=== PATIENT | male | born 1960 | race Caucasian/White ===

== ENCOUNTER 2018-01-11 08:03 | Observation (INO) ==
[2018-01-11 08:29] LABS: Basophils # 0.1 K/mm3 (0-0.2); Basophils % 0.5 % (0.1-2.0); Eosinophils # 0.2 K/mm3 (0.0-0.4); Hematocrit 47.1 % (42.0-52.0); Hemoglobin 15.4 g/dL (14.1-18.0); Lymphocytes # 2.8 K/mm3 (0.7-4.5); Lymphocytes % 23.9 K/mm3 (10-50); Mean Corpuscular HGB Conc 32.6 g/dL (31.8-35.4); Mean Corpuscular Hemoglobin 30.7 pg (27.0-31.2); Mean Corpuscular Volume 94.1 fl (80-94); Mean Platelet Volume 7.3 fl (7.4-10.4); Monocytes # 0.6 K/mm3 (0.1-1.0); Monocytes % 4.9 % (1.7-9.3); Neutrophils # 8.2 K/mm3 (1.8-7.8); Neutrophils % 68.8 % (37.0-80.0); Platelet Count 453 K/mm3 (142-424); White Blood Count 11.9 K/mm3 (4.8-10.8)
[2018-01-11 08:43] LABS: Alanine Aminotransferase 18 U/L (12-78); Albumin/Globulin Ratio 1.2 (1.1-1.8); Alkaline Phosphatase 97 U/L (46-116); Anion Gap 14.8 mEq/L (5-15); Aspartate Amino Transferase 10 U/L (15-37); Bilirubin,Total 0.5 mg/dL (0.2-1.0); Blood Urea Nitrogen 5 mg/dL (7-18); Calcium 9.6 mg/dL (8.5-10.1); Carbon Dioxide 23 mmol/L (21.0-32.0); Chloride 105 mmol/L (98-107); Globulin 3.4 gm/dl (1.3-3.2); Glucose 112 mg/dL (74-106); Sodium 140 mmol/L (136-145); Total Protein,Serum 7.4 gm/dL (6.4-8.2)
[2018-01-11 08:45] LABS: Potassium 2.8 mmoL/L (3.5-5.1)
--- NOTE | 2018-01-11 08:59 | Emergency Department Note ---
ED Disposition Clinical Impression: COPD (chronic obstructive pulmonary disease), Nausea vomiting and diarrhea, Hypokalemia, Dehydration, New onset left bundle branch block (LBBB), Atypical chest pain Disposition: Still a Patient Condition on Discharge: Fair Referrals: Mallika Rojas [Primary Care Provider] - - Critical Care Critical Care Time: No Attestation: On 01/11/18, the high probability of a clinically significant, sudden or life threatening deterioration of the following system(s) required my full and direct attention, intervention and personal management. The time I documented below is in addition to time spent performing reported procedures but includes the following listed in this critical care notation. Medical Decision Making - Juwan Inquiry Pt receiving controlled substance: No Juwan was queried for this patient: No Vital Signs: 01/11/18 08:08 01/11/18 08:35 01/11/18 09:29 Temperature 97.9 F Temperature Source Oral Pulse Rate [Left Radial] 81 65 78 Respiratory Rate 20 18 18 Blood Pressure [Right Arm] 143/95 149/89 146/93 Blood Pressure Mean [Right Arm] 111 109 110 Blood Pressure Source [Right Arm] Automatic Cuff Automatic Cuff Automatic Cuff Blood Pressure Position [Right Arm] Sitting Sitting Sitting 02 Sat by Pulse Oximetry 100 99 99 Oxygen Delivery Method Room Air Room Air Room Air - Lab Data Lab Results 01/11/18 08:15: WBC 11.9 H, RBC 5.00, Hgb 15.4, Hct 47.1, MCV 94.1 H, MCH 30.7, MCHC 32.6, RDW 13.0, Plt Count 453 H, MPV 7.3 L, Neut % (Auto) 68.8, Lymph % ( Auto) 23.9, [place] % (Auto) 4.9, Eos % (Auto) 2.0, Baso % (Auto) 0.5, Neut # (Auto ) 8.2 H, Lymph # (Auto) 2.8, [place] # (Auto) 0.6, Eos # (Auto) 0.2, Baso # (Auto) 0.1 01/11/18 08:15: Sodium 140, Potassium 2.8 L*, Chloride 105, Carbon Dioxide 23, Anion Gap 14.8, BUN 5 L, Creatinine 0.85, Estimated Creat Clear 87, Estimated GFR 92, Est GFR ( Amer) 112, Glucose 112 H, Calcium 9.6, Total Bilirubin 0.5, AST 10 L, ALT 18, Alkaline Phosphatase 97, Troponin I < 0.02, Total Protein 7.4, Albumin 4.0, Globulin 3.4 H, Albumin/Globulin Ratio 1.2 01/11/18 09:03: Magnesium 1.7, Total Creatine Kinase 120, CK-MB (CK-2) 1.4, CK- MB (CK-2) Rel Index 1.2, Troponin I < 0.02 01/11/18 09:03: Lactic Acid 1.1 Result diagrams: 01/11/18 08:15 01/11/18 08:15 Orders (Tests/Meds): ED MEDICATIONS Discontinued Medications Generic Name Dose Route Start Last Admin Trade Name Freq PRN Reason Stop Dose Admin Sodium Chloride 1,000 mls @ 999 mls/hr 01/11/18 08:45 01/11/18 08:43 Sod Chlor 0.9% 1000ml Bag IV 01/11/18 09:45 999 mls/hr .Q1H1M JORGE ALBERTO Administration Ondansetron HCl 4 mg 01/11/18 08:17 01/11/18 08:18 Zofran 4mg/2ml Vial IV 01/11/18 08:18 4 mg ONCE ONE Administration Potassium Chloride 40 meq 01/11/18 09:14 01/11/18 09:44 Klor-Con 20meq Tablet PO 01/11/18 09:15 40 meq ONCE ONE Administration ORDERS Category Date Time Status CT abdomen pelvis wo con Stat Cat Scan 01/11/18 08:52 Taken XR chest 2V Stat Exams 01/11/18 08:14 Taken Diarrhea Panel, PCR Stat Lab 01/11/18 08:52 Ordered - Radiology Data #1 Image(s): Chest Image Reviewed: Yes I reviewed the patient's radiology image Preliminary Findings: Normal/NAD copd no acute . - CT Data CT Scan: Abdomen, Pelvis Time Received: 09:[address] Reviewed: Yes: I have viewed the radiologist's interpretation Preliminary Findings: Abnormal Findings Narrative: see report. - ECG Data Tracing #1 Normal sinus rhythm 81/min left axis deviation baseline artifact new left bundle branch block and comparison to the EKG done on 12/21/2009. Later the patient was found to have a potassium of 2.8. ECG initial impression date: 01/11/18 ECG initial impression time: 08:15 Medical Decision Narrative: Patient was given antiemetics IV fluids with moderate control he continues to be nauseous. His potassium was 2.8 he has a new onset left bundle branch block I spoke with Dr. Flores who accepted to admit the patient for IV fluids potassium replacement and a cardiology consult. He was agreeable for admission. Nausea/Vomiting/Diarrhea HPI - General Chief complaint: Chest Pain Stated complaint: burning feeling in chest, insomnia, vomiting, dire Time Seen by Provider: 01/11/18 08:15 Mode of Arrival: Wheelchair Limitations: No Limitations Description of Symptoms (Recalled from ER Triage Doc. by RN): Pt states that he has chest burning that started a few days ago, with some tingling in his legs and arms.He has been unable to sleep for the last two nights, States he has had vomiting since Thursday - History of Present Illness HPI Narrative: 57 years old white male smoker with chronic hypertension noncompliant with medication, also he is a chronic pain syndrome with TENS unit for low back pain DJD of the cervical spine and 3 rotator cuff surgeries to the left shoulder most recent was 5 months ago on [place] gram. Patient presents today to the ED with a sense of numbness involving lower extremities extremities with elevated [place] blood pressure was 149/89 mmhg and vomiting that started 48 hours ago every 15 minutes accompanied by diarrhea without abdominal pain. He denies having hematemesis coffee-ground emesis melanotic stool bleeding per rectum dyspnea. He admits for having numb feeling in the retrosternal area radiating to the right side of the chest. He has been unable to tolerate p.o. intake or take his medication. He denies weakness, dysarthria or dysphagia or diplopia. He denies loss of urine or bowel control. he has no color changes of upper or lower extremities or loss of function. MD complaint: nausea, vomiting, diarrhea Onset (ago): day(s) (2 days.) Description of Vomiting: food contents, watery Description of Diarrhea: water Associated Abdominal Pain: No Relieving factors: none Exacerbating factors: none Associated symptoms: other (Numbness of the hands and face and retrosternal numbness. ) - Related Data Home Medications Medication Instructions Recorded Confirmed Hydrocod/Acet 5/325 mg [[place] 1 - 2 tab PO Q4HP PRN 01/11/18 01/11/18 5/325mg tablet] Allergies Allergy/AdvReac Type Severity Reaction Status Date / Time codeine [CODEINE] Allergy Intermediate Verified 11/20/17 19:45 ibuprofen [IBUPROFEN] Allergy Mild NA-NAUSEA Verified 11/20/17 19:45 oxycodone [OXYCODONE] Allergy Unknown UNKNOWN Verified 11/20/17 19:45 [facility] History I have reviewed the patient's past medical history: Yes (History was obtained from the patient. ) Medical History: Denies:: Cancer, Diabetes Mellitus Type 1, Diabetes Mellitus Type 2, MRSA Laterality Cases: Left: Arthroscopy Shoulder Amputation: No Fractures: No - Social History Smoking Status: Current every day smoker Tobacco Type: cigarettes # Packs/Day (cigarettes): 1 Alcohol Intake: never - Psychiatric History Expresses thoughts of harming self/others: None Suicide Plan Description: No Plan ROS Obtained: Yes All systems reviewed & no additional complaints Physical Exam - General General appearance: alert, in no apparent distress - Head Head exam: atraumatic, normocephalic, normal inspection - Eye Eye exam: Present: normal appearance, PERRL, EOMI - ENT ENT exam: Present: normal exam, normal oropharynx, mucous membranes dry, TM's normal bilaterally, normal external ear exam, other (Very dry and white tongue.) - Neck Neck exam: Present: normal inspection, full ROM, trachea midline. Absent: meningismus, lymphadenopathy - Chest Chest inspection: Present: normal inspection, symmetric chest wall rise. Absent : tenderness - Respiratory Respiratory exam: Present: normal lung sounds bilaterally. Absent: respiratory distress - Cardiovascular Cardiovascular exam: Present: regular rate, normal rhythm. Absent: JVD - Abdominal Exam Abdominal exam: Present: soft, normal bowel sounds. Absent: distention, tenderness, guarding, rebound, rigidity - exam: Present: normal inspection, normal testicular lie, circumcised. Absent : testicular tenderness, urethral discharge, scrotal swelling - Extremities Exam Extremities exam: Present: normal inspection, full ROM, normal capillary refill. Absent: calf tenderness - Back Exam Back exam: Present: normal inspection. Absent: tenderness, CVA tenderness (R), CVA tenderness (L), vertebral tenderness - Neurological Exam Neurological exam: Present: alert, oriented X3, CN II-XII intact, motor sensory deficit, reflexes normal, other (Motor power is 5/5, intact finger to nose test , no tremor) - Psychiatric Psychiatric exam: Present: normal affect, normal mood - Skin Skin exam: Present: warm, dry, intact, normal color, other (Refill is 1-2 seconds.) - Lymphatic Lymphatic Findings: no adenopathy
[2018-01-11 09:35] LABS: Creatine Kinase 120 U/L (39-308)
--- NOTE | 2018-01-11 10:51 | Pharmacy Consult Notes ---
[facility] Pharmacy VTE Monitoring - Patient Demographics Admission date: 01/11/18 Report Date: 01/11/18 Time: 10:50 Allergies/Adverse Reactions: Patient Allergies codeine [CODEINE] Allergy (Intermediate, Verified 11/20/17 19:45) ibuprofen [IBUPROFEN] Allergy (Mild, Verified 11/20/17 19:45) NA-NAUSEA oxycodone [OXYCODONE] Allergy (Unknown, Verified 11/20/17 19:45) UNKNOWN Height: 1.75 m Weight: 65.771 kg Patient Problems: Current Active Problems COPD (chronic obstructive pulmonary disease) (Acute) Nausea vomiting and diarrhea (Acute) Hypokalemia (Acute) Dehydration (Acute) New onset left bundle branch block (LBBB) (Acute) Atypical chest pain (Acute) - VTE Risk Labs: VTE Related Lab Results Hgb 15.4 g/dL (14.1-18.0) 01/11/18 08:15 Hct 47.1 % (42.0-52.0) 01/11/18 08:15 Plt Count 453 K/mm3 (142-424) H 01/11/18 08:15 BUN 5 mg/dL (7-18) L 01/11/18 08:15 Creatinine 0.85 mg/dL (0.70-1.30) 01/11/18 08:15 Estimated Creat Clear 87 mL/min (0-300) 01/11/18 08:15 - Prophylaxis VTE Prophylaxis Ordered?: Yes Types of VTE Prophylaxis: TEDS Knee High Location of Applied Device: Bilateral Lower Extremeties - VTE Diagnosis Confirmed Treatment or plan recommended: Continue Current Treatment
--- NOTE | 2018-01-11 11:30 | Consult Report ---
History of Present Illness Consult date: 01/11/18 Requesting physician: Wolfgang Cantu Consult reason: chest pain Chief complaint: Vomiting, Diarrhea, chest burning sensation Additional Medical History:: 1. Tobacco use of 1 pack per day for greater than 40 years 2. History of hypertension, discontinued medications due to "elevated pressure " per patient 3. Tens unit for chronic back pain History of present illness: 57-year-old white male with history of hypertension and tobacco use presented to the emergency department for 2 day history of nausea, vomiting and diarrhea with inability to keep food down. Symptoms have worsened and include a burning sensation in the chest along with discomfort in both arms. Patient's fianc is with him and states he has been drinking quite a bit of Gatorade but symptoms seem to worsen last evening which prompted a his visit to the ER. Evaluation in the ER included EKG which showed a left bundle branch block which was new compared to a 2010 tracing. Patient denies any history of left bundle branch block or cardiac problems. He recently had his TENS unit placed in [place] and reportedly had an EKG there without alarm. We will try to obtain that EKG for comparison. Patient's initial troponins are normal 2. He denies any exertional chest pain or shortness of breath recently. The fianc relates she had a GI illness last week and believes that the patient contracted it from her. Cardiology consulted for evaluation and recommendation of new left bundle branch block compared to 2010 tracing. [facility] History Medical History: Reports:: Cancer (bladder) Denies:: Diabetes Mellitus Type 1, Diabetes Mellitus Type 2, MRSA Laterality Cases: Left: Arthroscopy Shoulder Other Surgeries: Yes: Other (back (tens unit)) Amputation: No Fractures: No - *Social History Educational Level: Attended High School Smoking Status: Current every day smoker Tobacco Type: cigarettes # Packs/Day (cigarettes): 1 Alcohol Intake: former Occupational Status: disabled Household Members: significant other - Psychiatric History Expresses thoughts of harming self/others: None Suicide Plan Description: No Plan *Family Hx:: Cancer, Diabetes Meds Home Medications Medication Instructions Recorded Confirmed Type Hydrocod/Acet 5/325 mg [[place] 1 - 2 tab PO Q4HP PRN 01/11/18 01/11/18 History 5/325mg tablet] Allergies Allergy/AdvReac Type Severity Reaction Status Date / Time codeine [CODEINE] Allergy Intermediate Verified 11/20/17 19:45 ibuprofen [IBUPROFEN] Allergy Mild NA-NAUSEA Verified 11/20/17 19:45 oxycodone [OXYCODONE] Allergy Unknown UNKNOWN Verified 11/20/17 19:45 Review of Systems - *Cardiovascular Reports chest pain, Reports shortness of breath with activity - *Respiratory Reports shortness of breath with activity - *Gastrointestinal Reports heartburn, Reports vomiting - *Musculoskeletal Reports back pain - *Neurologic Denies abnormal movements, Denies abnormal speech Exam Vital signs and Labs for Last 24 Hours: Temp Pulse Resp BP Pulse Ox 98.4 F 71 20 142/90 99 01/11/18 10:58 01/11/18 10:58 01/11/18 10:58 01/11/18 10:58 01/11/18 10:48 Laboratory Results - last 24 hr 01/11/18 08:15: WBC 11.9 H, RBC 5.00, Hgb 15.4, Hct 47.1, MCV 94.1 H, MCH 30.7, MCHC 32.6, RDW 13.0, Plt Count 453 H, MPV 7.3 L, Neut % (Auto) 68.8, Lymph % ( Auto) 23.9, [place] % (Auto) 4.9, Eos % (Auto) 2.0, Baso % (Auto) 0.5, Neut # (Auto ) 8.2 H, Lymph # (Auto) 2.8, [place] # (Auto) 0.6, Eos # (Auto) 0.2, Baso # (Auto) 0.1 01/11/18 08:15: Sodium 140, Potassium 2.8 L*, Chloride 105, Carbon Dioxide 23, Anion Gap 14.8, BUN 5 L, Creatinine 0.85, Estimated Creat Clear 87, Estimated GFR 92, Est GFR ( Amer) 112, Glucose 112 H, Calcium 9.6, Total Bilirubin 0.5, AST 10 L, ALT 18, Alkaline Phosphatase 97, Troponin I < 0.02, Total Protein 7.4, Albumin 4.0, Globulin 3.4 H, Albumin/Globulin Ratio 1.2 01/11/18 09:03: Magnesium 1.7, Total Creatine Kinase 120, CK-MB (CK-2) 1.4, CK- MB (CK-2) Rel Index 1.2, Troponin I < 0.02 07/16/18 09:03: Lactic Acid 1.1 I & O for Last 24 hours: Intake & Output 01/08/18 01/09/18 01/10/18 01/11/18 11:59 11:59 11:59 11:59 Weight 145 lb - *Routine Neck Exam Absent: JVD, carotid bruit - *Routine Respiratory Exam Present: CTA bilaterally. Absent: rhonchi, wheezes - *Routine Cardiovascular Exam Present: RRR. Absent: murmur, gallop, rubs - *Routine Abdominal Exam Present: soft. Absent: guarding - *Routine Extremities Exam Absent: edema - *Routine Neurological Exam Present: alert, oriented X3, moving all extremities Assessment and Plan (1) New onset left bundle branch block (LBBB) Current visit: Yes Status: Acute Category: Medical Code(s): I44.7 - Left bundle-branch block, unspecified (2) Atypical chest pain Current visit: Yes Status: Acute Category: Medical Code(s): R07.89 - Other chest pain (3) Smoker Current visit: Yes Status: Acute Category: Social Hx Code(s): F17.200 - Nicotine dependence, unspecified, uncomplicated (4) Hypokalemia Current visit: Yes Status: Acute Category: Medical Code(s): E87.6 - Hypokalemia (5) Nausea vomiting and diarrhea Current visit: Yes Status: Acute Category: Medical Code(s): R11.2 - Nausea with vomiting, unspecified; R19.7 - Diarrhea, unspecified (6) COPD (chronic obstructive pulmonary disease) Current visit: Yes Status: Acute Category: Medical Code(s): J44.9 - Chronic obstructive pulmonary disease, unspecified - Assessment and plan all Dx Assessment and Plan for all problems:: 1. EKGs will be obtained from [facility] for review. 2. Will obtain an echocardiogram to evaluate left ventricular size, function and evaluate for wall motion abnormality. 3. Continue to replace potassium as ordered. We will also supplement magnesium. 4. Discussed need for cardiac workup with either Lexiscan Myoview or cardiac catheterization once patient's GI illness has resolved.
--- NOTE | 2018-01-11 16:55 | History & Physical Report ---
*Admission Date: 01/11/18 *Chief complaint: Vomiting *History of present illness: 57-year-old male presented to the emergency department with approximately 72 hours onset of a burning sensation that extended from his lower extremities up to the level of the chest with associated radiation into the arms. In addition to this he had 48 hours of vomiting and diarrhea. He is unsure of fevers. Patient was continuing to vomit in the emergency department and decision was made to admit for observation and IV fluids with treatment of vomiting with antiemetics. Patient has not vomited since admission but has had a few loose stools. On workup in the emergency department he was found to have a left bundle branch block which is new. Cardiology was consulted and have evaluated the patient. Subsequently he has had an echocardiogram performed which is revealed significant LV dysfunction. Patient is scheduled for cardiac catheterization in the morning [facility] History I have reviewed the patient's past medical history: Yes Medical History: Reports:: Cancer (bladder) Denies:: Diabetes Mellitus Type 1, Diabetes Mellitus Type 2, MRSA Laterality Cases: Left: Arthroscopy Shoulder Other Surgeries: Yes: Other (back (tens unit)) Amputation: No Fractures: No - *Social History Educational Level: Attended High School Smoking Status: Current every day smoker Tobacco Type: cigarettes # Packs/Day (cigarettes): 1 Alcohol Intake: former Occupational Status: disabled Household Members: significant other - Psychiatric History Expresses thoughts of harming self/others: None Suicide Plan Description: No Plan *Family Hx:: Cancer, Diabetes Review of Systems - Review of Systems Review of systems:: pertinent systems reviewed and negative unless documented below - *Neurologic Denies abnormal movements, Denies abnormal speech Meds Home Medications Medication Instructions Recorded Confirmed Type Flexeril 10mg tablet 10 mg PO BIDP PRN 01/11/18 01/11/18 History Hydrocod/Acet 5/325 mg [[place] 1 - 2 tab PO Q4HP PRN 01/11/18 01/11/18 History 5/325mg tablet] Allergies Allergy/AdvReac Type Severity Reaction Status Date / Time codeine [CODEINE] Allergy Intermediate Verified 11/20/17 19:45 ibuprofen [IBUPROFEN] Allergy Mild NA-NAUSEA Verified 11/20/17 19:45 oxycodone [OXYCODONE] Allergy Unknown UNKNOWN Verified 11/20/17 19:45 Exam Vital signs and Labs for Last 24 Hours: Temp Pulse Resp BP Pulse Ox 98.0 F 71 18 142/83 97 01/11/18 15:27 01/11/18 15:27 01/11/18 15:27 01/11/18 15:27 01/11/18 15:27 Laboratory Results - last 24 hr 01/11/18 08:15: WBC 11.9 H, RBC 5.00, Hgb 15.4, Hct 47.1, MCV 94.1 H, MCH 30.7, MCHC 32.6, RDW 13.0, Plt Count 453 H, MPV 7.3 L, Neut % (Auto) 68.8, Lymph % ( Auto) 23.9, [place] % (Auto) 4.9, Eos % (Auto) 2.0, Baso % (Auto) 0.5, Neut # (Auto ) 8.2 H, Lymph # (Auto) 2.8, [place] # (Auto) 0.6, Eos # (Auto) 0.2, Baso # (Auto) 0.1 01/11/18 08:15: Sodium 140, Potassium 2.8 L*, Chloride 105, Carbon Dioxide 23, Anion Gap 14.8, BUN 5 L, Creatinine 0.85, Estimated Creat Clear 87, Estimated GFR 92, Est GFR ( Amer) 112, Glucose 112 H, Calcium 9.6, Total Bilirubin 0.5, AST 10 L, ALT 18, Alkaline Phosphatase 97, Troponin I < 0.02, Total Protein 7.4, Albumin 4.0, Globulin 3.4 H, Albumin/Globulin Ratio 1.2 01/11/18 08:40: Stl Aeromonas (PCR) Not detected, Stl C. cayetanensis PCR Not detected, Stool Rotavirus (PCR) Not detected, Stl Adenov F 40/41 PCR Not detected, Stool Astrovirus (PCR) Not detected, Stool Campylobacter PCR Not detected, Stl C.difficile Tox PCR Not detected, Stool Cryptosporidium PCR Not detected, Stl E.coli Shiga Tox PCR Not detected, Stool E coli O157 PCR Not detected, Stl Enterotoxigenic E PCR Not detected, Stool EPEC (PCR) Not detected , Stool EAEC (PCR) Not detected, Stl E. histolytica PCR Not detected, Stool Giardia Lamblia PCR Not detected, Stool Salmonella PCR Not detected, Stool Sapovirus (PCR) Not detected, Stl P. shigelloides PCR Not detected, Stl Shigella /EIEC PCR Not detected, St Y.enterocolitica PCR Not detected, Stool Vibrio (PCR ) Not detected, Stl Vibrio cholerae PCR Not detected, Stl Norovirus GI/GII PCR Not detected 01/11/18 09:03: Magnesium 1.7, Total Creatine Kinase 120, CK-MB (CK-2) 1.4, CK- MB (CK-2) Rel Index 1.2, Troponin I < 0.02 01/11/18 09:03: Lactic Acid 1.1 01/11/18 11:03: Troponin I < 0.02 01/11/18 16:01: Troponin I < 0.02 01/11/18 16:01: Potassium 3.4 L D I & O for Last 24 hours: Intake & Output 01/09/18 01/10/18 01/11/18 01/12/18 11:59 11:59 11:59 11:59 Weight 145 lb Narrative: Patient is awake and alert. He does not appear ill nor in any distress. HEENT exam is unrevealing. Neck is without lymphadenopathy. Lungs are clear to auscultation. Heart has a regular rate and rhythm. Abdomen is soft, nontender , nondistended and thin. Extremities are warm to the touch and without edema. He has no neurologic deficits. H&P: Result - Labs Labs: Short CBC 01/11/18 Range/Units 08:15 WBC 11.9 H (4.8-10.8) K/mm3 Hgb 15.4 (14.1-18.0) g/dL Hct 47.1 (42.0-52.0) % Plt Count 453 H (142-424) K/mm3 [facility] 01/11/18 01/11/18 08:15 16:01 Sodium 140 Potassium 2.8 L* 3.4 L D Chloride 105 Carbon Dioxide 23 BUN 5 L Creatinine 0.85 Glucose 112 H Calcium 9.6 Cardiac Enzymes 01/11/18 01/11/18 01/11/18 Range/Units 08:15 09:03 11:03 Total Creatine Kinase 120 (39-308) U/L CK-MB (CK-2) 1.4 (0.0-3.6) ng/ml Troponin I < 0.02 < 0.02 < 0.02 (0.00-0.06) ng/ml 01/11/18 Range/Units 16:01 Total Creatine Kinase (39-308) U/L CK-MB (CK-2) (0.0-3.6) ng/ml Troponin I < 0.02 (0.00-0.06) ng/ml Liver Function 01/11/18 Range/Units 08:15 Total Bilirubin 0.5 (0.2-1.0) mg/dL AST 10 L (15-37) U/L ALT 18 (12-78) U/L Alkaline Phosphatase 97 (46-116) U/L Albumin 4.0 (3.4-5.0) gm/dL Assessment and Plan (1) New onset left bundle branch block (LBBB) Current visit: Yes Status: Acute Category: Medical Code(s): I44.7 - Left bundle-branch block, unspecified (2) Hypokalemia Current visit: Yes Status: Acute Category: Medical Code(s): E87.6 - Hypokalemia (3) Atypical chest pain Current visit: Yes Status: Acute Category: Medical Code(s): R07.89 - Other chest pain (4) Smoker Current visit: Yes Status: Acute Category: Social Hx Code(s): F17.200 - Nicotine dependence, unspecified, uncomplicated (5) Nausea vomiting and diarrhea Current visit: Yes Status: Acute Category: Medical Code(s): R11.2 - Nausea with vomiting, unspecified; R19.7 - Diarrhea, unspecified (6) COPD (chronic obstructive pulmonary disease) Current visit: Yes Status: Acute Category: Medical Code(s): J44.9 - Chronic obstructive pulmonary disease, unspecified (7) Left ventricular systolic dysfunction Current visit: Yes Status: Acute Category: Medical Code(s): I51.9 - Heart disease, unspecified - Assessment and plan all Dx Assessment and Plan for all problems:: 1. Continue IV fluid hydration although I will decrease his rate to due to his depressed left ventricular systolic dysfunction. 2. Cardiology has already initiated appropriate medical regimen for LV dysfunction 3. Repeat potassium in a.m. 4. Liquid diet
--- NOTE | 2018-01-11 21:11 | Cardiology Report ---
PROCEDURE: 2-D M-mode and color Doppler study INDICATIONS FOR THE TEST: Chest pain + COPD+ Heart Murmur Tobacco Smoking+ Palpitations Fatigue Syncope Edema Hypertension+Diabetes Mellitus Rheumatic Fever SOB [place] Obesity Hyperlipidemia Family History HD Additional History LBBB, BLADDER CA, NAME ON IMAGES STATES KENDAL, THIS IS ECHO ON WONG AT 12:27PM PATIENT INFORMATION HEIGHT: 69 WEIGHT:145 GENDER: Male B/P:142/90 2-D/M-MODE INTERPRETATION: 2-D MEASUREMENTS OBSERVED VALUES IN CMS Right Ventricular Dimension (RVDd) 1.9 Interventricular Septum (Thickness)(IVsd) 1.7 Left Ventricular Internal Dimensions(LVIDd) 4.9 Left Ventricular Posterior Wall (Thickness)(LVPWd) 1.4 Aortic Root 3.3 Aortic Cusp Separation 2.0 Left Atrial Dimensions (LAD) 3.5 2D 1. Left atrium is mildly enlarged, left ventricle is mildly dilated, there is mild concentric left ventricular hypertrophy, visually estimated ejection fraction approximately 20%, left ventricle is globally hypokinetic, there is abnormal septal motion. 2. The right atrium and right ventricle are normal size and contractility. 3. The aortic valve is minimally thickened and fibrosed. 4. The mitral and tricuspid valve leaflets are minimally thickened. 5. The pulmonic valve is poorly visualized. 6. No significant pericardial effusion noted. DOPPLER INTERROGATION: Doppler interrogation of the aortic, mitral and tricuspid valvular presence of mild mitral and tricuspid regurgitation, Doppler evidence of low cardiac output is also seen. Diastolic parameters are inconclusive CONCLUSION: 1. Mildly enlarged left atrium, dilated left ventricle, severely reduced left ventricular systolic function, visually estimated ejection fraction 20%, left ventricle is globally hypokinetic, Doppler evidence of low cardiac output seen. 2. Mild mitral and tricuspid regurgitation 3. No significant pericardial effusion noted.
[2018-01-12 06:23] LABS: Basophils # 0.1 K/mm3 (0-0.2); Basophils % 0.7 % (0.1-2.0); Eosinophils # 0.2 K/mm3 (0.0-0.4); Eosinophils % 1.6 % (0.1-12.0); Hematocrit 42.6 % (42.0-52.0); Lymphocytes # 3.6 K/mm3 (0.7-4.5); Lymphocytes % 38.3 K/mm3 (10-50); Mean Corpuscular HGB Conc 31.2 g/dL (31.8-35.4); Mean Corpuscular Hemoglobin 29.8 pg (27.0-31.2); Mean Corpuscular Volume 95.3 fl (80-94); Mean Platelet Volume 7.3 fl (7.4-10.4); Monocytes # 0.5 K/mm3 (0.1-1.0); Monocytes % 5.6 % (1.7-9.3); Neutrophils # 5.1 K/mm3 (1.8-7.8); Neutrophils % 53.9 % (37.0-80.0); Platelet Count 371 K/mm3 (142-424); Red Blood Count 4.47 M/mm3 (4.60-6.20); Red Cell Distribution Width 13.2 % (11.5-17.5); White Blood Count 9.5 K/mm3 (4.8-10.8)
[2018-01-12 06:28] LABS: Hemoglobin 13.6 g/dL (14.1-18.0)
[2018-01-12 07:07] LABS: Albumin Level 3.1 gm/dL (3.4-5.0); Albumin/Globulin Ratio 1.1 (1.1-1.8); Anion Gap 12.4 mEq/L (5-15); Bilirubin,Total 0.4 mg/dL (0.2-1.0); Globulin 2.9 gm/dl (1.3-3.2); Potassium 3.4 mmoL/L (3.5-5.1)
--- NOTE | 2018-01-12 07:18 | Progress Note ---
Internal Medicine - PN: Subj *Date: 01/12/18 *Time: 07:17 Interval history: Patient did have an episode of chest pain overnight that radiated into the left shoulder and arm. He had poor quality sleep primarily from pain in his neck. He requests a sleeping medication if he has to stay in the hospital. Exam Vital signs and Labs for Last 24 Hours: Temp Pulse Resp BP Pulse Ox 98.1 F 64 16 134/87 94 L 01/12/18 04:00 01/12/18 04:00 01/12/18 04:00 01/12/18 04:00 01/12/18 04:00 Laboratory Results - last 24 hr 01/11/18 08:15: WBC 11.9 H, RBC 5.00, Hgb 15.4, Hct 47.1, MCV 94.1 H, MCH 30.7, MCHC 32.6, RDW 13.0, Plt Count 453 H, MPV 7.3 L, Neut % (Auto) 68.8, Lymph % ( Auto) 23.9, [place] % (Auto) 4.9, Eos % (Auto) 2.0, Baso % (Auto) 0.5, Neut # (Auto ) 8.2 H, Lymph # (Auto) 2.8, [place] # (Auto) 0.6, Eos # (Auto) 0.2, Baso # (Auto) 0.1 01/11/18 08:15: Sodium 140, Potassium 2.8 L*, Chloride 105, Carbon Dioxide 23, Anion Gap 14.8, BUN 5 L, Creatinine 0.85, Estimated Creat Clear 87, Estimated GFR 92, Est GFR ( Amer) 112, Glucose 112 H, Calcium 9.6, Total Bilirubin 0.5, AST 10 L, ALT 18, Alkaline Phosphatase 97, Troponin I < 0.02, Total Protein 7.4, Albumin 4.0, Globulin 3.4 H, Albumin/Globulin Ratio 1.2 01/11/18 08:40: Stl Aeromonas (PCR) Not detected, Stl C. cayetanensis PCR Not detected, Stool Rotavirus (PCR) Not detected, Stl Adenov F 40/41 PCR Not detected, Stool Astrovirus (PCR) Not detected, Stool Campylobacter PCR Not detected, Stl C.difficile Tox PCR Not detected, Stool Cryptosporidium PCR Not detected, Stl E.coli Shiga Tox PCR Not detected, Stool E coli O157 PCR Not detected, Stl Enterotoxigenic E PCR Not detected, Stool EPEC (PCR) Not detected , Stool EAEC (PCR) Not detected, Stl E. histolytica PCR Not detected, Stool Giardia Lamblia PCR Not detected, Stool Salmonella PCR Not detected, Stool Sapovirus (PCR) Not detected, Stl P. shigelloides PCR Not detected, Stl Shigella /EIEC PCR Not detected, St Y.enterocolitica PCR Not detected, Stool Vibrio (PCR ) Not detected, Stl Vibrio cholerae PCR Not detected, Stl Norovirus GI/GII PCR Not detected 01/11/18 09:03: Magnesium 1.7, Total Creatine Kinase 120, CK-MB (CK-2) 1.4, CK- MB (CK-2) Rel Index 1.2, Troponin I < 0.02 01/11/18 09:03: Lactic Acid 1.1 01/11/18 11:03: Troponin I < 0.02 01/11/18 16:01: Troponin I < 0.02 01/11/18 16:01: Potassium 3.4 L D 01/11/18 22:33: Troponin I < 0.02 01/12/18 05:53: WBC 9.5, RBC 4.47 L, Hgb 13.6 L D, Hct 42.6, MCV 95.3 H, MCH 29.8, MCHC 31.2 L, RDW 13.2, Plt Count 371, MPV 7.3 L, Neut % (Auto) 53.9, Lymph % (Auto) 38.3, [place] % (Auto) 5.6, Eos % (Auto) 1.6, Baso % (Auto) 0.7, Neut # (Auto) 5.1, Lymph # (Auto) 3.6, [place] # (Auto) 0.5, Eos # (Auto) 0.2, Baso # (Auto) 0.1 I & O for Last 24 hours: Intake & Output 01/09/18 01/10/18 01/11/18 01/12/18 11:59 11:59 11:59 11:59 Intake Total 643 / 643 Output Total 480 / 480 Balance 163 / 163 Weight 145 lb Narrative: He is in no distress. Lungs are clear to auscultation. Heart has a regular rate and rhythm. Assessment and Plan (1) New onset left bundle branch block (LBBB) Current visit: Yes Status: Acute Category: Medical Code(s): I44.7 - Left bundle-branch block, unspecified (2) Hypokalemia Current visit: Yes Status: Acute Category: Medical Code(s): E87.6 - Hypokalemia (3) Atypical chest pain Current visit: Yes Status: Acute Category: Medical Code(s): R07.89 - Other chest pain (4) Smoker Current visit: Yes Status: Acute Category: Social Hx Code(s): F17.200 - Nicotine dependence, unspecified, uncomplicated (5) Nausea vomiting and diarrhea Current visit: Yes Status: Acute Category: Medical Code(s): R11.2 - Nausea with vomiting, unspecified; R19.7 - Diarrhea, unspecified (6) COPD (chronic obstructive pulmonary disease) Current visit: Yes Status: Acute Category: Medical Code(s): J44.9 - Chronic obstructive pulmonary disease, unspecified (7) Left ventricular systolic dysfunction Current visit: Yes Status: Acute Category: Medical Code(s): I51.9 - Heart disease, unspecified - Assessment and plan all Dx Assessment and Plan for all problems:: 1. Cardiac cath today 2. Patient be given sleeping medicine for tonight.
[2018-01-12 08:18] LABS: Calcium 8.2 mg/dL (8.5-10.1)
--- NOTE | 2018-01-12 08:26 | Progress Note ---
Subjective Date: 01/12/18 Time: 08:23 Principal diagnosis: New Cardiomyopathy, LBBB Interval history: 57 yo WM in bed in NAD. Some burning sensation last night going from top of left foot up through chest and into left arm. Improved with Morphine. Questions answered about lifevest. Exam Vital signs and Labs for Last 24 Hours: Temp Pulse Resp BP Pulse Ox 97.6 F 57 L 16 139/75 96 01/12/18 08:00 01/12/18 08:00 01/12/18 08:00 01/12/18 08:00 01/12/18 08:00 Laboratory Results - last 24 hr 01/11/18 08:15: WBC 11.9 H, RBC 5.00, Hgb 15.4, Hct 47.1, MCV 94.1 H, MCH 30.7, MCHC 32.6, RDW 13.0, Plt Count 453 H, MPV 7.3 L, Neut % (Auto) 68.8, Lymph % ( Auto) 23.9, [place] % (Auto) 4.9, Eos % (Auto) 2.0, Baso % (Auto) 0.5, Neut # (Auto ) 8.2 H, Lymph # (Auto) 2.8, [place] # (Auto) 0.6, Eos # (Auto) 0.2, Baso # (Auto) 0.1 01/11/18 08:15: Sodium 140, Potassium 2.8 L*, Chloride 105, Carbon Dioxide 23, Anion Gap 14.8, BUN 5 L, Creatinine 0.85, Estimated Creat Clear 87, Estimated GFR 92, Est GFR ( Amer) 112, Glucose 112 H, Calcium 9.6, Total Bilirubin 0.5, AST 10 L, ALT 18, Alkaline Phosphatase 97, Troponin I < 0.02, Total Protein 7.4, Albumin 4.0, Globulin 3.4 H, Albumin/Globulin Ratio 1.2 01/11/18 08:40: Stl Aeromonas (PCR) Not detected, Stl C. cayetanensis PCR Not detected, Stool Rotavirus (PCR) Not detected, Stl Adenov F 40/41 PCR Not detected, Stool Astrovirus (PCR) Not detected, Stool Campylobacter PCR Not detected, Stl C.difficile Tox PCR Not detected, Stool Cryptosporidium PCR Not detected, Stl E.coli Shiga Tox PCR Not detected, Stool E coli O157 PCR Not detected, Stl Enterotoxigenic E PCR Not detected, Stool EPEC (PCR) Not detected , Stool EAEC (PCR) Not detected, Stl E. histolytica PCR Not detected, Stool Giardia Lamblia PCR Not detected, Stool Salmonella PCR Not detected, Stool Sapovirus (PCR) Not detected, Stl P. shigelloides PCR Not detected, Stl Shigella /EIEC PCR Not detected, St Y.enterocolitica PCR Not detected, Stool Vibrio (PCR ) Not detected, Stl Vibrio cholerae PCR Not detected, Stl Norovirus GI/GII PCR Not detected 01/11/18 09:03: Magnesium 1.7, Total Creatine Kinase 120, CK-MB (CK-2) 1.4, CK- MB (CK-2) Rel Index 1.2, Troponin I < 0.02 01/11/18 09:03: Lactic Acid 1.1 01/11/18 11:03: Troponin I < 0.02 01/11/18 16:01: Troponin I < 0.02 01/11/18 16:01: Potassium 3.4 L D 01/11/18 22:33: Troponin I < 0.02 01/12/18 05:53: WBC 9.5, RBC 4.47 L, Hgb 13.6 L D, Hct 42.6, MCV 95.3 H, MCH 29.8, MCHC 31.2 L, RDW 13.2, Plt Count 371, MPV 7.3 L, Neut % (Auto) 53.9, Lymph % (Auto) 38.3, [place] % (Auto) 5.6, Eos % (Auto) 1.6, Baso % (Auto) 0.7, Neut # (Auto) 5.1, Lymph # (Auto) 3.6, [place] # (Auto) 0.5, Eos # (Auto) 0.2, Baso # (Auto) 0.1 01/12/18 05:53: Sodium 143, Potassium 3.4 L, Chloride 109 H, Carbon Dioxide 25, Anion Gap 12.4, BUN 5 L, Creatinine 0.82, Estimated Creat Clear 90, Estimated GFR 96, Est GFR ( Amer) 116, Glucose 106, Calcium 8.2 L D, Magnesium 1.9 D, Total Bilirubin 0.4, AST 8 L, ALT 16, Alkaline Phosphatase 74, Total Protein 6.0 L, Albumin 3.1 L D, Globulin 2.9, Albumin/Globulin Ratio 1.1, Triglycerides 94, Cholesterol 165, LDL Cholesterol 113, VLDL Cholesterol 19, HDL Cholesterol 33, Cholesterol/HDL Ratio 5.0 H I & O for Last 24 hours: Intake & Output 01/09/18 01/10/18 01/11/18 01/12/18 11:59 11:59 11:59 11:59 Intake Total 643 / 643 Output Total 480 / 480 Balance 163 / 163 Weight 145 lb - *Routine Respiratory Exam Present: CTA bilaterally - *Routine Cardiovascular Exam Present: RRR Progress Note: A&P (1) New onset left bundle branch block (LBBB) Status: Acute Current Visit: Yes (2) Hypokalemia Status: Acute Current Visit: Yes (3) Atypical chest pain Status: Acute Current Visit: Yes (4) Smoker Status: Acute Current Visit: Yes (5) Nausea vomiting and diarrhea Status: Acute Current Visit: Yes (6) COPD (chronic obstructive pulmonary disease) Status: Acute Current Visit: Yes (7) Left ventricular systolic dysfunction Status: Acute Current Visit: Yes Assessment and Plan for All Diagnoses:: Continue coreg and entresto along with spironolactone. Potassium improved. No significant arrhythmias noted on telemetry. Add digoxin. Cardiac cath today. Will order LifeVest.
[2018-01-13 07:40] LABS: Anion Gap 12.6 mEq/L (5-15); Calcium 8.2 mg/dL (8.5-10.1); Potassium 3.6 mmoL/L (3.5-5.1)
--- NOTE | 2018-01-13 07:48 | Discharge Summary ---
General - General Admission date:: 01/11/18 Discharge date: 01/13/18 HPI HPI: 57-year-old male presented to the emergency department with approximately 72 hours onset of a burning sensation that extended from his lower extremities up to the level of the chest with associated radiation into the arms. In addition to this he had 48 hours of vomiting and diarrhea. He is unsure of fevers. Patient was continuing to vomit in the emergency department and decision was made to admit for observation and IV fluids with treatment of vomiting with antiemetics. Patient has not vomited since admission but has had a few loose stools. On workup in the emergency department he was found to have a left bundle branch block which is new. Cardiology was consulted and have evaluated the patient. Subsequently he has had an echocardiogram performed which is revealed significant LV dysfunction. Patient is scheduled for cardiac catheterization in the morning Hospital Course Hospital Course: Patient was admitted and on the initial day of admission echocardiogram revealed an ejection fraction of 20%. Vomiting ceased the day of admission. Patient continued to have loose stools that also improved during hospitalization. Cardiology evaluated the patient and he was taken to the [facility] on January 12. Patient had normal coronary arteries and was diagnosed with nonischemic cardiomyopathy. LifeVest was recommended and cardiology service investigated the compatibility of the LifeVest with the patient's spinal cord stimulator. Patient was started on Entresto, carvedilol, spironolactone for his cardiomyopathy. Patient was discharged home on January 13 patient will follow up with Dr. Schuster in 1 week. Objective Vital signs: Temp Pulse Resp BP Pulse Ox 98.1 F 87 16 120/81 95 01/13/18 04:00 01/13/18 04:00 01/13/18 04:00 01/13/18 04:00 01/13/18 04:00 Results Labs on day of discharge: Labs from last 24 hours 01/12/18 05:53 Calcium 8.2 L D DS: Diagnosis - Discharge Diagnosis (1) Nonischemic cardiomyopathy Status: Acute (2) New onset left bundle branch block (LBBB) Status: Acute (3) Hypokalemia Status: Acute (4) Atypical chest pain Status: Acute (5) Smoker Status: Acute (6) Nausea vomiting and diarrhea Status: Acute (7) COPD (chronic obstructive pulmonary disease) Status: Acute (8) Left ventricular systolic dysfunction Status: Acute Discharge Plan - Patient Discharge Instructions ACTIVITY: Continue current activity DIET: continue same diet Patient Instructions: Dehydration, Chronic Obstructive Pulmonary Disease, Cardiac Catheterization, Surgical Site Infection, Hypokalemia - Follow up Plan Follow up with: Marshall Schuster MD [Staff Physician] - Wolfgang Cantu MD [Staff Physician] - 01/22/18 11:30 am Disposition: Home, Self-Detention Medications: Home Medications Medication Instructions Recorded Confirmed Type Cyclobenzaprine HCl 10 mg PO Q8HP PRN 01/11/18 01/12/18 History [Cyclobenzaprine 10mg Tab] Hydrocod/Acet 5/325 mg [[place] 1 - 2 tab PO Q4HP PRN 01/11/18 01/11/18 History 5/325mg tablet] buPROPion HCl [Bupropion HCl Sr] 150 mg PO BID 01/12/18 01/12/18 History Prescriptions/Medication Reconciliation: New Sacubitril/Valsartan [Entresto 24/26mg Tablet] 1 each PO BID #60 tab Spironolactone [Aldactone 25mg Tab] 25 mg PO DAILY #30 tab Carvedilol [Coreg 3.125mg Tablet] 3.125 mg PO BID #60 tab Continue Hydrocod/Acet 5/325 mg [[place] 5/325mg tablet] 1 - 2 tab PO Q4HP PRN PRN Reason: PAIN Cyclobenzaprine HCl [Cyclobenzaprine 10mg Tab] 10 mg PO Q8HP PRN PRN Reason: Muscle Spasm buPROPion HCl [Bupropion HCl Sr] 150 mg PO BID
[2018-01-13 08:09] VITALS: BP 127/77
--- NOTE | 2018-01-13 08:55 | Progress Note ---
Subjective Date: 01/13/18 Time: 08:51 Principal diagnosis: New Cardiomyopathy, LBBB Interval history: 57-year-old white male relating in room in no acute distress. There is some discomfort in the right wrist at the cath site and some left shoulder pain which is chronic. Patient denies any chest pain. Results of the cardiac cath patient discussed. I informed him that the LifeVest should be fitted later today and he can be discharged home after that. Exam Vital signs and Labs for Last 24 Hours: Temp Pulse Resp BP Pulse Ox 97.7 F 64 20 127/77 95 01/13/18 08:00 01/13/18 08:38 01/13/18 08:38 01/13/18 08:00 01/13/18 08:38 Laboratory Results - last 24 hr 01/13/18 07:13: Sodium 140, Potassium 3.6, Chloride 108 H, Carbon Dioxide 23, Anion Gap 12.6, BUN 5 L, Creatinine 0.90, Estimated Creat Clear 82, Estimated GFR 86, Est GFR ( Amer) 105, Glucose 112 H, Calcium 8.2 L I & O for Last 24 hours: Intake & Output 01/10/18 01/11/18 01/12/18 01/13/18 11:59 11:59 11:59 11:59 Intake Total 643 / 643 1243 / 1243 Output Total 480 / 480 680 / 680 Balance 163 / 163 563 / 563 Weight 145 lb 145 lb 0.004 oz - *Routine Respiratory Exam Present: CTA bilaterally - *Routine Cardiovascular Exam Present: RRR - *Routine Extremities Exam Absent: edema - *Routine Neurological Exam Present: alert, oriented X3, moving all extremities Progress Note: A&P (1) Nonischemic cardiomyopathy Status: Acute Current Visit: Yes (2) New onset left bundle branch block (LBBB) Status: Acute Current Visit: Yes (3) Hypokalemia Status: Acute Current Visit: Yes (4) Atypical chest pain Status: Acute Current Visit: Yes (5) Smoker Status: Acute Current Visit: Yes (6) Nausea vomiting and diarrhea Status: Acute Current Visit: Yes (7) COPD (chronic obstructive pulmonary disease) Status: Acute Current Visit: Yes (8) Left ventricular systolic dysfunction Status: Acute Current Visit: Yes Assessment and Plan for All Diagnoses:: Nonischemic cardiomyopathy likely due to viral versus alcoholic etiology. Patient discontinued alcohol 2 weeks ago. Home medications to include Coreg 3.125 mg twice daily, digoxin 0.125 mg daily, Entresto 24/26 mg twice daily and spironolactone 25 mg daily. LifeVest to be fitted later today and patient can be discharged home thereafter. Follow-up in our office in 1 week.
== END 2018-01-13 12:15 | disposition home or self-care (01) ==
LOC: ER 08:03 → 2ND 08:03
PROVIDERS: ADMIT Family Medicine; ATTEND Family Medicine

== ENCOUNTER → 2018-02-17 10:18 | Outpatient (CLI) | payer MEDICARE, SELFPAY ==
--- NOTE | 2018-02-17 10:22 | XR_ITS ---
XR acute abdomen series HISTORY: ITS.REASON: abdominal pain ORDERING PHYSICIAN: Ac Alonso MD PATIENT AGE: 58 years COMPARISON: None TECHNIQUE: Upright view of the chest is performed along with upright and supine views of the abdomen and pelvis. FINDINGS: Frontal view of the chest shows no acute finding. There is mild biapical fibrosis. There is an epidural stimulator device present overlying the T10 level. Upright and supine views of the abdomen show scattered air-fluid levels mostly within large bowel. No evidence of small bowel obstruction or free air. No acute bony anomalies or abnormal calcifications. IMPRESSION: Scattered air-fluid levels within the large bowel suggesting colitis/ileus may also be seen with diarrhea disease
[2018-02-17 10:51] LABS: Microscopic, Urine URINE MICROSCOPIC (MICROSCOPIC)
[2018-02-17 11:09] LABS: Basophils % 0.3 % (0.1-2.0); Eosinophils # 0.1 K/mm3 (0.0-0.4); Hematocrit 31.1 % (42.0-52.0); Hemoglobin 9.9 g/dL (14.1-18.0); Lymphocytes # 2.2 K/mm3 (0.7-4.5); Lymphocytes % 32.7 K/mm3 (10-50); Mean Corpuscular Hemoglobin 30.4 pg (27.0-31.2); Mean Corpuscular Volume 95.3 fl (80-94); Mean Platelet Volume 7.1 fl (7.4-10.4); Monocytes # 0.6 K/mm3 (0.1-1.0); Monocytes % 8.9 % (1.7-9.3); Neutrophils # 3.8 K/mm3 (1.8-7.8); Neutrophils % 56.1 % (37.0-80.0); Platelet Count 412 K/mm3 (142-424); Red Blood Count 3.26 M/mm3 (4.60-6.20); Red Cell Distribution Width 13.2 % (11.5-17.5); White Blood Count 6.7 K/mm3 (4.8-10.8)
[2018-02-17 11:10] LABS: Appearance,Urine CLEAR (Clear); Bilirubin,Urine Negative (Negative); Blood, Urine Negative (Negative); Color,Urine YELLOW (Yellow); Glucose,Urine (UA) Negative (Negative); Ketones,Urine Negative (Negative); Leukocyte Esterase,Urine Negative (Negative); Nitrate,Urine Negative (Negative); Protein,Urine Negative (Negative); Urobilinogen,Urine 0.2 EU/dl (0.2)
[2018-02-17 11:18] LABS: Bacteria,Urine Trace /lpf; Squamous Epithelial Cell,Urine Occasional #/hpf (0-5)
[2018-02-17 12:56] LABS: Alanine Aminotransferase 24 U/L (12-78); Albumin Level 2.8 gm/dL (3.4-5.0); Albumin/Globulin Ratio 0.9 (1.1-1.8); Alkaline Phosphatase 93 U/L (46-116); Anion Gap 12.4 mEq/L (5-15); Aspartate Amino Transferase 16 U/L (15-37); Bilirubin,Total 0.1 mg/dL (0.2-1.0); Blood Urea Nitrogen 5 mg/dL (7-18); Calcium 8.2 mg/dL (8.5-10.1); Carbon Dioxide 27 mmol/L (21.0-32.0); Chloride 107 mmol/L (98-107); Creatinine,Serum 1.01 mg/dL (0.70-1.30); Estimated Glomerular Filt Rate 75 ml/min (>60); GFR (African American) 91 ML/MIN (>60); Glucose 91 mg/dL (74-106); Potassium 4.4 mmoL/L (3.5-5.1); Sodium 142 mmol/L (136-145); Total Protein,Serum 5.8 gm/dL (6.4-8.2)
== END ==
PROVIDERS: Family Provider Family Medicine; PCP Family Medicine; Visit Provider Surgery
DX: R10.9 Unspecified abdominal pain (principal); K59.00 Constipation, unspecified
CPT/HCPCS: 36415; 74021; 80053; 81001; 85025

== ENCOUNTER → 2018-02-24 08:45 | Outpatient (CLI) | payer MEDICARE, SELFPAY ==
[2018-02-24 08:48] LABS: Adenovirus F 40/41, stool Not Detected (NotDetected); Astrovirus Not Detected (NotDetected); Campylobacter Not Detected (NotDetected); Cryptosporidium Not Detected (NotDetected); Cyclospora Cayetanesis Not Detected (NotDetected); Entamoeba histolytica Not Detected (NotDetected); Enteroaggregative E coli Not Detected (NotDetected); Enteropathogenic E coli Not Detected (NotDetected); Enterotoxigenic E coli Not Detected (NotDetected); Giardia lamblia Not Detected (NotDetected); Norovirus Not Detected (NotDetected); Plesimonas Shigalloides, PCR Not Detected (NotDetected); Rotavirus A Not Detected (NotDetected); Salmonella, PCR Not Detected (NotDetected); Sapovirus Not Detected (NotDetected); Shiga-like toxin E coli Not Detected (NotDetected); Shigella Enterovasive E coli Not Detected (NotDetected); Vibrio Cholerae Not Detected (NotDetected); Vibrio, PCR Not Detected (NotDetected); Yersinia Entercolitica, PCR Not Detected (NotDetected)
[2018-02-24 12:59] LABS: Clostridium Difficile A/B, PCR Detected (NotDetected)
== END ==
PROVIDERS: PCP Family Medicine; Visit Provider Surgery
DX: R10.9 Unspecified abdominal pain
CPT/HCPCS: 87507

== ENCOUNTER 2018-06-13 10:42 | Observation (INO) ==
--- NOTE | 2018-06-13 11:45 | Emergency Department Note ---
ED Disposition Clinical Impression: Hypokalemia, Enteritis Disposition: Still a Patient Condition on Discharge: Good Referrals: Wolfgang Cantu MD [Primary Care Provider] - - Critical Care Critical Care Time: Yes Attestation: On 06/13/18, the high probability of a clinically significant, sudden or life threatening deterioration of the following system(s) required my full and direct attention, intervention and personal management. The time I documented below is in addition to time spent performing reported procedures but includes the following listed in this critical care notation. Total Critical Care Time: 30 Vital system(s) involved:: Metabolic Failure My critical care processes included: Assessment & monitoring of V/S, Initial and Re-exams, Data Review/Interpretation, Coordinating Care, Medication Orders and management, Documentation Medical Decision Making - Juwan Inquiry Pt receiving controlled substance: No Vital Signs: 06/13/18 11:04 06/13/18 11:39 06/13/18 11:48 Temperature 97.7 F 97.7 F Temperature Source Oral Oral Pulse Rate [Right Brachial] 58 L 72 47 L Respiratory Rate 18 18 Blood Pressure [Right Arm] 170/102 H 170/102 H 157/53 H Blood Pressure Mean [Right Arm] 124 124 87 Blood Pressure Source [Right Arm] Automatic Cuff Automatic Cuff Blood Pressure Position [Right Arm] Sitting Sitting 02 Sat by Pulse Oximetry 99 99 97 Oxygen Delivery Method Room Air Room Air 06/13/18 12:30 06/13/18 13:00 06/13/18 13:30 Temperature Temperature Source Pulse Rate [Right Brachial] 60 63 58 L Respiratory Rate Blood Pressure [Right Arm] 152/69 H 157/99 H 165/80 H Blood Pressure Mean [Right Arm] 96 118 108 Blood Pressure Source [Right Arm] Automatic Cuff Blood Pressure Position [Right Arm] Sitting 02 Sat by Pulse Oximetry 97 Oxygen Delivery Method - Lab Data Lab Results 06/13/18 11:35: WBC 9.4, RBC 3.93 L, Hgb 12.0 L, Hct 36.1 L, MCV 91.9, MCH 30.5, MCHC 33.2, RDW 14.7, Plt Count 357, MPV 7.8, Neut % (Auto) 63.3, Lymph % (Auto) 29.6, [place] % (Auto) 4.5, Eos % (Auto) 2.3, Baso % (Auto) 0.4, Neut # (Auto) 5.9, Lymph # (Auto) 2.8, [place] # (Auto) 0.4, Eos # (Auto) 0.2, Baso # (Auto) 0.0 06/13/18 11:35: Sodium 140, Potassium 2.8 L*, Chloride 105, Carbon Dioxide 25, Anion Gap 12.8, BUN 6 L, Creatinine 1.14, Estimated Creat Clear 66, Estimated GFR 66, Est GFR ( Amer) 79, Glucose 107 H, Calcium 8.8, Total Bilirubin 0.3, AST 14 L, ALT 26, Alkaline Phosphatase 89, Total Creatine Kinase 123, CK-MB (CK-2) 1.5, CK-MB (CK-2) Rel Index 1.2, Troponin I < 0.02, Total Protein 6.8, Albumin 3.4, Globulin 3.4 H, Albumin/Globulin Ratio 1.0 L, Amylase 37, Lipase 62 L, TSH 0.46 06/13/18 11:35: Monoscreen Negative 06/13/18 12:35: Urine Color Yellow, Urine Appearance Clear, Urine pH 6.0, Ur Specific [place] <= 1.005, Urine Protein Negative, Urine Glucose (UA) Negative, Urine Ketones Negative, Urine Blood Negative, Urine Nitrate Negative, Urine Bilirubin Negative, Urine Urobilinogen 0.2, Ur Leukocyte Esterase Negative, Urine WBC Occasional, Ur Squamous Epith Cells Occasional, Urine Bacteria Trace Result diagrams: 06/13/18 11:35 06/13/18 11:35 Orders (Tests/Meds): ED MEDICATIONS Generic Name Dose Route Start Last Admin Trade Name Freq PRN Reason Stop Dose Admin Potassium Chloride/Water 100 mls @ 50 mls/hr 06/13/18 12:45 06/13/18 13:25 Potassium Chloride 20meq/100ml Ivpb IV 06/13/18 14:44 50 mls/hr ONCE ONE Administration Discontinued Medications Generic Name Dose Route Start Last Admin Trade Name Freq PRN Reason Stop Dose Admin Sodium Chloride 1,000 mls @ 999 mls/hr 06/13/18 11:45 06/13/18 12:02 Sod Chlor 0.9% 1000ml Bag IV 06/13/18 12:45 999 mls/hr .[id number] JORGE ALBERTO Administration Iopamidol 75 ml 06/13/18 13:01 06/13/18 13:02 [id number]; 75ml Vial IV 06/13/18 13:02 75 ml ONCE ONE Administration Protocol Ondansetron HCl 4 mg 06/13/18 11:56 06/13/18 12:13 Zofran 4mg/2ml Vial IV 06/13/18 11:57 4 mg ONCE ONE Administration Potassium Chloride 60 meq 06/13/18 12:32 06/13/18 12:43 Klor-Con 20meq Tablet PO 06/13/18 12:33 60 meq ONCE ONE Administration Sodium Chloride 10 ml 06/13/18 13:01 06/13/18 13:02 Rad-Saline Flush 10ml Syringe IV 06/13/18 13:02 10 ml ONCE ONE Administration ORDERS Category Date Time Status Diarrhea Panel, PCR Stat Lab 06/13/18 11:56 Ordered Urinalysis and Microscopic Stat Lab 06/13/18 12:35 Ordered - CT Data CT Scan: Abdomen, Pelvis Time Received: 13:[address] Reviewed: Yes: I have viewed the radiologist's interpretation Findings Narrative: IMPRESSION: Findings consistent with some degree of enteritis and history of diarrhea, no other significant abnormality noted. Dictated By: Ryan Oseguera Signed By: <Electronically signed by Ryan Oseguera in OV> 06/13/18 1308 - ECG Data Tracing #1 EKG interpreted by Tommie Larry MD: Rhythm: sinus bradycardia Rate: 48 [place]: normal Ectopy: none Conduction: Left bundle branch block ST Segment Changes: none T Wave Changes: none Q Waves: none No evidence of acute ischemia or injury Prior electrocardiagrams reviewed. No change from prior tracings. - Physician Consults Physician Consulted: Pepe Time: 14:00 Reason -: Admission Comment/Response: Agrees to admit the patient to the hospital. We discussed the patient's clinical information, including history, exam, laboratory and radiology results and ED course. Per hospital procedure, I will write temporary bridge inpatient orders on the patient. Specific orders requested by the admitting physician: Recheck potassium this evening. Hold beta-floyd. Anti- emetics Medical Decision Narrative: Reviewed previous records. Admitted in November for chest pain, hypokalemia, left bundle branch block. Normal cardiac cath at that time. Normal coronary arteries. Had a rectal foreign body removed on 02/10/[address] Alonso. Follow-up surgical visit in the office with Dr. Alonso on 03/03/18 indicates the patient was having diarrhea and had positive test for Clostridium difficile and was treated for that. General Adult HPI - General Chief complaint: Weakness Stated complaint: pains, burning Time Seen by Provider: 06/13/18 11:52 Mode of Arrival: Ambulatory Limitations: No Limitations Description of Symptoms (Recalled from ER Triage Doc. by RN): PT STATES HAS HAD ABD DISCOMFORT, N/V/D, GENERAL MALAISE AND WEAKNESS SINCE A BIT PAST . PT STATES HE HAS SEEN HIS PCP, BUT ISSUE HASN'T RESOLVED. UNSURE OF ANY SPECIFIC ORIGIN. ALERT AND ORIENTED AT TIME OF TRIAGE. - History of Present Illness HPI narrative: Poor historian. States "I should have come in a long time ago". States that he has had diarrhea since without blood. 4 episodes today. Started vomiting yesterday. Feels like he is burning from the inside out when he lays down, but no fever. States that this symptom makes him believes he is dehydrated. He says he was drinking a lot of soda, but is now drinking water and Gatorade, but I guess it is not enough". Has intermittent periumbilical abdominal pain. Seen at the urgent treatment center and sent to the emergency department for evaluation. - Related Data Home Medications Medication Instructions Recorded Confirmed acetaminophen 500 mg tablet 500 mg PO Q6H PRN 03/03/18 06/13/18 lisinopril 20 mg tablet 40 mg PO DAILY 03/03/18 06/13/18 Carvedilol [Carvedilol 12.5mg Tab] 18.75 mg PO BID 06/13/18 06/13/18 Meloxicam 7.5 mg PO DAILY 06/13/18 06/13/18 buPROPion HCl [Zyban] 300 mg PO DAILY 06/13/18 06/13/18 Allergies Allergy/AdvReac Type Severity Reaction Status Date / Time codeine [CODEINE] Allergy Intermediate Verified 03/03/18 10:07 acetaminophen [From Lortab] Allergy Mild itching,hiv Verified 03/03/18 10:07 es hydrocodone [From Lortab] Allergy Mild itching,hiv Verified 03/03/18 10:07 es ibuprofen [IBUPROFEN] Allergy Mild NA-NAUSEA Verified 03/03/18 10:07 oxycodone [OXYCODONE] Allergy Unknown UNKNOWN Verified 03/03/18 10:07 [facility] History - Hepatitis A Screen Drug use history?: No High risk sexual behaviors?: No History of sexually transmitted infection?: No Currently employed?: No Childcare worker?: No Do you have indoor plumbing?: Yes Do you have electricity?: Yes Attestation statement:: This patient has been screened for Hepatitis A risk factors. I have reviewed the patient's past medical history: Yes Medical History: Reports:: Cancer (BLADDER CANCER), Cardiomyopathy Denies:: Diabetes Mellitus Type 1, Diabetes Mellitus Type 2, Internal Pacemaker, MRSA, Seizures Other Medical History: Denies: Blood Transfusion Reaction Laterality Cases: Left: Arthroscopy Shoulder Other Surgeries: Yes: Other. No: Pacemaker Amputation: No Fractures: No - Social History Smoking Status: Current every day smoker Tobacco Type: cigarettes # Packs/Day (cigarettes): 1 Alcohol Intake: former Occupational Status: disabled Household Members: significant other - Psychiatric History Expresses thoughts of harming self/others: None Suicide Plan Description: No Plan Family Hx:: Cancer, Diabetes ROS Obtained: Yes All systems reviewed & no additional complaints - Constitutional Constitutional: Reports fatigue, Denies fever(s), Reports poor appetite - Cardiovascular Cardiovascular: Denies chest pain - Respiratory Respiratory: No dyspnea - Gastrointestinal Gastrointestingal: Reports: abdominal pain, diarrhea, nausea, vomiting Physical Exam - General General appearance: alert, in no apparent distress - Head Head exam: atraumatic, normocephalic - Eye Eye exam: Present: normal appearance, PERRL, EOMI - ENT ENT exam: Present: mucous membranes moist - Neck Neck exam: Present: normal inspection, trachea midline - Chest Chest inspection: Present: normal inspection, symmetric chest wall rise - Respiratory Respiratory exam: Present: normal lung sounds bilaterally. Absent: respiratory distress - Cardiovascular Cardiovascular exam: Present: regular rate, normal rhythm, bradycardia, normal heart sounds - Abdominal Exam Abdominal exam: Present: soft, tenderness (Periumbilical). Absent: distention, guarding, rebound Abdominal tenderness: Present: mild - Extremities Exam Extremities exam: Present: normal inspection - Neurological Exam Neurological exam: Present: alert, oriented X3 - Psychiatric Psychiatric exam: Present: flat affect - Skin Skin exam: Present: warm, dry
[2018-06-13 12:02] LABS: Basophils % 0.4 % (0.1-2.0); Eosinophils # 0.2 K/mm3 (0.0-0.4); Eosinophils % 2.3 % (0.1-12.0); Hematocrit 36.1 % (42.0-52.0); Lymphocytes # 2.8 K/mm3 (0.7-4.5); Lymphocytes % 29.6 % (10-50); Mean Corpuscular HGB Conc 33.2 g/dL (31.8-35.4); Mean Corpuscular Hemoglobin 30.5 pg (27.0-31.2); Mean Corpuscular Volume 91.9 fl (80-94); Mean Platelet Volume 7.8 fl (7.4-10.4); Monocytes # 0.4 K/mm3 (0.1-1.0); Monocytes % 4.5 % (1.7-9.3); Neutrophils # 5.9 K/mm3 (1.8-7.8); Neutrophils % 63.3 % (37.0-80.0); Platelet Count 357 K/mm3 (142-424); Red Blood Count 3.93 M/mm3 (4.60-6.20); Red Cell Distribution Width 14.7 % (11.5-17.5); White Blood Count 9.4 K/mm3 (4.8-10.8)
[2018-06-13 12:29] LABS: Alanine Aminotransferase 26 U/L (12-78); Albumin Level 3.4 gm/dL (3.4-5.0); Alkaline Phosphatase 89 U/L (46-116); Amylase 37 U/L (25-115); Anion Gap 12.8 mEq/L (5-15); Aspartate Amino Transferase 14 U/L (15-37); Bilirubin,Total 0.3 mg/dL (0.2-1.0); Blood Urea Nitrogen 6 mg/dL (7-18); Calcium 8.8 mg/dL (8.5-10.1); Carbon Dioxide 25 mmol/L (21.0-32.0); Chloride 105 mmol/L (98-107); Creatine Kinase 123 U/L (39-308); Globulin 3.4 gm/dl (1.3-3.2); Glucose 107 mg/dL (74-106); Lipase 62 u/L (73-393); Sodium 140 mmol/L (136-145); Thyroid Stimulating Hormone 0.46 uIU/ml (0.358-3.740); Total Protein,Serum 6.8 gm/dL (6.4-8.2)
[2018-06-13 12:32] LABS: Potassium 2.8 mmoL/L (3.5-5.1)
[2018-06-13 12:37] LABS: Microscopic, Urine URINE MICROSCOPIC (MICROSCOPIC)
[2018-06-13 12:43] LABS: Appearance,Urine CLEAR (Clear); Bilirubin,Urine Negative (Negative); Blood, Urine Negative (Negative); Color,Urine YELLOW (Yellow); Glucose,Urine (UA) Negative (Negative); Ketones,Urine Negative (Negative); Leukocyte Esterase,Urine Negative (Negative); Protein,Urine Negative (Negative); Specific Gravity, Urine <= 1.005 (1.005-1.030); Urobilinogen,Urine 0.2 EU/dl (0.2)
[2018-06-13 12:55] LABS: Bacteria,Urine Trace /lpf; Squamous Epithelial Cell,Urine Occasional #/hpf (0-5); WBC,Urine Occasional #/hpf (0-3)
[2018-06-14 06:33] LABS: Anion Gap 12.3 mEq/L (5-15); Potassium 3.3 mmoL/L (3.5-5.1)
--- NOTE | 2018-06-14 07:18 | Pharmacy Consult Notes ---
[facility] Pharmacy VTE Monitoring - Patient Demographics Admission date: 06/13/18 Report Date: 06/14/18 Time: 07:18 Allergies/Adverse Reactions: Patient Allergies codeine [CODEINE] Allergy (Intermediate, Verified 03/03/18 10:07) acetaminophen [From Lortab] Allergy (Mild, Verified 03/03/18 10:07) itching,hives hydrocodone [From Lortab] Allergy (Mild, Verified 03/03/18 10:07) itching,hives ibuprofen [IBUPROFEN] Allergy (Mild, Verified 03/03/18 10:07) NA-NAUSEA oxycodone [OXYCODONE] Allergy (Unknown, Verified 03/03/18 10:07) UNKNOWN Height: 1.75 m Weight: 65.062 kg Patient Problems: Current Active Problems Hypokalemia (Acute) Enteritis (Acute) - VTE Risk Labs: VTE Related Lab Results Hgb 12.0 g/dL (14.1-18.0) L 06/13/18 11:35 Hct 36.1 % (42.0-52.0) L 06/13/18 11:35 Plt Count 357 K/mm3 (142-424) 06/13/18 11:35 BUN 4 mg/dL (7-18) L D 06/14/18 06:05 Creatinine 1.01 mg/dL (0.70-1.30) 06/14/18 06:05 Estimated Creat Clear 72 mL/min (50-200) 06/14/18 06:05 Was VTE Risk Assessment Performed: Yes VTE Risk Level: Moderate Risk - Prophylaxis VTE Prophylaxis Ordered?: Yes Types of VTE Prophylaxis: TEDS Knee High Location of Applied Device: Bilateral Lower Extremeties - VTE Diagnosis Confirmed Treatment or plan recommended: Continue Current Treatment
--- NOTE | 2018-06-14 07:19 | H&P/Discharge Summary ---
General - General Admission date:: 06/13/18 Discharge date: 06/14/18 *Admission Date: 06/13/18 *Chief complaint: hypokalemia *History of present illness: 58 year old male presents for N/V/D and weakness yesterday. Onset of Thanksgiving. Patient tells me vomiting started Thursday or of this past week. Denies fever or chills. Does not recall any sick contacts or eating spoiled good. Has not tried anything OTC. Started on meloxicam last week for left shoulder pain. PMH significant for foreign body removed from rectum on 02/10/18 and c diff on 03/03/18. Patient resting in bed tolerating sips of lemon red cliff soda, since admission here reports lots of gas, one episode of diarrhea and vomiting X2 yesterday. [facility] History Medical History: Reports:: Cancer (BLADDER CANCER), Cardiomyopathy Denies:: Diabetes Mellitus Type 1, Diabetes Mellitus Type 2, Internal Pacemaker, MRSA, Seizures Other Medical History: Denies: Blood Transfusion Reaction Laterality Cases: Left: Arthroscopy Shoulder Other Surgeries: Yes: Other. No: Pacemaker Amputation: No Fractures: No - *Social History Smoking Status: Current some day smoker Tobacco Type: cigarettes # Packs/Day (cigarettes): 1 Alcohol Intake: never Occupational Status: disabled Household Members: significant other - Psychiatric History Expresses thoughts of harming self/others: None Suicide Plan Description: No Plan *Family Hx:: Cancer, Diabetes Review of Systems - Constitutional Reports lack of energy, Reports malaise, Reports weakness, Denies body ache(s), Denies chills, Denies fever(s) - *Cardiovascular Denies chest pain, Denies leg swelling, Denies rapid, pounding, or irregular heartbeat - *Respiratory Denies cough, Denies shortness of breath - *Gastrointestinal Reports abdominal pain, Reports change in bowel habits, Reports loose stools, Reports nausea, Reports vomiting - *Neurologic Reports weakness, Denies fainting, Denies dizziness Exam Vital signs and Labs for Last 24 Hours: Temp Pulse Resp BP Pulse Ox 97.7 F 51 L 16 129/82 97 06/14/18 04:00 06/14/18 04:00 06/14/18 04:00 06/14/18 04:00 06/14/18 04:00 Laboratory Results - last 24 hr 06/13/18 11:35: WBC 9.4, RBC 3.93 L, Hgb 12.0 L, Hct 36.1 L, MCV 91.9, MCH 30.5, MCHC 33.2, RDW 14.7, Plt Count 357, MPV 7.8, Neut % (Auto) 63.3, Lymph % (Auto) 29.6, [place] % (Auto) 4.5, Eos % (Auto) 2.3, Baso % (Auto) 0.4, Neut # (Auto) 5.9, Lymph # (Auto) 2.8, [place] # (Auto) 0.4, Eos # (Auto) 0.2, Baso # (Auto) 0.0 06/13/18 11:35: Sodium 140, Potassium 2.8 L*, Chloride 105, Carbon Dioxide 25, Anion Gap 12.8, BUN 6 L, Creatinine 1.14, Estimated Creat Clear 66, Estimated GFR 66, Est GFR ( Amer) 79, Glucose 107 H, Calcium 8.8, Total Bilirubin 0.3, AST 14 L, ALT 26, Alkaline Phosphatase 89, Total Creatine Kinase 123, CK-MB (CK-2) 1.5, CK-MB (CK-2) Rel Index 1.2, Troponin I < 0.02, Total Protein 6.8, Albumin 3.4, Globulin 3.4 H, Albumin/Globulin Ratio 1.0 L, Amylase 37, Lipase 62 L, TSH 0.46 06/13/18 11:35: Monoscreen Negative 06/13/18 12:35: Urine Color Yellow, Urine Appearance Clear, Urine pH 6.0, Ur Specific [place] <= 1.005, Urine Protein Negative, Urine Glucose (UA) Negative, Urine Ketones Negative, Urine Blood Negative, Urine Nitrate Negative, Urine Bilirubin Negative, Urine Urobilinogen 0.2, Ur Leukocyte Esterase Negative, Urine WBC Occasional, Ur Squamous Epith Cells Occasional, Urine Bacteria Trace 06/13/18 16:10: Stl Aeromonas (PCR) Not detected, Stl C. cayetanensis PCR Not detected, Stool Rotavirus (PCR) Not detected, Stl Adenov F 40/41 PCR Not detected, Stool Astrovirus (PCR) Not detected, Stool Campylobacter PCR Not detected, Stl C.difficile Tox PCR Not detected, Stool Cryptosporidium PCR Not detected, Stl E.coli Shiga Tox PCR Not detected, Stool E coli O157 PCR Not detected, Stl Enterotoxigenic E PCR Not detected, Stool EPEC (PCR) Not detected, Stool EAEC (PCR) Not detected, Stl E. histolytica PCR Not detected, Stool Giardia Lamblia PCR Not detected, Stool Salmonella PCR Not detected, Stool Sapovirus (PCR) Not detected, Stl P. shigelloides PCR Not detected, Stl Shigella/EIEC PCR Not detected, St Y.enterocolitica PCR Not detected, Stool Vibrio (PCR) Not detected, Stl Vibrio cholerae PCR Not detected, Stl Norovirus GI/GII PCR Not detected 06/13/18 20:25: Potassium 3.1 L 06/14/18 06:05: Sodium 142, Potassium 3.3 L, Chloride 111 H, Carbon Dioxide 22, Anion Gap 12.3, BUN 4 L D, Creatinine 1.01, Estimated Creat Clear 72, Estimated GFR 75, Est GFR ( Amer) 91, Glucose 112 H I & O for Last 24 hours: Intake & Output 06/11/18 06/12/18 06/13/18 06/14/18 23:59 23:59 23:59 23:59 Intake Total 2500 / 2500 732 / 732 Output Total 700 / 700 Balance 1800 / 1800 732 / 732 Weight 143 lb 7 oz - Constitutional no acute distress - *Routine HEENT Exam Head: Present: normocephalic ENT: Present: mucous membranes moist - *Routine Neck Exam Present: supple - *Routine Respiratory Exam Present: CTA bilaterally. Absent: accessory muscle use - *Routine Cardiovascular Exam Present: RRR, Normal S1, Normal S2, bradycardia - *Routine Abdominal Exam Present: soft, normoactive bowel sounds, tenderness. Absent: distended Comments: epigastric tenderness - *Routine Extremities Exam Absent: edema - *Routine Skin Exam Present: intact - *Routine Neurological Exam Present: alert, oriented X3 - Routine Psychiatric Exam Present: normal affect Hospital Course Hospital Course: Patient was admitted for observation on the 2nd floor med surge for hypokalemia. Potassium was replaced, IVFs were given and antiemetics controlled vomiting. Stool samples reveal no abnormalities. Results Labs on day of discharge: Labs from last 24 hours 06/14/18 06/13/18 06/13/18 06:05 20:25 16:10 WBC RBC Hgb Hct MCV MCH MCHC RDW Plt Count MPV Neut % (Auto) Lymph % (Auto) [place] % (Auto) Eos % (Auto) Baso % (Auto) Neut # (Auto) Lymph # (Auto) [place] # (Auto) Eos # (Auto) Baso # (Auto) Sodium 142 Potassium 3.3 L 3.1 L Chloride 111 H Carbon Dioxide 22 Anion Gap 12.3 BUN 4 L D Creatinine 1.01 Estimated Creat Clear 72 Estimated GFR 75 Est GFR ( Amer) 91 Glucose 112 H Calcium Total Bilirubin AST ALT Alkaline Phosphatase Total Creatine Kinase CK-MB (CK-2) CK-MB (CK-2) Rel Index Troponin I Total Protein Albumin Globulin Albumin/Globulin Ratio Amylase Lipase TSH Urine Color Urine Appearance Urine pH Ur Specific [place] Urine Protein Urine Glucose (UA) Urine Ketones Urine Blood Urine Nitrate Urine Bilirubin Urine Urobilinogen Ur Leukocyte Esterase Urine WBC Ur Squamous Epith Cells Urine Bacteria Stl Aeromonas (PCR) Not detected Stl C. cayetanensis PCR Not detected Stool Rotavirus (PCR) Not detected Stl Adenov F 40/41 PCR Not detected Stool Astrovirus (PCR) Not detected Stool Campylobacter PCR Not detected Stl C.difficile Tox PCR Not detected Stool Cryptosporidium PCR Not detected Stl E.coli Shiga Tox PCR Not detected Stool E coli O157 PCR Not detected Stl Enterotoxigenic E PCR Not detected Stool EPEC (PCR) Not detected Stool EAEC (PCR) Not detected Stl E. histolytica PCR Not detected Stool Giardia Lamblia PCR Not detected Stool Salmonella PCR Not detected Stool Sapovirus (PCR) Not detected Stl P. shigelloides PCR Not detected Stl Shigella/EIEC PCR Not detected St Y.enterocolitica PCR Not detected Stool Vibrio (PCR) Not detected Stl Vibrio cholerae PCR Not detected Stl Norovirus GI/GII PCR Not detected Monoscreen 06/13/1818 06/13/18 12:35 11:35 11:35 WBC RBC Hgb Hct MCV MCH MCHC RDW Plt Count MPV Neut % (Auto) Lymph % (Auto) [place] % (Auto) Eos % (Auto) Baso % (Auto) Neut # (Auto) Lymph # (Auto) [place] # (Auto) Eos # (Auto) Baso # (Auto) Sodium 140 Potassium 2.8 L* Chloride 105 Carbon Dioxide 25 Anion Gap 12.8 BUN 6 L Creatinine 1.14 Estimated Creat Clear 66 Estimated GFR 66 Est GFR ( Amer) 79 Glucose 107 H Calcium 8.8 Total Bilirubin 0.3 AST 14 L ALT 26 Alkaline Phosphatase 89 Total Creatine Kinase 123 CK-MB (CK-2) 1.5 CK-MB (CK-2) Rel Index 1.2 Troponin I < 0.02 Total Protein 6.8 Albumin 3.4 Globulin 3.4 H Albumin/Globulin Ratio 1.0 L Amylase 37 Lipase 62 L TSH 0.46 Urine Color Yellow Urine Appearance Clear Urine pH 6.0 Ur Specific [place] <= 1.005 Urine Protein Negative Urine Glucose (UA) Negative Urine Ketones Negative Urine Blood Negative Urine Nitrate Negative Urine Bilirubin Negative Urine Urobilinogen 0.2 Ur Leukocyte Esterase Negative Urine WBC Occasional Ur Squamous Epith Cells Occasional Urine Bacteria Trace Stl Aeromonas (PCR) Stl C. cayetanensis PCR Stool Rotavirus (PCR) Stl Adenov F 40/41 PCR Stool Astrovirus (PCR) Stool Campylobacter PCR Stl C.difficile Tox PCR Stool Cryptosporidium PCR Stl E.coli Shiga Tox PCR Stool E coli O157 PCR Stl Enterotoxigenic E PCR Stool EPEC (PCR) Stool EAEC (PCR) Stl E. histolytica PCR Stool Giardia Lamblia PCR Stool Salmonella PCR Stool Sapovirus (PCR) Stl P. shigelloides PCR Stl Shigella/EIEC PCR St Y.enterocolitica PCR Stool Vibrio (PCR) Stl Vibrio cholerae PCR Stl Norovirus GI/GII PCR Monoscreen Negative 06/13/18 11:35 WBC 9.4 RBC 3.93 L Hgb 12.0 L Hct 36.1 L MCV 91.9 MCH 30.5 MCHC 33.2 RDW 14.7 Plt Count 357 MPV 7.8 Neut % (Auto) 63.3 Lymph % (Auto) 29.6 [place] % (Auto) 4.5 Eos % (Auto) 2.3 Baso % (Auto) 0.4 Neut # (Auto) 5.9 Lymph # (Auto) 2.8 [place] # (Auto) 0.4 Eos # (Auto) 0.2 Baso # (Auto) 0.0 Sodium Potassium Chloride Carbon Dioxide Anion Gap BUN Creatinine Estimated Creat Clear Estimated GFR Est GFR ( Amer) Glucose Calcium Total Bilirubin AST ALT Alkaline Phosphatase Total Creatine Kinase CK-MB (CK-2) CK-MB (CK-2) Rel Index Troponin I Total Protein Albumin Globulin Albumin/Globulin Ratio Amylase Lipase TSH Urine Color Urine Appearance Urine pH Ur Specific [place] Urine Protein Urine Glucose (UA) Urine Ketones Urine Blood Urine Nitrate Urine Bilirubin Urine Urobilinogen Ur Leukocyte Esterase Urine WBC Ur Squamous Epith Cells Urine Bacteria Stl Aeromonas (PCR) Stl C. cayetanensis PCR Stool Rotavirus (PCR) Stl Adenov F 40/41 PCR Stool Astrovirus (PCR) Stool Campylobacter PCR Stl C.difficile Tox PCR Stool Cryptosporidium PCR Stl E.coli Shiga Tox PCR Stool E coli O157 PCR Stl Enterotoxigenic E PCR Stool EPEC (PCR) Stool EAEC (PCR) Stl E. histolytica PCR Stool Giardia Lamblia PCR Stool Salmonella PCR Stool Sapovirus (PCR) Stl P. shigelloides PCR Stl Shigella/EIEC PCR St Y.enterocolitica PCR Stool Vibrio (PCR) Stl Vibrio cholerae PCR Stl Norovirus GI/GII PCR Monoscreen DS: Diagnosis - Discharge Diagnosis (1) Enteritis Status: Acute (2) Hypokalemia Status: Acute (3) Nausea vomiting and diarrhea Status: Acute Discharge Medications - Medications for Discharge Home Medication List at Discharge: No Action acetaminophen 500 mg tablet 500 mg PO Q6H PRN PRN Reason: PAIN lisinopril 20 mg tablet 40 mg PO DAILY Carvedilol [Carvedilol 12.5mg Tab] 18.75 mg PO BID buPROPion HCl [Zyban] 300 mg PO DAILY Meloxicam 7.5 mg PO DAILY Disposition Disposition: Home, Self-Care
[2018-06-14 07:24] LABS: Calcium 7.8 mg/dL (8.5-10.1)
== END 2018-06-14 09:17 | disposition home or self-care (01) ==
LOC: 2ND 10:42 → UTC 10:42 → 2ND 15:19
PROVIDERS: ADMIT Family Medicine; ATTEND Family Medicine
CPT/HCPCS: 36415; 74177; 80048; 80053; 81001; 82150; 82550; 82553; 83690; 84132; 84443; 84484; 85025; 86318; 87507; 93005; 96365; 96366; 96367; 99284; G0378; J2405; Q9967

== ENCOUNTER → 2018-08-02 14:02 | Outpatient (CLI) | payer MEDICARE, SELFPAY ==
[2018-08-02 14:54] LABS: Basophils % 0.5 % (0.1-2.0); Eosinophils # 0.1 K/mm3 (0.0-0.4); Eosinophils % 1.6 % (0.1-12.0); Hematocrit 33.7 % (42.0-52.0); Hemoglobin 11.6 g/dL (14.1-18.0); Lymphocytes % 37.4 % (10-50); Mean Corpuscular HGB Conc 34.3 g/dL (31.8-35.4); Mean Corpuscular Hemoglobin 32.4 pg (27.0-31.2); Mean Corpuscular Volume 94.3 fl (80-94); Monocytes # 0.4 K/mm3 (0.1-1.0); Monocytes % 4.8 % (1.7-9.3); Neutrophils # 4.4 K/mm3 (1.8-7.8); Neutrophils % 55.7 % (37.0-80.0); Platelet Count 315 K/mm3 (142-424); Red Blood Count 3.57 M/mm3 (4.60-6.20); Red Cell Distribution Width 13.9 % (11.5-17.5); White Blood Count 7.9 K/mm3 (4.8-10.8)
[2018-08-02 16:18] LABS: Alanine Aminotransferase 18 U/L (12-78); Albumin Level 3.7 gm/dL (3.4-5.0); Albumin/Globulin Ratio 1.2 (1.1-1.8); Alkaline Phosphatase 74 U/L (46-116); Anion Gap 13.6 mEq/L (5-15); Aspartate Amino Transferase 9 U/L (15-37); Bilirubin,Total 0.2 mg/dL (0.2-1.0); Blood Urea Nitrogen 9 mg/dL (7-18); Calcium 9.4 mg/dL (8.5-10.1); Carbon Dioxide 28 mmol/L (21.0-32.0); Chloride 104 mmol/L (98-107); Creatinine,Serum 1.06 mg/dL (0.70-1.30); Estimated Glomerular Filt Rate 71 ml/min (>60); GFR (African American) 86 ML/MIN (>60); Glucose 93 mg/dL (74-106); Potassium 3.6 mmoL/L (3.5-5.1); Sodium 142 mmol/L (136-145); Total Protein,Serum 6.7 gm/dL (6.4-8.2)
== END ==
PROVIDERS: Visit Provider Surgery
DX: W57.XXXA Bitten or stung by nonvenomous insect and other nonvenomous arthropods, initial encounter (principal); R63.4 Abnormal weight loss
CPT/HCPCS: 36415; 80053; 85025

== ENCOUNTER → 2018-08-04 09:34 | Outpatient (CLI) | payer MEDICARE, SELFPAY ==
[2018-08-04 09:37] LABS: Adenovirus F 40/41, stool Not Detected (NotDetected); Astrovirus Not Detected (NotDetected); Campylobacter Not Detected (NotDetected); Clostridium Difficile A/B, PCR Not Detected (NotDetected); Cryptosporidium Not Detected (NotDetected); Cyclospora Cayetanesis Not Detected (NotDetected); Entamoeba histolytica Not Detected (NotDetected); Enteroaggregative E coli Not Detected (NotDetected); Enteropathogenic E coli Not Detected (NotDetected); Enterotoxigenic E coli Not Detected (NotDetected); Giardia lamblia Not Detected (NotDetected); Norovirus Not Detected (NotDetected); Plesimonas Shigalloides, PCR Not Detected (NotDetected); Rotavirus A Not Detected (NotDetected); Salmonella, PCR Not Detected (NotDetected); Sapovirus Not Detected (NotDetected); Shiga-like toxin E coli Not Detected (NotDetected); Shigella Enterovasive E coli Not Detected (NotDetected); Vibrio Cholerae Not Detected (NotDetected); Vibrio, PCR Not Detected (NotDetected); Yersinia Entercolitica, PCR Not Detected (NotDetected)
--- NOTE | 2018-08-04 09:42 | FL_ITS ---
FL upper GI small bowel HISTORY: ITS.REASON: nausea vomiting diarrhea ORDERING PHYSICIAN: Ac Alonso MD PATIENT AGE: 58 years Comparison: None FINDINGS: The esophagus, stomach, and duodenum have an unremarkable appearance. There is no evidence of hiatal hernia. No ulcer or mass evident. No mucosal abnormalities apparent. There is normal peristalsis. The duodenal C-loop is nondisplaced. Small bowel has an unremarkable appearance. No evidence of obstruction or mucosal abnormalities or masses. Terminal ileum is unremarkable. FLUOROSCOPY TIME : 2 minutes and 25 seconds. IMPRESSION: Unremarkable upper GI with unremarkable small bowel follow-through
== END ==
PROVIDERS: Visit Provider Surgery
DX: R11.2 Nausea with vomiting, unspecified (principal); R19.7 Diarrhea, unspecified
CPT/HCPCS: 74245; 87507

== ENCOUNTER → 2018-08-10 09:17 | Outpatient (CLI) | payer MEDICARE, SELFPAY ==
--- NOTE | 2018-08-10 09:19 | CT_ITS ---
CT abdomen pelvis w con CLINICAL INDICATION: Right lower quadrant pain radiating into the umbilical area for one week ITS.REASON: checking for abscess ORDERING PHYSICIAN: Ac Alonso MD PATIENT AGE: 58 years COMPARISON: 06/13/2018 TECHNIQUE: Axial images obtained with sagittal and coronal reformats. All CT scans at the facility use one or more dose reduction, viz: automated exposure control, ma/kV adjustment per patient size (including targeted exams where dose is matched to indication, i.e. head), or iterative reconstruction technique. PROCEDURE: Oral Contrast: Redicat IV Contrast: 75 mL Optiray 350. FINDINGS: COPD noted in the lung bases with mild atelectatic or fibrotic change The liver, gallbladder, spleen, adrenal glands, and pancreas have an unremarkable appearance. No renal or ureteral calculi. No hydronephrosis No intestinal obstruction or free air. The appendix is mildly prominent measuring 7 mm in diameter however, there is air within the appendix and is not significant change from 06/13/2018. No stranding of the periappendiceal fat. No abscess is apparent. No evidence of diverticulitis. There is a epidural stimulator device present in the lower thoracic spine. Power pack is in the left flank area causing some artifact. No acute bony findings are evident. IMPRESSION: 1. No evidence of abscess or intestinal obstruction. 2. Mild prominence of the appendix but not significantly changed from 06/13/2018 and may only represent a normal variant 3. COPD
== END ==
PROVIDERS: PCP Family Medicine; Visit Provider Surgery
DX: R11.2 Nausea with vomiting, unspecified (principal); R19.7 Diarrhea, unspecified
CPT/HCPCS: 74177

== ENCOUNTER → 2018-08-23 09:51 | Outpatient (POV) | payer MEDICARE, SELFPAY | PROVIDERS: Visit Provider Nurse Practitioner Acute Care | DX: Z00.00 Encounter for general adult medical examination without abnormal findings (principal) ==

== ENCOUNTER → 2019-01-19 09:07 | Outpatient (CLI) | payer MEDICARE, SELFPAY ==
--- NOTE | 2019-01-19 09:12 | XR_ITS ---
EXAM: XR cervical spine 5V HISTORY: ITS.REASON: DDD ORDERING PHYSICIAN: Wolfgang Cantu MD PATIENT AGE: 58 years COMPARISON: None FINDINGS: Bone density and alignment are normal. There is moderate loss of disc space height with small anterior spur at C6-7. Posterior elements are intact. There is no prevertebral soft tissue edema. There is uncovertebral joint hypertrophy causing mild foraminal encroachment on the left at C6-7. There is facet hypertrophy causing mild to moderate osseous foraminal encroachment on the right at C3-4 and C4-5. There is a small linear calcification at the left mid neck and also in this area or is a 3 mm linear radiopaque density which is more nonspecific. Impression: No acute process. C6-7 degenerative disc disease. Spondylosis and facet arthrosis causing osseous foraminal stenosis as discussed above. Possible calcification at the left carotid bifurcation however there is another linear possibly metallic density which is more nonspecific. Correlate with any surgery or trauma to this area. Foreign body is not ruled out.
== END ==
PROVIDERS: PCP Family Medicine; Visit Provider Family Medicine
DX: M50.30 Other cervical disc degeneration, unspecified cervical region (principal)
CPT/HCPCS: 72050

== ENCOUNTER → 2019-05-27 08:05 | Outpatient (CLI) | payer MEDICARE, SELFPAY ==
--- NOTE | 2019-05-27 08:18 | US_ITS ---
PROCEDURE: US ABDOMEN LIMITED CLINICAL INDICATION: RUQ PAIN COMPARISON: No exams were available for comparison FINDINGS: PANCREAS: Unremarkable. No obvious mass or abnormal fluid collection. No ductal dilatation LIVER: No focal liver lesions demonstrated. Homogeneous echogenicity. No intrahepatic biliary ductal dilatation evident. There is appropriate direction of blood flow within a non dilated portal vein RIGHT KIDNEY: Unremarkable. Normal size and echogenicity. No hydronephrosis, the right kidney measures 9.1 x 4.2 by 5.7 cm GALLBLADDER: The gallbladder is normal in size and shows partial septation near the neck. There are no gallstones, there may be trace biliary sludge present. IMPRESSION: Question trace amount of biliary sludge otherwise unremarkable study Dictated by: Dr. Chandra Oseguera MD 05/27/2019 09:[address] Chandra Oseguera MD in [place] 05/27/2019 09:12
== END ==
PROVIDERS: PCP Family Medicine; Visit Provider Family Medicine
DX: R10.11 Right upper quadrant pain (principal)
CPT/HCPCS: 76705

== ENCOUNTER → 2019-06-14 09:42 | Outpatient (CLI) | payer MEDICARE, SELFPAY ==
--- NOTE | 2019-06-14 09:46 | NM_ITS ---
PROCEDURE: NM HEPATOBILIARY W PHARM CLINICAL INDICATION: SLUDGE Right upper quadrant pain with nausea and vomiting COMPARISON: US ABDOMEN LIMITED from 05/27/2019 TECHNIQUE: DOSE: 8.73 mCi technetium Choletec and 1.3 mcg of CCK. There was some cramping during CCK infusion reported FINDINGS: Homogeneous activity is present within the hepatic parenchyma. Activity is present in the gallbladder by 30 minutes. Activity is present in the small bowel by 20 minutes. The gallbladder ejection fraction is calculated to be 90 percent. CCK-The patient reported some abdominal cramping during CCK infusion. IMPRESSION: No evidence of common or cystic duct obstruction with normal gallbladder ejection fraction. There was some cramping reported with CCK infusion Dictated by: Juliocesar Fuentes MD 06/14/2019 12:14 Electronically signed by Juliocesar Fuentes MD in [facility] 06/14/2019 12:14
--- NOTE | 2019-06-14 10:28 | HMH.ITSHM ---
Current Home Medications as stated by this patient Negro Miller or brand representative. []MELATONIN LISINOPRIL CARVEDILOL BUPROPION POTASSIUM
== END ==
PROVIDERS: PCP Family Medicine; Visit Provider Family Medicine
DX: K83.8 Other specified diseases of biliary tract (principal)
CPT/HCPCS: 78227; A9537; J2805

== ENCOUNTER → 2019-08-19 09:13 | Outpatient (CLI) | payer MEDICARE, SELFPAY ==
--- NOTE | 2019-08-19 09:19 | XR_ITS ---
PROCEDURE: XR KNEE RT 3V CLINICAL INDICATION: RT MEDIAL KNEE PAIN Pain for 1 month getting worse COMPARISON: No exams were available for comparison FINDINGS: No fracture or dislocation. No lytic or blastic change. There is normal mineralization. The joint spaces are well-preserved. No significant degenerative/arthritic changes. No erosive changes evident. Other findings:None. IMPRESSION: No acute findings. Dictated by: Sunny Galicia 08/19/2019 10:08 Electronically signed by Sunny Galicia in [facility] 08/19/2019 10:08
== END ==
PROVIDERS: PCP Family Medicine; Visit Provider Family Medicine
DX: M25.561 Pain in right knee (principal)
CPT/HCPCS: 73562

== ENCOUNTER → 2020-03-13 10:13 | Outpatient (CLI) | payer MEDICARE, MEDICAID, SELFPAY ==
--- NOTE | 2020-03-13 10:23 | XR_ITS ---
PROCEDURE: XR HAND RT MIN 3V CLINICAL INDICATION: INJURY OF FINGER OF R HAND, INTIAL ENCOUNTER COMPARISON: No exams were available for comparison FINDINGS: No fracture or dislocation. No lytic or blastic change. There is normal mineralization. The joint spaces are well-preserved. No significant degenerative/arthritic changes. No erosive changes evident. Other findings:None. IMPRESSION: No acute findings. Dictated by: Juliocesar Fuentes MD 03/13/2020 18:25 Juliocesar Fuentes MD in [facility] 03/13/2020 18:25
== END ==
PROVIDERS: PCP Family Medicine; Visit Provider Family Medicine
DX: S69.91XA Unspecified injury of right wrist, hand and finger(s), initial encounter (principal)
CPT/HCPCS: 73130

== ENCOUNTER → 2020-03-20 06:23 | Outpatient (CLI) | payer MEDICARE, MEDICAID, SELFPAY ==
--- NOTE | 2020-03-20 06:32 | CT_ITS ---
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 All CT scans at the facility use one or more dose reduction, viz: automated exposure control, ma/kV adjustment per patient size (including targeted exams where dose is matched to indication, i.e. head), or iterative reconstruction technique. FINDINGS: Normal alignment. T12-L1: Unremarkable. L1-L2: Unremarkable. L2-L3: Unremarkable. L3-L4: Mild degenerative disc disease with bulging disc and minimal endplate hypertrophic change. L4-5: Degenerate disc disease with endplate hypertrophy and bulging disc. There is moderate bilateral foraminal narrowing. L5-S1: Degenerative disc disease with minimal bulging disc. There is mild endplate hypertrophic change. There is moderate bilateral foraminal narrowing. There is hypertrophic change with sclerosis of the right SI joint. IMPRESSION: Degenerative changes of the lumbar spine as described above. No acute fracture or other acute finding. Dictated by: Juliocesar Fuentes MD 03/21/2020 12:16 Juliocesar Fuentes MD in [facility] 03/21/2020 12:16
== END ==
PROVIDERS: PCP Family Medicine; Visit Provider Family Medicine
DX: M51.36 Other intervertebral disc degeneration, lumbar region (principal); M54.16 Radiculopathy, lumbar region; G89.4 Chronic pain syndrome; Z96.89 Presence of other specified functional implants
CPT/HCPCS: 72131

== ENCOUNTER 2020-04-03 10:49 | Outpatient (RCR) | payer MEDICARE, MEDICAID, SELFPAY | END 2020-04-03 11:50 | disposition home or self-care (01) | LOC: OT 10:49 | PROVIDERS: Visit Provider Orthopaedic Surgery | DX: G56.02 Carpal tunnel syndrome, left upper limb (principal); G56.01 Carpal tunnel syndrome, right upper limb | CPT/HCPCS: 97760 ==

== ENCOUNTER 2020-08-11 10:00 | Emergency (ER) | payer MEDICARE, OTHER, SELFPAY ==
[2020-08-11 10:00] VITALS: BP 150/96; PULSE 88; RESP 28; TEMP 36.7; O2SAT 94; BMI 20.7
--- NOTE | 2020-08-11 10:13 | HMH.EDGENADL ---
ED Disposition Clinical Impression: URI, acute Disposition: Home, Self-Care Condition on Discharge: Good Instructions: DI for Viral Upper Respiratory Infection -- Adult Prescriptions: predniSONE [Prednisone 50mg Tab] 50 mg PO DAILY #5 tab Transmission Status: Pending to [facility] Azithromycin [Z-Lexa 250mg Tab*] 250 mg PO UD DOSE PK #6 tab Transmission Status: Pending to [facility] Referrals: Wolfgang Cantu MD [Primary Care Provider] - 3 days - Critical Care Critical Care Time: No Attestation: On , the high probability of a clinically significant, sudden or life threatening deterioration of the following system(s) required my full and direct attention, intervention and personal management. The time I documented below is in addition to time spent performing reported procedures but includes the following listed in this critical care notation. Medical Decision Making - Medical Records Medical records reviewed: Yes: I reviewed the patient's medical records. - Juwan Inquiry Pt receiving controlled substance: No Vital Signs: 08/11/20 10:00 Temperature 98.1 F Temperature Source Oral Pulse Rate [Radial] 88 Respiratory Rate 28 H Blood Pressure [Right Arm] 150/96 H Blood Pressure Mean [Right Arm] 114 Blood Pressure Position [Right Arm] Sitting 02 Sat by Pulse Oximetry 94 L Oxygen Delivery Method Room Air - Lab Data Lab results reviewed: Yes: I reviewed the patient's lab results. Lab Results 08/11/20 10:30: WBC 11.4 H, RBC 4.74, Hgb 15.1, Hct 43.8, MCV 92.4, MCH 31.7 H, MCHC 34.4, RDW 13.3, Plt Count 405, MPV 7.5, Neut % (Auto) 70.2, Lymph % (Auto) 24.9, Barry % (Auto) 4.0, Eos % (Auto) 0.7, Baso % (Auto) 0.3, Neut # (Auto) 8.0 H, Lymph # (Auto) 2.8, Barry # (Auto) 0.5, Eos # (Auto) 0.1, Baso # (Auto) 0.0 08/11/20 10:30: Sodium 139, Potassium 3.8, Chloride 104, Carbon Dioxide 24, Anion Gap 14.8, BUN 11, Creatinine 1.10, Estimated Creat Clear 63, Estimated GFR 68, Est GFR ( Amer) 82, Glucose 119 H, Calcium 10.4 H, Troponin I < 0.01 08/11/20 10:30: SARS-CoV-2 IgG Ab (Rapid) Negative, SARS-CoV-2 IgM Ab (Rapid) Negative Result diagrams: 08/11/20 10:30 08/11/20 10:30 Orders (Tests/Meds): ORDERS Category Date Time Status XR chest portable Stat Exams 08/11/20 10:21 Taken Troponin I Q3H Lab 08/11/20 13:30 Ordered Troponin I Q3H Lab 08/11/20 16:30 Ordered - Radiology Data #1 Image(s): Chest Image Reviewed: Yes I reviewed the patient's radiology image Preliminary Findings: Normal/NAD COPD, no PNA, PTX - ECG Data Tracing #1 EKG at 1018 shows a sinus rhythm with a rate of 64. Left bundle branch block present. No STEMI. EKG consistent with previous EKG from 2018. - SAVAGE Score for Non-Stemi Age of Patient: 60-69 years old Heart Rate: 70-89 bpm Systolic Blood Pressure: 140-159 mmHg Serum Creatinine: 0.80-1.19 mg/dl CHF Killip Class: I-No CHF Other Risk Factors: None Non-Stemi Risk Score: 98 Medical Decision Narrative: Chest x-ray with no signs of pneumonia, pneumothorax, florid pulmonary edema. EKG consistent with previous EKG from 2 years ago with a left bundle branch block. No signs of pericarditis. Troponin negative and patient afebrile, unlikely myocarditis. Right chest burning seems to be in association with upper respiratory type symptoms and unlikely to be related to ACS and troponin is negative with symptoms ongoing for over a week, no need for repeat troponin at this time. Antibiotic testing for Covid was negative. Suspect viral URI versus acute COPD exacerbation. Oxygenation appropriate on room air. Will discharge home with steroids and antibiotics. Follow-up with PCP in 2 to 3 days for reevaluation. General Adult HPI - General Stated complaint: hurting in lungs Time Seen by Provider: 08/11/20 10:13 Mode of Arrival: Ambulatory Source of Information: Patient Limitations: No Limitations - History of Present Illness H
--- NOTE | 2020-08-11 10:18 | ECG_ITS ---
APPROVED REPORT Exam: Resting ECG HR:64 bpm ECG Measurements Heart Rate 64 AXES VT 152 P 46 QRSd 156 QRS -35 QT 486 T 228 QTc 501 Conclusion Normal sinus rhythm Left axis deviation Left bundle branch block Abnormal ECG Electronically signed by : Wolfgang Peters, 08/11/2020 19:33:40
--- NOTE | 2020-08-11 10:21 | XR_ITS ---
PROCEDURE: XR CHEST PORTABLE Referring Doctor: Yobani Bonilla Patient Age:60Y CLINICAL HISTORY: pain Right chest pain COMPARISON: CR CXR CHEST(2 VIEWS-NOT PORTABLE) from 09/15/2012 CR CXR2V XR chest 2V from 01/11/2018 FINDINGS: . AP portable CXR. Two images obtained ankle today-these are compared to December 2017 CXR Although I see no prominent findings I would question a subtle patchy minimal infiltrate projected over the anterior right 3rd rib. Overlapping scapula rib and other markings s could exam this feature but is suspect minimal patchy infiltrate seen on both images. A small patchy area of density projected over the right 5th rib the 1st CXR but not on the 2nd noted but it may merely be due to summation shadow.. If chest symptoms persist a follow-up PA and lateral chest may be of benefit. You may want to consider check for covd the 19 as well the The left lung appears stable and clear. Unremarkable. The heart is normal in size with andres and mediastinal structures stable unremarkable.. And neurostimulator device is seen overlying the mid T-spine of and was present before. No pneumothorax but no pleural effusion. Only trace scant apical pleural and parenchymal scarring noted . Chest wall unremarkable. The IMPRESSION: No prominent findings.. No pneumothorax the; no pleural effusion. However question possible very subtle small patchy infiltrate projected over the anterior 3rd rib on today's study, although this appearance could be summation shadows. . (The very subtle patchy density projected over the anterior 5th rib end of more likely summation shadow as it is the less evident on the the 2nd/repeat CXR from this morning) . If chest symptoms persist follow-up two-view chest recommended Dictated by: Sean Matias MD 08/11/2020 11:09 Sean Matias MD in [place] 08/11/2020 11:09
[2020-08-11 10:38] LABS: Basophils % 0.3 % (0.1-2.0); Eosinophils # 0.1 K/mm3 (0.0-0.4); Eosinophils % 0.7 % (0.1-12.0); Hematocrit 43.8 % (42.0-52.0); Hemoglobin 15.1 g/dL (14.1-18.0); Lymphocytes # 2.8 K/mm3 (0.7-4.5); Lymphocytes % 24.9 % (10-50); Mean Corpuscular HGB Conc 34.4 g/dL (31.8-35.4); Mean Corpuscular Hemoglobin 31.7 pg (27.0-31.2); Mean Corpuscular Volume 92.4 fl (80-94); Mean Platelet Volume 7.5 fl (7.4-10.4); Monocytes # 0.5 K/mm3 (0.1-1.0); Neutrophils % 70.2 % (37.0-80.0); Platelet Count 405 K/mm3 (142-424); Red Blood Count 4.74 M/mm3 (4.60-6.20); Red Cell Distribution Width 13.3 % (11.5-17.5); White Blood Count 11.4 K/mm3 (4.8-10.8)
[2020-08-11 10:42] LABS: Chloride 104 mmol/L (98-107); Potassium 3.8 mmoL/L (3.5-5.1); Sodium 139 mmol/L (136-145)
[2020-08-11 10:45] LABS: Anion Gap 14.8 mEq/L (5-15); Blood Urea Nitrogen 11 mg/dl (9-20); Calcium 10.4 mg/dl (8.4-10.2); Carbon Dioxide 24 mmol/L (22.0-30.0); Creatinine Clearance Estimated 63 mL/min (50-200); Estimated Glomerular Filt Rate 68 ml/min (>60); GFR (African American) 82 ML/MIN (>60); Glucose 119 mg/dl (74-100)
[2020-08-11 10:59] LABS: Troponin I < 0.01 ng/ml (0.00-0.034)
[2020-08-11 11:00] VITALS: BP 135/89; PULSE 88; O2SAT 97
[2020-08-11 11:04] LABS: Coronavirus 19 IgG Antibody Negative (Negative); Coronavirus 19 IgM Antibody Negative (Negative)
[2020-08-11 11:30] VITALS: BP 142/88; PULSE 78; RESP 28; TEMP 36.6; O2SAT 97
== END 2020-08-11 11:32 | disposition home or self-care (01) ==
PROVIDERS: Emergency Provider Emergency Medicine; PCP Family Medicine
DX: J06.9 Acute upper respiratory infection, unspecified (principal); Z01.84 Encounter for antibody response examination; K21.9 Gastro-esophageal reflux disease without esophagitis; I10 Essential (primary) hypertension; J44.9 Chronic obstructive pulmonary disease, unspecified; F41.8 Other specified anxiety disorders; F17.210 Nicotine dependence, cigarettes, uncomplicated; Z79.899 Other long term (current) drug therapy
CPT/HCPCS: 71045; 80048; 84484; 85025; 86328; 93005; 99283

== ENCOUNTER 2021-06-01 23:55 | Emergency (ER) | payer MEDICARE, SELFPAY ==
[2021-06-01 23:56] VITALS: BP 142/81; PULSE 60; RESP 16; TEMP 36.5; O2SAT 97; BMI 21.4
[2021-06-02] VITALS (7 sets, daily range): BP systolic 131–179; BP diastolic 77–92; PULSE 51–63; RESP 12–18; TEMP 36.6; O2SAT 97–99
--- NOTE | 2021-06-02 00:48 | CT_ITS ---
PROCEDURE INFORMATION: Exam: CT Maxillofacial Without Contrast Exam date and time: 06/02/2021 12:48 AM Age: 61 years old Clinical indication: Injury or trauma; Fall; Blunt trauma (contusions or hematomas); Injury date: 06/02/2021; Injury details: Fell hit bridge of nose; Additional info: Fall bridge of nose small laceration and pain TECHNIQUE: Imaging protocol: Computed tomography images of the face without contrast. Radiation optimization: All CT scans at this facility use at least one of these dose optimization techniques: automated exposure control; mA and/or kV adjustment per patient size (includes targeted exams where dose is matched to clinical indication); or iterative reconstruction. COMPARISON: CT HEAD/BRAIN WO CON 06/02/2021 1:12 AM FINDINGS: Orbital cavity: There is a mildly depressed fracture of lamina papyracea of the left ethmoid. Adjacent left medial postseptal soft tissues do not appear infiltrated and there is no evidence of retained fluid or blood within the left ethmoidal sinus. This likely represents an old fracture in this location. The right orbit appears unremarkable. The ocular globes are unremarkable. Bones/joints: There is a fracture of the nasal bones. Nasal septal deviation to the right is evident. There are degenerative changes noted within the cervical spine. Paranasal sinuses: Normal. No air-fluid levels. Soft tissues: Unremarkable. IMPRESSION: 1. A fracture of the nasal bones is identified. Nasal septal deviation to the right is noted. 2. There is a depressed fracture of the left medial orbital wall which is felt to be old. 3. There are degenerative changes noted within the cervical spine.
--- NOTE | 2021-06-02 00:48 | XR_ITS ---
PROCEDURE INFORMATION: Exam: XR Pelvis Exam date and time: 06/02/2021 12:48 AM Age: 61 years old Clinical indication: Injury or trauma; Fall; Blunt trauma (contusions or hematomas); Does not apply; Pelvic region; Injury date: 06/02/2021; Additional info: Fall trauma protocol TECHNIQUE: Imaging protocol: XR pelvis. Views: 1 or 2 view. COMPARISON: ABDPELW CT abdomen pelvis w con 08/10/2018 10:32 AM FINDINGS: Bones/joints: No evidence of acute fracture. There is degenerative changes noted within the lower lumbar spine with mild levoconvex lumbar scoliosis. Soft tissues: Retained Pepto-Bismol or contrast within the colon. No overlying soft tissue swelling. Atheromatous calcification of the right iliac arteries evident. IMPRESSION: No evidence of acute fracture.
--- NOTE | 2021-06-02 00:48 | CT_ITS ---
PROCEDURE INFORMATION: Exam: CT Head Without Contrast Exam date and time: 06/02/2021 12:48 AM Age: 61 years old Clinical indication: Injury or trauma; Fall; Blunt trauma (contusions or hematomas); Without loss of consciousness; Injury date: 06/02/2021; Additional info: Fall small laceration to bridge of nose pain TECHNIQUE: Imaging protocol: Computed tomography of the head without contrast. Radiation optimization: All CT scans at this facility use at least one of these dose optimization techniques: automated exposure control; mA and/or kV adjustment per patient size (includes targeted exams where dose is matched to clinical indication); or iterative reconstruction. COMPARISON: DX (C SPINE OBL, CSPINE, C SPINE OBL) 01/19/2019 9:17 AM FINDINGS: Brain: Normal. No hemorrhage. Unremarkable white matter. No mass effect. Cerebral ventricles: No ventriculomegaly. Paranasal sinuses: Visualized sinuses are unremarkable. No fluid levels. Mastoid air cells: Visualized mastoid air cells are well aerated. Vasculature: Intraranial artery density is normal. Bones/joints: Again, there is a mildly depressed fracture of the left medial orbital wall which is felt to be old. Bilateral nasal bone fractures again noted. Nasal septal deviation to the right. Soft tissues: Mild soft tissue swelling over the nasal bridge. IMPRESSION: No evidence of acute intracranial bleed or focal cerebral edema.
--- NOTE | 2021-06-02 00:48 | XR_ITS ---
PROCEDURE INFORMATION: Exam: XR Chest Exam date and time: 06/02/2021 12:48 AM Age: 61 years old Clinical indication: Injury or trauma; Fall; Blunt trauma (contusions or hematomas); Injury date: 06/02/2021 TECHNIQUE: Imaging protocol: XR of the chest. Views: 1 view. COMPARISON: CR XR CHEST PORTABLE 08/11/2020 10:47 AM FINDINGS: Tubes, catheters and devices: There is a spinal cord stimulator in place. The tip of the lead terminates at T9. Lungs: Mild pulmonary hyperaeration noted. There is no evidence of consolidation or pulmonary vascular congestion. Pleural spaces: Unremarkable. No pleural effusion. No pneumothorax. Heart/Mediastinum: Heart size is normal. The superior mediastinum is not widened. Bones/joints: Unremarkable. IMPRESSION: Pulmonary emphysema is suspect. No evidence of acute intrathoracic disease.
--- NOTE | 2021-06-02 00:48 | CT_ITS ---
PROCEDURE INFORMATION: Exam: CT Cervical Spine Without Contrast Exam date and time: 06/02/2021 12:48 AM Age: 61 years old Clinical indication: Injury or trauma; Fall; Blunt trauma; Injury date: 06/02/2021; Additional info: Fall hit face, bridge of nose small laceration, pain in face and neck TECHNIQUE: Imaging protocol: Computed tomography images of the cervical spine without contrast. Radiation optimization: All CT scans at this facility use at least one of these dose optimization techniques: automated exposure control; mA and/or kV adjustment per patient size (includes targeted exams where dose is matched to clinical indication); or iterative reconstruction. COMPARISON: DX (C SPINE OBL, CSPINE, C SPINE OBL) 01/19/2019 9:17 AM FINDINGS: Bones/joints: No acute fracture. Normal alignment. The spinolaminar line is intact. Discs/Spinal canal/Neural foramina: Intervertebral disc space narrowing at C3-C4, and C6-C7. Anterior osteophyte formation is noted at C3-C4, C4-C5, and C6-C7. 3 mm of posterior osseous encroachment into the anterior epidural space is noted at C6-C7. This causes mild osseous central canal stenosis. There is mild bilateral facet degeneration throughout the cervical spine. Narrowing and hypertrophic changes between the anterior arch of C1 and the dens of C2 is identified. Right C3-C4 and C4-C5 as well as bilateral C6-C7 exit foraminal encroachment. Lungs: Pulmonary emphysema is noted within the pulmonary apices. There is mild pleural and parenchymal scarring noted within the pulmonary apices. Soft tissues: No evidence of prevertebral soft tissue swelling. IMPRESSION: 1. 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 2. Pulmonary emphysema of the lung apices.
--- NOTE | 2021-06-02 00:52 | ECG_ITS ---
APPROVED REPORT Exam: Resting ECG HR:52 bpm ECG Measurements Heart Rate 52 AXES VT 168 P 37 QRSd 146 QRS -1 QT 504 T 261 QTc 468 Conclusion Sinus bradycardia Left bundle branch block Abnormal ECG Electronically signed by : Wolfgang Peters MD 06/02/2021 09:03:46
[2021-06-02 00:56] LABS: Basophils # 0.1 K/mm3 (0-0.2); Basophils % 0.7 % (0.1-2.0); Eosinophils # 0.4 K/mm3 (0.0-0.4); Eosinophils % 2.9 % (0.1-12.0); Hematocrit 43.1 % (42.0-52.0); Hemoglobin 14.4 g/dL (14.1-18.0); Lymphocytes # 2.9 K/mm3 (0.7-4.5); Lymphocytes % 22.1 % (10-50); Mean Corpuscular HGB Conc 33.5 g/dL (31.8-35.4); Mean Corpuscular Hemoglobin 31.9 pg (27.0-31.2); Mean Corpuscular Volume 95.1 fl (80-94); Monocytes # 0.6 K/mm3 (0.1-1.0); Monocytes % 4.3 % (1.7-9.3); Neutrophils # 9.2 K/mm3 (1.8-7.8); Neutrophils % 69.9 % (37.0-80.0); Platelet Count 367 K/mm3 (142-424); Red Blood Count 4.53 M/mm3 (4.60-6.20); Red Cell Distribution Width 12.6 % (11.5-17.5); White Blood Count 13.1 K/mm3 (4.8-10.8)
[2021-06-02 01:03] LABS: Alanine Aminotransferase 15 U/L (12-78); Albumin Level 4.4 g/dl (3.5-5.0); Alkaline Phosphatase 90 U/L (38-126); Anion Gap 8.7 mEq/L (5-15); Aspartate Amino Transferase 24 U/L (17-59); Bilirubin,Direct 0.1 mg/dl (0.0-0.4); Bilirubin,Indirect 0.3 mg/dL (0.0-0.9); Bilirubin,Total 0.4 mg/dl (0.2-1.3); Bilirubin,Unconjugated 0.3 mg/dL (0.0-1.1); Blood Urea Nitrogen 9 mg/dl (9-20); Calcium 9.6 mg/dl (8.4-10.2); Carbon Dioxide 28 mmol/L (22.0-30.0); Chloride 103 mmol/L (98-107); Creatinine Clearance Estimated 64 mL/min (50-200); Estimated Glomerular Filt Rate 68 ml/min (>60); GFR (African American) 82 ML/MIN (>60); Glucose 128 mg/dl (74-100); Potassium 3.7 mmoL/L (3.5-5.1); Sodium 136 mmol/L (136-145)
--- NOTE | 2021-06-02 01:05 | HMH.EDSYNC ---
ED Disposition Clinical Impression: Left bundle branch block (LBBB) Syncope Qualifiers: Syncope type: unspecified Qualified Code(s): R55 - Syncope and collapse Nasal laceration Qualifiers: Encounter type: initial encounter Qualified Code(s): S01.21XA - Laceration without foreign body of nose, initial encounter Nasal fracture Qualifiers: Encounter type: initial encounter Fracture type: closed Qualified Code(s): S02.2XXA - Fracture of nasal bones, initial encounter for closed fracture Disposition: Home, Self-Care Condition on Discharge: Good Instructions: DI for Syncope in Adults (Fainting) Additional Instructions: call pcp thursday Referrals: Wolfgang Cantu MD [Primary Care Provider] - - Critical Care Critical Care Time: No Attestation: On 06/01/21, the high probability of a clinically significant, sudden or life threatening deterioration of the following system(s) required my full and direct attention, intervention and personal management. The time I documented below is in addition to time spent performing reported procedures but includes the following listed in this critical care notation. Medical Decision Making - Medical Records Medical records reviewed: Yes: I reviewed the patient's medical records. - Juwan Inquiry Pt receiving controlled substance: No Vital Signs: 06/01/21 23:56 06/02/21 00:34 06/02/21 01:01 Temperature 97.7 F Temperature Source Oral Pulse Rate 53 L 56 L Pulse Rate [Right Radial] 60 Respiratory Rate 16 17 Blood Pressure 131/79 148/79 H Blood Pressure [Right Arm] 142/81 H Blood Pressure Mean [Right Arm] 101 Blood Pressure Source [Right Arm] Automatic Cuff Blood Pressure Position [Right Arm] Sitting 02 Sat by Pulse Oximetry 97 97 98 Oxygen Delivery Method Room Air Room Air Room Air 06/02/21 01:41 06/02/21 02:01 06/02/21 02:19 Temperature Temperature Source Pulse Rate 51 L 56 L 51 L Pulse Rate [Right Radial] Respiratory Rate 16 12 17 Blood Pressure 164/80 H 179/92 H 139/77 Blood Pressure [Right Arm] Blood Pressure Mean [Right Arm] Blood Pressure Source [Right Arm] Blood Pressure Position [Right Arm] 02 Sat by Pulse Oximetry 99 99 97 Oxygen Delivery Method Room Air Room Air 06/02/21 02:30 Temperature Temperature Source Pulse Rate 63 Pulse Rate [Right Radial] Respiratory Rate 18 Blood Pressure 152/86 H Blood Pressure [Right Arm] Blood Pressure Mean [Right Arm] Blood Pressure Source [Right Arm] Blood Pressure Position [Right Arm] 02 Sat by Pulse Oximetry 97 Oxygen Delivery Method - Lab Data Lab results reviewed: Yes: I reviewed the patient's lab results. Lab Results 06/02/21 00:14: SARS-CoV-2 (PCR) Not detected, Influenza A Untype (PCR) Not detected, Influenza Type B (PCR) Not detected 06/02/21 00:40: WBC 13.1 H, RBC 4.53 L, Hgb 14.4, Hct 43.1, MCV 95.1 H, MCH 31.9 H, MCHC 33.5, RDW 12.6, Plt Count 367, MPV 7.0 L, Neut % (Auto) 69.9, Lymph % (Auto) 22.1, [place] % (Auto) 4.3, Eos % (Auto) 2.9, Baso % (Auto) 0.7, Neut # (Auto) 9.2 H, Lymph # (Auto) 2.9, [place] # (Auto) 0.6, Eos # (Auto) 0.4, Baso # (Auto) 0.1 06/02/21 00:40: Sodium 136, Potassium 3.7, Chloride 103, Carbon Dioxide 28, Anion Gap 8.7, BUN 9, Creatinine 1.10, Estimated Creat Clear 64, Estimated GFR 68, Est GFR ( Amer) 82, Glucose 128 H, Calcium 9.6, Total Bilirubin 0.4, Direct Bilirubin 0.1, Conjugated Bilirubin 0.0, Indirect Bilirubin 0.3, Unconjugated Bilirubin 0.3, AST 24, ALT 15, Alkaline Phosphatase 90, Troponin I < 0.01, Total Protein 7.0, Albumin 4.4 06/02/21 02:20: Urine Color Yellow, Urine Appearance Sl cloudy, Urine pH 6.0, Ur Specific [place] 1.020, Urine Protein 1+, Urine Glucose (UA) Negative, Urine Ketones 1+, Urine Blood Negative, Urine Nitrate Negative, Urine Bilirubin Negative, Urine Urobilinogen 0.2, Ur Leukocyte Esterase 1+ A, Urine WBC 10-20 Result diagrams: 06/02/21 00:40 06/02/21 00:40 Orders (Tests/Meds): ED MEDICATIONS
[2021-06-02 01:18] LABS: Troponin I < 0.01 ng/ml (0.00-0.034)
[2021-06-02 01:27] LABS: Coronavirus 19, PCR Not Detected (NotDetected); Influenza A, PCR Not Detected (NotDetected); Influenza B, PCR Not Detected (NotDetected)
[2021-06-02 02:27] LABS: Microscopic, Urine URINE MICROSCOPIC (MICROSCOPIC)
[2021-06-02 02:30] LABS: Appearance,Urine SL CLOUDY (Clear); Bilirubin,Urine Negative (Negative); Blood, Urine Negative (Negative); Color,Urine YELLOW (Yellow); Glucose,Urine (UA) Negative (Negative); Ketones,Urine 1+ (Negative); Leukocyte Esterase,Urine 1+ (Negative); Nitrate,Urine Negative (Negative); Protein,Urine 1+ (Negative); Urobilinogen,Urine 0.2 EU/dl (0.2)
== END 2021-06-02 03:29 | disposition home or self-care (01) ==
PROVIDERS: Emergency Provider Emergency Medicine; PCP Family Medicine
DX: R55 Syncope and collapse (principal); S01.21XA Laceration without foreign body of nose, initial encounter; S02.2XXA Fracture of nasal bones, initial encounter for closed fracture; I10 Essential (primary) hypertension; K21.9 Gastro-esophageal reflux disease without esophagitis; F17.210 Nicotine dependence, cigarettes, uncomplicated; I44.7 Left bundle-branch block, unspecified; N39.0 Urinary tract infection, site not specified; Z20.822 Contact with and (suspected) exposure to COVID-19
CPT/HCPCS: 12011; 70450; 70486; 71045; 72125; 72170; 80048; 80076; 81001; 84484; 85025; 87086; 87088; 87186; 93005; 96365; 96375; 99284; C9803; U0003; U0005

== ENCOUNTER → 2021-08-13 08:33 | Outpatient (CLI) | payer MEDICARE, SELFPAY ==
--- NOTE | 2021-08-13 | CA_ITS ---
APPROVED REPORT EXAM: Comprehensive 2D, Doppler, and color-flow Echocardiogram Chuck Boner: HELENE Norris, RVS Ht: 5 ft 9 in Wt: 145lbs BSA: 1.80 BP: 142/90 mmHg Indications: SYNCOPE, CM, LBBB,MURMUR 2D Dimensions IVSd 1.18 cm M: 0.6-1.2 LVEF (Visual) 40.60 % PWd 1.01 cm M: 0.6 - 1.2 LA Volume 29.50 mL LVDd 5.40 cm M: 4.2 - 5.9 LA Volume Index 16.38 mL/m2 (M/F) 16-34 LVDs 4.32 cm M: 2.5 - 4.0 Aortic Root 2.85 cm M: 3.1 - 3.7 Left Atrium 3.06 cm M: 3.0 - 4.0 LVOT 2.05 cm (M/F) 1.5-2.5 M-Mode Dimensions RVDd 2.00 cm (0.9-2.6) LA Diam 2.65 cm (1.9-4.0) LVDd 5.80 cm (3.5-5.7) Ao Diam 3.23 cm (2.0-3.7) LVDs 4.78 cm (3.5-5.7) IVSd 1.00 cm (0.6-1.1) PWd 1.00 cm (0.6-1.1) EF (Teich) 32.40% EPSs 3.34 cm FS 15.50% EDV (Teich) 157.50 mL TAPSE 1.98 (<1.7) ESV (Teich) 106.50 mL LV Diastology E Decel Time 183.00 (160-240 msec) E/A Ratio 0.6 MED E' 7.30 (< 7 cm/sec) MED A' 11.80 cm/s E'/MED E' Ratio 9.64 (>14) Aortic Valve LVOT Max 114.00 (70-110 cm/s) LVOT VTI 16.42 cm AoV Peak Adolfo. 163.00 (50-130 cm/s) AO Peak GR. 10.70 mmHg AO Mean GR. 6.00 (<5 mmHg) AO VTI 27.66 (18-25 cm) YANDEL (VTI) 1.96 (2.5-4.5 cm2) Mitral Valve MV E Max Adolfo. 70.00 (40-130 cm/s) MV A Velocity 114.00 (40-130 cm/s) E/A Ratio 0.62 MV Decel. Time 183.00 (160-240 ms) MV Mean Gr. 2.10 (<2mmHg) MV PHT 54.00 ms Pulmonary Valve PV Peak Velocity 115.00 (50-150 cm/s) MT End VMAX 144.00 cm/s Tricuspid Valve TR P. Velocity 174.00 cm/s RAP Estimate 10.00 mmHg RVSP 22.00 mmHg Left Ventricle Left atrium is mildly enlarged, left ventricle is normal size, mild concentric left ventricular hypertrophy, severely reduced left ventricular systolic function, visually estimated ejection fraction 30% left ventricle is severely globally hypokinetic. There is abnormal septal motion, grade 1 diastolic dysfunction seen without tissue Doppler evidence of raise left atrial pressure. Right Ventricle Right atrium and right ventricle are normal size and contractility. Aortic Valve Aortic valve is grossly normal, there is no aortic stenosis or aortic insufficiency. Mitral Valve Mitral valve is grossly normal, there is trace mitral regurgitation. Tricuspid Valve Tricuspid valve grossly normal, there is trace tricuspid regurgitation, tricuspid regurgitation jet velocity is inadequate for calculation of the right ventricular systolic pressure. Pulmonic Valve Pulmonic valve is poorly visualized. Great Vessels Aortic root is normal size . Inferior vena cava is poorly visualized. Pericardium No significant pericardial effusion noted. Conclusion 1. Mildly enlarged left atrium, normal left ventricular size, mild concentric left ventricular hypertrophy, visually estimated ejection fraction 30% left ventricle is globally hypokinetic, grade 1 diastolic dysfunction seen without tissue Doppler evidence of late left atrial pressure. There is abnormal septal motion. 2. Trace mitral and tricuspid regurgitation. 3. No significant pericardial effusion. 4. Inferior vena cava is normal size with normal inspiratory collapse. Electronically signed by : Yevgeniy Holley MD 08/13/2021 19:00:38
== END ==
PROVIDERS: PCP Family Medicine; Visit Provider Family Medicine
DX: R06.00 Dyspnea, unspecified (principal); R55 Syncope and collapse; I51.9 Heart disease, unspecified
CPT/HCPCS: 93306

== ENCOUNTER → 2021-08-22 11:35 | Outpatient (CLI) | payer MEDICARE, SELFPAY ==
--- NOTE | 2021-08-22 11:42 | XR_ITS ---
FINAL REPORT TECHNIQUE: Chest PA & Lateral CLINICAL HISTORY: chest pain hx of bladder ca smoker COMPARISON: June 02, 2021 FINDINGS: 2 views of the chest were performed. The heart size is normal. The mediastinum is within normal limits. There is no acute cardiopulmonary process. There are no pleural effusions. There is no pneumothorax. There is a lower thoracic stimulator present. IMPRESSION: No acute cardiopulmonary process. Reviewed, Interpreted and Dictated by Sam Seaman MD Transcribed by Luis Espinoza Authenticated by Sam Seaman MD on 08/22/2021 12:52:[address] [facility]
[2021-08-22 12:10] LABS: Basophils # 0.1 K/mm3 (0-0.2); Basophils % 0.7 % (0.1-2.0); Eosinophils # 0.1 K/mm3 (0.0-0.4); Eosinophils % 1.3 % (0.1-12.0); Hematocrit 44.7 % (42.0-52.0); Hemoglobin 14.8 g/dL (14.1-18.0); Lymphocytes # 2.8 K/mm3 (0.7-4.5); Lymphocytes % 37.7 % (10-50); Mean Corpuscular Hemoglobin 31.6 pg (27.0-31.2); Mean Corpuscular Volume 95.6 fl (80-94); Mean Platelet Volume 7.2 fl (7.4-10.4); Monocytes # 0.3 K/mm3 (0.1-1.0); Monocytes % 4.4 % (1.7-9.3); Neutrophils # 4.2 K/mm3 (1.8-7.8); Platelet Count 390 K/mm3 (142-424); Red Blood Count 4.67 M/mm3 (4.60-6.20); Red Cell Distribution Width 12.7 % (11.5-17.5); White Blood Count 7.5 K/mm3 (4.8-10.8)
[2021-08-22 12:32] LABS: Troponin I < 0.01 ng/ml (0.00-0.034)
[2021-08-22 12:43] LABS: Alanine Aminotransferase 19 U/L (12-78); Albumin Level 4.5 g/dl (3.5-5.0); Alkaline Phosphatase 112 U/L (38-126); Anion Gap 8.7 mEq/L (5-15); Aspartate Amino Transferase 28 U/L (17-59); Bilirubin,Direct 0.2 mg/dl (0.0-0.4); Bilirubin,Indirect 0.2 mg/dL (0.0-0.9); Bilirubin,Total 0.4 mg/dl (0.2-1.3); Bilirubin,Unconjugated 0.2 mg/dL (0.0-1.1); Blood Urea Nitrogen 11 mg/dl (9-20); Calcium 9.1 mg/dl (8.4-10.2); Carbon Dioxide 30 mmol/L (22.0-30.0); Chloride 105 mmol/L (98-107); Chol/HDL Ratio 4.2 (1-3.5); Cholesterol 169 mg/dl (140-200); Estimated Glomerular Filt Rate 75 ml/min (>60); GFR (African American) 91 ML/MIN (>60); Glucose 106 mg/dl (74-100); HDL Cholesterol 40 mg/dl (40-60); Potassium 4.7 mmoL/L (3.5-5.1); Sodium 139 mmol/L (136-145); Total Protein,Serum 6.7 g/dl (6.3-8.2); Triglycerides 89 mg/dl (30-150); VLDL Cholesterol 18 mg/dL (0-40)
[2021-08-22 12:53] LABS: NT Pro Brain Natriuretic Pep. 610 pg/mL (0-125)
[2021-08-22 12:54] LABS: Direct LDL Cholesterol 107.61 mg/dL (100-129)
[2021-08-22 13:01] LABS: Free T4 (Free Thyroxine) 1.09 ng/dl (0.78-2.19)
[2021-08-22 13:14] LABS: Thyroid Stimulating Hormone 1.28 uIU/mL (0.465-4.68)
[2021-08-31 02:08] LABS: 1,25 Dihydroxy Vitamin D 58 pg/mL (.); 1,25-Dihydroxy, Vitamin D-2 <10 pg/mL (.); 1,25-Dihydroxy, Vitamin D-3 57 pg/mL (.)
== END ==
PROVIDERS: PCP Family Medicine; Visit Provider Internal Medicine
DX: F17.200 Nicotine dependence, unspecified, uncomplicated (principal); I20.9 Angina pectoris, unspecified; I42.8 Other cardiomyopathies; I50.20 Unspecified systolic (congestive) heart failure; R06.00 Dyspnea, unspecified; R20.0 Anesthesia of skin; R42 Dizziness and giddiness; R94.31 Abnormal electrocardiogram [ECG] [EKG]
CPT/HCPCS: 36415; 71046; 80048; 80061; 80076; 82652; 83880; 84439; 84443; 84484; 85025; 93225; 93226

== ENCOUNTER → 2021-08-26 13:33 | Outpatient (CLI) | payer MEDICARE, SELFPAY ==
--- NOTE | 2021-08-26 13:34 | CA_ITS ---
FINAL REPORT TECHNIQUE: Color Doppler, duplex Doppler and dominguez scale sonography of the bilateral neck vasculature was performed. Velocities were measured in the carotid arteries. Stenosis evaluation based on velocity criteria. CLINICAL HISTORY: arm numbness, Smoker, HTN, CHF FINDINGS: The peak systolic velocity of the right common carotid artery is 123 cm/sec and internal carotid artery and 22 cm/sec. The diastolic velocity in the internal carotid artery is 29 cm/sec. The ICA/CCA ratio is 1.1. Visually, a small amount of plaque is seen. These findings are consistent with less than 50% stenosis. The external carotid artery is patent. The right vertebral artery is patent with antegrade flow. The peak systolic velocity of the left common carotid artery is 113 cm/sec and internal carotid artery 104 cm/sec. The diastolic velocity in the internal carotid artery is 41 cm/sec. The ICA/CCA ratio is 1.0. Visually, a small amount of plaque is seen. These findings are consistent with less than 50% stenosis. The external carotid artery is patent. The left vertebral artery is patent with antegrade flow. IMPRESSION: Less than 50% carotid stenosis bilaterally. Bilateral patent vertebral arteries. If indicated, CTA or MRA could further evaluate. Reviewed, Interpreted and Dictated by Howard Ambrosio III, MD Transcribed by Leonie Neumann Authenticated by Howard Ambrosio III, MD on 08/26/2021 04:39:07 PM [facility]
== END ==
PROVIDERS: PCP Family Medicine; Visit Provider Internal Medicine
DX: I20.9 Angina pectoris, unspecified (principal); I42.8 Other cardiomyopathies; R06.00 Dyspnea, unspecified; R20.0 Anesthesia of skin; R42 Dizziness and giddiness; R94.31 Abnormal electrocardiogram [ECG] [EKG]
CPT/HCPCS: 93880

== ENCOUNTER → 2021-09-11 13:02 | Outpatient (CLI) | payer MEDICARE, SELFPAY | PROVIDERS: PCP Family Medicine; Visit Provider Internal Medicine | DX: F17.200 Nicotine dependence, unspecified, uncomplicated (principal); I20.9 Angina pectoris, unspecified; I42.8 Other cardiomyopathies; I44.7 Left bundle-branch block, unspecified; I50.20 Unspecified systolic (congestive) heart failure; I51.9 Heart disease, unspecified; R07.89 Other chest pain; R55 Syncope and collapse | CPT/HCPCS: 93270 ==

== ENCOUNTER 2021-10-18 22:56 | Emergency (ER) | payer MEDICARE, SELFPAY ==
[2021-10-18 22:58] VITALS: BP 170/100; PULSE 96; RESP 20; TEMP 36.8; O2SAT 98; BMI 21.4
[2021-10-18 23:12] VITALS: BMI 21.4
--- NOTE | 2021-10-18 23:12 | XR_ITS ---
PROCEDURE INFORMATION: Exam: XR Chest Exam date and time: 10/18/2021 11:13 PM Age: 61 years old Clinical indication: Injury or trauma; Other: Mower turned over; Blunt trauma (contusions or hematomas); Additional info: Accident pain left chest TECHNIQUE: Imaging protocol: XR of the chest. Views: 1 view. COMPARISON: CR XR CHEST 2V 08/22/2021 11:43 AM FINDINGS: Lungs: Unremarkable. No consolidation. Pleural spaces: Unremarkable. No pleural effusion. No pneumothorax. Heart/Mediastinum: Unremarkable. No cardiomegaly. Bones/joints: Unremarkable. IMPRESSION: No acute findings.
--- NOTE | 2021-10-18 23:12 | XR_ITS ---
PROCEDURE INFORMATION: Exam: XR Pelvis Exam date and time: 10/18/2021 11:18 PM Age: 61 years old Clinical indication: Pelvic pain; Additional info: Accident zero turn mower turned over TECHNIQUE: Imaging protocol: XR pelvis. Views: 1 or 2 view. COMPARISON: CR XR PELVIS 1-2V 06/02/2021 1:20 AM FINDINGS: Bones/joints: Unremarkable. No acute fracture. Soft tissues: Unremarkable. IMPRESSION: No acute findings.
[2021-10-18 23:13] VITALS: BP 170/100; PULSE 96; RESP 20; TEMP 37.1; O2SAT 98
--- NOTE | 2021-10-18 23:14 | CT_ITS ---
PROCEDURE INFORMATION: Exam: CT Cervical Spine Without Contrast Exam date and time: 10/18/2021 11:36 PM Age: 61 years old Clinical indication: Injury or trauma; Other: Zero turn mower turned over; Blunt trauma; Additional info: Accident TECHNIQUE: Imaging protocol: Computed tomography images of the cervical spine without contrast. Radiation optimization: All CT scans at this facility use at least one of these dose optimization techniques: automated exposure control; mA and/or kV adjustment per patient size (includes targeted exams where dose is matched to clinical indication); or iterative reconstruction. COMPARISON: CT CERVICAL SPINE WO CON 06/02/2021 1:17 AM FINDINGS: Bones/joints: No acute fracture. Normal alignment. Discs/Spinal canal/Neural foramina: Moderate right neural foraminal stenosis at C3-C5. Moderate bilateral neural foraminal stenosis at C6-C7. Multilevel degenerative changes of the cervical spine producing multiple levels of mild spinal canal stenosis. Lungs: At least moderate centrilobular emphysema. Bilateral apical scarring. Soft tissues: Unremarkable. IMPRESSION: No acute fracture or malalignment of the cervical spine.
--- NOTE | 2021-10-18 23:14 | CT_ITS ---
PROCEDURE INFORMATION: Exam: CT Head Without Contrast Exam date and time: 10/18/2021 11:34 PM Age: 61 years old Clinical indication: Injury or trauma; Other: Zero tiurn mower turned over; Blunt trauma (contusions or hematomas); Without loss of consciousness; Additional info: Accident TECHNIQUE: Imaging protocol: Computed tomography of the head without contrast. Radiation optimization: All CT scans at this facility use at least one of these dose optimization techniques: automated exposure control; mA and/or kV adjustment per patient size (includes targeted exams where dose is matched to clinical indication); or iterative reconstruction. COMPARISON: CT HEAD/BRAIN WO CON 06/02/2021 1:12 AM FINDINGS: Brain: Mild chronic brain volume loss and chronic small vessel ischemic changes. Cerebral ventricles: No ventriculomegaly. Paranasal sinuses: Visualized sinuses are unremarkable. No fluid levels. Mastoid air cells: Visualized mastoid air cells are well aerated. Bones/joints: Chronic left orbital medial wall fracture. Soft tissues: Unremarkable. IMPRESSION: No acute intracranial findings.
--- NOTE | 2021-10-18 23:14 | CT_ITS ---
PROCEDURE INFORMATION: Exam: CT Chest With Contrast; Diagnostic Exam date and time: 10/18/2021 11:50 PM Age: 61 years old Clinical indication: Injury or trauma; Other: Zero turn mower turned over; Blunt trauma (contusions or hematomas); Injury details: Pain left chest; Additional info: Accident TECHNIQUE: Imaging protocol: Diagnostic computed tomography of the chest with contrast. Radiation optimization: All CT scans at this facility use at least one of these dose optimization techniques: automated exposure control; mA and/or kV adjustment per patient size (includes targeted exams where dose is matched to clinical indication); or iterative reconstruction. Contrast material: ISOVUE; Contrast volume: 100 ml; Contrast route: IV; COMPARISON: CR XR CHEST PORTABLE 10/18/2021 11:13 PM FINDINGS: Lungs: Unremarkable. No consolidation. No masses. Pleural spaces: Unremarkable. No pneumothorax. No pleural effusion. Heart: Unremarkable. No cardiomegaly. No pericardial effusion. Lymph nodes: Unremarkable. No enlarged lymph nodes. Aorta: Unremarkable. No aortic aneurysm. Bones/joints: Unremarkable. No acute fracture. Soft tissues: Unremarkable. IMPRESSION: No acute findings.
--- NOTE | 2021-10-18 23:14 | CT_ITS ---
PROCEDURE INFORMATION: Exam: CT Abdomen And Pelvis With Contrast Exam date and time: 10/18/2021 11:50 PM Age: 61 years old Clinical indication: Injury or trauma; Other: Zero trun mower turned over; Blunt; Generalized; Additional info: Accident TECHNIQUE: Imaging protocol: Computed tomography of the abdomen and pelvis with contrast. Radiation optimization: All CT scans at this facility use at least one of these dose optimization techniques: automated exposure control; mA and/or kV adjustment per patient size (includes targeted exams where dose is matched to clinical indication); or iterative reconstruction. Contrast material: ISOVUE; Contrast volume: 100 ml; Contrast route: IV; COMPARISON: ABDPELW CT abdomen pelvis w con 08/10/2018 10:32 AM FINDINGS: Lungs: Dependant atelectasis in the lung bases. Liver: Normal. No mass. Gallbladder and bile ducts: Mild intrahepatic and common bile duct dilatation but no calcified stones are seen in the common bile duct. No calcified gallstones. Pancreas: Normal. No ductal dilation. Spleen: Normal. No splenomegaly. Adrenal glands: Normal. No mass. Kidneys and ureters: Normal. No hydronephrosis. Stomach and bowel: Unremarkable. No obstruction. No mucosal thickening. Appendix: No evidence of appendicitis. Intraperitoneal space: Unremarkable. No free air. No significant fluid collection. Arteries: Unremarkable. No abdominal aortic aneurysm. Lymph nodes: Unremarkable. No enlarged lymph nodes. Urinary bladder: Unremarkable as visualized. Reproductive: Unremarkable as visualized. Bones/joints: Degenerative changes in the lower lumbar spine. No acute fracture. Soft tissues: Unremarkable. IMPRESSION: No acute findings.
--- NOTE | 2021-10-18 23:22 | CT_ITS ---
PROCEDURE INFORMATION: Exam: CT Thoracic Spine Without Contrast Exam date and time: 10/18/2021 11:42 PM Age: 61 years old Clinical indication: Injury or trauma; Other: Zero turn mower turned over; Blunt trauma (contusions or hematomas); Additional info: Accident TECHNIQUE: Imaging protocol: Computed tomography images of the thoracic spine without contrast. Radiation optimization: All CT scans at this facility use at least one of these dose optimization techniques: automated exposure control; mA and/or kV adjustment per patient size (includes targeted exams where dose is matched to clinical indication); or iterative reconstruction. COMPARISON: CT CERVICAL SPINE WO CON 10/18/2021 11:36 PM FINDINGS: Vertebrae: No acute fracture. Normal alignment. Discs/Spinal canal/Neural foramina: No significant disc protrusion. No severe spinal canal stenosis. No significant neural foraminal narrowing. Soft tissues: Unremarkable. IMPRESSION: Unremarkable CT Spine.
--- NOTE | 2021-10-18 23:22 | CT_ITS ---
PROCEDURE INFORMATION: Exam: CT Lumbar Spine Without Contrast Exam date and time: 10/18/2021 11:45 PM Age: 61 years old Clinical indication: Injury or trauma; Other: Zero turn mower turned over; Blunt trauma (contusions or hematomas); Additional info: Accident TECHNIQUE: Imaging protocol: Computed tomography images of the lumbar spine without contrast. Radiation optimization: All CT scans at this facility use at least one of these dose optimization techniques: automated exposure control; mA and/or kV adjustment per patient size (includes targeted exams where dose is matched to clinical indication); or iterative reconstruction. COMPARISON: CT LUMBAR SPINE WO CON 03/20/2020 6:36 AM FINDINGS: Vertebrae: No acute fracture. Normal alignment. Discs/Spinal canal/Neural foramina: L3-L4, L4-L5 and L5-S1 there is disc bulging and marginal osteophyte formation and vacuum phenomenon and facet joint arthropathy resulting in neural foraminal and central canal narrowing. Soft tissues: Unremarkable. IMPRESSION: No acute findings.
[2021-10-18 23:23] LABS: Basophils # 0.2 K/mm3 (0-0.2); Basophils % 2.1 % (0.1-2.0); Eosinophils # 0.2 K/mm3 (0.0-0.4); Eosinophils % 2.3 % (0.1-12.0); Hematocrit 39.1 % (42.0-52.0); Hemoglobin 13.2 g/dL (14.1-18.0); Lymphocytes # 4.1 K/mm3 (0.7-4.5); Lymphocytes % 40.9 % (10-50); Mean Corpuscular HGB Conc 33.8 g/dL (31.8-35.4); Mean Corpuscular Hemoglobin 32.8 pg (27.0-31.2); Mean Corpuscular Volume 97.1 fl (80-94); Mean Platelet Volume 7.8 fl (7.4-10.4); Monocytes # 0.6 K/mm3 (0.1-1.0); Monocytes % 5.5 % (1.7-9.3); Neutrophils # 4.9 K/mm3 (1.8-7.8); Neutrophils % 49.1 % (37.0-80.0); Platelet Count 354 K/mm3 (142-424); Red Blood Count 4.03 M/mm3 (4.60-6.20); Red Cell Distribution Width 13.4 % (11.5-17.5)
[2021-10-18 23:27] VITALS: BP 151/90; PULSE 84; RESP 21; O2SAT 99
[2021-10-18 23:31] LABS: Alanine Aminotransferase 25 U/L (12-78); Albumin Level 4.5 g/dl (3.5-5.0); Alkaline Phosphatase 89 U/L (38-126); Anion Gap 14.9 mEq/L (5-15); Aspartate Amino Transferase 31 U/L (17-59); Bilirubin,Direct 0.1 mg/dl (0.0-0.4); Bilirubin,Indirect 0.4 mg/dL (0.0-0.9); Bilirubin,Total 0.5 mg/dl (0.2-1.3); Bilirubin,Unconjugated 0.3 mg/dL (0.0-1.1); Blood Urea Nitrogen 13 mg/dl (9-20); Calcium 9.1 mg/dl (8.4-10.2); Carbon Dioxide 26 mmol/L (22.0-30.0); Chloride 104 mmol/L (98-107); Creatinine Clearance Estimated 59 mL/min (50-200); Estimated Glomerular Filt Rate 61 ml/min (>60); GFR (African American) 74 ML/MIN (>60); Glucose 95 mg/dl (74-100); Lipase 48 U/L (23-300); Potassium 3.9 mmoL/L (3.5-5.1); Sodium 141 mmol/L (136-145); Total Protein,Serum 6.9 g/dl (6.3-8.2)
--- NOTE | 2021-10-18 23:48 | HMH.EDTRAUMA ---
ED Disposition Clinical Impression: Trauma Concussion Qualifiers: Encounter type: initial encounter Loss of consciousness presence/duration: without LOC Qualified Code(s): S06.0X0A - Concussion without loss of consciousness, initial encounter Chest wall contusion Qualifiers: Encounter type: initial encounter Laterality: unspecified laterality Qualified Code(s): S20.219A - Contusion of unspecified front wall of thorax, initial encounter Contusion, abdominal wall Qualifiers: Encounter type: initial encounter Qualified Code(s): S30.1XXA - Contusion of abdominal wall, initial encounter Disposition: Home, Self-Care Condition on Discharge: Good Instructions: DI for Trauma Additional Instructions: fluids and use meds and see pcp for follow up Prescriptions: Ketorolac Tromethamine [Toradol 10mg tablet] 10 mg PO Q6HP PRN #10 tab MDD 40mg/day PRN Reason: Moderate To Severe Pain Transmission Status: Pending to [id number] Referrals: Marshall Schuster MD [Primary Care Provider] - - Critical Care Critical Care Time: No Attestation: On 10/18/21, the high probability of a clinically significant, sudden or life threatening deterioration of the following system(s) required my full and direct attention, intervention and personal management. The time I documented below is in addition to time spent performing reported procedures but includes the following listed in this critical care notation. Medical Decision Making - Medical Records Medical records reviewed: Yes: I reviewed the patient's medical records. - Juwan Inquiry Pt receiving controlled substance: No Vital Signs: 10/18/21 22:58 10/18/21 23:13 10/18/21 23:27 Temperature 98.3 F 98.8 F Temperature Source Oral Oral Pulse Rate 84 Pulse Rate [Left Radial] 96 H 96 H Respiratory Rate 20 20 21 Blood Pressure 151/90 H Blood Pressure [Left Arm] 170/100 H 170/100 H Blood Pressure Mean [Left Arm] 123 123 Blood Pressure Source [Left Arm] Manual Cuff/ Auscultation Manual Cuff/ Auscultation Blood Pressure Position [Left Arm] Supine 02 Sat by Pulse Oximetry 98 98 99 Oxygen Delivery Method Room Air Room Air 10/19/21 00:03 Temperature Temperature Source Pulse Rate 82 Pulse Rate [Left Radial] Respiratory Rate 13 Blood Pressure 127/77 Blood Pressure [Left Arm] Blood Pressure Mean [Left Arm] Blood Pressure Source [Left Arm] Blood Pressure Position [Left Arm] 02 Sat by Pulse Oximetry 99 Oxygen Delivery Method Room Air - Lab Data Lab results reviewed: Yes: I reviewed the patient's lab results. Lab Results 10/18/21 23:14: WBC 10.0, RBC 4.03 L, Hgb 13.2 L, Hct 39.1 L, MCV 97.1 H, MCH 32.8 H, MCHC 33.8, RDW 13.4, Plt Count 354, MPV 7.8, Neut % (Auto) 49.1, Lymph % (Auto) 40.9, [place] % (Auto) 5.5, Eos % (Auto) 2.3, Baso % (Auto) 2.1 H, Neut # (Auto) 4.9, Lymph # (Auto) 4.1, [place] # (Auto) 0.6, Eos # (Auto) 0.2, Baso # (Auto) 0.2 10/18/21 23:14: Sodium 141, Potassium 3.9, Chloride 104, Carbon Dioxide 26, Anion Gap 14.9, BUN 13, Creatinine 1.20, Estimated Creat Clear 59, Estimated GFR 61, Est GFR ( Amer) 74, Glucose 95, Calcium 9.1, Total Bilirubin 0.5, Direct Bilirubin 0.1, Conjugated Bilirubin 0.0, Indirect Bilirubin 0.4, Unconjugated Bilirubin 0.3, AST 31, ALT 25, Alkaline Phosphatase 89, Total Protein 6.9, Albumin 4.5, Lipase 48 Result diagrams: 10/18/21 23:14 10/18/21 23:14 Orders (Tests/Meds): ED MEDICATIONS Discontinued Medications Generic Name Dose Route Start Last Admin Trade Name Juanq PRN Reason Stop Dose Admin Iopamidol 100 ml 10/19/21 00:18 10/18/21 23:50 Iopamidol-370 (76%);100ml Bottle IV 10/19/21 00:19 100 ml ONCE ONE Administration Sodium Chloride 10 ml 10/19/21 00:18 10/18/21 23:50 Sodium Chloride 0.9% 10ml Syr (Rad Only) IV 10/19/21 00:19 10 ml ONCE ONE Administration ORDERS Category Date Time Status Urinalysis and Microscopic Stat Lab 10/19/21 00:29 Ordered
[2021-10-19 00:03] VITALS: BP 127/77; PULSE 82; RESP 13; O2SAT 99
[2021-10-19 00:40] LABS: Microscopic, Urine URINE MICROSCOPIC (MICROSCOPIC)
[2021-10-19 00:42] LABS: Appearance,Urine CLEAR (Clear); Bilirubin,Urine Negative (Negative); Blood, Urine Negative (Negative); Color,Urine YELLOW (Yellow); Glucose,Urine (UA) Negative (Negative); Ketones,Urine Negative (Negative); Leukocyte Esterase,Urine Negative (Negative); Nitrate,Urine Negative (Negative); PH,Urine 5.5 (5.0-8.5); Protein,Urine Negative (Negative); Specific Gravity, Urine 1.015 (1.005-1.030); Urobilinogen,Urine 0.2 EU/dl (0.2)
[2021-10-19 00:45] LABS: Amorphous Sediment,Urine Trace /lpf
[2021-10-19 01:03] VITALS: BP 118/72; PULSE 80; RESP 16; TEMP 37.1; O2SAT 99
== END 2021-10-19 01:04 | disposition home or self-care (01) ==
PROVIDERS: Emergency Provider Emergency Medicine; PCP Internal Medicine
DX: S30.1XXA Contusion of abdominal wall, initial encounter (principal); S20.219A Contusion of unspecified front wall of thorax, initial encounter; S06.0X0A Concussion without loss of consciousness, initial encounter; V84.5XXA Driver of special agricultural vehicle injured in nontraffic accident, initial encounter; Y92.017 Garden or yard in single-family (private) house as the place of occurrence of the external cause; F41.8 Other specified anxiety disorders; K21.9 Gastro-esophageal reflux disease without esophagitis; J44.9 Chronic obstructive pulmonary disease, unspecified; F17.210 Nicotine dependence, cigarettes, uncomplicated; Z88.5 Allergy status to narcotic agent
CPT/HCPCS: 70450; 71045; 71260; 72125; 72128; 72131; 72170; 74177; 80048; 80076; 81001; 83690; 85025; 96374; 96375; 99284; Q9967

== ENCOUNTER 2021-10-23 11:55 | Emergency (ER) | payer MEDICARE, SELFPAY ==
--- NOTE | 2021-10-23 11:57 | ECG_ITS ---
APPROVED REPORT Exam: Resting ECG HR:71 bpm ECG Measurements Heart Rate 71 AXES FL 159 P 82 QRSd 146 QRS -46 QT 432 T 90 QTc 455 Conclusion SINUS RHYTHM WITH SINUS ARRHYTHMIA LEFT AXIS DEVIATION [QRS AXIS < -30] LEFT BUNDLE BRANCH BLOCK [120+ ms QRS DURATION, 80+ ms Q/S IN V1/V2, 85+ ms R IN I/aVL/V5/V6] ABNORMAL ECG UNCONFIRMED REPORT Electronically signed by : Wolfgang Peters MD 10/24/2021 08:01:44
[2021-10-23 12:02] VITALS: BP 143/92; PULSE 79; RESP 20; TEMP 36.6; O2SAT 99; BMI 21.1
--- NOTE | 2021-10-23 12:03 | HMH.EDGENADL ---
ED Disposition Clinical Impression: Headache Qualifiers: Headache type: unspecified Headache chronicity pattern: acute headache Intractability: not intractable Qualified Code(s): R51.9 - Headache, unspecified Syncope Qualifiers: Syncope type: unspecified Qualified Code(s): R55 - Syncope and collapse Disposition: Home, Self-Care Condition on Discharge: Good Instructions: DI for Syncope in Adults (Fainting), DI for Headache Additional Instructions: Reschedule appointment for Dr. Schuster, make appointment to be seen in 1 month. Additional instructions for HEADACHE: See your physician as soon as possible for further evaluation. Return immediately if worsening headache, vomiting, problems with vision or speech, fever, numbness or weakness of the extremities, neck pain or stiffness. Referrals: Wolfgang Cantu MD [Primary Care Provider] - - Critical Care Critical Care Time: No Attestation: On , the high probability of a clinically significant, sudden or life threatening deterioration of the following system(s) required my full and direct attention, intervention and personal management. The time I documented below is in addition to time spent performing reported procedures but includes the following listed in this critical care notation. Medical Decision Making - Medical Records Medical records reviewed: Yes: I reviewed the patient's medical records. MR Comment: Reviewed emergency department record from 10/18/2021. Reviewed CT scan reports. Reviewed most recent cardiology clinic office visit note from August. Reviewed cardiac cath report 2017. - Juwan Inquiry Pt receiving controlled substance: No Juwan was queried for this patient: Yes Vital Signs: 10/23/21 12:02 10/23/21 13:00 10/23/21 13:30 Temperature 98 F Temperature Source Oral Pulse Rate 63 67 Pulse Rate [Left Radial] 79 Respiratory Rate 20 24 18 Blood Pressure 141/92 H 139/87 Blood Pressure [Right Arm] 143/92 H Blood Pressure Mean 104 104 Blood Pressure Mean [Right Arm] 109 02 Sat by Pulse Oximetry 99 95 Oxygen Delivery Method Room Air - Lab Data Lab Results 10/23/21 11:58: WBC 8.0, RBC 3.89 L, Hgb 12.1 L, Hct 36.2 L, MCV 92.9, MCH 31.1, MCHC 33.5, RDW 13.0, Plt Count 324, MPV 7.1 L, Neut % (Auto) 61.4, Lymph % (Auto) 31.0, [place] % (Auto) 5.6, Eos % (Auto) 1.8, Baso % (Auto) 0.3, Neut # (Auto) 4.9, Lymph # (Auto) 2.5, [place] # (Auto) 0.5, Eos # (Auto) 0.2, Baso # (Auto) 0.0 10/23/21 11:58: Troponin I < 0.01 10/23/21 11:58: Sodium 137, Potassium 4.5, Chloride 108 H, Carbon Dioxide 22, Anion Gap 11.5, BUN 14, Creatinine 1.00, Estimated Creat Clear 69, Estimated GFR 75, Est GFR ( Amer) 91, Glucose 111 H, Calcium 9.4 Result diagrams: 10/23/21 11:58 10/23/21 11:58 Orders (Tests/Meds): ED MEDICATIONS Generic Name Dose Route Start Last Admin Trade Name Freq PRN Reason Stop Dose Admin Sodium Chloride 10 ml 10/23/21 12:11 Sodium Chloride 0.9% 10ml Flush Syringe IV 11/22/21 12:10 NEEDED PRN Maintain IV Site ORDERS Category Date Time Status Troponin I Q3H Lab 10/23/21 15:15 Ordered Troponin I Q3H Lab 10/23/21 18:15 Ordered - Radiology Data #1 Image(s): Chest Image Reviewed: Yes I reviewed the patient's radiology image Preliminary Findings: Normal/NAD - CT Data CT Scan: Head Time Received: 14:[address] Reviewed: Yes: I have viewed the radiologist's interpretation Findings Narrative: Procedure(s): CT head/brain wo con Accession Number(s): [id number] cc: Sam Seaman MD; Wolfgang Cantu MD; Tommie Larry MD~ FINAL REPORT CLINICAL HISTORY: headache, syncope COMPARISON: October 18, 2021 FINDINGS: Axial images of the head were obtained without contrast. Coronal reformatted images were also obtained. This study was performed with techniques to keep radiation doses as low as reasonably achievable (ALARA). Individualized dose reduction techniques using automated expo
--- NOTE | 2021-10-23 12:11 | XR_ITS ---
FINAL REPORT CLINICAL HISTORY: shortness of breath/syncope COMPARISON: October 18, 2021 FINDINGS: SINGLE VIEW CHEST The heart is normal in size. The mediastinum is unremarkable. The lungs are clear. There is no pneumothorax. IMPRESSION: No acute process. Reviewed, Interpreted and Dictated by Sam Seaman MD Transcribed by Tara Schultz Authenticated by Sam Seaman MD on 10/23/2021 01:32:13 PM [facility]
--- NOTE | 2021-10-23 12:22 | CT_ITS ---
FINAL REPORT CLINICAL HISTORY: headache, syncope COMPARISON: October 18, 2021 FINDINGS: Axial images of the head were obtained without contrast. Coronal reformatted images were also obtained. This study was performed with techniques to keep radiation doses as low as reasonably achievable (ALARA). Individualized dose reduction techniques using automated exposure control or adjustment of mA and/or kV according to the patient's size were employed. There is mild atrophy. There is mild decreased attenuation in the deep white matter. There is no evidence of intracranial hemorrhage or mass. There is no evidence of acute infarct. There is no evidence of shift of the midline structures. No skull abnormality is seen on the bone window images. Paranasal sinuses are well aerated. IMPRESSION: No acute intracranial abnormality. Reviewed, Interpreted and Dictated by Sam Seaman MD Transcribed by Tara Schultz Authenticated by Sam Seaman MD on 10/23/2021 02:02:32 PM [facility]
[2021-10-23 12:23] LABS: Chloride 108 mmol/L (98-107)
[2021-10-23 12:24] LABS: Basophils % 0.3 % (0.1-2.0); Eosinophils # 0.2 K/mm3 (0.0-0.4); Eosinophils % 1.8 % (0.1-12.0); Hematocrit 36.2 % (42.0-52.0); Hemoglobin 12.1 g/dL (14.1-18.0); Lymphocytes # 2.5 K/mm3 (0.7-4.5); Mean Corpuscular HGB Conc 33.5 g/dL (31.8-35.4); Mean Corpuscular Hemoglobin 31.1 pg (27.0-31.2); Mean Corpuscular Volume 92.9 fl (80-94); Mean Platelet Volume 7.1 fl (7.4-10.4); Monocytes # 0.5 K/mm3 (0.1-1.0); Monocytes % 5.6 % (1.7-9.3); Neutrophils # 4.9 K/mm3 (1.8-7.8); Neutrophils % 61.4 % (37.0-80.0); Platelet Count 324 K/mm3 (142-424); Potassium 4.5 mmoL/L (3.5-5.1); Red Blood Count 3.89 M/mm3 (4.60-6.20); Sodium 137 mmol/L (136-145)
[2021-10-23 12:26] LABS: Blood Urea Nitrogen 14 mg/dl (9-20); Creatinine Clearance Estimated 69 mL/min (50-200); Estimated Glomerular Filt Rate 75 ml/min (>60); GFR (African American) 91 ML/MIN (>60)
[2021-10-23 12:27] LABS: Anion Gap 11.5 mEq/L (5-15); Calcium 9.4 mg/dl (8.4-10.2); Carbon Dioxide 22 mmol/L (22.0-30.0); Glucose 111 mg/dl (74-100)
--- NOTE | 2021-10-23 12:35 | PC.NURSE ---
Pt returned from Rad
[2021-10-23 12:45] LABS: Troponin I < 0.01 ng/ml (0.00-0.034)
[2021-10-23 13:00] VITALS: BP 141/92; PULSE 63; RESP 24; O2SAT 95
[2021-10-23 13:30] VITALS: BP 139/87; PULSE 67; RESP 18
[2021-10-23 14:25] VITALS: BP 131/74; PULSE 61; RESP 18; TEMP 36.6; O2SAT 99
== END 2021-10-23 14:26 | disposition home or self-care (01) ==
PROVIDERS: Emergency Provider Emergency Medicine; PCP Family Medicine
DX: R55 Syncope and collapse (principal); R07.9 Chest pain, unspecified; M54.6 Pain in thoracic spine; R51.9 Headache, unspecified; I10 Essential (primary) hypertension; I44.7 Left bundle-branch block, unspecified; I42.9 Cardiomyopathy, unspecified; K21.9 Gastro-esophageal reflux disease without esophagitis; E78.5 Hyperlipidemia, unspecified; J98.4 Other disorders of lung; F32.A Depression, unspecified; F17.210 Nicotine dependence, cigarettes, uncomplicated; Z79.1 Long term (current) use of non-steroidal anti-inflammatories (NSAID); Z88.5 Allergy status to narcotic agent; Z88.6 Allergy status to analgesic agent; Z88.8 Allergy status to other drugs, medicaments and biological substances; Z83.3 Family history of diabetes mellitus; Z80.9 Family history of malignant neoplasm, unspecified
CPT/HCPCS: 70450; 71045; 80048; 84484; 85025; 93005; 99285

== ENCOUNTER → 2021-11-11 10:52 | Outpatient (CLI) | payer MEDICARE, SELFPAY | PROVIDERS: PCP Family Medicine; Visit Provider Internal Medicine | DX: R06.09 Other forms of dyspnea (principal); R42 Dizziness and giddiness; R55 Syncope and collapse; I44.7 Left bundle-branch block, unspecified; R94.31 Abnormal electrocardiogram [ECG] [EKG]; R20.2 Paresthesia of skin; R20.0 Anesthesia of skin | CPT/HCPCS: 93308 ==

== ENCOUNTER → 2021-12-07 10:36 | Outpatient (CLI) | payer MEDICARE, SELFPAY | PROVIDERS: PCP Family Medicine; Visit Provider Internal Medicine | DX: F17.200 Nicotine dependence, unspecified, uncomplicated (principal); I20.9 Angina pectoris, unspecified; I42.8 Other cardiomyopathies; I44.7 Left bundle-branch block, unspecified; I50.20 Unspecified systolic (congestive) heart failure; I51.9 Heart disease, unspecified; R07.89 Other chest pain; Z01.812 Encounter for preprocedural laboratory examination; Z20.822 Contact with and (suspected) exposure to COVID-19 | CPT/HCPCS: C9803; U0003; U0005 ==

== ENCOUNTER 2021-12-09 09:49 | Day surgery (SDC) | payer MEDICARE, SELFPAY ==
--- NOTE | 2021-12-09 | IR_ITS ---
APPROVED REPORT Patient Location: Outpatient Digital Strategist: FREDERICK Juan RT (R) PROCEDURES 1. Pocket formation for biventricular pacemaker generator with cardiac resynchronization/defibrillator therapy. 2. Placement of atrial sensing and pacing lead into the right atrial appendage. 3. Placement of a right ventricular sensing, pacing and shocking lead in the right ventricular apex. 4. Placement of left ventricular sensing pacing lead via the coronary sinus. 5. Permanent cardiac resynchronization therapy with ICD implantation/biventricular pacemaker. INDICATION Nonischemic Cardiomyopathy Informed consent was obtained prior to the procedure. COMPLICATIONS NONE Estimated Blood Loss: LESS THAN 10 ML TECHNIQUE 1% Lidocaine with epinephrine used to anesthetized the left anterior aspect of the chest. Scalpel was used to make the initial cutaneous incision while electrocautery was used to dissect down tinto the fascia. The fascia was lifted off the pectoralis muscle and digitally manipulated creating a pocket for the defibrillator. The patient was then placed in Trendelenburg position and the subclavian vein was accessed 3 times via the Selinger technique. A 8 [place] sheath was placed under fluoroscopic guidance into the subclavian vein. The dilator was removed from the sheath. Using fluoroscopic guidance, the ventricular lead was placed into the right ventricular apex, screwed and secured into place. Electronic interrogation proved acceptable thresholds and voltage within the lead. Using 3-0 silk, the ventricular lead was then secured into place and sheath peeled away. Following this, a 9.5 [place] sheath and dilator was then placed over one of the wires while keeping the other wire in place within the subclavian vein. The dilator was removed from the sheath. Using fluoroscopic guidance, contrast was used to visualize the coronary sinus, the left ventricular lead was placed into the coronary sinus. Electronic interrogation proved acceptable thresholds and voltage within the lead. Using 3-0 silk, the left ventricular lead was then secured into place and sheath peeled away.An additional 6 [place] fresh sheath and dilator was placed over the existing wire. Using fluoroscopic guidance, the atrial lead was then placed into the right atrial appendage and screwed and secured in place. Electrical interrogation demonstrated acceptable thresholds and voltage number. The atrial lead was then secured into place using 3-0 silk and sheath peeled away. 1 gram of Ancef was used to flush the pocket. All 3 leads were connected to generator and tested via computer. The defibrillator then secured to the fascia. Monocryl was used to close the subcutaneous layers while david were used to close the cutaneous layer. A pressure dressing was placed and the patient was transferred to the postop holding area in stable condition for postoperative care. 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 [id number] Generator Serial number: [id number] Atrial lead model number: 0847 Atrial lead serial number: [id number] P-wave: 4.0 mv Impedence: 547 ohms Threshold: 1.0v Right Ventricular lead model number: 7841 Right Ventricular lead serial number: [id number] R-wave: 12.5 mv Impedence: 463 ohms Threshold: 1.7v @ 0.4 ms Left Ventricular lead model number: 0675 Left Ventricular lead serial number: [id number] R-wave: 11.0 mv Impedence: 801 ohms Threshold: 1.5v @ 0.4 ms Pacing Parameters: Mode: DDDR Base/Max Track:60 ppm / 130 ppm vf 210 bpm 2.5 sec quick convert 41x1 41x1 41x6 vt 180 bpm 5 sec atp 41 x1 41 x1 41x4 No diaphragmatic stimulation at 10 volts. IMPRESSION 1.
[2021-12-09 10:23] VITALS: PULSE 70
[2021-12-09 10:29] LABS: Basophils # 0.1 K/mm3 (0-0.2); Basophils % 1.3 % (0.1-2.0); Eosinophils # 1.2 K/mm3 (0.0-0.4); Eosinophils % 12.6 % (0.1-12.0); Hematocrit 40.3 % (42.0-52.0); Hemoglobin 13.8 g/dL (14.1-18.0); Lymphocytes # 2.8 K/mm3 (0.7-4.5); Lymphocytes % 29.3 % (10-50); Mean Corpuscular HGB Conc 34.4 g/dL (31.8-35.4); Mean Corpuscular Hemoglobin 31.6 pg (27.0-31.2); Mean Corpuscular Volume 91.9 fl (80-94); Mean Platelet Volume 7.7 fl (7.4-10.4); Monocytes # 0.6 K/mm3 (0.1-1.0); Monocytes % 6.3 % (1.7-9.3); Neutrophils # 4.8 K/mm3 (1.8-7.8); Neutrophils % 50.5 % (37.0-80.0); Platelet Count 388 K/mm3 (142-424); Red Blood Count 4.38 M/mm3 (4.60-6.20); Red Cell Distribution Width 12.6 % (11.5-17.5); White Blood Count 9.4 K/mm3 (4.8-10.8)
[2021-12-09 10:39] LABS: Chloride 105 mmol/L (98-107); Sodium 137 mmol/L (136-145)
[2021-12-09 10:40] LABS: Potassium 3.9 mmoL/L (3.5-5.1)
[2021-12-09 10:42] LABS: Blood Urea Nitrogen 10 mg/dl (9-20); Creatinine Clearance Estimated 60 mL/min (50-200); Estimated Glomerular Filt Rate 68 ml/min (>60); GFR (African American) 82 ML/MIN (>60)
[2021-12-09 10:43] LABS: Anion Gap 11.9 mEq/L (5-15); Calcium 9.5 mg/dl (8.4-10.2); Carbon Dioxide 24 mmol/L (22.0-30.0); Glucose 123 mg/dl (74-100)
--- NOTE | 2021-12-09 11:41 | HMH.ANESCL ---
[facility] Anesthesia Checklist - Patient Identification Patient Identification: Arm Band - Structural Data Admitted From: Home Planned Operative Procedure/s: Biventricular Pacemaker/AICD Consent for Planned Operative Procedure(s) Verified: Yes Verified Documents: Surgical Consent, History and Physical - NPO Status Verified Time NPO: 00:00 - Additional verifications Anesthesia Reactions: No Hx Blood Transfusions: No Blood Transfusion Reaction: No - Airway Assessment C-Spine Mobility Assessed: Yes (mp2) TMJ Mobility Assessed: Yes Dentition: Edentulous - Neurological Assessment Level of Consciousness: Awake, Alert - Anesthesia Plan Anesthesia Risk discussed: Yes Anesthesia Plan: Verified ASA Class: III Anesthesia Type: MAC [facility] History I have reviewed the patient's past medical history: Yes Medical History: Reports:: Anxiety, Cardiomyopathy, Chronic Obstructive Pulmonary Disease (COPD), Depression, Gastroesophageal Reflux Disease(GERD), Hypertension, Lung Disease Denies:: Cancer, Diabetes Mellitus Type 1, Diabetes Mellitus Type 2, Internal Pacemaker, MRSA, Seizures *Have you ever received a pneumonia vaccine?: Yes *Have you received a flu vaccine this season?: Yes Other Medical History: Reports: Arthritis. Denies: Blood Transfusion Reaction Anesthesia experience/problems:: nac Laterality Cases: Left: Arthroscopy Shoulder Other Surgeries: Yes: Cancer Surgery (BLADDER), Colonoscopy, Other. No: Pacemaker Amputation: No Fractures: No - *Social History Last grade of school completed: 9th or 10th Smoking Status: Current every day smoker Tobacco Type: cigarettes # Packs/Day (cigarettes): 1 Alcohol Intake: never Substance Use Type: denies use *Occupational Status:: employed Household Members: significant other *Travel in the last 8 weeks: Inside the [place] - Psychiatric History Pschychiatric History:: Reports:: Anxiety, Depression Family Hx:: No significant family history
--- NOTE | 2021-12-09 13:42 | XR_ITS ---
FINAL REPORT CLINICAL HISTORY: Confirm pacemaker/AID placement COMPARISON: October 23, 2021 FINDINGS: A single portable view of the chest was obtained. There has been interval placement of a left subclavian ICD. The heart size and pulmonary vascularity are within normal limits. The mediastinum is within normal limits. There are mild bibasilar opacities favoring atelectasis. The bony thorax is intact. IMPRESSION: Left subclavian ICD is present. Mild bibasilar opacities favoring atelectasis. Reviewed, Interpreted and Dictated by Howard Ambrosio III, MD Transcribed by Tara Schultz Authenticated and [facility]
[2021-12-09 13:49] VITALS: BP 119/70; PULSE 80; PULSE 82; RESP 16; O2SAT 93
[2021-12-09 14:45] VITALS: BP 138/86; PULSE 77; RESP 20; O2SAT 97
[2021-12-09 15:00] VITALS: BP 125/80; PULSE 69; RESP 20; O2SAT 96
[2021-12-09 15:15] VITALS: BP 134/86; PULSE 75; RESP 20; O2SAT 96
--- NOTE | 2021-12-09 15:30 | SUR.PHASEII ---
LEFT CHEST WALL DRESSING CDI
== END 2021-12-09 15:37 | disposition home or self-care (01) ==
LOC: CATHLAB 09:50
PROVIDERS: PCP Family Medicine; Visit Provider Internal Medicine
PROC: 0JH609Z Insertion of Cardiac Resynchronization Defibrillator Pulse Generator into Chest Subcutaneous Tissue and Fascia, Open Approach (ICD-10-PCS; CPT 33249; principal; 2021-12-09 10:15)
DX: Z45.02 Encounter for adjustment and management of automatic implantable cardiac defibrillator (principal); I42.8 Other cardiomyopathies; J44.9 Chronic obstructive pulmonary disease, unspecified; I20.8 Other forms of angina pectoris; I44.7 Left bundle-branch block, unspecified; I50.20 Unspecified systolic (congestive) heart failure; F32.A Depression, unspecified; K21.9 Gastro-esophageal reflux disease without esophagitis; I11.0 Hypertensive heart disease with heart failure; M19.90 Unspecified osteoarthritis, unspecified site; Z85.51 Personal history of malignant neoplasm of bladder; Z79.899 Other long term (current) drug therapy; F17.210 Nicotine dependence, cigarettes, uncomplicated
CPT/HCPCS: 33208; 33249; 71045; 80048; 85025; C1769; C1882; C1895; C1898; C1900; J2704

== ENCOUNTER 2021-12-31 21:32 | Emergency (ER) | payer MEDICARE, SELFPAY ==
[2021-12-31 21:33] VITALS: BP 130/84; PULSE 61; RESP 17; TEMP 36.4; O2SAT 99; BMI 20.3
--- NOTE | 2021-12-31 21:53 | ECG_ITS ---
APPROVED REPORT Exam: Resting ECG HR:60 bpm ECG Measurements Heart Rate 60 AXES OK 123 P 117 QRSd 173 QRS 140 QT 453 T -16 QTc 453 Conclusion ELECTRONIC ATRIAL PACEMAKER ELECTRONIC VENTRICULAR PACEMAKER ABNORMAL RHYTHM ECG UNCONFIRMED REPORT Electronically signed by : Wolfgang Peters MD 01/02/2022 17:42:56
[2021-12-31 22:01] VITALS: BP 105/66; PULSE 60; RESP 16; O2SAT 98
--- NOTE | 2021-12-31 22:25 | CT_ITS ---
PROCEDURE INFORMATION: Exam: CT Head Without Contrast Exam date and time: 12/31/2021 10:54 PM Age: 61 years old Clinical indication: Injury or trauma; Fall; Additional info: Syncopal fall TECHNIQUE: Imaging protocol: Computed tomography of the head without contrast. Radiation optimization: All CT scans at this facility use at least one of these dose optimization techniques: automated exposure control; mA and/or kV adjustment per patient size (includes targeted exams where dose is matched to clinical indication); or iterative reconstruction. COMPARISON: CT HEAD/BRAIN WO CON 10/23/2021 12:23 PM FINDINGS: Brain: White matter changes compatible with small vessel occlusive change. No mass. No hemorrhage. Cerebral ventricles: No ventriculomegaly. Paranasal sinuses: Mucosal thickening of the paranasal sinuses. No air fluid level. Mastoid air cells: Visualized mastoid air cells are well aerated. Bones/joints: No acute fracture. Soft tissues: No significant soft tissue abnormality. IMPRESSION: No acute findings.
--- NOTE | 2021-12-31 22:25 | XR_ITS ---
PROCEDURE INFORMATION: Exam: XR Pelvis Exam date and time: 12/31/2021 10:46 PM Age: 61 years old Clinical indication: Injury or trauma; Fall; Blunt trauma (contusions or hematomas); Does not apply; Pelvic region; Prior surgery; Additional info: Syncopal fall TECHNIQUE: Imaging protocol: Radiologic exam of the pelvis. Views: 1 or 2 view. COMPARISON: CT ABDOMEN PELVIS W CON 10/18/2021 11:50 PM FINDINGS: Bones/joints: Unremarkable. No acute fracture. Multilevel degenerative disc disease lower lumbar spine. Soft tissues: Unremarkable. There is a neurostimulator device of the left lower quadrant. IMPRESSION: No acute findings.
--- NOTE | 2021-12-31 22:25 | CT_ITS ---
PROCEDURE INFORMATION: Exam: CT Cervical Spine Without Contrast Exam date and time: 12/31/2021 10:57 PM Age: 61 years old Clinical indication: Injury or trauma; Fall; Blunt trauma; Additional info: Syncopal fall TECHNIQUE: Imaging protocol: Computed tomography of the cervical spine without contrast. Radiation optimization: All CT scans at this facility use at least one of these dose optimization techniques: automated exposure control; mA and/or kV adjustment per patient size (includes targeted exams where dose is matched to clinical indication); or iterative reconstruction. COMPARISON: CT CERVICAL SPINE WO CON 10/18/2021 11:36 PM FINDINGS: Bones/joints: Moderate multilevel degenerative changes. No acute fracture. Lungs: Apical emphysema. Soft tissues: No soft tissue swelling. IMPRESSION: Chronic changes without acute process.
--- NOTE | 2021-12-31 22:25 | XR_ITS ---
PROCEDURE INFORMATION: Exam: XR Chest Exam date and time: 12/31/2021 10:44 PM Age: 61 years old Clinical indication: Injury or trauma; Fall; Blunt trauma (contusions or hematomas); Prior surgery; Additional info: Syncopal, fall TECHNIQUE: Imaging protocol: Radiologic exam of the chest. Views: 4 or more views. COMPARISON: CR XR CHEST PORTABLE 12/09/2021 2:08 PM FINDINGS: Tubes, catheters and devices: There is a pacemaker battery pack projecting over the left chest with intact leads extending into the right heart. There is a neurostimulator device of the left flank with intact leads extending thoracic spine with leads at the level of T9. Lungs: Lungs appear mildly hyperinflated. There is no focal consolidation or mass. Pleural spaces: No pleural effusion or pneumothorax. Heart/Mediastinum: The heart size is normal. Bones/joints: No acute fracture identified. IMPRESSION: No acute intrathoracic abnormality.
[2021-12-31 22:40] LABS: Basophils # 0.2 K/mm3 (0-0.2); Basophils % 1.8 % (0.1-2.0); Eosinophils # 0.5 K/mm3 (0.0-0.4); Eosinophils % 4.5 % (0.1-12.0); Hematocrit 44.6 % (42.0-52.0); Hemoglobin 13.3 g/dL (14.1-18.0); Lymphocytes # 2.8 K/mm3 (0.7-4.5); Lymphocytes % 23.7 % (10-50); Mean Corpuscular HGB Conc 29.9 g/dL (31.8-35.4); Mean Corpuscular Hemoglobin 30.2 pg (27.0-31.2); Mean Platelet Volume 8.4 fl (7.4-10.4); Monocytes # 0.6 K/mm3 (0.1-1.0); Monocytes % 5.2 % (1.7-9.3); Neutrophils # 7.7 K/mm3 (1.8-7.8); Neutrophils % 64.8 % (37.0-80.0); Platelet Count 368 K/mm3 (142-424); Red Blood Count 4.42 M/mm3 (4.60-6.20); Red Cell Distribution Width 13.4 % (11.5-17.5); White Blood Count 11.9 K/mm3 (4.8-10.8)
[2021-12-31 22:45] LABS: Alanine Aminotransferase 15 U/L (12-78); Albumin Level 4.1 g/dl (3.5-5.0); Alkaline Phosphatase 166 U/L (38-126); Anion Gap 13.8 mEq/L (5-15); Aspartate Amino Transferase 25 U/L (17-59); Blood Urea Nitrogen 8 mg/dl (9-20); Carbon Dioxide 26 mmol/L (22.0-30.0); Chloride 102 mmol/L (98-107); Creatinine Clearance Estimated 66 mL/min (50-200); Estimated Glomerular Filt Rate 68 ml/min (>60); GFR (African American) 82 ML/MIN (>60); Glucose 112 mg/dl (74-100); Magnesium 1.8 mg/dl (1.6-2.3); Potassium 3.8 mmoL/L (3.5-5.1); Sodium 138 mmol/L (136-145)
[2021-12-31 22:47] VITALS: BP 101/66; BP 111/70; BP 114/75; PULSE 60; PULSE 63
[2021-12-31 23:00] LABS: NT Pro Brain Natriuretic Pep. 481 pg/mL (0-125)
[2021-12-31 23:04] LABS: Bilirubin,Direct 0.1 mg/dl (0.0-0.4); Bilirubin,Indirect 0.2 mg/dL (0.0-0.9); Procalcitonin 0.039 ng/mL (0.0-2.0); T4 (Thyroxine) 7.4 ug/dl (5.53-11.0)
[2021-12-31 23:05] LABS: Bilirubin,Total 0.3 mg/dl (0.2-1.3); Bilirubin,Unconjugated 0.2 mg/dL (0.0-1.1)
[2021-12-31 23:06] LABS: Troponin I < 0.01 ng/ml (0.00-0.034)
--- NOTE | 2021-12-31 23:14 | HMH.EDSYNC ---
ED Disposition Clinical Impression: Syncope Qualifiers: Syncope type: unspecified Qualified Code(s): R55 - Syncope and collapse Disposition: Home, Self-Care Condition on Discharge: Good Instructions: DI for Syncope in Adults (Fainting) Additional Instructions: see card in am Referrals: Wolfgang Cantu MD [Primary Care Provider] - - Critical Care Critical Care Time: No Attestation: On 12/31/21, the high probability of a clinically significant, sudden or life threatening deterioration of the following system(s) required my full and direct attention, intervention and personal management. The time I documented below is in addition to time spent performing reported procedures but includes the following listed in this critical care notation. Medical Decision Making - Medical Records Medical records reviewed: Yes: I reviewed the patient's medical records. - Juwan Inquiry Pt receiving controlled substance: No Vital Signs: 12/31/21 21:33 12/31/21 22:01 12/31/21 22:47 Temperature 97.6 F Temperature Source Oral Pulse Rate 60 Pulse Rate [Orthostatic Lying] 60 Pulse Rate [Orthostatic Sitting] 63 Pulse Rate [Orthostatic Standing] 60 Pulse Rate [Right] 61 Respiratory Rate 17 16 Blood Pressure 105/66 L Blood Pressure [Orthostatic Lying] 114/75 Blood Pressure [Orthostatic Sitting] 111/70 Blood Pressure [Orthostatic Standing] 101/66 L Blood Pressure [Right Arm] 130/84 Blood Pressure Mean 84 Blood Pressure Mean [Right Arm] 99 Blood Pressure Source [Right Arm] Automatic Cuff 02 Sat by Pulse Oximetry 99 98 Oxygen Delivery Method Room Air Room Air - Lab Data Lab results reviewed: Yes: I reviewed the patient's lab results. Lab Results 12/31/21 21:48: WBC 11.9 H, RBC 4.42 L, Hgb 13.3 L, Hct 44.6, MCV 101.0 H, MCH 30.2, MCHC 29.9 L, RDW 13.4, Plt Count 368, MPV 8.4, Neut % (Auto) 64.8, Lymph % (Auto) 23.7, [place] % (Auto) 5.2, Eos % (Auto) 4.5, Baso % (Auto) 1.8, Neut # (Auto) 7.7, Lymph # (Auto) 2.8, [place] # (Auto) 0.6, Eos # (Auto) 0.5 H, Baso # (Auto) 0.2, ESR 11 12/31/21 21:48: Sodium 138, Potassium 3.8, Chloride 102, Carbon Dioxide 26, Anion Gap 13.8, BUN 8 L, Creatinine 1.10, Estimated Creat Clear 66, Estimated GFR 68, Est GFR ( Amer) 82, Glucose 112 H, Calcium 9.0, Magnesium 1.8, Total Bilirubin 0.3, Direct Bilirubin 0.1, Conjugated Bilirubin 0.0, Indirect Bilirubin 0.2, Unconjugated Bilirubin 0.2, AST 25, ALT 15, Alkaline Phosphatase 166 H, Troponin I < 0.01, C-Reactive Protein 2.0, NT-Pro-B Natriuret Pep 481 H, Total Protein 7.0, Albumin 4.1, Procalcitonin 0.039, TSH 1.45, Thyroxine (T4) 7.4 12/31/21 23:32: Urine Color Yellow, Urine Appearance Clear, Urine pH 6.0, Ur Specific [place] 1.020, Urine Protein Negative, Urine Glucose (UA) Negative, Urine Ketones Negative, Urine Blood Negative, Urine Nitrate Negative, Urine Bilirubin Negative, Urine Urobilinogen 0.2, Ur Leukocyte Esterase Negative, Urine WBC Occasional, Ur Squamous Epith Cells 3-5, Urine Bacteria 1+, Hyaline Casts 3-5, Urine Mucus 1+ Result diagrams: 12/31/21 21:48 12/31/21 21:48 Orders (Tests/Meds): ED MEDICATIONS Generic Name Dose Route Start Last Admin Trade Name Freq PRN Reason Stop Dose Admin Sodium Chloride 1,000 mls @ 999 mls/hr 12/31/21 22:30 12/31/21 22:43 Sod Chlor 0.9% 1000ml Bag IV 12/31/21 23:30 999 mls/hr .Q1H1M JORGE ALBERTO Administration Sodium Chloride 1,000 mls @ 999 mls/hr 12/31/21 23:45 12/31/21 23:42 Sod Chlor 0.9% 1000ml Bag IV 01/01/22 00:45 999 mls/hr .Q1H1M JORGE ALBERTO Administration Discontinued Medications Generic Name Dose Route Start Last Admin Trade Name Freq PRN Reason Stop Dose Admin Acetaminophen 650 mg 12/31/21 22:29 12/31/21 22:43 Acetaminophen 325mg Tab PO 12/31/21 22:30 650 mg ONCE ONE Administration Ondansetron HCl 4 mg 12/31/21 22:27 12/31/21 22:43 Ondansetron 4mg/2ml Vial IV 12/31/21 22:28 4 mg ONCE ONE Administration ORDERS
[2021-12-31 23:18] LABS: Thyroid Stimulating Hormone 1.45 uIU/mL (0.465-4.68)
[2021-12-31 23:41] LABS: Erythrocyte Sedimentation Rate 11 mm/hr (0-20)
[2021-12-31 23:44] LABS: Microscopic, Urine URINE MICROSCOPIC (MICROSCOPIC)
[2021-12-31 23:45] LABS: Appearance,Urine CLEAR (Clear); Bilirubin,Urine Negative (Negative); Blood, Urine Negative (Negative); Color,Urine YELLOW (Yellow); Glucose,Urine (UA) Negative (Negative); Ketones,Urine Negative (Negative); Leukocyte Esterase,Urine Negative (Negative); Nitrate,Urine Negative (Negative); Protein,Urine Negative (Negative); Urobilinogen,Urine 0.2 EU/dl (0.2)
[2022-01-01 00:22] LABS: Bacteria,Urine 1+ /lpf; Mucus,Urine 1+ /lpf; WBC,Urine Occasional #/hpf (0-3)
[2022-01-01 00:25] VITALS: BP 115/81; PULSE 60; RESP 16; TEMP 36.4; O2SAT 99
== END 2022-01-01 00:35 | disposition home or self-care (01) ==
PROVIDERS: Emergency Provider Emergency Medicine; PCP Family Medicine
DX: R55 Syncope and collapse (principal); Z79.01 Long term (current) use of anticoagulants; Z79.899 Other long term (current) drug therapy; Z88.6 Allergy status to analgesic agent; J44.9 Chronic obstructive pulmonary disease, unspecified; I10 Essential (primary) hypertension; F41.9 Anxiety disorder, unspecified; F32.A Depression, unspecified; K21.9 Gastro-esophageal reflux disease without esophagitis; M19.90 Unspecified osteoarthritis, unspecified site; Z72.0 Tobacco use
CPT/HCPCS: 70450; 71045; 72125; 72170; 80048; 80076; 81001; 83735; 83880; 84145; 84436; 84443; 84484; 85025; 85651; 86140; 93005; 96365; 96366; 96375; 99285; J2405

== ENCOUNTER → 2022-02-10 12:38 | Outpatient (CLI) | payer MEDICARE, SELFPAY ==
--- NOTE | 2022-02-10 12:42 | CA_ITS ---
FINAL REPORT TECHNIQUE: Color Doppler, duplex Doppler and dominguez scale sonography of the bilateral neck vasculature was performed. Velocities were measured in the carotid arteries. Stenosis evaluation based on velocity criteria. CLINICAL HISTORY: SYNCOPE,HTN,SMOKER,CHON FINDINGS: The peak systolic velocity of the right common carotid artery is 110 cm/sec and internal carotid artery 100 cm/sec. The diastolic velocity in the internal carotid artery is 43 cm/sec. The ICA/CCA ratio is 1.1. No significant plaque is seen. These findings are consistent with less than 50% stenosis. The external carotid artery is patent. The right vertebral artery is patent with antegrade flow. The peak systolic velocity of the left common carotid artery is 116 cm/sec and internal carotid artery [id number] cm/sec. The diastolic velocity in the internal carotid artery is 37 cm/sec. The ICA/CCA ratio is 0.8. No significant plaque is seen. These findings are consistent with less than 50% stenosis. The external carotid artery is patent. The left vertebral artery is patent with antegrade flow. IMPRESSION: No evidence of significant carotid stenosis. Bilateral patent vertebral arteries. If indicated, CTA or MRA could further evaluate. Reviewed, Interpreted and Dictated by Howard Ambrosio III, MD Transcribed by Leonie Neumann Authenticated and [facility]
== END ==
PROVIDERS: PCP Family Medicine; Visit Provider Family Medicine
DX: R55 Syncope and collapse (principal); I48.0 Paroxysmal atrial fibrillation
CPT/HCPCS: 93880

== ENCOUNTER 2022-03-11 15:46 | Emergency (ER) | payer MEDICARE, SELFPAY ==
--- NOTE | 2022-03-11 16:24 | XR_ITS ---
PROCEDURE INFORMATION: Exam: XR Right Tibia and Fibula Exam date and time: 03/11/2022 4:43 PM Age: 62 years old Clinical indication: Injury or trauma; Other: Dog bite TECHNIQUE: Imaging protocol: Radiologic exam of the Right tibia and fibula. Views: 2 views. Four images received. COMPARISON: CR XR KNEE RT 3V 08/19/2019 9:27 AM FINDINGS: Bones/joints: Bones appear intact and normally aligned with normal mineralization. No significant arthritic deformities of the tibia or fibula. There are no lytic skeletal lesions seen. Soft tissues: No radiopaque foreign bodies. No pathologic soft tissue calcification. IMPRESSION: 1. No acute fracture or dislocation. 2. No radiopaque foreign bodies are seen in the soft tissues.
[2022-03-11 16:40] VITALS: BP 130/80; PULSE 76; RESP 19; TEMP 36.8; O2SAT 100; BMI 19.3
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
[2022-03-11 17:18] VITALS: BP 130/80; PULSE 76; RESP 19; TEMP 36.8; O2SAT 100
== END 2022-03-11 17:30 | disposition home or self-care (01) ==
PROVIDERS: Emergency Provider Emergency Medicine; PCP Family Medicine
DX: S81.851A Open bite, right lower leg, initial encounter (principal); W54.0XXA Bitten by dog, initial encounter
CPT/HCPCS: 73590; 90471; 90715; 99212; G0463

== ENCOUNTER → 2022-06-27 09:54 | Outpatient (CLI) | payer MEDICARE, SELFPAY ==
--- NOTE | 2022-06-27 10:00 | XR_ITS ---
FINAL REPORT CLINICAL HISTORY: NECK PAIN COMPARISON: December 2021 CT FINDINGS: AP and lateral Views were obtained. There is no acute fracture. There is mild retrolisthesis of C3 on C4. There are mild and moderate degenerative change with osteophytes. There are presumed foreign body in vascular calcifications in the left side of the neck. IMPRESSION: Mild and moderate degenerative changes. Reviewed, Interpreted and Dictated by Howard Ambrosio III, MD Transcribed by Luis Espinoza Authenticated and [facility] [place]
== END ==
PROVIDERS: PCP Family Medicine; Visit Provider Family Medicine
DX: M54.2 Cervicalgia (principal)
CPT/HCPCS: 72040

== ENCOUNTER 2022-08-10 09:23 | Emergency (ER) | payer MEDICARE, SELFPAY ==
[2022-08-10 09:31] VITALS: BMI 19.2
[2022-08-10 09:34] VITALS: BP 132/100; PULSE 53; RESP 22; TEMP 36.4; O2SAT 98; BMI 19.2
[2022-08-10 09:34] LABS: Influenza A, PCR Not Detected (NotDetected); Influenza B, PCR Not Detected (NotDetected)
--- NOTE | 2022-08-10 09:41 | XR_ITS ---
PROCEDURE INFORMATION: Exam: XR Chest Exam date and time: 08/10/2022 10:00 AM Age: 62 years old Clinical indication: Shortness of breath; Additional info: SOA TECHNIQUE: Imaging protocol: Radiologic exam of the chest. Views: 1 view. COMPARISON: CR XR CHEST AP 12/31/2021 10:44 PM FINDINGS: Tubes, catheters and devices: Pacer leads stable. Neurostimulator again noted. Lungs: Unremarkable. No consolidation. Pleural spaces: Unremarkable. No pleural effusion. No pneumothorax. Heart/Mediastinum: Unremarkable. No cardiomegaly. Bones/joints: Unremarkable. IMPRESSION: No acute findings.
--- NOTE | 2022-08-10 09:43 | PC.NURSE ---
rad notified of xray order
--- NOTE | 2022-08-10 09:43 | HMH.EDGENADL ---
Discharge Plan Disposition Patient Disposition: Home, Self-Care Condition: Fair Prescriptions Prescriptions: New hydroxyzine HCl 50 mg tablet 50 mg PO HSP PRN (Reason: sleep) Qty: 7 0RF ondansetron 4 mg tablet,disintegrating 4 mg PO Q8H PRN (Reason: nausea and vomiting) Qty: 10 0RF No Action oxybutynin chloride 5 mg tablet extended release 24hr 5 mg PO DAILY hydrocodone-acetaminophen 5-325 mg tablet 1 tab PO Q8H PRN (Reason: Pain) bupropion HCl [Wellbutrin SR] 150 mg tablet sustained-release 12 hr 150 mg PO DAILY gabapentin 300 mg capsule 300 mg PO TID sacubitril-valsartan 49-51 mg tablet 1 tab PO BID Qty: 60 5RF furosemide [Lasix] 40 mg tablet 40 mg PO DAILY Qty: 30 2RF carvedilol 6.25 MG tablet 6.25 mg PO BID Rx Instructions: must administer with a meal/food rivaroxaban 20 MG tablet 20 mg PO DAILY Rx Instructions: must administer with evening meal amoxicillin-pot clavulanate 875-125 mg Tablet 1 tab PO Q12H 7 Days Qty: 14 0RF Referrals Follow up/Referrals: Wolfgang Cantu MD [Primary Care Provider] - See instructions Activity Restrictions/Add. Instructions Additional Instructions/Restrictions: Zofran or Phenergan as needed for nausea. [id number] Imodium as needed for diarrhea. Hydroxyzine as needed for sleep at bedtime. Do not take within 6 hours of taking Phenergan. ADDITIONAL INSTRUCTIONS FOR COVID-19: Rest, drink plenty of fluids. Tylenol for fever and/or aches and pains. Monitor your symptoms. IF YOU HAVE AN EMERGENCY WARNING SIGN (INCLUDING TROUBLE BREATHING), SEEK EMERGENCY MEDICAL CARE IMMEDIATELY. COVID-19 Isolation: People with COVID-19 should isolate for 5 days. Then if they are asymptomatic (no symptoms) or their symptoms are resolving (without fever for 24 hours), follow that by 5 days of wearing a mask when around others to minimize the risk of infecting people you encounter. If you test positive for COVID-19 and never develop symptoms, day 0 is the day of your positive viral test (based on the date you were tested) and day 1 is the first full day after your positive test. If you develop symptoms after testing positive, your 5-day isolation period must start over. Day 0 is your first day of symptoms. Day 1 is the first full day after your symptoms developed. What to do: Stay in a separate room from other household members, if possible. Use a separate bathroom, if possible. Avoid contact with other members of the household and pets. Don?t share personal household items, like cups, towels, and utensils. Wear a mask when around other people if able. Clinical Impressions Clinical Impression: COVID-19 virus infection Instructions Patient Instructions: DI for Diarrhea and Traveler's Diarrhea -- Adult, DI for Nausea -- Adult, DI for COVID-19 (Suspected or Confirmed ) Discharge ED Provider: Tommie Larry General Adult HPI General Chief complaint: Nausea/Vomiting/Diarrhea Stated complaint: SOA,diarrhea,burning all over Time Seen by Provider: 08/10/22 09:35 Mode of Arrival: Wheelchair Source of Information: Patient Limitations: No Limitations Description of Symptoms (Recalled from ER Triage Doc. by RN): Reports n/v, weakness, chills, and body aches x 3 days. Diarrhea started this morning. Fiance COVID +. History of Present Illness HPI narrative: Patient states he has been sick for 4 days. He has numerous complaints. Nausea, vomiting, diarrhea, and generalized abdominal pain, has not been able to hold anything down for days. Fever and chills. Generalized weakness. Sensation that he is burning up all over inside. Rhinorrhea. Cough. Shortness of breath. He had 2 days of a burning right-sided chest pain that is now gone. His has tested positive for COVID. The patient has been vaccinated against COVID. He has never had COVID previously. Related Data Home Medications Medicat
--- NOTE | 2022-08-10 09:56 | ECG_ITS ---
APPROVED REPORT Exam: Resting ECG HR:80 bpm ECG Measurements Heart Rate 80 AXES ME 268 P 138 QRSd 140 QRS -77 QT 435 T 100 QTc 471 Conclusion ELECTRONIC ATRIAL PACEMAKER ELECTRONIC VENTRICULAR PACEMAKER ABNORMAL RHYTHM ECG UNCONFIRMED REPORT Electronically signed by : Wolfgang Peters MD 08/10/2022 15:30:33
[2022-08-10 09:57] LABS: Coronavirus 19, PCR Detected (NotDetected)
[2022-08-10 09:59] LABS: Basophils # 0.1 K/mm3 (0-0.2); Basophils % 0.6 % (0.1-2.0); Eosinophils # 0.1 K/mm3 (0.0-0.4); Eosinophils % 0.7 % (0.1-12.0); Hematocrit 45.4 % (42.0-52.0); Hemoglobin 15.3 g/dL (14.1-18.0); Lymphocytes # 1.7 K/mm3 (0.7-4.5); Lymphocytes % 20.4 % (10-50); Mean Corpuscular HGB Conc 33.8 g/dL (31.8-35.4); Mean Corpuscular Hemoglobin 31.4 pg (27.0-31.2); Mean Corpuscular Volume 92.8 fl (80-94); Mean Platelet Volume 8.1 fl (7.4-10.4); Monocytes # 0.5 K/mm3 (0.1-1.0); Monocytes % 5.5 % (1.7-9.3); Neutrophils % 72.7 % (37.0-80.0); Platelet Count 349 K/mm3 (142-424); Red Blood Count 4.89 M/mm3 (4.60-6.20); White Blood Count 8.3 K/mm3 (4.8-10.8)
[2022-08-10 10:00] VITALS: BP 142/89; PULSE 80; RESP 18; O2SAT 100
[2022-08-10 10:05] LABS: Alanine Aminotransferase 33 U/L (12-78); Albumin Level 4.8 g/dl (3.5-5.0); Albumin/Globulin Ratio 1.5 (1.1-1.8); Alkaline Phosphatase 118 U/L (38-126); Anion Gap 16.2 mEq/L (5-15); Aspartate Amino Transferase 37 U/L (17-59); Bilirubin,Total 0.8 mg/dl (0.2-1.3); Blood Urea Nitrogen 16 mg/dl (9-20); Calcium 9.2 mg/dl (8.4-10.2); Carbon Dioxide 24 mmol/L (22.0-30.0); Chloride 100 mmol/L (98-107); Creatinine Clearance Estimated 57 mL/min (50-200); Estimated Glomerular Filt Rate 67 ml/min (>60); GFR (African American) 82 ML/MIN (>60); Globulin 3.1 g/dL (1.3-3.2); Glucose 128 mg/dl (74-100); Lipase 35 U/L (23-300); Potassium 4.2 mmoL/L (3.5-5.1); Sodium 136 mmol/L (136-145); Total Protein,Serum 7.9 g/dl (6.3-8.2)
[2022-08-10 10:17] LABS: Troponin I < 0.01 ng/ml (0.00-0.034)
--- NOTE | 2022-08-10 10:21 | PC.NURSE ---
Warm blanket provided. Pt updated on plan of care.
[2022-08-10 10:31] VITALS: BP 123/75; PULSE 77; RESP 16; O2SAT 99
[2022-08-10 10:39] VITALS: BP 121/75; PULSE 75; RESP 18; TEMP 36.6; O2SAT 100
== END 2022-08-10 11:58 | disposition home or self-care (01) ==
PROVIDERS: Emergency Provider Emergency Medicine; PCP Family Medicine
DX: U07.1 COVID-19 (principal); F17.210 Nicotine dependence, cigarettes, uncomplicated
CPT/HCPCS: 71045; 80053; 83690; 84484; 85025; 93005; 96361; 96374; 99285; C9803; J2405; U0003; U0005

== ENCOUNTER 2022-08-20 10:48 | Emergency (ER) | payer MEDICARE, SELFPAY ==
[2022-08-20 10:50] VITALS: BP 182/111; PULSE 87; RESP 23; TEMP 37; O2SAT 97
--- NOTE | 2022-08-20 11:08 | EXP.UTC ---
Discharge Plan Disposition Patient Disposition: Home, Self-Care Condition: Good Prescriptions Prescriptions: No Action oxybutynin chloride 5 mg tablet extended release 24hr 5 mg PO DAILY hydrocodone-acetaminophen 5-325 mg tablet 1 tab PO Q8H PRN (Reason: Pain) bupropion HCl [Wellbutrin SR] 150 mg tablet sustained-release 12 hr 150 mg PO DAILY gabapentin 300 mg capsule 300 mg PO TID sacubitril-valsartan 49-51 mg tablet 1 tab PO BID Qty: 60 5RF furosemide [Lasix] 40 mg tablet 40 mg PO DAILY Qty: 30 2RF carvedilol 6.25 MG tablet 6.25 mg PO BID Rx Instructions: must administer with a meal/food rivaroxaban 20 MG tablet 20 mg PO DAILY Rx Instructions: must administer with evening meal amoxicillin-pot clavulanate 875-125 mg Tablet 1 tab PO Q12H 7 Days Qty: 14 0RF hydroxyzine HCl 50 mg tablet 50 mg PO HSP PRN (Reason: sleep) Qty: 7 0RF ondansetron 4 mg tablet,disintegrating 4 mg PO Q8H PRN (Reason: nausea and vomiting) Qty: 10 0RF Referrals Follow up/Referrals: Wolfgang Cantu MD [Primary Care Provider] - See instructions Activity Restrictions/Add. Instructions Additional Instructions/Restrictions: *Monitor Temp, Over the counter Motrin or Tylenol as directed/as needed Tylenol every 4 hours and Motrin every 6 hours (as long as your family doctor has told you that you can take it) for fever or pain. and straight to ER if unable to lower temp less than 101.0 after medication given *Warm salt water gargles may help to soothe the throat *Throat Lozenges? *Warm fluids like tea with honey may help to soothe the throat? *Sleep elevated *Humidifier/Vaporizer Follow up IMMEDIATELY for new or worsening symptoms or no Noticeable improvement over the next 48-72 hours. 911 for difficulty breathing or swallowing You were tested for today for COVID19 your test result should be back in the next 24-48 hours, you may check your results on the [facility] [employer] [facility] Portal Clinical Impressions Clinical Impression: Encounter for laboratory testing for COVID-19 virus Instructions Patient Instructions: DI for COVID-19 (Suspected or Confirmed ), Preventing the Spread of Coronavirus Discharge Instructions Discharge ED Provider: Bri Suarez [facility] [place] General Stated complaint: Covid+ 2/19 retest cough congestion Mode of Arrival: Ambulatory Source of Information: Patient Limitations: No Limitations Time Seen by Provider: 08/20/22 11:08 Description of Symptoms (Recalled from Triage Doc. by RN): PATIENT C/O CHEST CONGESTION THAT STARTED THIS MORNING. HE ALSO REPORTS HAVING TESTED POSITIVE FOR COVID LAST THURSDAY AND IS WANTING RETESTED. HEENT Symptoms (Recalled from RN notes): No Resp Symptoms (Recalled from RN notes): Yes Skin Symptoms (Recalled from RN notes): No MS Symptoms (Recalled from RN notes): No Functional Status (Recalled from RN notes): WNL History of Present Illness Provider Complaint: Patient states that he was dx with COVID last week States that he had congestion and cough States that his PCP wanted him to stay in quarantine due to health problems but he says that he is feeling better and wanted to get tested again for COVID so he can come out of quarantine Related Data Home Medications Medication Instructions Recorded Confirmed bupropion HCl 150 mg tablet,12 hr 150 mg PO DAILY Depression 04/03/20 12/31/21 sustained-release (Wellbutrin SR) gabapentin 300 mg capsule 300 mg PO TID neuropathy 04/03/20 12/31/21 hydrocodone 5 mg-acetaminophen 325 1 tab PO Q8H PRN Pain 04/03/20 12/31/21 mg tablet oxybutynin chloride 5 mg 5 mg PO DAILY Urinary 04/03/20 12/16/21 tablet,extended release 24 hr carvedilol 6.25 mg tablet 6.25 mg PO BID htn 12/09/21 12/31/21 rivaroxaban 20 mg tablet 20 mg PO DAILY afib 12/09/21 12/31/21 Previous Rx's Medication Instructions Recorded sacubitril 49 mg-valsartan 51 mg 1 tab PO BID Heart fa
[2022-08-20 11:10] VITALS: BP 138/91; PULSE 87; RESP 23; TEMP 37; O2SAT 97
== END 2022-08-20 11:18 | disposition home or self-care (01) ==
PROVIDERS: Emergency Provider Nurse Practitioner; PCP Family Medicine
DX: U07.1 COVID-19 (principal); R09.89 Other specified symptoms and signs involving the circulatory and respiratory systems; R05.9 Cough, unspecified
CPT/HCPCS: 99212; 99213; C9803; G0463; U0003; U0005

== ENCOUNTER → 2022-11-10 12:39 | Outpatient (CLI) | payer MEDICARE, SELFPAY ==
--- NOTE | 2022-11-10 12:52 | US_ITS ---
FINAL REPORT CLINICAL HISTORY: claudication, current smoker, HTN, bilateral claudication, bilateral rest pain. FINDINGS: ANKLE-BRACHIAL PRESSURE INDICES Pressure indices are as follows: RIGHT LOWER EXTREMITY: Ankle-brachial pressure index: 1.09 Comments: Normal LEFT LOWER EXTREMITY: Ankle-brachial pressure index: 1.13 Comments: Normal IMPRESSION: No evidence of significant obstructive peripheral vascular disease of the lower extremities Reviewed, Interpreted and Dictated by Howard Ambrosio III, MD Transcribed by Sarah Loomis Authenticated and [facility] [place]
== END ==
PROVIDERS: PCP Family Medicine; Visit Provider Internal Medicine
DX: I48.0 Paroxysmal atrial fibrillation (principal); I50.20 Unspecified systolic (congestive) heart failure; I73.9 Peripheral vascular disease, unspecified; R06.00 Dyspnea, unspecified; R42 Dizziness and giddiness; Z01.810 Encounter for preprocedural cardiovascular examination; Z95.0 Presence of cardiac pacemaker; I65.23 Occlusion and stenosis of bilateral carotid arteries
CPT/HCPCS: 93923

== ENCOUNTER → 2022-11-19 11:11 | Outpatient (CLI) | payer MEDICARE, SELFPAY ==
--- NOTE | 2022-11-19 11:14 | XR_ITS ---
FINAL REPORT CLINICAL HISTORY: Shortness of breath/smoker COMPARISON: 08/10/2022 FINDINGS: Two views of the chest were obtained. Left subclavian ICD is present. There is a spinal stimulator noted. The heart size and pulmonary vascularity are within normal limits. The mediastinum is normal. There is hyperinflation of the lungs consistent with COPD. No acute pulmonary abnormality is identified. There is no pneumothorax. The bony thorax is intact. IMPRESSION: No acute cardiopulmonary disease. Reviewed, Interpreted and Dictated by Howard Ambrosio III, MD Transcribed by Paige Javier Authenticated and [facility]
== END ==
PROVIDERS: PCP Family Medicine; Visit Provider Internal Medicine
DX: I48.0 Paroxysmal atrial fibrillation (principal); I50.20 Unspecified systolic (congestive) heart failure; I65.29 Occlusion and stenosis of unspecified carotid artery; I73.9 Peripheral vascular disease, unspecified; R06.00 Dyspnea, unspecified; R42 Dizziness and giddiness; Z01.810 Encounter for preprocedural cardiovascular examination; Z95.0 Presence of cardiac pacemaker
CPT/HCPCS: 71046

== ENCOUNTER 2023-03-11 09:22 | Emergency (ER) | payer MEDICARE, SELFPAY ==
[2023-03-11] VITALS (12 sets, daily range): BP systolic 129–147; BP diastolic 81–93; PULSE 58–67; RESP 14–19; TEMP 36.7; O2SAT 97–100; BMI 18.6
--- NOTE | 2023-03-11 09:43 | XR_ITS ---
FINAL REPORT CLINICAL HISTORY: fever, body aches, syncope COMPARISON: 11/19/2022 FINDINGS: A single portable view of the chest was obtained. Left subclavian ICD is present. The heart size and pulmonary vascularity are within normal limits. The mediastinum is within normal limits. No acute pulmonary abnormality is identified. The bony thorax is intact. Spinal stimulator is noted. IMPRESSION: No active cardiopulmonary disease. Reviewed, Interpreted and Dictated by Howard Ambrosio III, MD Transcribed by Paige Javier Authenticated and . [facility]
[2023-03-11 09:47] LABS: Coronavirus 19, PCR Not Detected (NotDetected); Influenza A, PCR Not Detected (NotDetected); Influenza B, PCR Not Detected (NotDetected)
--- NOTE | 2023-03-11 09:49 | PC.NURSE ---
rounded on patient; pt given warm blanket for comfort. No other needs at this time, call light within reach
[2023-03-11 09:51] LABS: Basophils # 0.1 K/mm3 (0-0.2); Basophils % 0.5 % (0.1-2.0); Eosinophils # 0.2 K/mm3 (0.0-0.4); Eosinophils % 1.6 % (0.1-12.0); Hematocrit 47.7 % (42.0-52.0); Hemoglobin 15.2 g/dL (14.1-18.0); Lymphocytes # 3.6 K/mm3 (0.7-4.5); Mean Corpuscular HGB Conc 31.8 g/dL (31.8-35.4); Mean Corpuscular Hemoglobin 30.5 pg (27.0-31.2); Mean Corpuscular Volume 96.1 fl (80-94); Monocytes # 0.7 K/mm3 (0.1-1.0); Monocytes % 5.4 % (1.7-9.3); Neutrophils # 7.8 K/mm3 (1.8-7.8); Neutrophils % 63.4 % (37.0-80.0); Platelet Count 368 K/mm3 (142-424); Red Blood Count 4.96 M/mm3 (4.60-6.20); White Blood Count 12.3 K/mm3 (4.8-10.8)
[2023-03-11 09:54] LABS: Alanine Aminotransferase 22 U/L (12-78); Albumin Level 4.6 g/dl (3.5-5.0); Albumin/Globulin Ratio 1.4 (1.1-1.8); Alkaline Phosphatase 128 U/L (38-126); Aspartate Amino Transferase 27 U/L (17-59); Bilirubin,Total 0.4 mg/dl (0.2-1.3); Blood Urea Nitrogen 14 mg/dl (9-20); Calcium 9.4 mg/dl (8.4-10.2); Carbon Dioxide 22 mmol/L (22.0-30.0); Chloride 111 mmol/L (98-107); Creatinine Clearance Estimated 54 mL/min (50-200); Estimated Glomerular Filt Rate 67 ml/min (>60); GFR (African American) 81 ML/MIN (>60); Globulin 3.2 g/dL (1.3-3.2); Glucose 135 mg/dl (74-100); Sodium 144 mmol/L (136-145); Total Protein,Serum 7.8 g/dl (6.3-8.2)
--- NOTE | 2023-03-11 10:18 | ECG_ITS ---
APPROVED REPORT Exam: Resting ECG HR:63 bpm ECG Measurements Heart Rate 63 AXES OK 165 P 72 QRSd 145 QRS -8 QT 434 T 88 QTc 442 Conclusion ELECTRONIC VENTRICULAR PACEMAKER ABNORMAL RHYTHM ECG UNCONFIRMED REPORT Electronically signed by : Wolfgang Peters MD 03/13/2023 16:08:24
--- NOTE | 2023-03-11 10:29 | CT_ITS ---
FINAL REPORT CLINICAL HISTORY: fall , LOC 2 weeks ago. SOSA persistent COMPARISON: 12/31/2021 FINDINGS: Axial images of the head were obtained without contrast. Coronal reformatted images were also obtained. This study was performed with techniques to keep radiation doses as low as reasonably achievable (ALARA). Individualized dose reduction techniques using automated exposure control or adjustment of mA and/or kV according to the patient''s size were employed. There is generalized age-appropriate atrophy. Periventricular low-attenuation areas are seen consistent with mild chronic ischemic changes. There is no evidence of intracranial hemorrhage or mass. There is no evidence of acute infarct. There is no evidence of shift of the midline structures. No skull abnormality is seen on the bone window images. IMPRESSION: Atrophy and mild periventricular chronic ischemic changes. No acute intracranial abnormality identified. Reviewed, Interpreted and Dictated by Howard Ambrosio III, MD Transcribed by Paige Javier Authenticated and [facility]
--- NOTE | 2023-03-11 10:29 | CT_ITS ---
FINAL REPORT TECHNIQUE: Pre-and postcontrast images of the abdomen and pelvis were performed by computed tomography. Extensive 3-D reconstruction images were performed. A CTA was performed. This study was performed with techniques to keep radiation doses as low as reasonably achievable (ALARA). Individualized dose reduction techniques using automated exposure control or adjustment of mA and/or kV according to the patient''s size were employed. CLINICAL HISTORY: diffuse abd pain, worse with eating. Weight loss COMPARISON: 10/18/2021 FINDINGS: ABDOMEN: The lung bases are clear. Precontrast images demonstrate no evidence of nephrolithiasis. No adrenal masses are identified. The liver, spleen and pancreas are unremarkable. CTA: The abdominal aorta is proper caliber. The SMA, celiac axis, and GLORIA are patent. There is no significant stenosis or calcification. The renal arteries are patent bilaterally. IMPRESSION: No evidence of renal vascular hypertension or significant renal artery stenosis. CTA PELVIS: There is plaque of the common iliac arteries. There is 30-40% stenosis of the right common iliac artery. There are multiple fluid-filled bowel loops in a nonspecific pattern, could represent enteritis. Impression: Right common iliac artery stenosis. Findings could represent enteritis. Reviewed, Interpreted and Dictated by Howard Ambrosio III, MD Transcribed by Addie Abreu Authenticated and . [facility] [place]
--- NOTE | 2023-03-11 10:30 | HMH.EDGENADL ---
Discharge Plan Disposition Patient Disposition: Home, Self-Care Prescriptions Prescriptions: New nicotine 21 mg/24 hr patch 24 hour 1 patch transdermal Q24H Qty: 28 0RF ondansetron 4 mg tablet,disintegrating 4 mg PO Q6H PRN (Reason: nausea and vomiting) Qty: 10 0RF No Action bupropion HCl [Wellbutrin SR] 150 mg tablet sustained-release 12 hr 150 mg PO DAILY gabapentin 300 mg capsule 300 mg PO TID Entresto 97-103 mg tablet 1 tab PO BID Qty: 60 2RF hydrocodone-acetaminophen 7.5-325 mg tablet 1 tab PO Q8H bisoprolol fumarate 10 mg tablet 10 mg PO QDAY Qty: 90 3RF promethazine 25 mg tablet 25 mg PO PRN omeprazole 20 mg capsule,delayed release(DR/EC) 20 mg PO DAILY rivaroxaban 20 MG tablet 20 mg PO DAILY Rx Instructions: must administer with evening meal Referrals Follow up/Referrals: Wolfgang Cantu MD [Primary Care Provider] - See instructions Activity Restrictions/Add. Instructions Additional Instructions/Restrictions: Take Zofran for nausea, be sure to stay hydrated. Protein shakes can be mainstay of nutrition. Call your family doctor to establish care for this visit to the emergency department and schedule follow-up within 48 hours to ensure improvement. If you have any worsening of your condition or any other concerning signs or symptoms, return to the emergency department or your primary care doctor for further evaluation. Clinical Impressions Clinical Impression: Enteritis Discharge ED Provider: Sergey Leigh General Adult HPI General Chief complaint: Weakness Stated complaint: hurts all over,can't eat or drink,weak Time Seen by Provider: 03/11/23 09:51 Mode of Arrival: Wheelchair Source of Information: Patient Limitations: No Limitations Description of Symptoms (Recalled from ER Triage Doc. by RN): Pt c/o weakness, frequent falls, syncope, nausea, diarrhea, and weight loss. He reports a hx of bladder cancer and receives bladder chemo infusions as ordered by Dr. Garima Talbert at [facility]. He also is reportsing night sweats. No difficulty breathing or SOA. States he saw his PCP Dr. Cantu on Thursday (03/09) and states he is supposed to have a colonoscopy & imaging compelted. States he fell about 3 wk ago and hit the R brow and had R side of his head. States he has been having head aches and blurry vision since this incident. History of Present Illness HPI narrative: 63-year-old male with history of hypertension, hyperlipidemia, CAD, PAD, COPD still currently smoking 1.5 packs/day not currently on oxygen, bladder cancer presenting with weakness and weight loss. Patient states that he has been feeling weak over the past month. Has had 15 to 20 pound weight loss over the past 2 months which was unintended. Intermittent night sweats. States that he is also been having dark red to black bowel movements intermittently. Decreased p.o. intake secondary to abdominal pain while eating. Has generalized abdominal pain, but worse with eating. Denies cough, shortness of breath, chest pain, hematuria, inability urinate, syncope, or any other concerns. States that he fell 3 weeks prior to arrival, struck his head on the floor without loss of consciousness. Has had persistent headache since that time as well Related Data Home Medications Medication Instructions Recorded Confirmed bupropion HCl 150 mg tablet,12 hr 150 mg PO DAILY Depression 04/03/20 12/18/22 sustained-release (Wellbutrin SR) gabapentin 300 mg capsule 300 mg PO TID neuropathy 04/03/20 12/18/22 rivaroxaban 20 mg tablet 20 mg PO DAILY afib 12/09/21 12/18/22 promethazine 25 mg tablet 25 mg PO PRN 09/10/22 12/18/22 hydrocodone 7.5 mg-acetaminophen 1 tab PO Q8H 11/05/22 12/18/22 325 mg tablet omeprazole 20 mg capsule,delayed 20 mg PO DAILY 11/19/22 12/18/22 release Previous Rx's Medication Instructions Recorded sacubitril 97 mg-valsartan 103 mg 1 tab PO BID #60 tabs 09/18/22 tablet
== END 2023-03-11 15:16 | disposition home or self-care (01) ==
PROVIDERS: Emergency Provider Emergency Medicine; PCP Family Medicine
DX: K52.9 Noninfective gastroenteritis and colitis, unspecified (principal); R53.1 Weakness; R55 Syncope and collapse; R63.4 Abnormal weight loss; R29.6 Repeated falls; C67.9 Malignant neoplasm of bladder, unspecified; I11.0 Hypertensive heart disease with heart failure; E78.5 Hyperlipidemia, unspecified; I25.10 Atherosclerotic heart disease of native coronary artery without angina pectoris; I73.9 Peripheral vascular disease, unspecified; J44.9 Chronic obstructive pulmonary disease, unspecified; I50.20 Unspecified systolic (congestive) heart failure; F17.210 Nicotine dependence, cigarettes, uncomplicated
CPT/HCPCS: 70450; 71045; 74174; 80053; 85025; 87636; 93005; 96360; 99285; Q9967

== ENCOUNTER 2024-09-30 12:06 | Emergency (ER) | payer MEDICARE, SELFPAY ==
--- NOTE | 2024-09-30 12:48 | ECG_ITS ---
APPROVED REPORT Exam: Resting ECG HR:73 bpm ECG Measurements Heart Rate 73 AXES MI 172 P 84 QRSd 137 QRS 71 QT 407 T 90 QTc 432 Conclusion ELECTRONIC VENTRICULAR PACEMAKER No STEMI Electronically signed by : AMBIKA DOWD, 10/01/2024 03:34:50
[2024-09-30 13:08] VITALS: BP 135/97; PULSE 71; RESP 11; TEMP 36.6; O2SAT 99; BMI 17.7
--- NOTE | 2024-09-30 13:28 | CT_ITS ---
FINAL REPORT TECHNIQUE: Thin section axial CT with sagittal reconstruction without contrast This study was performed with techniques to keep radiation doses as low as reasonably achievable, (ALARA). Individualized dose reduction techniques using automated exposure control or adjustment of mA and/or kV according to the patient''s size were employed. CLINICAL HISTORY: trip and fall, back pain, chronic back issues FINDINGS: There is moderate diffuse degenerative disc disease. No fractures identified. There is mild degenerative retrolisthesis of C3 on 4. IMPRESSION: Degenerative changes without acute process. Reviewed, Interpreted and Dictated by Halima Oh MD Transcribed by Addie Abreu Authenticated and [facility]
--- NOTE | 2024-09-30 13:28 | CT_ITS ---
FINAL REPORT TECHNIQUE: Noncontrast exam This study was performed with techniques to keep radiation doses as low as reasonably achievable, (ALARA). Individualized dose reduction techniques using automated exposure control or adjustment of mA and/or kV according to the patient''s size were employed. CLINICAL HISTORY: trip and fall, back pain, chronic back issues COMPARISON: 03/11/2023 FINDINGS: There is age-appropriate atrophy. No abnormal density is seen. Ventricles are normal. There is no hemorrhage. No mass effect is seen. Bone windows show no evidence of fracture. IMPRESSION: No acute findings. Reviewed, Interpreted and Dictated by Halima Oh MD Transcribed by Paige Javier Authenticated and [facility]
--- NOTE | 2024-09-30 13:28 | CT_ITS ---
FINAL REPORT TECHNIQUE: Axial images through the thoracic spine were performed. Sagittal reconstruction images were performed. This study was performed with techniques to keep radiation doses as low as reasonably achievable, (ALARA). Individualized dose reduction techniques using automated exposure control or adjustment of mA and/or kV according to the patient's size were employed. CLINICAL HISTORY: trip and fall, back pain, chronic back issues FINDINGS: No fracture is identified. There is thoracic kyphosis without subluxation. Stimulator device is seen in the dorsal lower thoracic spinal canal. No acute fracture is identified. IMPRESSION: No acute process. Reviewed, Interpreted and Dictated by Halima Oh MD Transcribed by Addie Abreu Authenticated and [facility]
--- NOTE | 2024-09-30 13:28 | CT_ITS ---
FINAL REPORT CLINICAL HISTORY: trip and fall, back pain, chronic back issues COMPARISON: 10/19/2021 FINDINGS: CT LUMBAR SPINE TECHNIQUE: Thin section axial CT with sagittal and coronal reconstructions This study was performed with techniques to keep radiation doses as low as reasonably achievable, (ALARA). Individualized dose reduction techniques using automated exposure control or adjustment of mA and/or kV according to the patient's size were employed. FINDINGS: No fracture is present. Alignment is normal. No bony canal stenosis is seen. There is moderate diffuse degenerative disc disease. IMPRESSION: Negative CT evaluation of the lumbar spine for acute bony injury. Reviewed, Interpreted and Dictated by Halima Oh MD Transcribed by Paige Javier Authenticated and [facility]
[2024-09-30 13:30] VITALS: BP 124/82; PULSE 67; RESP 12; O2SAT 99
[2024-09-30 13:32] LABS: Basophils % 0.3 % (0.1-2.0); Eosinophils % 0.5 % (0.1-12.0); Hematocrit 42.7 % (42.0-52.0); Hemoglobin 14.3 g/dL (14.1-18.0); Lymphocytes # 2.7 K/mm3 (0.7-4.5); Lymphocytes % 30.9 % (10-50); Mean Corpuscular HGB Conc 33.5 g/dL (31.8-35.4); Mean Corpuscular Hemoglobin 31.3 pg (27.0-31.2); Mean Corpuscular Volume 93.4 fl (80-94); Mean Platelet Volume 9.1 fl (7.4-10.4); Monocytes # 0.7 K/mm3 (0.1-1.0); Monocytes % 7.7 % (1.7-9.3); Neutrophils # 5.3 K/mm3 (1.8-7.8); Neutrophils % 60.4 % (37.0-80.0); Platelet Count 351 K/mm3 (142-424); Red Blood Count 4.57 M/mm3 (4.60-6.20); Red Cell Distribution Width 12.2 % (11.5-17.5); White Blood Count 8.8 K/mm3 (4.8-10.8)
[2024-09-30 13:34] LABS: Albumin Level 4.3 g/dl (3.5-5.0); Chloride 107 mmol/L (98-107); Sodium 141 mmol/L (136-145)
[2024-09-30 13:35] LABS: Potassium 4.3 mmoL/L (3.5-5.1)
[2024-09-30 13:37] LABS: Alanine Aminotransferase 20 U/L (12-78); Albumin/Globulin Ratio 1.5 (1.1-1.8); Alkaline Phosphatase 94 U/L (38-126); Anion Gap 12.3 mEq/L (5-15); Aspartate Amino Transferase 28 U/L (17-59); Bilirubin,Total 0.3 mg/dl (0.2-1.3); Blood Urea Nitrogen 9 mg/dl (9-20); Carbon Dioxide 26 mmol/L (22.0-30.0); Creatinine Clearance Estimated 56 mL/min (50-200); Estimated Glomerular Filt Rate 84 ml/min (>60); GFR (African American) 102 ML/MIN (>60); Globulin 2.8 g/dL (1.3-3.2); Total Protein,Serum 7.1 g/dl (6.3-8.2)
[2024-09-30 13:38] LABS: Glucose 84 mg/dl (74-100)
--- NOTE | 2024-09-30 13:42 | PC.NURSE ---
PT TO CT
--- NOTE | 2024-09-30 13:43 | ED_ITS ---
Discharge Plan Disposition Patient Disposition: Xfer Short-Term Hosp Condition: Good Prescriptions Prescriptions: No Action bupropion HCl [Wellbutrin SR] 150 mg tablet sustained-release 12 hr 150 mg PO DAILY gabapentin 300 mg capsule 300 mg PO TID Entresto 97-103 mg tablet 1 tab PO BID Qty: 60 2RF hydrocodone-acetaminophen 7.5-325 mg tablet 1 tab PO Q8H bisoprolol fumarate 10 mg tablet 10 mg PO QDAY Qty: 90 3RF promethazine 25 mg tablet 25 mg PO PRN omeprazole 20 mg capsule,delayed release(DR/EC) 20 mg PO DAILY rivaroxaban 20 MG tablet 20 mg PO DAILY Rx Instructions: must administer with evening meal nicotine 21 mg/24 hr patch 24 hour 1 patch transdermal Q24H Qty: 28 0RF ondansetron 4 mg tablet,disintegrating 4 mg PO Q6H PRN (Reason: nausea and vomiting) Qty: 10 0RF Referrals Follow up/Referrals: Wolfgang Cantu MD [Primary Care Provider] - See instructions Clinical Impressions Clinical Impression: Chronic pain, Failed spinal cord stimulator, Depression, Suicidal ideation, Positive urine drug screen Print Language Print Language: Hungarian Discharge ED Provider: Mya Dodd General Adult HPI General Chief complaint: PAIN Stated complaint: back pain depression body ache Time Seen by Provider: 09/30/24 12:49 Mode of Arrival: Wheelchair Source of Information: Patient and Relative Description of Symptoms (Recalled from ER Triage Doc. by RN): pt arrives c/o generalized pain, generalized weakness and lethargy. pt reports he has a neurostimulator that generally keeps his pain at bay, however, pt states it is not functioning properly. pt is also c/o chronic L shoulder and L sciatica pain. pt reports all of his pain is constant and 10/10. pt has not taken his daily pain medication because he states it does not help with the pain without the neurstimulator. pts son also reports he was contacted by [employer] after a friend called in a wellfare check for depression. the pt states that he is exhausted from the pain and periodically has thoughts wishing he could just go to sleep. pt denies SI/HI. pt has no plan or means to act anything out. History of Present Illness HPI narrative: This patient is a 64-year-old male with a history of paroxysmal atrial fibrillation, COPD, CHF, chronic pain of left shoulder due to rotator cuff injury, chronic back pain/sciatica with spinal stimulator in place managed at [place], depression presented to the emergency department at the behest of family and police officers after he had told family that he was planning to end his life because he does not want a be in pain anymore. Patient states that his spinal stimulator has failed and he knows it will be a very long time before pain management can get it fixed, as it is very difficult to get in with them in [place] according to the patient. He states that he called them but they were not able to get the part right away to fix it. He states that he is tired of dealing with chronic pain of his left shoulder, chronic gout, chronic back pain with sciatica and he also has been feeling very depressed over lack of money, being alone. A friend had called [facility] State officers for a welfare check after receiving messages from the patient. He states that he wishes he could end his life and go to sleep, but he does not have any specific plan. He does not feel safe at home with these thoughts. He states he came here involuntarily after being forced. He notes that his back pain in his low back is very severe, and he has tripped and fallen since his spinal stimulator has failed, which he notes happened over the last several days. He denies any fevers or infectious symptoms, no saddle anesthesia or incontinence, no new urinary retention noted. He notes chronic issues with his bladder because he states that he was told that his bladder looks like a woven basket , as he has a history of bladder cancer not on treatment. He chronically has some issues with emptying his bladder, denies any new changes. Related Data Home Medications ?Medication ?Instructions ?Recorded ?Confirmed bupropion HCl 150 mg tablet,12 hr 150 mg PO DAILY Depression 04/03/20 12/18/22 sustained-release (Wellbutrin SR) gabapentin 300 mg capsule 300 mg PO TID neuropathy 04/03/20 12/18/22 rivaroxaban 20 mg tablet 20 mg PO DAILY afib 12/09/21 12/18/22 promethazine 25 mg tablet 25 mg PO PRN 09/10/22 12/18/22 hydrocodone 7.5 mg-acetaminophen 1 tab PO Q8H 11/05/22 12/18/22 325 mg tablet omeprazole 20 mg capsule,delayed 20 mg PO DAILY 11/19/22 12/18/22 release Previous Rx's ?Medication ?Instructions ?Recorded sacubitril 97 mg-valsartan 103 mg 1 tab PO BID #60 tabs 09/18/22 tablet (Entresto) bisoprolol fumarate 10 mg tablet 10 mg PO QDAY #90 tabs 11/05/22 nicotine 21 mg/24 hr daily 1 patch transdermal Q24H #28 ea 03/11/23 transdermal patch ondansetron 4 mg disintegrating 4 mg PO Q6H PRN nausea and 03/11/23 tablet vomiting #10 tabs Allergies Allergy/AdvReac Type Severity Reaction Status Date / Time codeine (CODEINE) Allergy Intermediate Other Verified 09/30/24 13:16 ibuprofen (IBUPROFEN) Allergy Mild NA-NAUSEA Verified 09/30/24 13:16 oxycodone (OXYCODONE) Allergy Mild itching, Verified 09/30/24 13:16 hives acetaminophen (From Lortab) Allergy Unknown Verified 09/30/24 13:16 allergy reaction hydrocodone (From Lortab) Allergy Swelling Verified 09/30/24 13:16 of the Eye [facility] Disclaimer: The information contained in this section may have been updated after the patient was seen, as this information can be updated by other users. 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 current occupational exposures/hazards: No caffeine: Yes Have you lived/traveled outside US in past 30 days?: No Contact w/someone who lives/traveled outside US past 30 days?: No Exposure to someone with infectious disease in past 14 days?: No Do you have a fever (greater than 100.4 F or 38 C)?: No Have you tested positive for COVID-19: No Exposed to someone with COVID-19 in past 14 days?: No Do you have a sore throat?: No Do you have a cough?: No Do you have any weakness?: No Do you have any diarrhea?: No Are you experiencing any unusual bleeding?: No Do you have any muscle aches/pain?: Yes Do you have any abdominal pain?: No Are you experiencing loss of taste or smell?: No Other Medical History Have you received the Flu Vaccine for this season: Yes Have you received the Pneumonia Vaccine: No ROS Obtained: Yes All systems reviewed & no additional complaints except as documented Physical Exam General General appearance: alert and in no apparent distress Head Head exam: atraumatic and normocephalic Eye Eye exam: Present normal appearance, PERRL and EOMI ENT ENT exam: Present normal exam, normal oropharynx, mucous membranes moist and normal external ear exam Neck Neck exam: Present normal inspection, full ROM and trachea midline; Absent tenderness Chest Chest inspection: Present normal inspection and symmetric chest wall rise; Absent tenderness Respiratory Respiratory exam: Present normal lung sounds bilaterally; Absent respiratory distress, wheezes, stridor or accessory muscle use Cardiovascular Cardiovascular exam: Present regular rate and normal rhythm Abdominal Exam Abdominal exam: Present soft; Absent distention, tenderness or guarding Extremities Exam Extremities exam: Present normal inspection, full ROM and normal capillary refill; Absent tenderness or edema Back Exam Back exam: Present full ROM and tenderness (lumbar spine/paraspinal muscles) Neurological Exam Neurological exam: Present alert, oriented X3, CN II-XII intact, motor sensory deficit and other (diminished sensation of LLE with weakness of entire LLE, RLE intact. No saddle anesthesia, rectal tone intact.) Psychiatric Psychiatric exam: Present flat affect Skin Skin exam: Present warm and dry Medical Decision Making Medical Records Medical records reviewed: Yes I reviewed the patient's medical records. Screening: Per USPSTF and CDC recommendations, given the prevalence of disease in our region, it is our hospital?s policy to screen for HIV and viral Hepatitis for all patients aged 18 and over and those with ongoing risk factors. Juwan Inquiry Pt receiving controlled substance: No Vital Signs: 09/30/24 13:08 09/30/24 13:30 Temperature 97.9 F Temperature Source Oral Pulse Rate 67 Pulse Rate [Left] 71 Respiratory Rate 11 L 12 Blood Pressure 124/82 Blood Pressure [Right Arm] 135/97 H Blood Pressure Mean [Right Arm] 109 Blood Pressure Source [Right Arm] Automatic Cuff Blood Pressure Position [Right Arm] Sitting 02 Sat by Pulse Oximetry 99 99 Oxygen Delivery Method Room Air Room Air Lab Data Lab results reviewed: Yes I reviewed the patient's lab results. Lab Results 09/30/24 12:55: WBC 8.8, RBC 4.57 L, Hgb 14.3, Hct 42.7, MCV 93.4, MCH 31.3 H, MCHC 33.5, RDW 12.2, Plt Count 351, MPV 9.1, Neut % (Auto) 60.4, Lymph % (Auto) 30.9, Bertie % (Auto) 7.7, Eos % (Auto) 0.5, Baso % (Auto) 0.3, Neut # (Auto) 5.3, Lymph # (Auto) 2.7, Bertie # (Auto) 0.7, Eos # (Auto) 0.0, Baso # (Auto) 0.0, Sodium 141, Potassium 4.3, Chloride 107, Carbon Dioxide 26, Anion Gap 12.3, BUN 9, Creatinine 0.90, Estimated Creat Clear 56, Estimated GFR 84, Est GFR ( Amer) 102, Glucose 84, Calcium 10.0, Total Bilirubin 0.3, AST 28, ALT 20, Alkaline Phosphatase 94, Total Protein 7.1, Albumin 4.3, Globulin 2.8, Albumin/Globulin Ratio 1.5, Salicylates < 1.0 L, Acetaminophen < 10 L, Plasma/Serum Alcohol < 10, HCV Ab ARTHUR w/Rflx PCR Qn Negative, HIV Ag/Ab Combo Qual Negative 09/30/24 14:03: Urine Color Yellow, Urine Appearance Clear, Urine pH 5.5, Ur Specific [place] 1.015, Urine Protein Negative, Urine Glucose (UA) Negative, Urine Ketones Negative, Urine Blood Negative, Urine Nitrate Negative, Urine Bilirubin Negative, Urine Urobilinogen 0.2, Ur Leukocyte Esterase Negative, Urine RBC None, Urine WBC None, Ur Squamous Epith Cells None, Urine Bacteria None, Urine Opiates Screen Positive H, Urine Methadone Screen Negative, Ur Barbituates Screen Negative, Ur Phencyclidine Scrn Negative, Ur Amphetamines Screen Negative, U Benzodiazepines Scrn Positive H, Urine Cocaine Screen Negative, U Marijuana (THC) Screen Negative, SARS-CoV-2 (PCR) Not detected, Influenza A Untype (PCR) Not detected, Influenza Type B (PCR) Not detected 09/30/24 12:55 09/30/24 12:55 Orders (Tests/Meds): ED MEDICATIONS Discontinued Medications Generic Name Dose Route Start Last Admin Trade Name Charline PRN Reason Stop Dose Admin Gabapentin 300 mg 09/30/24 13:27 09/30/24 14:39 Gabapentin 300mg Capsule PO 09/30/24 13:28 Not Given ONCE ONE Lidocaine 1 each 09/30/24 13:27 09/30/24 14:31 Lidocaine 5% Transdermal Patch TD 09/30/24 13:28 1 each ONCE ONE Administration ORDERS Category Date Time Status CT cervical spine wo con Stat Cat Scan 09/30/24 13:[address] head/brain wo con Stat Cat Scan 09/30/24 13:[address] lumbar spine wo con Stat Cat Scan 09/30/24 13:[address] thoracic spine wo con Stat Cat Scan 09/30/24 13:28 Completed Acetaminophen Stat Lab 09/30/24 12:55 Completed Complete Blood Count Auto Diff Stat Lab 09/30/24 12:55 Completed Comprehensive Metabolic Panel Stat Lab 09/30/24 12:55 Completed Ethanol [Ethyl Alcohol] Stat Lab 09/30/24 12:55 Completed HIV Combo Stat Lab 09/30/24 12:55 Completed Hepatitis C Ab Qual. W/ RFX Stat Lab 09/30/24 12:55 Completed Rapid PCR Covid and Flu A/B Stat Lab 09/30/24 14:03 Completed Salicylate Stat Lab 09/30/24 12:55 Completed UA [Urinalysis and Microscopic] Stat Lab 09/30/24 14:03 Completed UDS [Drug Screen,Urine] Stat Lab 09/30/24 14:03 Completed ECG Data Tracing #1: I reviewed this ECG and interpreted as documented below: Ventricularly paced at a rate of [address] changes concerning for STEMI. ECG initial impression date: 09/30/24 ECG initial impression time: 12:49 Medical Decision Narrative: In summary, this patient is a 64-year-old male presenting to the Emergency Department for evaluation of depression, suicidal thoughts, flareup of chronic pain which he attributes to failure of his spinal stimulator that is managed at [place]. He does note a recent trip and fall and is complaining of significant low back pain, but he also complains of pain everywhere. Patient come in involuntarily after police forced him when family had called for a welfare check. Differential diagnoses considered include but are not limited to SI, depression, traumatic injury from fall, acute on chronic back pain, musculoskeletal strain/sprain, cauda equina syndrome, spinal cord compression, failure of spinal stimulator. Ruling out the most morbid conditions drove assessment. It should be noted patient's history includes chronic pain with spinal stimulator, extensive cardiovascular history, COPD which may or may not be at goal therapy. This complicates all aspects of care by increasing patient's risk for morbidity. On exam, the patient has a flat affect and is slow to respond. He cannot walk which he states is due to his failure of the spinal stimulator. He has left leg weakness with diminished sensation of the left lower extremity which he states is chronic due to his sciatic nerve issues. He notes that that is why he has the stimulator, which apparently stopped working yesterday because the symptoms have now recurred. No saddle anesthesia noted, rectal tone intact. Will obtain postvoid bladder scan to further a stratify for any significant spinal cord issue/cauda equina, though unsure of the utility of this given that the patient has a history of bladder cancer and states that he has intermittent urinary retention at baseline. Overall, I doubt that this is an acute surgical issue, but instead most likely to be failure of his hardware/flareup of chronic back pain with sciatica. Workup included CBC, CMP, serum acetaminophen, serum salicylate, serum ethanol, urinalysis, urine drug screen, postvoid bladder scan, CT head, CT C/T/L-spine without contrast. He was given oral gabapentin for pain, which she takes chronically at home. He is also given a topical Lidoderm patch. He notes he is allergic to NSAIDs. Patient was placed under suicide precautions upon arrival with a one-to-one sitter, and I initiated the process of for involuntary psychiatric evaluation. He initially told me he had not taken his medications prior to arrival, which is why I ordered his home medications. He then told me that he took 3 doses of gabapentin prior to arrival since he knew he would not be able to take it later on. Given this, medications were withheld. I independently interpreted CT scans prior to radiology read and noted no acute fracture or intracranial hemorrhage. Please see radiology read for final interpretation. Labs obtained demonstrated reassuring CBC with no significant leukocytosis or anemia, reassuring chemistry with normal kidney function and electrolytes, normal liver enzymes. Urine drug screen is positive for benzodiazepines as well as opiates. He does note that he takes hydrocodone at home. Serum acetaminophen, salicylate, ethanol are negative. EKG obtained is reassuring. Postvoid bladder scan demonstrated 312 mL in the bladder, but patient notes chronic issues with urinary retention secondary to his bladder issues. Overall, I feel that he is medically cleared from my standpoint and does not have any acute surgical pathology that would require further evaluation as an inpatient. I feel he can follow-up outpatient with pain management for trial and error of his spinal stimulator, but I feel he urgently needs psychiatric evaluation given his suicidal ideation and inability to contract for safety at home to me. Given this, initiated the process of psychiatric evaluation. We don't have psychiatry, so I reached out to for potential EMPATH. Pt is not an empath candidate given difficulty to ambulate. I had an interactive discussion with Dr. Gupta at who accepted the patient for transfer to [facility] for psychiatric evaluation. EMS transport was arranged, and he was transferred in stable condition. Critical Care Critical Care Time Critical Care Time: Yes Attestation: On 09/30/24, the high probability of a clinically significant, sudden or life threatening deterioration of the following system(s) required my full and direct attention, intervention and personal management. The time I documented below is in addition to time spent performing reported procedures but includes the following listed in this critical care notation. Total Time Total Critical Care Time: 35
--- NOTE | 2024-09-30 13:45 | PC.NURSE ---
DINESH IS GOING TO CT WITH PT
[2024-09-30 13:51] LABS: Acetaminophen < 10 ug/ml (10-30); Ethyl Alcohol < 10 mg/dl (0-10); Salicylate < 1.0 mg/dL (2.0-20.0)
--- NOTE | 2024-09-30 14:00 | PC.NURSE ---
pt given urinal.
[2024-09-30 14:06] LABS: Coronavirus 19, PCR Not Detected (NotDetected); Influenza A, PCR Not Detected (NotDetected); Influenza B, PCR Not Detected (NotDetected); Microscopic, Urine URINE MICROSCOPIC (MICROSCOPIC)
--- NOTE | 2024-09-30 14:13 | PC.NURSE ---
PVR 316ml after urinating about 20ml.
[2024-09-30 14:28] LABS: Appearance,Urine CLEAR (Clear); Bilirubin,Urine Negative (Negative); Blood, Urine Negative (Negative); Color,Urine YELLOW (Yellow); Glucose,Urine (UA) Negative (Negative); Ketones,Urine Negative (Negative); Leukocyte Esterase,Urine Negative (Negative); Nitrate,Urine Negative (Negative); PH,Urine 5.5 (5.0-8.5); Protein,Urine Negative (Negative); Specific Gravity, Urine 1.015 (1.005-1.030); Urobilinogen,Urine 0.2 EU/dl (0.2)
--- NOTE | 2024-09-30 14:28 | PC.NURSE ---
Involuntary hold paperwork sent to [employer] Magdaleno Alanis @ [email or web address]
[2024-09-30] MEDS: LIDOCAINE 5% TRANSDERMAL PATCH 1 EACH TD (14:31)
--- NOTE | 2024-09-30 14:39 | PC.NURSE ---
When attempting to administer pts gabapentin dose he states he has already taken it today. pt reported when he arrived that he had not taken it in two days because it didn't help. pt now states [place] deputy followed him in his house and he took his complete daily dose totalling 900mg PO gabapentin.
[2024-09-30 14:41] LABS: Barbiturates Screen,Urine Negative ng/ml (<200); Benzodiazepines Screen,Urine Positive ng/ml (<200)
[2024-09-30 14:42] LABS: Amphetamine/Metha Screen,Urine Negative ng/ml (<1000)
[2024-09-30 14:43] LABS: Cannabinoid Screen,Urine Negative ng/ml (<50)
[2024-09-30 14:44] LABS: Cocaine Screen,Urine Negative ng/ml (<300)
[2024-09-30 14:45] LABS: Methadone Screen,Urine Negative ng/ml (<300); Opiate Screen,Urine Positive ng/ml (<300)
[2024-09-30 14:46] LABS: Phencyclidine Screen,Urine Negative ng/ml (<25)
[2024-09-30 14:48] LABS: HIV Combo NEGATIVE (Negative)
[2024-09-30 14:56] LABS: Hepatitis C Ab Qual. W/ RFX NEGATIVE (Negative)
--- NOTE | 2024-09-30 15:10 | PC.NURSE ---
Called for patient transfer to , stated they will call back to talk to
--- NOTE | 2024-09-30 15:56 | PC.NURSE ---
I called and requested a dinner tray for the pt.
[2024-09-30] MEDS: NICOTINE 21MG/24HR PATCH 21 MG TD (15:59)
--- NOTE | 2024-09-30 16:06 | PC.NURSE ---
Report called to Negin MCFARLAND at [facility]
[2024-09-30 16:07] VITALS: BP 119/85; PULSE 66; O2SAT 99
--- NOTE | 2024-09-30 20:33 | PC.NURSE ---
Assisted pt to the restroom, pt ambulated very well with his cane and one person assist. pt did also state that if we didnt hurry up he wanted to escape and he was in alot of pain. notified nurse of this pain.
--- NOTE | 2024-09-30 21:20 | PC.NURSE ---
Dispatch called for PD transport to [facility].
[2024-09-30] MEDS: HYDROCODONE/APAP 5/325 MG TABLET 1 TAB PO (22:52)
--- NOTE | 2024-09-30 23:13 | PC.NURSE ---
removed pts IV for transportation to [facility] ED.
[2024-09-30 23:22] VITALS: BP 110/84; PULSE 66; RESP 14; TEMP 36.6; O2SAT 98
--- NOTE | 2024-09-30 23:31 | PC.NURSE ---
Pt dc with officer Bee for transfer to [facility] ED at this time.
--- NOTE | 2024-09-30 23:35 | PC.NURSE ---
notified PAVAN Funes , pts next of kin, of pt being transported at this time .
== END 2024-09-30 23:35 | disposition short-term general hospital (02) ==
PROVIDERS: Emergency Provider Emergency Medicine; PCP Family Medicine
DX: R45.851 Suicidal ideations (principal); F32.A Depression, unspecified; T85.192A Other mechanical complication of implanted electronic neurostimulator of spinal cord electrode (lead), initial encounter; R82.5 Elevated urine levels of drugs, medicaments and biological substances; R53.1 Weakness; R53.83 Other fatigue; M25.512 Pain in left shoulder; G89.29 Other chronic pain; F17.210 Nicotine dependence, cigarettes, uncomplicated
CPT/HCPCS: 70450; 72125; 72128; 72131; 80053; 80307; 80320; 80329; 81001; 85025; 86803; 87389; 87636; 93005; 99291

== ENCOUNTER 2025-02-06 10:02 | Emergency (ER) | payer MEDICARE, SELFPAY ==
--- OUTSIDE RECORDS SUMMARY | 2025-01-17 10:30 | XMS_ITS | Encounter Summary ---
Author Organization [facility] Address [address] [place] [address] Care Team Providers Care Product Tester Fiberglass Name Role Phone Wolfgang Cantu MD Primary Care Provider [phone] Reason for Visit * Consultation (Routine) - Closed Specialty Diagnoses / Procedures Referred By Contac t Referred To Contact Neurosurgery Diagnoses Lumbar post-laminectomy syndrome Mahesh Clarke MD [address] [place] [address] Phone: tel: fax: Referral ID Status Reason Start Date Expiration Date V isits Requested Visits Authorized [id number] Closed Specialty Services Required 10/21/2024 04/22/2026 1 1 Encounter Details Date Type Department Care Team (Late st Contact Info) Description 01/17/2025 10:30 AM EDT Consult [facility] [address], [address] [place] [address] Min Troy MD [address] [facility] [address] [place] [address] Malfunction of spinal cord stimulator, initial encounter (Primary Dx); Tobacco dependence due to cigarettes Social History Tobacco Use Types Packs/Day Years Used Date Smoking Tobacco: Heavy Smoker Smokeless Tobacco: Never Tobacco Cessation:Ready to Q uit: Not Asked; Counseling Given: Not Answered Comments:Heavy cigarette smoker (20-39 per day) Alcohol Use Standard Drinks/Week Comments No 0 (1 standard drink = 0.6 oz pur e alcohol) Humiliation, Afraid, Rape, and Kick questionnair e Answer Date Recorded Within the last year, have y ou been afraid of your partner or ex-partner? No 10/03/2024 Within the last year, have y ou been humiliated or emotionally abused in other ways by your partner or ex-partner? No Within the last year, have y ou been kicked, hit, slapped, or otherwise physically hurt by your partner or ex-partner? No 10/03/2024 Within the last year, have y ou been raped or forced to have any kind of sexual activity by your partner or ex-partner? No 10/03/2024 Hunger Vital Sign Answer Date Recorded Within the past 12 months, y ou worried that your food would run out before you got the money to buy more. Sometimes true Within the past 12 months, t he food you bought just didn't last and you didn't have money to get more. Sometimes true 12/2024 PRAPARE - Transportation Answer Date Re corded In the past 12 months, has l ack of transportation kept you from medical appointments or from getting medications? No 12/2024 In the past 12 months, has l ack of transportation kept you from meetings, work, or from getting things needed for daily living? No 10/03/2024 Housing Stability Vital Sign Answer James e Recorded In the last 12 months, was t here a time when you were not able to pay the mortgage or rent on time? Yes 10/03/2024 In the past 12 months, how m any times have you moved where you were living? 0 10/03/2024 At any time in the past 12 m [facility], were you homeless or living in a usp (including now)? No 10/03/2024 Utilities Answer Date Recorded In the past 12 months has th e electric, gas, oil, or water company threatened to shut off services in your home? Yes 10/03/2024 Sex and Gender Information Value Date Recorded Sex Assigned at Not on file Legal Sex Male 7:59 PM EDT Gender Identity Not on file Sexual Orientation Not on file documented as of this encounter Last Filed Vital Signs Vital Sign Reading Time Taken Comments Blood Pressure 138/84 01/17/2025 11:18 AM EDT Pulse - - Temperature - - Respiratory Rate - - Oxygen Saturation - - Inhaled Oxygen Concentration - - Weight 58.8 kg (129 lb 10.1 oz) 025 11:18 AM EDT Height 175.3 cm (5' 9 ) 01/17/2025 11:1 8 AM EDT Body Mass Index 19.14 01/17/2025 11:18 AM EDT documented in this encounter Miscellaneous Notes * Progress Notes - Delilah Nieves, DELANO, DNP - 01/17/2025 10:30 AM EDT We had the pleasure of seeing your patient in our clinic today for Neurosurgical consultation. I personally reviewed approximately 5 pages of new patient referral paperwork that was sent to the clinic. Chief Complaint: Malfunction of spinal cord stimulator History Of Present Illness Negro Miller is a 64 y.o. male with a past medical history of cardiac arrhythmia status post AICD placement in 2022, tobacco dependence ( smokes 3 packs per day ), and anxiety in the past surgical history of a lumbar laminectomy or microdiskectomy. Patient was unsure of levels or of the exacttype surgery done, as well as the date. He presents to neurosurgical clinic today for consultation regarding malfunction of his spinal cord stimulator. The patient has a spinal cord stimulator ( [employer] ) that was inserted in January of 2024. The patient reports that he was receiving significant relief for his severe back pain until September,. He reports that he fell when his legs gave out on him. Since that point in time, he has been experiencing severe shooting pain down his bilateral lower extremities, as well as severe, unrelenting back pain. He has since been prescribed Bellevue to help manage this pain, and reports that he routinely runs out of pills before the end of the month because his pain is so severe that he has to take more than he has scribe. The patient also states that elijah, the spinal cord stimulator underwriting service representative with [employer] evaluated his stimulator and told him that theleads had frayed or fractured. This occurred while the patient was at [facility], but no imaging was obtained. Diagnosis was made by be equipment [employer] uses to evaluate stimulators. He reports multiple falls, and states he frequently stumbles. This has substantially worsened now that his stimulator is not working. Given the patient's pain is severe, and now has a numb malfunctioning spinal cord stimulator lead, he would like to pursue surgical intervention to repair this. Past Medical History[1] Surgical History[2] Family History[3] Social History[4] Current Outpatient Medications Medication Instructions acetaminophen (TYLENOL) 650 mg, Every 6 hours PRN DULoxetine (CYMBALTA) 30 mg, Oral, Daily, Do not crush or chew. gabapentin (NEURONTIN) 600 mg, Oral, 3 times daily HYDROcodone-acetaminophen ([place]) 7.5-325 MG tablet TAKE 1 TABLET BY MOUTH EVERY 8 HOURS NEEDED FOR SEVERE pain loperamide (IMODIUM) 2 mg, 4 times daily PRN methocarbamol (ROBAXIN) 500 mg, Oral, 4 times daily naloxone (NARCAN) 4 mg, Nasal, As needed ondansetron ODT (ZOFRAN-ODT) 8 mg, Every 12 hours PRN QUEtiapine (SEROQUEL) 25 mg, Nightly Allergies Codeine, Oxycodone, and Ibuprofen Review of Systems 14 point review of systems was performed and was negative except as noted per HPI. Visit Vitals BP 138/84 Ht 1.753 m (5' 9 ) Wt 58.8 kg (129 lb 10.1 oz) BMI 19.14 kg/m?? Smoking Status Heavy Smoker BSA 1.69 m?? General Physical Exam Constitutional No acute distress. Patient is appropriate historian and cooperative throughout exam.Well nourished, well groomed. Alert and oriented x4. Head Normocephalic and atraumatic. Eyes Pupils are equal, round, and reactive to light. Neck No tracheal deviation or JVD noted. No previous surgical scars Cardiovascular Minimal to no peripheral edema, intact distal pulses Pulmonary/Chest No increased effort noted, no shortness of breath Neurological Alert and oriented to person, place, and time Skin Skin is warm and dry Psychiatric Normal mood and affect, behavior and judgment MUSCULOSKELETAL EXAM: Upper Extremity Motor Strength Right Left C5: Deltoid 5/5 5/5 C6: Biceps 5/5 5/5 C7: Triceps 5/5 5/5 C8: Whipped Topping Supervisor 5/5 5/5 T1: Intrinsics 5/5 5/5 Lower Extremity Motor Strength Right Left L2: Hip flexion (Iliopsoas) 5/5 5/5 L3: Knee extension (Quad) 5/5 5/5 L4: Ankle DF (TA) 5/5 5/5 L5: Great Toe DF (EHL) 5/5 5/5 S1: Ankle Pf, Foot Eversion (Peroneal longus/brevis) 5/5 5/5 S2: Great toe flexion (FHL), Knee flexion 5/5 5/5 Sensation Right Left L2: Proximal anterior thigh Normal Normal L3: Mid anterior thigh Normal Normal L4: Medial leg/foot, great toe (Saphenous n.) Normal Normal L5: Dorsum of mid foot Normal Normal S1: Lateral leg/foot, little toe, Back of leg (Sural n.) Normal Normal Reflexes Right Left C5: Biceps /4 2/4 C6: Brachialis /4 2/4 C7: Triceps /4 2/4 L4: Patellar /07/02 S1: Achilles /07/02 SLR Positive Positive Clonus Negative Negative Hoffmans Negative Negative Imaging Dr Girard and I personally reviewed And interpreted scoliosis x-ray obtained at today's visit. We also reviewed the radiology reports. Imaging demonstrates spinal cord stimulator and AICD leads that appear to be in appropriate position. Imaging also appears to demonstrate spinal cord stimulator lead wires that are completely severedin half around the T12-L1 level . Assessment and Plan Negro Miller is a 64 y.o. male presenting As a referral from his pain management clinic to discuss replacement of spinal cord stimulator leads. As stated in the HPI, the [employer] underwriting service representative informed the patient that the leads were no longer working, and appeared to be frayed per the read onthe equipment used to evaluate the stimulator. I reviewed the imaging as above, and it appears thatthe spinal cord stimulator lead wires are completely severed in half around the T12-L1 level. Giventhat leads have malfunctioned, we believe the patient would benefit from neurosurgical intervention. We have offered the patient a spinal cord stimulator lead replacement to occur on February 15, 2025.Patient was amenable to this plan of care, and all pre and postoperative appointments were made at today's visit. I educated the patient on red flag symptoms that would require emergent intervention.We counseled the patient for 3-10 minutes regarding tobacco cessation. Discussion included negativehealth effects of tobacco including but not limited to increased risk of lung cancer, worsening of back pain, heart disease, and stroke. Patient was agreeable with this plan. They were given the opportunity to ask questions, which were answered to their satisfaction. They were informed to to contact the Neurosurgery clinic with any questions, concerns, or worsening symptoms. Patient specific comorbidities further complicating management during the perioperative period include: -Tobacco use -ANXiety/Depression -Cardiac arrhythmia status post AICD placement I personally spent a total of 30 minutes on this encounter. This time includes face to face with patient, and review of imaging, counseling and discussion and/or coordination of care. Parts of this note were dictated using [employer] Direct voice recognition software. As a result, errors may occur. When identified, these senior net engineer errors are corrected, but while every attempt is made to prevent/correct these, errors may still exist. I reviewed this patient's history, exam, and any imaging with Dr Girard. He guided plan of care forthis patient. Delilah Nieves DNP, DELANO [facility] Department of Neurosurgery Diagnoses and all orders for this visit: Malfunction of spinal cord stimulator, initial encounter (Primary) - XR Scoliosis Entire Spine 2 or 3 Views; Future Tobacco dependence due to cigarettes - XR Scoliosis Entire Spine 2 or 3 Views; Future Other orders - Ambulatory referral to Neurosurgery [1] Past Medical History: Diagnosis Date Personal history of other specified conditions History of abdominal pain Personal history of other specified conditions History of diarrhea [2] Past Surgical History: Procedure Laterality Date BACK SURGERY N/A Back Surgery from [facility] SHOULDER SURGERY N/A Shoulder Surgery from [facility] [3] Family History Problem Relation Name Age of Onset Diabetes Father Hypertension Mother Conversions - Other Sister Thyroid dysfunction [4] Social History Tobacco Use Smoking status: Heavy Smoker Smokeless tobacco: Never Tobacco comments: Heavy cigarette smoker (20-39 per day) Substance Use Topics Alcohol use: No Cosigned by Min Troy MD at 01/19/2025 2:15 PM EDT Associated attestation - Min Troy MD - 01/19/2025 2:15 PM EDT I saw and examined the patient with the LASHAY. I discussed the case with the LASHAY and agree with the plan of care as documented. More than 30 minutes was spent for this visit with >50% in [id number] communication with the patient over the diagnosis, treatment options and plan. A substantive portion of care was provided by the LASHAY. documented in this encounter Plan of Treatment Upcoming Encounters Date Type Department Care Team (Latest Contact Info) Description 02/15/2025 8:00 AM EDT Hospital Encounter [facility] [address] [place] [address] Min Troy MD [address] [phone] 02/15/2025 8:00 AM EDT - 02/15/2025 10:10 AM EDT Surgery [facility] [address] [place] [address] Min Troy MD [address] [address] [facility]CS Lead Replacement - [facility] 03/02/2025 3:20 PM EDT [facility] [address] [place] [phone] Delilah Nieves, ELECTRIC WHEELCHAIR REPAIRER, DNP [address] [phone] Scheduled Procedures Name Priority Associated Diagnoses Date/Ti me REVISION, REMOVAL, OR REPLACEMENT, ELECTRODE LEAD, NEUROSTIMULATOR, SPINAL, WITH LAMINECTOMY OR LAMINOTOMY Battery end of life of spinal cord stimulator 02/15/2025 8:00 AM EDT documented as of this encounter Results * XR Scoliosis Entire Spine 2 or 3 Views (01/17/2025 12:47 PM EDT) Anatomical Region Laterality Modality Spine Digital Radiogra phy Impressions 01/17/2025 1:10 PM EDT No acute osseous finding within the limitations of the exam. Degenerative changes as described above. Mild retrolisthesis of C3 on C4, which may be slightly increased since 2015, however may be due to differences in standing versus supine positioning. CRITICAL RESULT: No. COMMUNICATION: Per this written report. Drafted by Evelyne Barrett MD on 01/17/2025 1:06 PM Final report signed by Evelyne Barrett MD on 01/17/2025 1:10 PM Narrative 01/17/2025 1:10 PM EDT CLINICAL INDICATION: assess SCS lead placement TECHNIQUE: XR SCOLIOSIS ENTIRE SPINE 2 OR 3 VIEWS COMPARISON: Outside C-spine CT from 04/11/2016, outside MR L-spine from 11/09/2012 FINDINGS: Mild retrolisthesis of C3 on C4, which may be slightly increased since 2015, however may be due to differences in standing versus supine positioning. The cervicothoracic junction is not well-visualized on lateral view due to overlying shoulders. Mildly accentuated thoracic kyphosis without significant listhesis. Multilevel disc space narrowing and osteophytosis throughout the thoracic spine. Stimulator device projects over the lumbar spine on the lateral view. Multilevel disc space and osteophyte ptosis of the lumbar spine. Minimal retrolisthesis of L5 on S1. No visualized acute fracture of the entire spine. No acute finding in the chest, however there are technical artifacts which limit evaluation. Uncovertebral facet joint hypertrophy of the partially visualized cervical spine on AP view, greater on the right. Procedure Note Evelyne Barrett MD - 01/17/2025 CLINICAL INDICATION: assess SCS lead placement TECHNIQUE: XR SCOLIOSIS ENTIRE SPINE 2 OR 3 VIEWS COMPARISON: Outside C-spine CT from 04/11/2016, outside MR L-spine from 11/09/2012 FINDINGS: Mild retrolisthesis of C3 on C4, which may be slightly increased [id number], however may be due to differences in standing versus supinepositioning. The cervicothoracic junction is not well-visualized onlateral view due to overlying shoulders. Mildly accentuated thoracickyphosis without significant listhesis. Multilevel disc space narrowingand osteophytosis throughout the thoracic spine. Stimulator deviceprojects over the lumbar spine on the lateral view. Multilevel disc spaceand osteophyte ptosis of the lumbar spine. Minimal retrolisthesis of L5 onS1. No visualized acute fracture of the entire spine. No acute finding inthe chest, however there are technical artifacts which limit evaluation.Uncovertebral facet joint hypertrophy of the partially visualized cervicalspine on AP view, greater on the right. IMPRESSION: No acute osseous finding within the limitations of the exam. Degenerativechanges as described above. Mild retrolisthesis of C3 on C4, which may be slightly increased [id number], however may be due to differences in standing versus supinepositioning. CRITICAL RESULT: No. COMMUNICATION: Per this written report. Drafted by Evelyne Barrett MD on 01/17/2025 1:06 PM Final report signed by Evelyne Barrett MD on 01/17/2025 1:10 PM Delilah Nieves ELECTRIC WHEELCHAIR REPAIRER, DNP IMG XR PROCEDURES Sapphier l Result documented in this encounter Visit Diagnoses Diagnosis Malfunction of spinal cord stimulator, initial encounter- Primary Tobacco dependence due to cigarettes Malfunction of spinal cord stimulator, initial encounter Tobacco dependence due to cigarettes Battery end of life of spinal cord stimulator documented in this encounter Additional Health Concerns Assessment Noted Time A fall risk assessment has been complete d for the patient 01/17/2025 11:24 AM EDT A Body Mass Index follow-up plan has been documented for the patient 01/19/2025 2:15 PM EDT documented as of this encounter Care Teams Product Tester Fiberglass Relationship Specialty Start Date End Date Wolfgang Cantu MD PCP - General 10/01/24 documented as of this encounter
--- OUTSIDE RECORDS SUMMARY | 2025-01-17 12:33 | XMS_ITS | Encounter Summary ---
Author Organization Healthcare Address [address] [place] [address] Care Team Providers Care Radio Program Director Name Role Phone Wolfgang Cantu MD Primary Care Provider [phone] Encounter Details Date Type Department Care Team (Latest Contact Info) Description 01/17/2025 12:33 PM EDT - 01/17/2025 11:59 PM EDT Hospital Encounter [place] [facility] [address], [address] [place] [phone] Malfunction of spinal cord stimulator, initial encounter; Tobacco dependence due to cigarettes Discharge Disposition: Home or Self Care Social History Tobacco Use Types Packs/Day Years Used Date Smoking Tobacco: Heavy Smoker Smokeless Tobacco: Never Comments:Heavy cigarette smo ker (20-39 per day) Alcohol Use Standard Drinks/Week [...] any time in the past 12 m [facility], were you homeless or living in a retirement (including now)? No 10/03/2024 Utilities Answer Date Recorded In the past 12 months has th e [employer], gas, oil, or water [employer] threatened to shut off services in your home? Yes 10/03/2024 Sex and Gender Information Value Date Recorded Sex Assigned at Not on file Legal Sex Male 7:59 PM EDT Gender Identity Not on file Sexual Orientation Not on file documented as of this encounter Medications at Time of Discharge acetaminophen (Tylenol) 325 MG tablet Take 2 tablets by mouth every 6 hours as needed for pain. Under [place] law, monthly prescriptions (30 days) can be refilled at 25 days and three-month prescriptions (90 days) at 80 days. Please contact the insurance company with questions if refills are denied. HYDROcodone-acetami nophen ([place]) 7.5-325 MG tablet TAKE 1 TABLET BY MOUTH EVERY 8 HOURS NEEDED FOR SEVERE pain loperamide (Imodium) 2 MG capsule Take 1 capsule by mouth 4 (four) times a day as needed for diarrhea. naloxone (Narcan) 4 mg/0.1 mL nasal spray 1. Give 1 spray in nostril for no/slow breathing or cannot wake after opioid use 2. Call 911 3. Repeat in other nostril if symptoms continue 1 each ondansetron ODT (Zofran-ODT) 8 MG disintegrating tablet Dissolve 1 tablet on the tongue every 12 hours as needed for nausea or vomiting. QUEtiapine (SEROquel) 25 MG tablet Take 1 tablet by mouth nightly. documented as of this encounter Plan of Treatment Upcoming Encounters Date Type Department Care Team (Latest Contact Info) Description 02/15/2025 8:00 AM EDT Hospital Encounter [facility] [address] [place] [address] Min Troy MD [address] [phone] 02/15/2025 8:00 AM EDT - 02/15/2025 10:10 AM EDT Surgery [facility] [address] [place] [address] Min Troy MD [address] [phone] [facility] Lead Replacement - [facility] 03/02/2025 3:20 PM EDT Office Visit [place] [facility] [address] [place] [phone] Delilah Nieves, PACK ROOM OPERATOR, DNP [address] [address] Scheduled Procedures Name Priority Associated Diagnoses Date/Ti me REVISION, REMOVAL, OR REPLACEMENT, ELECTRODE LEAD, NEUROSTIMULATOR, SPINAL, WITH LAMINECTOMY OR LAMINOTOMY Battery end of life of spinal cord stimulator 02/15/2025 8:00 AM EDT documented as of this encounter Procedures Procedure Name Priority Date/Time Associated Diagnosis Comments XR SCOLIOSIS ENTIRE SPINE 2 OR 3 VIEWS Routine 01/17/2025 12:47 PM EDT Malfunction of spinal cord stimulator, initial encounter Tobacco dependence due to cigarettes documented in this encounter Results * XR Scoliosis Entire [...] on C4, which may be slightly increased [id number], however may be due to differences in [...] on C4, which may be slightly increased [id number], however may be due to differences in standing versus supinepositioning. CRITICAL RESULT: No. COMMUNICATION: Per this written report. Drafted by Evelyne Barrett MD on 01/17/2025 1:06 PM Final report signed by Evelyne Barrett MD on 01/17/2025 1:10 PM Delilah Nieves PACK ROOM OPERATOR, DNP IMG XR PROCEDURES Sapphire l Result documented in this encounter Visit Diagnoses Diagnosis Malfunction of spinal cord stimulator, initial encounter Tobacco dependence due to cigarettes Battery end of life of spinal cord stimulator- Primary Battery end of life of spinal cord stimulator documented in this encounter Additional Health Concerns Assessment Noted Time A fall risk assessment has been complete d for the patient 01/17/2025 11:24 AM EDT A Body Mass Index follow-up plan has been documented for the patient 01/19/2025 2:15 PM EDT documented as of this encounter Care Teams Radio Program Director Relationship Specialty Start Date End Date Wolfgang Cantu MD PCP - General 10/01/24 documented as of this encounter
--- OUTSIDE RECORDS SUMMARY | 2025-01-17 14:30 | XMS_ITS | Encounter Summary ---
Author Organization [facility] Address [address] [place] [address] Care Team Providers Care Acid Painter Name Role Phone Wolfgang Cantu MD Primary Care Provider + Reason for Visit * Reason Comments Tick Removal Right Side visual disturbances Encounter Details Date Type Department Care Team (Late st Contact Info) Description 01/17/2025 2:30 PM EDT Office Visit [facility] [address] [facility] [place] [address] Lily Bobby, PARosamariaC [address] [facility] [address] Tick bite of abdominal wall, initial encounter (Primary Dx) Social History Tobacco Use Types Packs/Day Years Used Date Smoking Tobacco: Every Day Cigarettes 2 50 Smokeless Tobacco: Never Comments:Smoked since 12 yea rs okd Alcohol Use Standard Drinks/Week Comments Yes 0 (1 standard drink = 0.6 oz pur e alcohol) quit 09/16/2022 AUDIT-C Answer Date Recorded Q1: How often do you have a drink containing alcohol? Monthly or less 05/19/2023 Q2: How many drinks containi ng alcohol do you have on a typical day when you are drinking? Patient does not drink Q3: How often do you have si x or more drinks on one occasion? Less than monthly 05/19/2023 PHQ-2 Answer Date Recorded Retired PHQ-9: Brief Depression Severity Measure Score 19 09/26/2022 Abuse Screen Answer Date Recorded Feels Unsafe at Home or Work/School no 11/03/2023 Feels Threatened by Someone no 12/2023 Does Anyone Try to Keep You From Having Contact with Others or Doing Things Outside Your Home? no 11/03/2023 Physical Signs of Abuse Present no 11/03/2023 Disabilities Answer Date Recorded Difficulty Concentrating, Remembering or Making Decisions yes 11/03/2023 Difficulty Managing Errands Independently no 11/03/2023 Education Answer Date Recorded Help with school or training? Not on file Preferred Language Citizen Of [place] 10/28/2023 PHQ-2 Answer Date Recorded Patient Health Questionnaire-9 Score 24 06/30/2024 Sex and Gender Information Value Date Recorded Sex Assigned at Not on file Legal Sex Male 1:35 PM EDT Gender Identity Not on file Sexual Orientation Not on file documented as of this encounter Last Filed Vital Signs Vital Sign Reading Time Taken Comments Blood Pressure 126/70 01/17/2025 2:06 PM EDT Pulse 68 01/17/2025 2:06 PM EDT Temperature 36.4 C (97.5 F) 01/17/2025 2:06 PM EDT Respiratory Rate 18 01/17/2025 2:06 PM EDT Oxygen Saturation - - Inhaled Oxygen Concentration - - Weight 59 kg (130 lb) 01/17/2025 2:06 PM EDT Height 175.3 cm (5' 9.02 ) 01/17/2025 2:06 PM ED T Body Mass Index 19.19 01/17/2025 2:06 PM EDT documented in this encounter Progress Notes * Lily Bobby PA-C - 01/17/2025 3:29 PM EDTAssociated Problem(s): Tick bite of abdominal wall Complete blood work to assess for potential tick borne illnesses Discussed signs/symptoms to look out for Will determine next step for management based on results of testing Return if symptoms change or worsen * Lily Bobby PA-C - 01/17/2025 2:30 PM EDT Images from the original note were not included. Office Note Name: Negro Miller : 1960 Chief Complaint Tick Removal (Right Side ) and visual disturbances Subjective History of Present Illness: Negro Miller is a 64 y.o. male who presents today with complaints of a tick bite. Admits heis unsure when the tick appeared or how long it was present. Just removed the tick today. Denies rash, fever, and joint pain. Does state he recently experienced an episode where his vision was altered and he had difficulty concentrating but is unsure if that is related. Denies any other associated symptoms. No other questions or concerns. Past Medical History: Past Medical History: Diagnosis Date Allergic ? Allergic to ibuprofen Arthritis ? In neck and shoulder Cancer ? Bladder cancer COPD (chronic obstructive pulmonary disease) Coronary artery disease ? Afib Emphysema lung Erectile dysfunction ? GERD (gastroesophageal reflux disease) Headache ? Occasionally headache Hyperlipidemia Hypertension Low back pain ! Has tens unit Syncope Urinary tract infection ? Have had a UTI Past Surgical History: Past Surgical History: Procedure Laterality Date COLONOSCOPY ? Within last year COLONOSCOPY N/A 11/03/2023 Procedure: COLONOSCOPY; Surgeon: Eriberto Lombardi MD; Location: [facility]; Service: Gastroenterology; Laterality: N/A; LUMBAR DISC SURGERY PACEMAKER IMPLANTATION ROTATOR CUFF REPAIR Left X4 SPINE SURGERY ? Have a tens unit VASECTOMY ? Immunizations: Immunization History Administered Date(s) Administered Arexvy (RSV, Adults 60+ yrs) 06/02/2023 COVID-19 (MODERNA) 12YRS+ (SPIKEVAX) 06/15/2023 COVID-19 (MODERNA) 1st,2nd,3rd Dose Monovalent 10/10/2020, 11/07/2020, 05/13/2021, 10/11/2021 Flu Vaccine Quad PF >36MO 05/02/2016 Fluzone >6mos 06/03/2017 Fluzone (or Fluarix & Flulaval for VFC) >6mos 05/02/2016, 04/07/2022 Fluzone High-Dose 65+YRS 06/30/2024 Influenza, Unspecified 04/07/2022 Pneumococcal Conjugate 20-Valent (PCV20) 06/30/2024 Shingrix 07/26/2020, 09/25/2020 Tdap 03/11/2022 Medications: Current Outpatient Medications: alfuzosin (UROXATRAL) 10 MG 24 hr tablet, , Disp: , Rfl: gabapentin (NEURONTIN) 300 MG capsule, Take 1 capsule by mouth 3 (Three) Times a Day., Disp: 90 capsule, Rfl: 2 HYDROcodone-acetaminophen ([place]) 7.5-325 MG per tablet, Take 1 tablet by mouth Every 8 (Eight) Hours As Needed for Severe Pain., Disp: 90 tablet, Rfl: 0 methocarbamol (ROBAXIN) 500 MG tablet, TAKE 1 TABLET BY MOUTH 4 TIMES A DAY, Disp: 30 tablet, Rfl: 2 naloxone (NARCAN) 4 MG/0.1ML nasal spray, Administer 1 spray into the nostril(s) as directed by provider., Disp: , Rfl: omeprazole (priLOSEC) 20 MG capsule, Take 1 capsule by mouth Daily., Disp: 30 capsule, Rfl: 2 ondansetron ODT (ZOFRAN-ODT) 8 MG disintegrating tablet, Place 1 tablet on the tongue Every 8 (Eight) Hours As Needed for Nausea or Vomiting., Disp: 30 tablet, Rfl: 3 QUEtiapine (SEROquel) 25 MG tablet, Take 1 tablet by mouth Every Night., Disp: 30 tablet, Rfl: 2 DULoxetine (CYMBALTA) 30 MG capsule, Take 1 capsule by mouth Daily for 30 days., Disp: 30 capsule, Rfl: 1 lisinopril (PRINIVIL,ZESTRIL) 10 MG tablet, Take 1 tablet by mouth Daily. (Patient not taking: Reported on 01/17/2025), Disp: 30 tablet, Rfl: 2 lubiprostone (Amitiza) 24 MCG capsule, Take 1 capsule by mouth 2 (Two) Times a Day With Meals. (Patient not taking: Reported on 01/17/2025), Disp: 60 capsule, Rfl: 3 Allergies: Allergies Allergen Reactions Codeine Delirium Ibuprofen Nausea And Vomiting Lortab [Hydrocodone-Acetaminophen] Itching Pt state's on Lortab 10mg makes him itch Oxycodone Itching Family History: Family History Problem Relation Age of Onset Diabetes Father Social History: Social History Socioeconomic History Marital status: Significant Other Tobacco Use Smoking status: Every Day Current packs/day: 2.00 Average packs/day: 2.0 packs/day for 50.0 years (100.0 ttl pk-yrs) Types: Cigarettes Smokeless tobacco: Never Tobacco comments: Smoked since 12 years okd Vaping Use Vaping status: Never Used Substance and Sexual Activity Alcohol use: Yes Comment: quit 09/16/2022 Drug use: Not Currently Sexual activity: Defer Partners: Female control/protection: Surgical Objective Vital Signs BP 126/70 Pulse 68 Temp 97.5 ??F (36.4 ??C) Resp 18 Ht 175.3 cm (69.02 ) Wt 59 kg (130 lb) BMI 19.19 kg/m?? Estimated body mass index is 19.19 kg/m?? as calculated from the following: Height as of this encounter: 175.3 cm (69.02 ). Weight as of this encounter: 59 kg (130 lb). BMI is within normal parameters. No other follow-up for BMI required. Physical Exam Vitals and nursing note reviewed. Constitutional: Appearance: Normal appearance. HENT: Head: Normocephalic and atraumatic. Cardiovascular: Rate and Rhythm: Normal rate and regular rhythm. Heart sounds: No murmur heard. No friction rub. No gallop. Pulmonary: Effort: Pulmonary effort is normal. Breath sounds: Normal breath sounds. No wheezing, rhonchi or rales. Skin: General: Skin is warm and dry. Comments: Tick bite. Mild erythema. No noticeable rash. Neurological: General: No focal deficit present. Mental Status: He is alert and oriented to person, place, and time. Psychiatric: Mood and Affect: Mood normal. Behavior: Behavior normal. Assessment and Plan Diagnoses and all orders for this visit: 1. Tick bite of abdominal wall, initial encounter (Primary) Assessment & Plan: Complete blood work to assess for potential tick borne illnesses Discussed signs/symptoms to look out for Will determine next step for management based on results of testing Return if symptoms change or worsen Orders: - Lyme Disease Total Antibody With Reflex to Immunoassay - Rickettsia Species DNA, Real-Time PCR Follow Up No follow-ups on file. [facility] [address] [facility] [phone] documented in this encounter Plan of Treatment Upcoming Encounters Date Type Department Care Team (Late st Contact Info) Description 03/06/2025 2:15 PM EDT Office Visit [facility] [address] [place] [address] Wolfgang Cantu MD [address] [place] [address] documented as of this encounter Procedures Procedure Name Priority Date/Time Associated Diagnosis Comments RICKETTSIA SPECIES DNA, REAL TIME PCR Routine 01/17/2025 2:50 PM EDT Tick bite of abdominal wall, initial encounter LYME DISEASE TOTAL ANTIBODY WITH REFLEX TO IMMUNOASSAY Routine 01/17/2025 2:50 PM EDT Tick bite of abdominal wall, initial encounter documented in this encounter Results * Rickettsia Species DNA, Real-Time PCR (01/17/2025 2:50 PM EDT) Rickettsia rickettsii DNA, RT Not Detected [facility] Comment: REFERENCE RANGE: NOT DETECTED This test was developed and its analytical performance characteristics have been determined by [facility] It has not been cleared or approved by FDA. This assay has been validated pursuant to the CLIA regulations and is used for clinical purposes. Blood 01/17/2025 2:50 PM EDT 01/17/2025 Narrative [facility] (AM[facility]ATORY) - 01/21/2025 12:09 PM EDT Performed at: 01 - [facility] [address] [place], [place] [id number] Law Office Assistant: Michelle Key MD, Phone: [phone] Patient Fasting: N us Lily Bobby PA-C LAB BLOOD ORDERABLES Final R esult [facility] (AMBULATORY) [address] [place] [address], [place] [phone] [facility] [address] [place] [address], [place] [phone] * Lyme Disease Total Antibody With Reflex to Immunoassay (01/17/2025 2:50 PM EDT) [facility] Lyme Total Antibody EIA Negative Negative [facility] Comment: Lyme antibodies not detected. Reflex testing is not indicated. No laboratory evidence of infection with B. burgdorferi (Lyme disease). Negative results may occur in patients recently infected (less than or equal to 14 days) with B. burgdorferi. If recent infection is suspected, repeat testing on a new sample collected in 7 to 14 days is recommended. Blood 01/17/2025 2:50 PM EDT 01/17/2025 Narrative [facility] (AMBULATORY) - 01/21/2025 12:09 PM EDT Performed at: 02 - [facility] [address] [place] [id number] Law Office Assistant: Carlo Palacios PhD, Phone: [phone] Patient Fasting: N Lily Bobby PA-C LAB BLOOD ORDERABLES Final R esult [facility] (AMBULATORY) [address] [place] [address], [place] [phone] [facility] [address] [place] [address], documented in this encounter Visit Diagnoses Diagnosis Tick bite of abdominal wall, initial encounter- Primary documented in this encounter Additional Health Concerns Assessment Noted Time PHQ-2 Depression Total Score: 6 08/18/19 24 9:43 AM EST documented as of this encounter Care Teams Acid Painter Relationship Specialty Start Date End Date Wolfgang Cantu MD [address] [place] [address] PCP - General Family Medicine 11/13/21 documented as of this encounter
[2025-02-06 10:11] VITALS: BP 186/99; PULSE 77; RESP 16; TEMP 36.7; O2SAT 95; BMI 19.2
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
--- OUTSIDE RECORDS SUMMARY | 2025-02-06 10:16 | XMS_ITS | Encounter Summary ---
[facility] Address [address] [place] [address] Care Team Providers Care Patient Care Secretary Name Role Phone Wolfgang Cantu MD Primary Care Provider + Reason for Visit * Reason Onset Date Comments Med Refill 02/01/2025 Encounter Details Date Type Department Care Team (Late st Contact Info) Description 02/01/2025 Refill [facility] [address] [place] [address] Wolfgang Cantu MD [address] [place] [address] Other chronic pain; Osteoarthritis of spine with radiculopathy, lumbar region; Cervical arthritis; Degenerative disc disease, cervical; Gastroesophageal reflux disease without esophagitis; Mood disorder Social History Tobacco Use Types Packs/Day Years [...] or training? Not on file Preferred Language Iraqi 10/28/2023 PHQ-2 Answer Date Recorded Patient Health Questionnaire-9 Score 24 06/30/2024 Sex and Gender Information Value Date Recorded Sex Assigned at Not on file Legal Sex Male 1:35 PM EDT Gender Identity Not on file Sexual Orientation Not on file documented as of this encounter Miscellaneous Notes * Telephone Encounter - Ava Brumfield RegSched Rep - 02/01/2025 9:39 AM EDT Caller: Negro Miller Relationship: Self Best call back number:[phone] Requested Prescriptions: Requested Prescriptions Pending Prescriptions Disp Refills gabapentin (NEURONTIN) 300 MG capsule 90 capsule 2 Sig: Take 1 capsule by mouth 3 (Three) Times a Day. HYDROcodone-acetaminophen ([place]) 7.5-325 MG per tablet 90 tablet 0 Sig: Take 1 tablet by mouth Every 8 (Eight) Hours As Needed for Severe Pain. methocarbamol (ROBAXIN) 500 MG tablet 30 tablet 2 Sig: Take 1 tablet by mouth 4 (Four) Times a Day. omeprazole (priLOSEC) 20 MG capsule 30 capsule 2 Sig: Take 1 capsule by mouth Daily. QUEtiapine (SEROquel) 25 MG tablet 30 tablet 2 Sig: Take 1 tablet by mouth Every Night. alfuzosin (UROXATRAL) 10 MG 24 hr tablet Pharmacy where request should be sent: [facility] [place] [address] [address] - [phone] - [phone] FX Last office visit with prescribing clinician: 10/14/2024 Last telemedicine visit with prescribing clinician: Visit date not found Next office visit with prescribing clinician: 03/06/2025 Additional details provided by patient: PT IS OUT AND NEEDS REFILLS DIANA Does the patient have less than a 3 day supply: [x] Yes [] No Would you like a call back once the refill request has been completed: [x] Yes [] No If the office needs to give you a call back, can they leave a voicemail: [x] Yes [] No Neto Pittman Rep 02/01/25 09:42 EDT documented in this encounter Plan of Treatment Upcoming Encounters Date Type Department Care Team (Late st Contact Info) Description 03/06/2025 2:15 PM EDT Office Visit [facility] [address] [place] [address] Wolfgang Cantu MD [address] [place] [address] documented as of this encounter Visit Diagnoses Diagnosis Other chronic pain Osteoarthritis of spine with radiculopathy, lumbar region Cervical arthritis Cervical spondylosis without myelopathy Degenerative disc disease, cervical Gastroesophageal reflux disease without esophagitis Esophageal reflux Mood disorder Unspecified episodic mood disorder documented in this encounter Additional Health Concerns Assessment Noted Time PHQ-2 Depression Total Score: 6 08/18/19 24 9:43 AM EST documented as of this encounter Care Teams Patient Care Secretary Relationship Specialty Start Date End Date Wolfgang Cantu MD [address] [place] [address] PCP - General Family Medicine 11/13/21 documented as of this encounter
--- OUTSIDE RECORDS SUMMARY | 2025-02-06 10:16 | XMS_ITS | Encounter Summary ---
[facility] Address [address] [place] [address] Care Team Providers Care Workcell Operator Name Role Phone Wolfgang Cantu MD Primary Care Provider + Reason for Visit * Reason Onset Date Comments Med Management 01/17/2025 Encounter Details Date Type Department Care Team (Late st Contact Info) Description 01/17/2025 Telephone [facility] [address] [place] [address] Wolfgang Cantu MD [address] [place] [address] Med Management Social History Tobacco Use Types Packs/Day Years [...] or training? Not on file Preferred Language [place] 10/28/2023 PHQ-2 Answer Date Recorded Patient Health Questionnaire-9 Score 24 06/30/2024 Sex and Gender Information Value Date Recorded Sex Assigned at Not on file Legal Sex Male 1:35 PM EDT Gender Identity Not on file Sexual Orientation Not on file documented as of this encounter Miscellaneous Notes * Telephone Encounter - Drea Rodríguez RegSched Rep - 01/17/2025 11:40 AM EDT PATIENT WAS BEING SEEN AT [facility] AND THEY FOUND AN TICK THAT WAS ALMOST FULLY EMBEDDED, THEY TOLDHIM TO REQUEST ANTIBIOTICS FROM PCP. PLEASE ADVISE documented in this encounter Plan of Treatment Upcoming Encounters Date Type Department Care Team (Late st Contact Info) Description 03/06/2025 2:15 PM EDT Office Visit [facility] [address] [place] [phone] Wolfgang Cantu MD [address] [place] [address] documented as of this encounter Visit Diagnoses Not on filedocumented in this encounter Additional Health Concerns Assessment Noted Time PHQ-2 Depression Total Score: 6 08/18/19 24 9:43 AM EST documented as of this encounter Care Teams Workcell Operator Relationship Specialty Start Date End Date Wolfgang Cantu MD [address] [place] [address] PCP - General Family Medicine 11/13/21 documented as of this encounter
--- OUTSIDE RECORDS SUMMARY | 2025-02-06 10:16 | XMS_ITS | Clinical Summary ---
Author Organization [facility] Address [address] [place] [address] Care Team Providers Care Drop Forger Helper Name Role Phone Wolfgang Cantu MD Primary Care Provider Allergies Active Allergy Reactions Criticality Noted Date Comments Codeine Other - please docum ent in the comment field,Hallucinations Medium 11/13/2021 Drowsy Ibuprofen Nausea And Vomiting,Other - please document in the comment field,Unknown - Patient states they do not know rxn details Low 11/12/2015 Tears stomach to pieces Oxycodone Other - please docum ent in the comment field,Itching Medium 11/13/2021 Medications ondansetron ODT (Zofran-ODT) 8 MG disintegrating tablet Dissolve 1 tablet on the tongue every 12 hours as needed for nausea or vomiting. Active QUEtiapine (SEROquel) 25 MG tablet Take 1 tablet by mouth nightly. Active acetaminophen (Tylenol) 325 MG tablet Take 2 tablets by mouth every 6 hours as needed for pain. Under [place] law, monthly prescriptions (30 days) can be refilled at 25 days and three-month prescriptions (90 days) at 80 days. Please contact the insurance company with questions if refills are denied. Active loperamide (Imodium) 2 MG capsule Take 1 capsule by mouth 4 (four) times a day as needed for diarrhea. Active gabapentin (Neurontin) 300 MG capsule Take 2 capsules by mouth in the morning and 2 capsules in the evening and 2 capsules before bedtime. 60 capsule 025 Active naloxone (Narcan) 4 mg/0.1 mL nasal spray 1. Give 1 spray in nostril for no/slow breathing or cannot wake after opioid use 2. Call 911 3. Repeat in other nostril if symptoms continue 1 each 025 Active DULoxetine (Cymbalta) [address] capsule Take 1 capsule by mouth daily. Do not crush or chew. 30 capsule 025 Active Additional Information Patient not taking.Reported on 01/17/2025 methocarbamol (Robaxin) 500 MG tablet Take 1 tablet by mouth in the morning and 1 tablet at noon and 1 tablet in the evening and 1 tablet before bedtime. Do all this for 7 days. 28 tablet 025 Active HYDROcodone-aceta minophen (Colton) 7.5-325 MG tablet TAKE 1 TABLET BY MOUTH EVERY 8 HOURS NEEDED FOR SEVERE pain Active omeprazole (PriLOSEC) [address] capsule Take 1 capsule by mouth daily. Do not crush or chew. 2024 Discontinued Active Problems Problem Noted Date Diagnosed Date Battery end of life of spinal cord stimulator Resolved Problems Problem Noted Date Diagnosed Date Resolved Date Suicidal ideation 10/01/2024 10/04/2024 Encounters Date Type Department Care Team Description 2025 Telephone [facility] [address], [address] [place] [phone] Delilah Nieves, DELANO, LANA 01/17/2025 12:33 PM EDT - 01/17/2025 11:59 PM EDT Hospital Encounter [facility] [address], [address] [place] [phone] Malfunction of spinal cord stimulator, initial encounter; Tobacco dependence due to cigarettes Discharge Disposition: Home or Self Care 01/17/2025 10:30 AM EDT Consult [facility] [address], [address] [place] [phone] Min Troy MD Malfunction of spinal cord stimulator, initial encounter (Primary Dx); Tobacco dependence due to cigarettes 01/17/2025 Telephone [facility] [address], [address] [place] [phone] Delilah Nieves, MANAGER BUSINESS PLANNING, DNP HCN - Patient Message 01/17/2025 Telephone MD Clinic [facility] [address], [address] [place] [address] Min Troy MD HCN - Patient Message (Order ) 01/17/2025 Travel from Last 3 Months Immunizations Immunization Administration Dates Next Due Influenza, injectable, quadrivalent, preservativ e free 05/02/2016 Family History Medical History Relation Name Comments Diabetes Father Hypertension Mother Conversions - Other Sister Thyroid dysfunction Relation Name Status Comments Father Mother Sister Social History Tobacco Use Types Packs/Day Years [...] any time in the past 12 m [facility], were you homeless or living in a long term (including now)? No 10/03/2024 Utilities Answer Date Recorded In the past 12 months has th e [employer], gas, oil, or water company threatened to shut off services in your home? Yes 10/03/2024 Sex and Gender Information Value Date Recorded Sex Assigned at Not on file Legal Sex Male 7:59 PM EDT Gender Identity Not on file Sexual Orientation Not on file Last Filed Vital Signs Vital Sign Reading Time Taken Comments Blood Pressure 138/84 01/17/2025 11:18 AM EDT Pulse 97 10/04/2024 2:48 PM EDT Temperature 36.4 C (97.5 F) 10/04/2024 7:49 AM EDT Respiratory Rate 20 10/04/2024 2:48 PM EDT Oxygen Saturation 94% 10/04/2024 2:48 PM EDT Inhaled Oxygen Concentration - - Weight 58.8 kg (129 lb 10.1 oz) 025 11:18 AM EDT Height 175.3 cm (5' 9 ) 01/17/2025 11:1 8 AM EDT Body Mass Index 19.14 01/17/2025 11:18 AM EDT Plan of Treatment Upcoming Encounters Date Type Department Care Team (Latest Contact Info) Description 02/15/2025 8:00 AM EDT Hospital Encounter [facility] [address] [place] [phone] Min Troy MD [address] [place] [address] 02/15/2025 8:00 AM EDT - 02/15/2025 10:10 AM EDT Surgery [facility] [address] [place] [address] Min Troy MD [address] [place] [address] [facility] Lead Replacement - [place] 03/02/2025 3:20 PM EDT Office Visit [place] [facility] [address], [address] [place] [address] Delilah Nieves, MANAGER BUSINESS PLANNING, DNP [address] [place] [address] Scheduled Procedures Name Priority Associated Diagnoses Date/Ti me REVISION, REMOVAL, OR REPLACEMENT, ELECTRODE LEAD, NEUROSTIMULATOR, SPINAL, WITH LAMINECTOMY OR LAMINOTOMY Battery end of life of spinal cord stimulator 02/15/2025 8:00 AM EDT Health Maintenance Due Date Last Done Comments [facility]-Depression Screening 1960 [facility]-Medicare Annual Wellness (AWV) 1960 [facility]-/Child/Adol SDOH Screenings 1958 CT Colonography 2003 Colonoscopy 2003 FIT-DNA 2003 FIT 2003 FOBT 2003 Sigmoidoscopy 2003 [facility]-Colorectal Cancer Screening 2003 [facility]-Abdominal Aortic Aneurysm (AAA) Screening 2023 [id number] Vaccine ( season) 2024 06/15/2023, 10/11/2021, 05/13/2021, Additional history exists [facility]-Influenza Vaccine (#1) 02/27/202506/30, 04/07/2022, 06/03/2017, Additional history exists [facility]- SDOH Screenings 04/04/2025 [facility]-Adult SDOH Screenings 04/04/2025 10/03/2024 [facility]-DTaP,Tdap,and Td Vaccines (2 - Td or Tdap) 03/11/2032 03/11/2022 [facility]-Zoster Vaccines Completed 09/25/2020, [facility]-RSV Vaccine: 60+ Years or Completed 06/02/2023 [facility]-Pneumococcal Vaccine: 50+ Years Completed 06/30/2024 [facility]-Hepatitis C Screening Completed 10/01/2024 HPV Vaccines Aged Out No longer eligi ble based on patient's age to complete this topic [facility]-HIB Vaccines Aged Out No longer e ligible based on patient's age to complete this topic [facility]-Hepatitis A Vaccines Aged Out No longer eligible based on patient's age to complete this topic [facility]-IPV Vaccines Aged Out No longer e ligible based on patient's age to complete this topic [facility]-Rotavirus Vaccines Aged Out No lo nger eligible based on patient's age to complete this topic Goals Goal Patient Goal Type Associated Problems Recent Progress Patient-Stated? Author Autogenerat ed Goal Care Plan Autogenerated Problem No Marbella Lockhart Procedures Procedure Name Priority Date/Time Associated Diagnosis Comments XR SCOLIOSIS ENTIRE SPINE 2 OR 3 VIEWS Routine 01/17/2025 12:47 PM EDT Malfunction of spinal cord stimulator, initial encounter Tobacco dependence due to cigarettes HEPATITIS C ANTIBODY - ED W/REFLEX TO HCV QUANT PCR Routine 10/01/2024 3:39 AM EDT from Last 3 Months or Most Recently Relevant to Health Maintenance Results * XR Scoliosis Entire Spine 2 or 3 Views (01/17/2025 12:47 PM EDT) Anatomical Region Laterality Modality Spine Digital Radiogra phy Impressions 01/17/2025 1:10 PM EDT No acute osseous finding within the limitations of the exam. Degenerative changes as described above. Mild retrolisthesis of C3 on C4, which may be slightly increased since 2016, however may be due to differences in [...] on C4, which may be slightly increased [id number], however may be due to differences in [...] on C4, which may be slightly increased [id number], however may be due to differences in standing versus supinepositioning. CRITICAL RESULT: No. COMMUNICATION: Per this written report. Drafted by Evelyne Barrett MD on 01/17/2025 1:06 PM Final report signed by Evelyne Barrett MD on 01/17/2025 1:10 PM us Delilah Nieves MANAGER BUSINESS PLANNING, DNP IMG XR PROCEDURES Sapphire l Result * Hepatitis C Antibody - ED (10/01/2024 3:39 AM EDT) Hepatitis C Antibody Negative Negative 10/01/2024 4:23 AM EDT [facility] Blood Venous blood specimen / Unknown Venipuncture / Unknown 10/01/2024 3:39 AM EDT 10/01/2024 3:40 AM EDT Dariel Bruner MD LAB BLOOD ORDERABLES Final Resul t [facility] [address] [place] [address] from Last 3 Months or Most Recently Relevant to Health Maintenance Additional Health Concerns Active Problems Noted Date Diagnosed Date Autogenerated Problem 2025 Insurance MEDICARE Advance Directives * Full Code (Latest Code Status on File) Date Activated Date Inactivated Comments 10/01/2024 3:07 AM 10/04/2024 6:56 PM Care Teams Drop Forger Helper Relationship Specialty Start Date End Date Wolfgang Cantu MD PCP - General 10/01/24
--- OUTSIDE RECORDS SUMMARY | 2025-02-06 10:16 | XMS_ITS | Encounter Summary ---
[facility] Organization [facility] Address [address] [place] [address] Care Team Providers Care Clerk Secretary Name Role Phone Wolfgang Cantu MD Primary Care Provider + Reason for Visit * Reason Onset Date Comments Advice Only 01/03/2025 Encounter Details Date Type Department Care Team (Late st Contact Info) Description 01/03/2025 Telephone [facility] [address] [place] [address] Wolfgang Cantu MD [address] [place] [address] Advice Only Social History Tobacco Use Types Packs/Day Years [...] or training? Not on file Preferred Language Spanish 10/28/2023 PHQ-2 Answer Date Recorded Patient Health Questionnaire-9 Score 24 06/30/2024 Sex and Gender Information Value Date Recorded Sex Assigned at Not on file Legal Sex Male 1:35 PM EDT Gender Identity Not on file Sexual Orientation Not on file documented as of this encounter Miscellaneous Notes * Telephone Encounter - Laverne Brown RegSched Rep - 01/03/2025 10:08 AM EDT Caller: Negro Miller Relationship: Self Best call back number: [phone] What was the call regarding: PATIENT STATES THAT HE WILL SEE DOCTOR FOR SPINE ON 01/17/25 Is it okay if the provider responds through MyChart: documented in this encounter Plan of Treatment Upcoming Encounters Date Type Department Care Team (Late st Contact Info) Description 03/06/2025 2:15 PM EDT Office Visit [facility] [address] [place] [address] Wolfgang Cantu MD [address] [place] [address] documented as of this encounter Visit Diagnoses Not on filedocumented in this encounter Additional Health Concerns Assessment Noted Time PHQ-2 Depression Total Score: 6 08/18/19 24 9:43 AM EST documented as of this encounter Care Teams Clerk Secretary Relationship Specialty Start Date End Date Wolfgang Cantu MD [address] [place] [address] PCP - General Family Medicine 11/13/21 documented as of this encounter
--- OUTSIDE RECORDS SUMMARY | 2025-02-06 10:16 | XMS_ITS | Encounter Summary ---
Author Organization [facility] Address [address] [place] [address] Care Team Providers Care Entry Level Administrative Assistant Name Role Phone Wolfgang Cantu MD Primary Care Provider [phone] Encounter Details Date Type Department Care Team (Latest Contact Info) Description 01/17/2025 Travel Social History Tobacco Use Types Packs/Day Years [...] any time in the past 12 m ont, were you homeless or living in a residential (including now)? No 10/03/2024 Utilities Answer Date [...] on file documented as of this encounter Plan of Treatment Upcoming Encounters Date Type Department Care Team (Latest Contact Info) Description 02/15/2025 8:00 AM EDT Hospital Encounter [facility] [address] [place] [phone] Min Troy MD [address] [phone] 02/15/2025 8:00 AM EDT - 02/15/2025 10:10 AM EDT Surgery [facility] [address] [place] [phone] Min Troy MD [address] [phone] [facility] Lead Replacement - [place] 03/02/2025 3:20 PM EDT Office Visit [place] [facility] [address], [address] [place] [address] Delilah Nieves, [employer] [facility] [address] [facility] [address] [place] [phone] Scheduled Procedures Name Priority Associated Diagnoses Date/Ti me REVISION, REMOVAL, OR REPLACEMENT, ELECTRODE LEAD, NEUROSTIMULATOR, SPINAL, WITH LAMINECTOMY OR LAMINOTOMY Battery end of life of spinal cord stimulator 02/15/2025 8:00 AM EDT documented as of this encounter Visit Diagnoses Not on filedocumented in this encounter Additional Health Concerns Assessment Noted Time A fall risk assessment has been complete d for the patient 01/17/2025 11:24 AM EDT A Body Mass Index follow-up plan has been documented for the patient 01/19/2025 2:15 PM EDT documented as of this encounter Care Teams Entry Level Administrative Assistant Relationship Specialty Start Date End Date Wolfgang Cantu MD PCP - General 10/01/24 documented as of this encounter
--- OUTSIDE RECORDS SUMMARY | 2025-02-06 10:16 | XMS_ITS | Encounter Summary ---
[facility] Address [address] [place] [address] Care Team Providers Care Search Engine Optimization Manager Name Role Phone Wolfgang Cantu MD Primary Care Provider + Reason for Visit * Reason Onset Date Comments New Med Request 12/19/2024 Encounter Details Date Type Department Care Team (Late st Contact Info) Description 12/19/2024 Telephone [facility] [address] [place] [address] Wolfgang Cantu MD [address] [place] [address] New Med Request Social History Tobacco Use Types Packs/Day Years [...] or training? Not on file Preferred Language Sri Lankan 10/28/2023 PHQ-2 Answer Date Recorded Patient Health Questionnaire-9 Score 24 06/30/2024 Sex and Gender Information Value Date Recorded Sex Assigned at Not on file Legal Sex Male 1:35 PM EDT Gender Identity Not on file Sexual Orientation Not on file documented as of this encounter Miscellaneous Notes * Telephone Encounter - Nancy Castillo MA - 12/19/2024 1:55 PM EDT Pt was seen at [facility] ER a few days ago for gastritis and he is doing better now but used all his Zofran and would like to have some to put up, incase this happens again in the future. Pt is aware you are out until Th. * Telephone Encounter - Deb Iqbal RegSched Rep - 12/19/2024 11:46 AM EDT Caller: Negro Miller Relationship: Self Best call back number: [phone] What medication are you requesting: PHENERGAN What are your current symptoms: NAUSEA, VOMITING, DIARRHEA How long have you been experiencing symptoms: WEEKS Have you had these symptoms before: [x] Yes [] No Have you been treated for these symptoms before: [x] Yes [] No If a prescription is needed, what is your preferred pharmacy and phone number: [facility] [place] - [address] [address] [address] - [phone] PH - [phone] FX Additional notes: PATIENT WOULD LIKE A CALL BACK ABOUT GETTING FINANCIAL HELP WITH [employer]. documented in this encounter Plan of Treatment Upcoming Encounters Date Type Department Care Team (Late st Contact Info) Description 03/06/2025 2:15 PM EDT Office Visit [facility] [address] [place] [address] Wolfgang Cantu MD [address] [place] [address] documented as of this encounter Visit Diagnoses Diagnosis Nausea- Primary Nausea alone documented in this encounter Additional Health Concerns Assessment Noted Time PHQ-2 Depression Total Score: 6 08/18/19 24 9:43 AM EST documented as of this encounter Care Teams Search Engine Optimization Manager Relationship Specialty Start Date End Date Wolfgang Cantu MD [address] [place] [place] [address] PCP - General Family Medicine 11/13/21 documented as of this encounter
--- OUTSIDE RECORDS SUMMARY | 2025-02-06 10:16 | XMS_ITS | Clinical Summary ---
[facility] Address [address] [place] [address] Care Team Providers Care Edge Burnisher Uppers Name Role Phone Wolfgang Cantu MD Primary Care Provider + Allergies Active Allergy Reactions Criticality Noted Date Comments Codeine Delirium Medium 11/13/2021 Ibuprofen Nausea And Vomiting Low 11/13/2021 Hydrocodone-Acetaminop hen Itching Low 11/13/2021 Pt state's on Lortab 10mg makes him itch Oxycodone Itching Low 11/13/2021 Medications naloxone (NARCAN) 4 MG/0.1ML nasal spray Administer 1 spray into the nostril(s) as directed by provider. 10/05/19 25 Active ondansetron ODT (ZOFRAN-ODT) 8 MG disintegrating tabletIndications: Nausea Place 1 tablet on the tongue Every 8 (Eight) Hours As Needed for Nausea or Vomiting. 30 tablet 3 12/23/19 25 Active gabapentin (NEURONTIN) 300 MG capsuleIndications :Other chronic pain,Osteoarthriti s of spine with radiculopathy, lumbar region Take 1 capsule by mouth 3 (Three) Times a Day. 90 capsule 3 02/03/20 25 Active HYDROcodone-acetam inophen (Fillmore) 7.5-325 MG per tabletIndications: Cervical arthritis,Degenera tive disc disease, cervical Take 1 tablet by mouth Every 8 (Eight) Hours As Needed for Severe Pain. 90 tablet 02/03/20 25 Active methocarbamol (ROBAXIN) 500 MG tablet Take 1 tablet by mouth 4 (Four) Times a Day. 30 tablet 3 02/03/20 25 Active omeprazole (priLOSEC) 20 MG capsuleIndications :Gastroesophageal reflux disease without esophagitis Take 1 capsule by mouth Daily. 30 capsule 3 02/03/20 25 Active QUEtiapine (SEROquel) 25 MG tabletIndications: Mood disorder Take 1 tablet by mouth Every Night. 30 tablet 3 02/03/20 25 Active alfuzosin (UROXATRAL) 10 MG 24 hr tablet Take 1 tablet by mouth Daily. 30 tablet 3 02/03/20 25 Active lubiprostone (Amitiza) 24 MCG capsuleIndications :Lower abdominal pain,Therapeutic opioid induced constipation Take 1 capsule by mouth 2 (Two) Times a Day With Meals. 60 capsule 3 05/19/20 23 025 Discontinue d(Patient Reported Not Taking) lisinopril (PRINIVIL,ZESTRIL) 10 MG tabletIndications: Nonischemic cardiomyopathy Take 1 tablet by mouth Daily. 30 tablet 2 11/17/19 24 025 Discontinue d(Patient Reported Not Taking) alfuzosin (UROXATRAL) 10 MG 24 hr tablet 06/09/20 24 025 Discontinue d(Reorder) omeprazole (priLOSEC) 20 MG capsuleIndications :Gastroesophageal reflux disease without esophagitis Take 1 capsule by mouth Daily. 30 capsule 2 06/30/19 25 025 Discontinue d(Reorder) DULoxetine (CYMBALTA) 30 MG capsuleIndications :Cervical arthritis,Degenera tive disc disease, cervical,Chronic pain syndrome Take 1 capsule by mouth Daily for 30 days. 30 capsule 1 10/15/19 25 025 Discontinue d(Patient Reported Not Taking) gabapentin (NEURONTIN) 300 MG capsuleIndications :Other chronic pain,Osteoarthriti s of spine with radiculopathy, lumbar region Take 1 capsule by mouth 3 (Three) Times a Day. 90 capsule 2 12/07/19 25 025 Discontinue d(Reorder) QUEtiapine (SEROquel) 25 MG tabletIndications: Mood disorder Take 1 tablet by mouth Every Night. 30 tablet 2 12/07/19 25 025 Discontinue d(Reorder) HYDROcodone-acetam inophen (Fillmore) 7.5-325 MG per tabletIndications: Cervical arthritis,Degenera tive disc disease, cervical Take 1 tablet by mouth Every 8 (Eight) Hours As Needed for Severe Pain. 90 tablet 01/04/20 25 025 Discontinue d(Reorder) methocarbamol (ROBAXIN) 500 MG tablet TAKE 1 TABLET BY MOUTH 4 TIMES A DAY 30 tablet 2 01/07/20 25 025 Discontinue d(Reorder) Active Problems Problem Noted Date Diagnosed Date Tick bite of abdominal wall 01/17/2025 Assessment & Plan (01/17/2025 3:29 PM EDT): Complete blood work to assess for potential tick borne illnesses Discussed signs/symptoms to look out for Will determine next step for management based on results of testing Return if symptoms change or worsen Blood in the stool 06/03/2023 Lower abdominal pain 06/03/2023 Degenerative disc disease, cervical 10/27/2022 Assessment & Plan (10/27/2022 12:06 PM EDT): Increase Fillmore to 7.5 mg every 8 hours. Monitor for side effects of sedation and pruritus. Follow-up in 1 month reassess pain. Patient's ICD is MRI compatible Pacemaker 06/26/2022 Nonischemic cardiomyopathy 11/13/2021 Overview (11/13/2021): Sees [facility] Cardiology Dr. Jalen Schuster Assessment & Plan (11/13/2021 2:28 PM EDT): Congestive heart failure due to unknown. Heart failure is unchanged. NYHA Class II. Dietary sodium restriction. follow w/ Cardiology Heart failure will be reassessed in one week with Dr. Schuster. Osteoarthritis of spine with radiculopathy, lumb ar region 11/13/2021 Overview (11/13/2021): Sees Dr. Bojorquez for nonmedicine pain management Assessment & Plan (11/13/2021 2:33 PM EDT): Refill Fillmore. YASMIN reviewed. Cervical arthritis 11/13/2021 Malignant neoplasm of overlapping sites of bladd er 11/13/2021 Other chronic pain 11/13/2021 Encounters Date Type Department Care Team Description 02/01/2025 Refill [facility] [address] [place] [address] Wolfgang Cantu MD Other chronic pain; Osteoarthritis of spine with radiculopathy, lumbar region; Cervical arthritis; Degenerative disc disease, cervical; Gastroesophageal reflux disease without esophagitis; Mood disorder 01/24/2025 Results Follow-Up [facility] [address] [place] [address] Lily Bobby PA-C 01/17/2025 2:30 PM EDT Office Visit [facility] [address] [place] [address] Lily Bobby, UCHE Tick bite of abdominal wall, initial encounter (Primary Dx) 01/17/2025 Travel 01/17/2025 Telephone [facility] [address] [place] [address] Wolfgang Cantu MD Med Management 01/06/2025 Refill [facility] [address] [place] [address] Wolfgang Cantu MD 01/03/2025 Telephone [facility] [address] [place] [address] Wolfgang Cantu MD Advice Only 01/03/[address] [facility] [address] [place] [address] Wolfgang Cantu MD Cervical arthritis; Degenerative disc disease, cervical 12/19/2024 Telephone [facility] [address] [place] [address] Wolfgang Cantu MD New Med Request 12/06/[address] [facility] [address] [place] [address] Wolfgang Cantu MD Other chronic pain; Osteoarthritis of spine with radiculopathy, lumbar region; Mood disorder; Cervical arthritis; Degenerative disc disease, cervical 11/08/2024 Refill [facility] [address] [place] [address] Wolfgang Cantu MD Other chronic pain; Osteoarthritis of spine with radiculopathy, lumbar region; Mood disorder; Cervical arthritis; Degenerative disc disease, cervical from Last 3 Months Immunizations Immunization Administration Dates Next Due Arexvy (RSV, Adults 60+ yrs) 06/02/2023 COVID-19 (MODERNA) 12YRS+ (SPIKEVAX) 06/15/2023 COVID-19 (MODERNA) 1st,2nd,3 rd Dose Monovalent 10/11/2021,05/13/2021,11/07/2020,2020 Flu Vaccine Quad PF >36MO 05/02/2016 Fluzone >6mos 06/03/2017 Fluzone (or Fluarix & Flulav al for VFC) >6mos 04/07/2022,05/02/2016 Fluzone High-Dose 65+YRS 06/30/2024 Influenza, Unspecified 04/07/2022 Pneumococcal Conjugate 20-Va lent (PCV20) 06/30/2024 Shingrix 09/25/2020,07/26/2020 Tdap 03/11/2022 Family History Medical History Relation Name Comments Diabetes Father Tonny Relation Name Status Comments Father Tonny Social History Tobacco Use Types Packs/Day Years Used Date Smoking Tobacco: Every Day Cigarettes 2 50 Smokeless Tobacco: Never Tobacco Cessation:Ready to Q uit: No; Counseling Given: Not Answered Comments:Smoked since 12 years okd Alcohol Use Standard Drinks/Week Comments Yes [...] or training? Not on file Preferred Language Mongolian 10/28/2023 PHQ-2 Answer Date Recorded Patient Health [...] 18 01/17/2025 2:06 PM EDT Oxygen Saturation 99% 10/14/2024 12:14 PM EDT Inhaled Oxygen Concentration - - Weight 59 kg (130 lb) 01/17/2025 2:06 PM EDT Height 175.3 cm (5' 9.02 ) 01/17/2025 2:06 PM ED T Body Mass Index 19.19 01/17/2025 2:06 PM EDT Plan of Treatment Upcoming Encounters Date Type Department Care Team (Late st Contact Info) Description 03/06/2025 2:15 PM EDT Office Visit [facility] [address] [address] Wolfgang Cantu MD [address] [place] [address] Health Maintenance Due Date Last Done Comments COLOGUARD 2003 COLON CANCER SCREENING 5 YEA R SIGMOIDOSCOPY 2003 [address] COLONOGRAPHY 2003 FECAL OCCULT BLOOD TEST 2003 FIT Testing (1 year) 2003 LUNG CANCER SCREENING 01/21/2008 ANNUAL WELLNESS VISIT 10/11/2021 AAA SCREEN ONCE 2023 COVID-19 Vaccine (2023-2 5 season) 2024 06/15/2023, 10/11/2021, 05/13/2021, Additional history exists INFLUENZA VACCINE 03/29/2025 06/30/2024, , 04/07/2022, Additional history exists TDAP/TD VACCINES (2 - Td or Tdap) 03/11/2032 022 COLONOSCOPY 11/02/2033 11/03/2023, 05/0 12/2023, 02/25/2023, Additional history exists COLORECTAL CANCER SCREENING 11/02/2033 ZOSTER VACCINE Completed 09/25/2020, 07/26/2020 Pneumococcal Vaccine 50+ Completed 06/30/2024 HEPATITIS C SCREENING Completed 10/01/2024 Medical Devices Implanted Type Area [employer] Machine Operator Device Identifier Shelf Expiration Date Model / Serial / Lot Stimulator-10/27 Implanted:10/27 (Quantity not on file) Implant [facility] 3660 / [id number] / Pacemaker-12/09 Implanted:11/27 (Quantity not on file) Pacemaker [employer] [id number] / [id number] / Procedures Procedure Name Priority Date/Time Associated Diagnosis Comments RICKETTSIA SPECIES DNA, REAL TIME PCR Routine 01/17/2025 2:50 PM EDT Tick bite of abdominal wall, initial encounter LYME DISEASE TOTAL ANTIBODY WITH REFLEX TO IMMUNOASSAY Routine 01/17/2025 2:50 PM EDT Tick bite of abdominal wall, initial encounter COLONOSCOPY 11/03/2023 9:40 AM EDT from Last 3 Months or Most Recently Relevant to Health Maintenance Results * Rickettsia Species DNA, Real-Time PCR (01/17/2025 2:50 PM EDT) [facility] Rickettsia rickettsii DNA, RT Not Detected [facility] Comment: REFERENCE RANGE: NOT DETECTED This test was developed and its analytical performance characteristics have been determined by [employer]. It has not been cleared or approved by FDA. This assay has been validated pursuant to the CLIA regulations and is used for clinical purposes. Blood 01/17/2025 2:50 PM EDT 01/17/2025 Narrative [facility] (AMBULATORY) - 01/21/2025 12:09 PM EDT Performed at: 01 - [employer] [facility] [address] [place], [place] [id number] [employer]: Michelle Key MD, Phone: [phone] Patient Fasting: N Lily Bobby PA-C LAB BLOOD ORDERABLES Final R [facility]ult [facility] [address] [place] [address], [facility] [address] [place] [address], * Lyme Disease Total Antibody With Reflex to Immunoassay (01/17/2025 2:50 PM EDT) [facility] Lyme Total Antibody EIA Negative Negative [facility] [...] 01/17/2025 2:50 PM EDT 01/17/2025 Narrative [facility] (AMBULATORY) - 01/21/2025 12:09 PM EDT Performed at: 02 - [facility] [address] [place], [place] [id number] Process[employer]: Carlo Palacios PhD, Phone: [phone] Patient Fasting: N Lily Bobby PA-C LAB BLOOD ORDERABLES Final R esult [facility] (AMBULATORY) [address] [place] [address], [facility] [address] [place] [address], * Colonoscopy (11/03/2023 9:40 AM EDT) Eriberto Lombardi MD INTERFACE NEEDS Final Resu lt from Last 3 Months or Most Recently Relevant to Health Maintenance Insurance [facility] MEDICARE ADVANTAGE HMO Care Teams Edge Burnisher Uppers Relationship Specialty Start Date End Date Wolfgang Cantu MD [address] [place] [address] PCP - General Family Medicine 11/13/21
--- OUTSIDE RECORDS SUMMARY | 2025-02-06 10:16 | XMS_ITS | Encounter Summary ---
Author Organization Healthcare Address [address] [place] [address] Care Team Providers Care Post Acute Care Nurse Name Role Phone Wolfgang Cantu MD Primary Care Provider [phone] Encounter Details Date Type Department Care Team (Late st Contact Info) Description 2025 Telephone [place] [facility] [address], [address] [place] [address] Delilah Nieves, WARE SERVER, DNP [address] [place] [address] Social History Tobacco Use Types Packs/Day Years [...] any time in the past 12 m [facility], were you homeless or living in a correction (including now)? No 10/03/2024 Utilities Answer Date [...] encounter Miscellaneous Notes * Telephone Encounter - Delilah Nieves APRN, DNP - 2025 4:03 PM EDT Ordered pre-op labs * Telephone Encounter - Sacha Moore - 2025 2:24 PM EDT Patient Phone Message Reason for Call: Patient calling to r/s appts and surgery date cannot make 02/03 Best contact number and optimal time of day to reach caller: [phone] Note: Please do not reply to this message. Follow-up communication and further actions as a result of this message need to be communicated with the patient directly, if the patient is not active onMyChart. If the patient is active on MyChart, they will receive notification of the communication/outcome via MyChart. documented in this encounter Plan of Treatment Upcoming Encounters Date Type Department Care Team (Latest Contact Info) Description 02/15/2025 8:00 AM EDT Hospital Encounter [facility] [address] [place] [address] Min Troy MD [address] [address] 02/15/2025 8:00 AM EDT - 02/15/2025 10:10 AM EDT Surgery [facility] [address] [place] [phone] Min Troy MD [address] [address] [facility] Lead [facility] - [place] 03/02/2025 3:20 PM EDT Office Visit [place] [facility] [address] [place] [address] Delilah Nieves R, WARE SERVER, DNP [address] [facility] [place] [address] Scheduled Orders Name Type Priority Associated Diagnoses Orde r Schedule Basic metabolic panel Lab Routine Preop examination Expected: 2025 (Approximate), Expires: 07/23/2026 CBC and differential Lab Routine Preop examination Expected: 2025 (Approximate), Expires: 07/23/2026 APTT Lab Routine Preop examination Expected: 2025 (Approximate), Expires: 07/23/2026 Protime-INR Lab Routine Preop examination Expected: 2025 (Approximate), Expires: 07/23/2026 Urinalysis with reflex microscopic Lab Routine Preop examination Expected: 2025 (Approximate), Expires: 07/23/2026 ECG Adult ECG Routine Preop examination Expected: 2025, Expires: 2026 Hemoglobin A1c Lab Routine Preop examination Expected: 2025, Expires: 2026 Scheduled Procedures Name Priority Associated Diagnoses Date/Ti me REVISION, REMOVAL, OR REPLACEMENT, ELECTRODE LEAD, NEUROSTIMULATOR, SPINAL, WITH LAMINECTOMY OR LAMINOTOMY Battery end of life of spinal cord stimulator 02/15/2025 8:00 AM EDT documented as of this encounter Goals Goal Patient Goal Type Associated Problems Recent Progress Patient-Stated? Author Autogenerat ed Goal Care Plan Autogenerated Problem No Marbella Lockhart documented as of this encounter Visit Diagnoses Diagnosis Preop examination- Primary Unspecified pre-operative examination Battery end of life of spinal cord stimulator documented in this encounter Additional Health Concerns Active Problems Noted Date Diagnosed Date Autogenerated Problem 2025 Assessment Noted Time A fall risk assessment has been complete d for the patient 01/17/2025 11:24 AM EDT A Body Mass Index follow-up plan has been documented for the patient 01/19/2025 2:15 PM EDT documented as of this encounter Care Teams Post Acute Care Nurse Relationship Specialty Start Date End Date Wolfgang Cantu MD PCP - General 10/01/24 documented as of this encounter
--- OUTSIDE RECORDS SUMMARY | 2025-02-06 10:16 | XMS_ITS | Encounter Summary ---
[facility] [address] [place] [address] Care Team Providers Care International Accountant Name Role Phone Wolfgang Cantu MD Primary Care Provider + Reason for Visit * Reason Comments Med Refill Encounter Details Date Type Department Care Team (Late st Contact Info) Description 01/06/2025 Refill [facility] [address] [place] [address] Wolfgang Cantu MD [address] [facility] [place] [address] Social History Tobacco Use Types Packs/Day Years [...] or training? Not on file Preferred Language Martiniquais 10/28/2023 PHQ-2 Answer Date Recorded Patient Health [...] [facility] [address] [place] [phone] Wolfgang Cantu MD [address] [place] [address] documented as of this encounter Visit Diagnoses Not on filedocumented in this encounter Additional Health Concerns Assessment Noted Time PHQ-2 Depression Total Score: 6 08/18/19 24 9:43 AM EST documented as of this encounter Care Teams International Accountant Relationship Specialty Start Date End Date Wolfgang Cantu MD [address] [place] [address] PCP - General Family Medicine 11/13/21 documented as of this encounter
--- OUTSIDE RECORDS SUMMARY | 2025-02-06 10:16 | XMS_ITS | Encounter Summary ---
Author Organization [facility] Address [address] [place] [place] [address] Care Team Providers Care Clinical Appeals Reviewer Name Role Phone Wolfgang Cantu MD Primary Care Provider [phone] Reason for Visit * Reason Onset Date Comments HCN - Patient Message 01/17/2025 Encounter Details Date Type Department Care Team (Late st Contact Info) Description 01/17/2025 Telephone [place] [facility] [address] [place] [address] Delilah Nieves, QUALITY WORKER, DNP [address] [place] [address] HCN - Patient Message Social History Tobacco Use Types Packs/Day Years [...] any time in the past 12 m [facility], were you homeless or living in a penitentiary (including now)? No 10/03/2024 Utilities Answer Date [...] encounter Miscellaneous Notes * Telephone Encounter - RenéJenna - 01/17/2025 12:52 PM EDT Patient Phone Message Reason for Call: Requesting pre op appts to be changed to 02/10 Request a call Best contact number and optimal time of day to reach caller: [phone] Note: Please do not reply to this message. Follow-up communication and further actions as a result of this message need to be communicated with the patient directly, if the patient is not active onMyChart. If the patient is active on MyChart, they will receive notification of the communication/outcome via [employer]. documented in this encounter Plan of Treatment Upcoming Encounters Date Type Department Care Team (Latest Contact Info) Description 02/15/2025 8:00 AM EDT Hospital Encounter [facility] [address] [place] [phone] Min Troy MD [address] [address] 02/15/2025 8:00 AM EDT - 02/15/2025 10:10 AM EDT Surgery [facility] [address] [place] [phone] Min Troy MD [address] [address] [facility] Lead Re[facility] - [place] 03/02/2025 3:20 PM EDT [facility] [place] [facility] [address] [place] [address] Delilah Nieves, DELANO, DNP [address] [address] Scheduled Procedures Name Priority Associated Diagnoses [...] documented as of this encounter Care Teams Clinical Appeals Reviewer Relationship Specialty Start Date End Date Wolfgnag Cantu MD PCP - General 10/01/24 documented as of this encounter
--- OUTSIDE RECORDS SUMMARY | 2025-02-06 10:16 | XMS_ITS | Encounter Summary ---
[facility] [address] [place] [address] Care Team Providers Care Jewelry Store Manager Name Role Phone Wolfgang Cantu MD Primary Care Provider + Reason for Visit * Reason Comments Med Refill Encounter Details Date Type Department Care Team (Late st Contact Info) Description 03/21/2024 Refill [facility] [address] [place] [address] Wolfgang Cantu MD [address] [facility] [address] Cervical arthritis; Degenerative disc disease, cervical Social History Tobacco Use Types Packs/Day Years [...] or training? Not on file Preferred Language Samoan 10/28/2023 PHQ-2 Answer Date Recorded Retired PHQ-9: Brief Depression Severity Measure Score 15 08/18/2023 Sex and Gender Information Value Date Recorded Sex Assigned at Not on file Legal Sex Male 1:35 PM EDT Gender Identity Not on file Sexual Orientation Not on file documented as of this encounter Plan of Treatment Upcoming Encounters Date Type Department Care Team (Late st Contact Info) Description 03/06/2025 2:15 PM EDT Office Visit [facility] [address] [place] [phone] Wolfgang Cantu MD [address] [place] [address] documented as of this encounter Visit Diagnoses Diagnosis Cervical arthritis Cervical spondylosis without myelopathy Degenerative disc disease, cervical documented in this encounter Additional Health Concerns Assessment Noted Time PHQ-2 Depression Total Score: 6 08/18/19 24 9:43 AM EST documented as of this encounter Care Teams Jewelry Store Manager Relationship Specialty Start Date End Date Wolfgang Cantu MD [address] [place] [address] PCP - General Family Medicine 11/13/21 documented as of this encounter
--- OUTSIDE RECORDS SUMMARY | 2025-02-06 10:16 | XMS_ITS | Encounter Summary ---
Author Organization [facility] Address [address] [place] [address] Care Team Providers Care Silk Snapper Name Role Phone Wolfgang Cantu MD Primary Care Provider + Encounter Details Date Type Department Care Team (Late st Contact Info) Description 01/24/2025 Results Follow-Up [facility] [address] [place] [address] Lily Bobby PA-C [address] [place] [address] Social History Tobacco Use Types [...] or training? Not on file Preferred Language Syrian 10/28/2023 PHQ-2 Answer Date Recorded Patient Health [...] Description 03/06/2025 2:15 PM EDT Office Visit [facility] [address] [place] [phone] Wolfgang Cantu MD [address] [place] [id number] documented as of this encounter Visit Diagnoses Not on filedocumented in this encounter Additional Health Concerns Assessment Noted Time PHQ-2 Depression Total Score: 6 08/18/19 24 9:43 AM EST documented as of this encounter Care Teams Silk Snapper Relationship Specialty Start Date End Date Wolfgang Cantu MD [address] [place] [id number] PCP - General Family Medicine 11/13/21 documented as of this encounter
--- OUTSIDE RECORDS SUMMARY | 2025-02-06 10:16 | XMS_ITS | Encounter Summary ---
[facility] Address [address] [place] [address] Care Team Providers Care Nerve Specialist Name Role Phone Wolfgang Cantu MD Primary [...] no 11/03/2023 Feels Threatened by Someone no 050 12/2023 Does Anyone Try to Keep You From Having Contact with Others or Doing Things Outside Your Home? no 11/03/2023 Physical Signs of Abuse Present no 11/03/2023 Disabilities Answer Date Recorded Difficulty Concentrating, Remembering or Making Decisions yes 11/03/2023 Difficulty Managing Errands Independently no 11/03/2023 Education Answer Date Recorded Help with school or training? Not on file Preferred Language Irish 10/28/2023 PHQ-2 Answer Date Recorded Patient Health [...] [facility] [address] [place] [address] Wolfgang Cantu MD [address] [place] [address] documented as of this encounter Visit Diagnoses Not on filedocumented in this encounter Additional Health Concerns Assessment Noted Time PHQ-2 Depression Total Score: 6 08/18/19 24 9:43 AM EST documented as of this encounter Care Teams Nerve Specialist Relationship Specialty Start Date End Date Wolfgang Cantu MD [address] [place] [address] PCP - General Family Medicine 11/13/21 documented as of this encounter
--- OUTSIDE RECORDS SUMMARY | 2025-02-06 10:16 | XMS_ITS | Encounter Summary ---
Author Organization [facility] Address [address] [place] [address] Care Team Providers Care Hardware Supplies Sales Representative Name Role Phone Wolfgang Cantu MD Primary Care Provider [phone] Reason for Visit * Reason Onset Date Comments HCN - Patient Message 01/17/2025 Order Encounter Details Date Type Department Care Team (Late st Contact Info) Description 01/17/2025 Telephone [place] [facility] [address] [place] [address] Min Troy MD [address] [place] [address] HCN - Patient Message (Order ) Social History Tobacco Use Types Packs/Day Years [...] any time in the past 12 m [facility], were you homeless or living in a nursing home (including now)? No 10/03/2024 Utilities Answer Date [...] encounter Miscellaneous Notes * Telephone Encounter - Barron Uribe RN - 01/17/2025 12:45 PM EDT Order placed by Delilah Nieves. * Telephone Encounter - Ifeoma Rincon - 01/17/2025 12:29 PM EDT Patient Phone Message Reason for Call: Patient is at radiology now to get x-ray done and they have no order. Please upload to [employer]. Best contact number and optimal time of day to reach caller: [phone] anytime Note: Please do not reply to this [...] Hospital Encounter [facility] [address] [place] [id number] Min Troy MD [address] [id number] 02/15/2025 8:00 AM EDT - 02/15/2025 10:10 AM EDT Surgery [facility] [address] [place] [phone] Min Troy MD [address] [address] [facility] Lead Replacement - [place] 03/02/2025 3:20 PM EDT Office Visit [place] [facility] [address] [place] [address] Delilah Nieves, PURCHASING DIRECTOR, DNP [address] [address] Scheduled Procedures Name Priority Associated [...] documented as of this encounter Care Teams Hardware Supplies Sales Representative Relationship Specialty Start Date End Date Wolfgang Cantu MD PCP - General 10/01/24 documented as of this encounter
--- OUTSIDE RECORDS SUMMARY | 2025-02-06 10:16 | XMS_ITS | Encounter Summary ---
[facility] Address [address] [place] [address] Care Team Providers Care Railroad Car Repairman Name Role Phone Wolfgang Cantu MD Primary Care Provider + Reason for Visit * Reason Onset Date Comments Med Refill 01/03/2025 Encounter Details Date Type Department Care Team (Late st Contact Info) Description 01/03/2025 Refill [facility] [address] [place] [address] Wolfgang Cantu MD [address] [place] [address] Cervical arthritis; Degenerative disc disease, [...] or training? Not on file Preferred Language Kittitian 10/28/2023 PHQ-2 Answer Date Recorded Patient Health Questionnaire-9 Score 24 06/30/2024 Sex and Gender Information Value Date Recorded Sex Assigned at Not on file Legal Sex Male 1:35 PM EDT Gender Identity Not on file Sexual Orientation Not on file documented as of this encounter Miscellaneous Notes * Telephone Encounter - Laverne Brown RegSched Rep - 01/03/2025 10:05 AM EDT Caller: Negro Miller Relationship: Self Best call back number: [phone] Requested Prescriptions: Requested Prescriptions Pending Prescriptions Disp Refills HYDROcodone-acetaminophen (Alliance) 7.5-325 MG per tablet 90 tablet 0 Sig: Take 1 tablet by mouth Every 8 (Eight) Hours As Needed for Severe Pain. Pharmacy where request should be sent: [facility] - [place] [id number] [address] - [phone] - [phone] FX Last office visit with prescribing clinician: 10/14/2024 Last telemedicine visit with prescribing clinician: Visit date not found Next office visit with prescribing clinician: 03/06/2025 Additional details provided by patient: Does the patient have less than a 3 day supply: [x] Yes [] No Would you like a call back once the refill request has been completed: [] Yes [x] No If the office needs to give you a call back, can they leave a voicemail: [] Yes [x] No Neto Lema 01/03/25 10:07 EDT documented in this encounter Plan of Treatment Upcoming Encounters Date Type Department Care Team (Late st Contact Info) Description 03/06/2025 2:15 PM EDT Office Visit [facility] [address] [place] [address] Wolfgang Cantu MD [address] [place], [place] [id number] documented as of this encounter Visit Diagnoses Diagnosis Cervical arthritis Cervical spondylosis without myelopathy Degenerative disc disease, cervical documented in this encounter Additional Health Concerns Assessment Noted Time PHQ-2 Depression Total Score: 6 08/18/19 24 9:43 AM EST documented as of this encounter Care Teams Railroad Car Repairman Relationship Specialty Start Date End Date Wolfgang Cantu MD [address] [place] [address] PCP - General Family Medicine 11/13/21 documented as of this encounter
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
[2025-02-06 10:21] LABS: Hematocrit 40.5 % (42.0-52.0); Hemoglobin 13.4 g/dL (14.1-18.0); Immature Granulocytes % 0.2 %; Mean Corpuscular HGB Conc 33.1 g/dL (31.8-35.4); Mean Corpuscular Hemoglobin 30.7 pg (27.0-31.2); Mean Corpuscular Volume 92.7 fl (80-94); Nucleated Red Blood Cells % 0 %; Platelet Count 266 K/mm3 (142-424); Red Blood Count 4.37 M/mm3 (4.60-6.20); Red Cell Distribution Width-SD 44.7 fL; White Blood Count 9.4 K/mm3 (4.8-10.8)
[2025-02-06 10:25] LABS: Chloride 99 mmol/L (98-107)
[2025-02-06 10:26] LABS: Albumin Level 4.7 g/dl (3.5-5.0); Potassium 4.3 mmoL/L (3.5-5.1); Sodium 136 mmol/L (136-145)
[2025-02-06] MEDS: ACETAMINOPHEN 1,000MG/100ML VIAL 1000 MG IV (10:27)
[2025-02-06 10:28] LABS: Alanine Aminotransferase 18 U/L (12-78); Anion Gap 15.3 mEq/L (5-15); Aspartate Amino Transferase 32 U/L (17-59); Blood Urea Nitrogen 11 mg/dl (9-20); Carbon Dioxide 26 mmol/L (22.0-30.0); Creatinine Clearance Estimated 60 mL/min (50-200); Creatinine,Serum 1.00 mg/dl (0.66-1.25); Estimated Glomerular Filt Rate 75 ml/min (>60); GFR (African American) 90 ML/MIN (>60)
[2025-02-06 10:29] LABS: Albumin/Globulin Ratio 1.6 (1.1-1.8); Alkaline Phosphatase 136 U/L (38-126); Bilirubin,Total 0.5 mg/dl (0.2-1.3); Calcium 9.4 mg/dl (8.4-10.2); Globulin 3.0 g/dL (1.3-3.2); Glucose 123 mg/dl (74-100); Total Protein,Serum 7.7 g/dl (6.3-8.2)
[2025-02-06 11:00] VITALS: BP 159/95; PULSE 65; O2SAT 96
--- OUTSIDE RECORDS SUMMARY | 2025-02-06 11:15 | XMS_ITS | CCD ---
Author Organization Unknown Care Team Providers Care Greens Or Grounds Superintendent Name Role Phone Unavailable Primary Care Provider Unavailabl e Unavailable Chronic Care Management Unavaila ble Summary Purpose DataExchange Insurance Providers Payer name Policy type / Coverage type Covered republican ID Effective Begin Date Effective End Date [facility] [id number] Unknown Unknown Family History Family History data not found Medication Administered No Medication Administered data Reason For Visit No Reason For Visit data Medical Equipment No Medical Equipment data Advance Directives No Advance Directive data
--- OUTSIDE RECORDS SUMMARY | 2025-02-06 11:15 | XMS_ITS | CCD ---
Author Organization Unknown Care Team Providers Care Wildlife Ecologist Name Role Phone Unavailable Primary Care Provider Unavailabl e Unavailable Chronic Care Management Unavaila ble Summary Purpose DataExchange Insurance Providers Payer name Policy type / Coverage type Covered constitution party ID Effective Begin Date Effective End Date [facility] [id number] Unknown Unknown Family History Family History data not found Medication Administered No Medication Administered data Reason For Visit No Reason For Visit data Medical Equipment No Medical Equipment data Advance Directives No Advance Directive data
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
[2025-02-06 11:30] VITALS: BP 157/91; PULSE 62; O2SAT 96
[2025-02-06 12:20] VITALS: BP 150/74; PULSE 74; RESP 16; TEMP 36.9; O2SAT 97
== END 2025-02-06 12:20 | disposition home or self-care (01) ==
PROVIDERS: Nurse Practitioner; Emergency Provider Student in an Organized Health Care Education/Training Program; PCP Family Medicine
DX: M25.552 Pain in left hip (principal); M25.512 Pain in left shoulder; V29.99XA Rider (driver) (passenger) of other motorcycle injured in unspecified traffic accident, initial encounter; Y92.410 Unspecified street and highway as the place of occurrence of the external cause
CPT/HCPCS: 70450; 71045; 72125; 72128; 72131; 72192; 73030; 73502; 73552; 80053; 85025; 96374; 99285; J0131

== ENCOUNTER 2025-03-27 09:39 | Outpatient (CLI) | payer MEDICARE, SELFPAY ==
--- OUTSIDE RECORDS SUMMARY | 2025-02-09 10:45 | XMS_ITS | Encounter Summary ---
Author Organization [facility] Address [address] [place] [address] Care Team Providers Care Community Service Officer Coordinator Name Role Phone Wolfgang Cantu MD Primary Care Provider [phone] Encounter Details Date Type Department Care Team (Latest Contact Info) Description 02/09/2025 10:45 AM EDT Pre-Admission Testing [facility] [address], [address] [place] [address] Preop examination (Primary Dx) Social History Tobacco Use Types Packs/Day Years Used Date Smoking Tobacco: Every Day Cigarettes Smokeless Tobacco: Never Tobacco Cessation:Ready to Q uit: Not Asked; Counseling Given: Not Answered Comments:Heavy cigarette smoker (20-39 per day) Alcohol Use Standard Drinks/Week Comments Never 0 (1 standard drink = 0.6 oz [...] any time in the past 12 m [facility], were you homeless or living in [...] Sign Reading Time Taken Comments Blood Pressure 137/87 02/09/2025 10:12 AM EDT Pulse 69 02/09/2025 10:12 AM EDT Temperature 35.8 C (96.4 F) 02/09/2025 10:12 AM EDT Respiratory Rate 18 02/09/2025 10:12 AM EDT Oxygen Saturation 97% 02/09/2025 10:12 AM EDT Inhaled Oxygen Concentration - - Weight 56.7 kg (125 lb) 02/09/2025 10:12 AM EDT Height 175.3 cm (5' 9 ) 02/09/2025 10:12 AM EDT Body Mass Index 18.46 02/09/2025 10:12 AM EDT documented in this encounter Miscellaneous Notes * PAT Evaluation Note - Paige Leavitt PA - 02/09/2025 10:45 AM EDT Images from the original note were not included. HPI Negro Miller is a 65 y.o. male who presents with Pre-op Diagnosis * Battery end of life of spinal cord stimulator [Z45.42] now scheduled for SCS Lead Replacement - [place] (N/A)with Min Troy MD on 02[place]15/20[place] [facility] [place] is a 64 y.o. male with a past medical history of cardiac arrhythmia status post AICD placement in 2022, tobacco dependence ( smokes 3 packs per day ), and anxiety in the past surgical history of a lumbar laminectomy or microdiskectomy. He presents to neurosurgical clinic today for consultation regarding malfunction of his spinal cordstimulator. The patient has a spinal cord stimulator ( [employer]ify ) that was inserted in January of 2024. Past Medical History[1] Family History[2] Social History[3] SURGICAL HISTORY: Surgical History[4] Allergies[5] MEDICATIONS: Current Medications[6] ROS Anesthesia: Date of last anesthetic: Most recent anesthesia ~ 11/03/2023 Colonoscopy [facility] history of previous anesthesia. Does not have a history of anesthetic complications, a history awareness of surgery under anesthesia, a history of delayed emergence, malignant hyperthermia, obstructive sleep apnea, PONV and a history of prolonged emergence. Anesthesia ROS additional comments: + can be hard to wake up + had spinal cord stimulator place 01/2024 under conscious sedation by surgeon. Pt not happy with his pain control during that procedure. Cardiovascular: atrial fibrillation, CHF, hyperlipidemia and pacemaker (2022; last shock may have been a few days ago.). Does not have angina, CAD, dysrhythmias, peripheral edema, peripheral edema or past IN. hypertension: is well controlled. Does not have chest pain. Cardio additional comments: Denies any active current cardiac complaints. + so much pain from back; pt is using cane and is not able to walk well. Respiratory: Does not have home oxygen. no asthma: COPD: breathing at baseline.Has not had an upper respiratory infection in last 30 days. Has not had bronchitis in the last 30 days, pneumonia in the last 30 daysor COVID in the last 30 days. Respiratory ROS additional comments: + smokes about 3 ppd HEENT: Does not have difficulty swallowing.Does not have temporomandibular joint syndrome. Neurological: headaches. no seizures: Did not have a cerebrovascular accident.Does not have TIA. Neuro additional comments: + depression initially admitted 09/2024 due to Suicidal ideation Musculoskeletal: arthritis. cervical spine limited mobility. [facility] additional comments: + chronic back pain; S/P spinal cord stimulator + Chronic pain syndrome + cervical arthritis Gastrointestinal: GERD (on medication): well controlled.Does not have cirrhosis or hepatitis. Genitourinary: Does not have chronic renal disease.bladder cancer (2018; multiple resections; hx of intra bladder chemo; no recent follow up) and BPH. Does not have recurrent UTIs, renal calculi or renal disease. Hematological/Lymphatic: History of no DVT. History of no pulmonary embolism. Not in a hypercoagulable state. history of chemotherapy (bladder CA) no history of radiation Does not have MRSA or tuberculosis. Endocrine/Metabolic: does not have diabetes mellitus. Does not have thyroid disorder. 02/09/2025 12/18/2022 02/14/2025 Cardiac Device Recommendations: [facility]: Pre-operative CIED Report Assessment and Luz Maria- Procedural Reommendations: Name: Negro Miller Date: 02/13/2025 : 1960 Age: 65 y.o. Report dated Jul 18, 2023 which is over a year ago. 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 Post procedure, contact device lifeline representatives to return and reprogram back to pre-procedure settings unless medical team ordersdifferent settings.?? Device report can be found in [employer] media file. 12/18/2022 Last Cardiac Note: 11/11/2021 ECHO: Left Ventricle Based on the linear dimension and/or 2D volumes, the left ventricle is moderately dilated in size. The left ventricular systolic function is moderately reduced.The LVEF is visually estimated at 30 - 35%. See diagram below for wall motion findings. Unable to assess diastolic function. Right Ventricle Right ventricle size is normal. The right ventricular systolic function is normal. Pericardium No pericardial effusion. Lab Results Component Value Date WBC 7.27 10/02/2024 HGB 12.9 (L) 10/02/2024 HCT 37.5 (L) 10/02/2024 MCV 92 10/02/2024 PLT 269 10/02/2024 Lab Results Component Value Date GLUCOSE 126 (H) 10/02/2024 BUN 11 10/02/2024 CREATININE 1.00 10/02/2024 BCR 11 10/02/2024 NA 136 10/02/2024 K 3.8 10/02/2024 CL 104 10/02/2024 CO2 22 10/02/2024 CA 10.3 (H) 03/17/2016 ALBUMIN 3.8 10/02/2024 ALKPHOS 95 10/02/2024 BILITOT 0.3 10/02/2024 No results found for: HGBA1C No results found for: INR , PROTIME Visit Vitals BP 137/87 Pulse 69 Temp (!) 35.8 ??C (96.4 ??F) (Tympanic) Resp 18 Ht 1.753 m (5' 9 ) Wt 56.7 kg (125 lb) SpO2 97% BMI 18.46 kg/m?? Smoking Status Every Day BSA 1.66 m?? Physical Exam Airway Mallampati: II Mouth opening: normal TM distance: >3 FB Neck ROM: full Cardiovascular Rhythm: regular Rate: normal (-) peripheral edema Dental (+) edentulous Pulmonary Breath sounds clear to auscultation Neurological Oriented: normal to time, normal to person and normal to place Skin Musculoskeletal Extremities Anesthesia Plan ASA 3 Anesthesia technique(s) discussed with the patient/family: general Comment: ICD device has not been interrogated since 2023. I called [employer] [facility] . They will have a lifeline representatives there to check his device preoperatively. A check was done remotely on 02/14 and it was scanned into media in pt's chart. I asked cardiology to review but itmay be too late as they only had 1 day notice. Device rep to be there for procedure in am. DANIELA Vera [1] Past Medical History: Diagnosis Date Personal history of other specified conditions History of abdominal pain Personal history of other specified conditions History of diarrhea S/P insertion of spinal cord stimulator [2] Family History Problem Relation Name Age of Onset Hypertension Mother Diabetes Father Conversions - Other Sister Thyroid dysfunction Anesthesia problems Neg Hx Malig Hyperthermia Neg Hx [3] Social History Tobacco Use Smoking status: Every Day Current packs/day: 3.00 Types: Cigarettes Smokeless tobacco: Never Tobacco comments: Heavy cigarette smoker (20-39 per day) Vaping Use Vaping status: Never Used Substance Use Topics Alcohol use: Never Drug use: Never [4] Past Surgical History: Procedure Laterality Date BACK SURGERY N/A Back Surgery from [facility] CARDIAC DEFIBRILLATOR REMOVAL SHOULDER SURGERY N/A Shoulder Surgery from [facility] [5] Allergies Allergen Reactions Codeine Other - please document in the comment field and Hallucinations Drowsy Oxycodone Other - please document in the comment field and Itching Ibuprofen Nausea And Vomiting, Other - please document in the comment field and Unknown - Patient states they do not know rxn details Tears stomach to pieces [6] Current Outpatient Medications: acetaminophen, Take 2 tablets by mouth every 6 hours as needed for pain. Under [place] law, monthly prescriptions (30 days) can be refilled at 25 days and three-month prescriptions (90 days) at 80 days. Please contact the insurance company with questions if refills are denied. DULoxetine, Take 1 capsule by mouth daily. Do not crush or chew. gabapentin, Take 2 capsules by mouth in the morning and 2 capsules in the evening and 2 capsules before bedtime. (Patient taking differently: Take 1 capsule by mouth 3 times a day.) HYDROcodone-acetaminophen, TAKE 1 TABLET BY MOUTH EVERY 8 HOURS NEEDED FOR SEVERE pain loperamide, Take 1 capsule by mouth 4 times a day as needed for diarrhea. methocarbamol, Take 1 tablet by mouth in the morning and 1 tablet at noon and 1 tablet in the evening and 1 tablet before bedtime. Do all this for 7 days. ondansetron ODT, Dissolve 1 tablet on the tongue every 12 hours as needed for nausea or vomiting. QUEtiapine, Take 1 tablet by mouth nightly. naloxone, 1. Give 1 spray in nostril for no/slow breathing or cannot wake after opioid use 2. Call 911 3. Repeat in other nostril if symptoms continue * Preprocedure Instructions - Paige Leavitt PA - 02/09/2025 10:45 AM EDT Home Medication Instructions Current Medications Medication Instructions acetaminophen (Tylenol) 325 MG tablet Take as needed DULoxetine (Cymbalta) [address] capsule Take night before surgery gabapentin (Neurontin) 300 MG capsule Take morning of surgery HYDROcodone-acetaminophen ([place]) 7.5-325 MG tablet Take as needed loperamide (Imodium) 2 MG capsule Hold day of surgery methocarbamol (Robaxin) 500 MG tablet Take morning of surgery ondansetron ODT (Zofran-ODT) 8 MG disintegrating tablet Take as needed QUEtiapine (SEROquel) 25 MG tablet Take night before surgery General Preoperative Instructions You will be called the business day before surgery with your arrival time No food after midnight the night before surgery. You can drink clear liquids up to 2 hours prior to arrival unless instructed by your surgeon otherwise. Please do not try to get all your hydration in 2 hours prior to arrival. Start the day before surgery drinking more than you usually would. After midnight, you can have clear liquids only (water,apple juice, Gatorade) up to 2 hours prior to arrival. No coffee or tea. No alcohol or smoking prior to surgery Arrive on time to avoid delays Parking/Registration procedure explained You MUST have a responsible adult available for transport to and from hospital Visitation policy for the day of surgery reviewed Bring insurance card, photo ID, along with power of tank cleaning supervisor, guardianship or advanced directives if applicable Do not bring money, jewelry or other valuables Hibiclens bathing instructions reviewed if applicable Notify surgeon of fever, illness, any changes or if you decide not to have surgery documented in this encounter Plan of Treatment Not on file documented as of this encounter Procedures Procedure Name Priority Date/Time Associated Diagnosis Comments CARDIAC DEVICE CHECK - IN CLINIC - SUBQ ICD - INTERROGATION ONLY STAT 02/14/2025 3:54 PM EDT Preop examination CARDIAC DEVICE CHECK - IN CLINIC - SUBQ ICD - INTERROGATION ONLY STAT 02/13/2025 4:14 PM EDT Preop examination ECG ADULT Routine 02/09/2025 11:16 AM EDT Preop examination documented in this encounter Results * CARDIAC DEVICE CHECK - IN CLINIC - SUBQ ICD - INTERROGATION ONLY (02/14/2025 3:54 PM EDT) Anatomical Region Laterality Modality Other Narrative 02/15/2025 9:51 AM EDT [facility]: Pre-operative CIED Report Assessment and Luz Maria-Procedural Reommendations: Name: Negro Miller Date: 02/15/2025 : 1960 Age: 65 y.o. 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 Recommendation: Heart rate dependency on ICD cannot be excluded. Contact the device lifeline representatives [employer] ( ) to temporarily reprogram CIED to an asynchronous pacing mode and all tachy therapies off for remainder of procedure. With this programming, ICD will pace without inhibition and shock/ATP therapies will be turned off. The device will not recognize, record or intervene on any arrhythmia including tachyarrhythmia s . All interventions must be made externally by medical staff until device tachy/shock therapies have been programmed back on. ? Post procedure, contact device lifeline representatives to return and reprogram back to pre-procedure settings unless medical team orders different settings.?? Pre-procedural CIED evaluation based on available documentation dated 02/14/2025 for perioperative device management recommendations. Can be found in [employer] file. Paige SUAREZ CV IMPLANTABLE CARDIAC DEVICE P ROCEDURES Final Result * CARDIAC DEVICE CHECK - IN CLINIC - SUBQ ICD - INTERROGATION ONLY (02/13/2025 4:14 PM EDT) Anatomical Region Laterality Modality Other Narrative 02/13/2025 4:24 PM EDT [facility]: Pre-operative CIED Report Assessment and Luz Maria-Procedural Reommendations: Name: Negro Miller Date: 02/13/2025 : 1960 Age: 65 y.o. Report dated Jul 18, 2023 which is over a year ago. 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 Post procedure, contact device lifeline representatives to return and reprogram back to pre-procedure settings unless medical team orders different settings.?? Device report can be found in [employer] media file. us Paige SUAREZ CV IMPLANTABLE CARDIAC DEVICE P ROCEDURES Final Result * ECG Adult (Now - Performed in your clinic) (02/09/2025 11:16 AM EDT) EKG DIAGNOSIS CLASS Abnormal MUSE ECG Ventricular Rate 68 BPM MUSE ECG Atrial Rate 68 BPM MUSE ECG CA Interval 166 ms MUSE ECG QRSD Interval 124 ms MUSE ECG QT Interval 424 ms MUSE ECG QTC Interval 450 ms MUSE ECG P [place] 68 degrees MUSE ECG R [place] -64 degrees MUSE ECG T Wave [place] 59 degrees MUSE ECG Diagnosis Atrial-sensed ventricular-p aced rhythm MUSE ECG Diagnosis Abnormal ECG MUSE ECG Diagnosis MUSE ECG Diagnosis Confirmed by Lennox Partida ([id number]) on 02/09/2025 3:23:42 PM MUSE ECG 02/09/2025 11:1 6 AM EDT 02/09/2025 3:23 PM EDT us Paige SUAREZ ECG ORDERABLES Final Result MUSE ECG documented in this encounter Visit Diagnoses Diagnosis Preop examination- Primary Unspecified pre-operative examination documented in this encounter Additional Health Concerns Assessment Noted Time A fall risk assessment has been complete d for the patient 01/17/2025 11:24 AM EDT A Body Mass Index follow-up plan has been documented for the patient 01/19/2025 2:15 PM EDT documented as of this encounter Care Teams Community Service Officer Coordinator Relationship Specialty Start Date End Date Wolfgang Cantu MD PCP - General 10/01/24 documented as of this encounter
--- OUTSIDE RECORDS SUMMARY | 2025-02-13 15:50 | XMS_ITS | Encounter Summary ---
Author Organization Healthcare Address [address] [place] [address] Care Team Providers Care Medication Aide Name Role Phone Wolfgang Cantu MD Primary Care Provider [phone] Encounter Details Date Type Department Care Team (Latest Contact Info) Description 02/13/2025 3:50 PM EDT - 02/13/2025 11:59 PM EDT Hospital Encounter Cardiac Imaging [address] [place] [address] Discharge Disposition: Home or Self Care Social History Tobacco Use Types Packs/Day Years Used Date Smoking Tobacco: Every Day Cigarettes Smokeless Tobacco: Never Comments:Heavy cigarette smo ker [...] any time in the past 12 m [facility], were you homeless or living in a assisted (including now)? No 10/03/2024 Utilities Answer Date Recorded In the past 12 months has th e [employer], gas, oil, or water company threatened to [...] 6 hours as needed for pain. Under [place] law, monthly prescriptions (30 days) can be refilled at 25 days and three-month prescriptions (90 days) at 80 days. Please contact the insurance company with questions if refills are denied. DULoxetine (Cymbalta) [address] capsule Take 1 capsule by mouth daily. Do not crush or chew. 30 capsule 5 gabapentin (Neurontin) 300 MG capsule Take 2 capsules by mouth in the morning and 2 capsules in the evening and 2 capsules before bedtime. 60 capsule 5 loperamide (Imodium) 2 MG capsule Take 1 capsule by mouth 4 times a day as needed for diarrhea. methocarbamol (Robaxin) 500 MG tablet Take 1 tablet by mouth in the morning and 1 tablet at noon and 1 tablet in the evening and 1 tablet before bedtime. Do all this for 7 days. 28 tablet 5 naloxone (Narcan) 4 mg/0.1 mL nasal spray 1. Give 1 spray in nostril for no/slow breathing or cannot wake after opioid use 2. Call 911 3. Repeat in other nostril if symptoms continue 1 each 5 ondansetron ODT (Zofran-ODT) 8 MG disintegrating tablet Dissolve 1 tablet on the tongue every 12 hours as needed for nausea or vomiting. QUEtiapine (SEROquel) 25 MG tablet Take 1 tablet by mouth nightly. senna-docusate (Luz Maria-Colace) 8.6-50 MG tablet Take 1 tablet by mouth daily as needed for constipation. 30 tablet 5 HYDROcodone-acetami nophen ([place]) 7.5-325 MG tablet TAKE 1 TABLET BY MOUTH EVERY 8 HOURS NEEDED FOR SEVERE pain 5 02/16/20 25 HYDROcodone-acetami nophen ([place]) 7.5-325 MG tablet Take 1 tablet by mouth every 4 hours as needed for severe pain (pain). 25 tablet 5 02/17/20 25 documented as of this encounter Plan of Treatment Not on file documented as of this encounter Procedures Procedure Name Priority Date/Time Associated Diagnosis Comments CARDIAC DEVICE CHECK - IN CLINIC - SUBQ ICD - INTERROGATION ONLY STAT 02/13/2025 4:14 PM EDT Preop examination documented in this encounter Results * CARDIAC DEVICE CHECK - IN CLINIC - SUBQ ICD - INTERROGATION ONLY (02/13/2025 4:14 PM EDT) Anatomical Region Laterality Modality Other Narrative 02/13/2025 4:24 PM EDT [facility]: Pre-operative CIED Report Assessment and Luz Maria-Procedural Reommendations: Name: Negro Miller Date: 02/13/2025 : 1960 Age: 65 y.o. Report dated Jul 18, 2023 which is over a year ago. 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 Post procedure, contact device marketing development representative to return and reprogram back to pre-procedure settings unless medical team orders different settings.?? Device report can be found in [employer] media file. us Paige SUAREZ CV IMPLANTABLE CARDIAC DEVICE P ROCEDURES Final Result documented in this encounter Visit Diagnoses Not on filedocumented in this encounter Additional Health Concerns Assessment Noted Time A fall risk assessment has been complete d for the patient 01/17/2025 11:24 AM EDT A Body Mass Index follow-up plan has been documented for the patient 01/19/2025 2:15 PM EDT documented as of this encounter Care Teams Medication Aide Relationship Specialty Start Date End Date Wolfgang Cantu MD PCP - General 10/01/24 documented as of this encounter
--- OUTSIDE RECORDS SUMMARY | 2025-02-14 14:50 | XMS_ITS | Encounter Summary ---
Author Organization Healthcare Address [address] [place] [address] Care Team Providers Care Bulk System Operator Name Role Phone Wolfgang Cantu MD Primary Care Provider [phone] Encounter Details Date Type Department Care Team (Latest Contact Info) Description 02/14/2025 2:50 PM EDT - 02/14/2025 11:59 PM EDT Hospital Encounter Cardiac Imaging [address] [place] [address] Discharge Disposition: Home or Self Care Social [...] time in the past 12 m [facility], were you homeless or living in a assisted (including now)? No 10/03/2024 Utilities Answer Date Recorded In the past 12 months has th e [employer], gas, oil, or water company threatened to [...] for constipation. 30 tablet 5 HYDROcodone-acetami nophen ([place]) 7.5-325 MG tablet TAKE 1 TABLET BY MOUTH EVERY 8 HOURS NEEDED FOR SEVERE pain 5 02/16/20 25 HYDROcodone-acetami nophen ([place]) 7.5-325 MG tablet Take 1 tablet by [...] STAT 02/14/2025 3:54 PM EDT Preop examination documented in this encounter Results * CARDIAC DEVICE CHECK - IN CLINIC - SUBQ ICD - INTERROGATION ONLY (02/14/2025 3:54 PM EDT) Anatomical Region Laterality Modality Other Narrative 02/15/2025 9:51 AM EDT [facility]: Pre-operative CIED Report Assessment and Luz Maria-Procedural Reommendations: Name: Negro Miller Date: 02/15/2025 : 1960 Age: 65 y.o. 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 Recommendation: Heart rate dependency on ICD cannot be excluded. Contact the device pharmaceutical representative [employer] ( ) to temporarily reprogram CIED to [...] back on. ? Post procedure, contact device pharmaceutical representative to return and reprogram back to pre-procedure settings unless medical team orders different settings.?? Pre-procedural CIED evaluation based on available documentation dated 02/14/2025 for perioperative device management recommendations. Can be found in [employer] file. us Paige SUAREZ CV IMPLANTABLE CARDIAC [...] documented as of this encounter Care Teams Bulk System Operator Relationship Specialty Start Date End Date Wolfgang Cantu MD PCP - General 10/01/24 documented as of this encounter
--- OUTSIDE RECORDS SUMMARY | 2025-02-15 05:15 | XMS_ITS | Encounter Summary ---
Author Organization [facility] Address [address] [place] [address] Care Team Providers Care Auditing Clerk Name Role Phone Wolfgang Cantu MD Primary Care Provider [phone] Reason for Visit * Auth/Cert (Routine) Specialty Diagnoses / Procedures Referred By Contac t Referred To Contact Diagnoses Battery end of life of spinal cord stimulator Battery end of life of spinal cord stimulator [Z45.42] Procedures [place] REVISION SPINAL NEUROSTIM ELECTRODE PLATE/PADDLE, INCL FLUORO SCS Lead Replacement - [place] Min Troy MD [address] [address] Phone: tel: fax: [facility] [address] [place] [address] Phone: tel: Referral ID Status Reason Start Date Expiration Date Visits Re quested Visits Authorized [id number] 1 1 Encounter Details Date Type Department Care Team (Latest Contact Info) Description 02/15/2025 5:15 AM EDT - 02/15/2025 12:52 PM EDT Hospital Encounter [facility] [address] [place] [id number] Min Troy MD [address] [address] Battery end of life of spinal cord stimulator Discharge Disposition: Home or Self Care Social [...] any time in the past 12 m [facility], were you homeless or living in [...] Sign Reading Time Taken Comments Blood Pressure 134/85 02/15/2025 12:15 PM EDT Pulse 61 02/15/2025 12:15 PM EDT Temperature 36 C (96.8 F) 02/15/2025 12:00 PM EDT Respiratory Rate 18 02/15/2025 12:15 PM EDT Oxygen Saturation 96% 02/15/2025 12:15 PM EDT Inhaled Oxygen Concentration - - Weight - - Height - - Body Mass Index - - documented in this encounter Functional Status * Calculated C-SSRS Risk Score (Lifetime/Recent) Answer Date of Assessment Author No Risk Indicated 02/15/2025 6:56 AM EDT Yarelis Garcia RN * Question Answer Date of Assessment Author 1. Wish to be (Past 1 Month) No 02/15/2025 6:56 AM EDT Winston Hill RN 2. Non-Specific Active Suicidal Thoughts (Past 1 Month) No 02/15/2025 6:56 AM EDT Winston Hill RN 6. Suicidal Behavior (Lifetime) No 02/15/2025 6:56 AM EDT Winston Hill RN documented as of this encounter Medications at Time of Discharge acetaminophen (Tylenol) 325 MG tablet Take 2 tablets by mouth every 6 hours as needed for pain. Under [place] law, monthly prescriptions (30 days) can be [...] for constipation. 30 tablet 5 HYDROcodone-acetami nophen (Greeley) 7.5-325 MG tablet Take 1 tablet by mouth every 4 hours as needed for severe pain (pain). 25 tablet 5 02/17/20 25 documented as of this encounter Miscellaneous Notes * Addendum Note - Shama Shetty - 02/15/2025 12:52 PM EDTEncounter addended by: Shama Shetty on: 03/20/2025 4:46 PM Actions taken: Charge Capture section accepted * Anesthesia PACU Signout - Eddie Oliva DO - 02/15/2025 12:28 PM EDT Patient: Negro Miller Anesthesia Type: general Vitals Value Taken Time BP 134/85 02/15/25 12:15 Temp 36 ??C (96.8 ??F) 02/15/25 12:00 Pulse 65 02/15/25 12:24 Resp 14 02/15/25 12:24 SpO2 96 % 02/15/25 12:24 Vitals shown include unfiled device data. Anesthesia PACU Signout Patient location during evaluation: PACU Patient participation: complete - patient participated Level of consciousness: baseline and awake Pain management: adequate (pain score 0-3) Airway patency: natural airway Hydration status: acceptable PONV: none Cardiovascular status: acceptable and hemodynamically stable Respiratory status: acceptable, spontaneous ventilation, unassisted and nonlabored ventilation Discharge Disposition: home Comments: Patient is s/p Procedure(s) and Anesthesia Type: * SCS Lead Replacement - [place] - General. Patient remains HDS on room air, neurologically appropriate, pain is controlled, and tolerating PO w/o N/V. Patient is appropriate for discharge from PACU to home for continued postop care. Cosigned by Cuco Ramsey MD at 02/15/2025 3:28 PM EDT Associated attestation - Cuco aRmsey MD - 02/15/2025 3:28 PM EDT Agree with above assessment and evaluation from resident/CHILI PEPPER GRINDER. * Op Note - Min Troy MD - 02/15/2025 9:15 AM EDT Operative Note Date: 02/15/25 Location: [facility] Name: Negro Miller, : 1960, Diagnoses: Pre-op Diagnosis Failure of spinal cord stimulator, initial encounter ([facility]) Post-op Diagnosis Failure of spinal cord stimulator, initial encounter ([facility]) Procedure(s): Revision of spinal cord stimulator paddle lead Use of neuro monitoring Attending Surgeon(s): * Min Troy - Primary Histology Technician(s): Blu Alvarez MD Anesthesia: General ASA: ASA status not filed in the log. Blood Administration: Blood Product Administration History None Estimated Blood Loss: Minimal Drains: * None in log * Specimen: Findings: Indications: Negro Miller is an 65 y.o. male who is having surgery for Battery end of life ofspinal cord stimulator. Patient has a history refractory back pain status post spinal cord stimulator insertion in January 2024. He was found to have fractured leads on recent imaging so decision was made to taken to the OR for lead revision. Narrative: After identification in the preop holding area the patient was brought back to the operating room where he was intubated and sedated on a stretcher. EMG and sensory monitoring was attached, and we then flipped prone onto the OR table. His arms were bent to 90?? and all bony prominences were padded.His back was cleaned before being prepped, marked and draped out her sterile policy. We marked at his previous incisions which were over the T9 lamina as well as left flank. Lidocaine with epinephrine was infused over the planned incision a time- out was called. A 15 blade was used to open the skin over the spinous process, sharp dissection was used to dissectdown due to the fact he had a AICD and we could not use monopolar electrocautery. His previously placed pulse generator and spinal cord stimulator leads were identified and removed from the field We used the drill with matchstick drill bit to take down excess scar and residual lamina over the T9-10 space. Kerrison rongeur were used to complete our laminectomy. We used the spinal cord stimulator trial to assure that there was adequate room for the lead. There was significant scar and we had to slowly scrape it away. Eventually, we were able to scrape central and right-sided scar, but left-sided scar was difficult to detach. We then brought the actual lead and put it in place, confirming location with fluoroscopy. We put the actual lead and fluoroscopy showed it was slightly off midlinetowards right side, as expected. We stimulated the leads then: the right sided leads would elicit EMG over right > left lower extremity, midline leads would elicit right > left EMG, and left sided leads would elicit bilateral EMG. This implied the paddle was placed on the right of the spinal cord, but given his heavy scar tissue over left and having bilateral coverage with the left electrode row, we accepted that as the best location. Once we have this in good position we tunneled the new leads to the previously made battery pouch and reconnected his pulse generator. Impedances were tested and were normal. The battery was placed into the pouch we began our closure. Both incisions were closed with a combination of 0 and 3-0 Vicryl, followed by 3 0 V lock, Dermabond, Covaderm. The patient was then flipped back onto his strict bed where he was extubated before being taken to PACU in stable condition. Dr. Girard was present throughout the duration of the case. Several aspects of the surgery, including exposure and SCS placement faced more than usual challenges due to inability to use bovie and presence of scar tissue from prior surgery. We overcome the issue with spending more time (at least an additional 60 minutes) and effort without additional complications (justification for modifier 22). Complications: None; patient tolerated the procedure well. Submitted by: Blu Alvarez MD - 02/15/2025 Attending Attestation - Min Christensen MD: I saw and evaluated the patient with the residents before surgery. I discussed the case with the residents and agree with the plan of care as documented. I was present for the entirety of case. * H&P - Blu Alvarez MD - 02/15/2025 5:14 AM EDT The below H&P has been reviewed and is up to date with no major medical changes. To OR today. Blu Alvarez MD Neurosurgery PGY-7 Chief Complaint: Malfunction of spinal cord stimulator [...] patient has a spinal cord stimulator ( [facility] ) that was inserted in January of [...] back pain. He has since been prescribed Greeley to help manage this pain, and reports that he routinely runs out of pills before the end of the month because his pain is so severe that he has to take more than he has scribe. The patient also states that mat, the spinal cord stimulator circulation representative with [employer] evaluated his stimulator and told him that theleads had frayed or fractured. This occurred while the patient was at [facility], but no imaging was obtained. Diagnosis was made by be equipment [employer] uses to evaluate stimulators. He reports multiple falls, and states he frequently stumbles. This has substantially worsened now that his stimulator is not working. Given the patient's pain is severe, and now has a numb malfunctioning spinal cord stimulator lead, he would like to pursue surgical intervention to repair this. [Past Medical History] [Past Medical History] Diagnosis Date Personal history of other specified conditions History of abdominal pain Personal history of other specified conditions History of diarrhea [Surgical History] [Surgical History] Past Surgical History Procedure Laterality Date BACK SURGERY N/A Back Surgery from [facility] SHOULDER SURGERY N/A Shoulder Surgery from [facility] [Family History] [Family History] Problem Relation Name Age of Onset Diabetes Father Hypertension Mother Conversions - Other Sister Thyroid dysfunction [Social History] [Social History] Tobacco Use Smoking status: Heavy Smoker Smokeless tobacco: Never Tobacco comments: Heavy cigarette smoker (20-39 per day) Substance Use Topics Alcohol use: No Current Outpatient Medications Medication Instructions acetaminophen (TYLENOL) 650 mg, Every 6 hours PRN DULoxetine (CYMBALTA) 30 mg, Oral, Daily, Do not crush or chew. gabapentin (NEURONTIN) 600 mg, Oral, 3 times daily HYDROcodone-acetaminophen (Greeley) 7.5-325 MG tablet TAKE 1 TABLET BY [...] Extremity Motor Strength Right Left C5: Deltoid 5/ 5/5 C6: Biceps 5/ 5/5 C7: Triceps 5/ 5/5 C8: Water Rights Specialist 5/ 5/5 T1: Intrinsics 5/ 5/5 Lower Extremity Motor Strength Right Left L2: Hip flexion (Iliopsoas) 10/31 5/5 L3: Knee extension (Quad) / 5/5 L4: Ankle DF (TA) 10/31 5/5 L5: Great Toe DF (EHL) 5/ 5/5 S1: Ankle Pf, Foot Eversion (Peroneal longus/brevis) / 5/5 S2: Great toe flexion (FHL), Knee flexion / 5/5 Sensation Right Left L2: Proximal anterior thigh Normal Normal L3: Mid anterior thigh Normal Normal L4: Medial leg/foot, great toe (Saphenous n.) Normal Normal L5: Dorsum of mid foot Normal Normal S1: Lateral leg/foot, little toe, Back of leg (Sural n.) Normal Normal Reflexes Right Left C5: Biceps 2/4 2/4 C6: Brachialis 2/4 2/4 C7: Triceps 2/08/02 L4: Patellar 07/02 07/02 S1: Achilles 07/02 07/02 SLR Positive Positive Clonus Negative Negative Hoffmans [...] As stated in the HPI, the [employer] circulation representative informed the patient that the leads [...] Parts of this note were dictated using [employer] Direct voice recognition software. As a result, errors may occur. When identified, these carbider errors are corrected, but while every attempt is made to prevent/correct these, errors may still exist. I reviewed this patient's history, exam, and any imaging with Dr Girard. He guided plan of care forthis patient. Delilah Nieves, LANA, ADMINISTRATIVE LIAISON [facility] Department of Neurosurgery Diagnoses and all orders for this visit: Malfunction of spinal cord stimulator, initial encounter (Primary) - XR Scoliosis Entire Spine 2 or 3 Views; Future Tobacco dependence due to cigarettes - XR Scoliosis Entire Spine 2 or 3 Views; Future Other orders - Ambulatory referral to Neurosurgery Cosigned by Min Troy MD at 02/15/2025 4:45 PM EDT Associated attestation - Min Troy MD - 02/15/2025 4:45 PM EDT I saw and evaluated the patient with the resident/fellow. I discussed the case with the resident/fellow and agree with the findings and plan as documented. documented in this encounter Plan of Treatment Not on file documented as of this encounter Procedures Procedure Name Priority Date/Time Associated Diagnosis Comments FL LESS THAN 1 HOUR (NON-REPORTABLE) Routine 02/15/2025 10:43 AM EDT SURGICAL PATHOLOGY EXAM Routine 02/15/2025 9:38 AM EDT Battery end of life of spinal cord stimulator REVISION, REMOVAL, OR REPLACEMENT, ELECTRODE LEAD, NEUROSTIMULATOR, SPINAL, WITH LAMINECTOMY OR LAMINOTOMY 02/15/2025 8:17 AM EDT Failure of spinal cord stimulator, initial encounter ([facility]) APTT STAT 02/15/2025 7:20 AM EDT PROTHROMBIN TIME(PT) / INR STAT 02/15/2025 7:20 AM EDT documented in this encounter Results * FL Less than 1 Hour Intraoperative (02/15/2025 10:43 AM EDT) Narrative IMAGING - 02/15/2025 10:44 AM EDT Images were obtained for surgical purposes. See Min Troy's surgical note in the patient's chart for the findings. Min Shah MD IMG FLUOROSCOPY PROC EDURES Final Result IMAGING * Surgical Pathology Exam (02/15/2025 9:38 AM EDT) Case Report Surgical Pathology Case: [id number] Authorizing Provider: Min Troy, Collected: 02/15/2025 0938 Ordering Location: [facility] A OPERATING ROOM Received: 02/15/2025 1102 Pathologist: Kayleigh Vanegas MD Specimen: Back, Lower, Explanted SCS lead 02/15/2025 4:55 PM EDT [facility] Final Diagnosis A. EXPLANTED SCS LEAD, REMOVAL: - FOR GROSS DIAGNOSIS ONLY. 02/15/2025 4:55 PM EDT [facility] at 1655 EDT Clinical Information Battery end of life of spinal cord stimulator [Z45.42] 02/15/2025 4:55 PM EDT [facility] Gross Description A. EXPLANTED SCS LEAD Received fresh labeled explanted SCS lead is a clear plastic strip with multiple, embedded, silver/metal electrodes measuring 4.0 x 1.0 x 0.2 cm. Also received are 2 plastic-coated metal leads measuring 32-57 cm in length and 0.2 cm in diameter. Specimen submitted for gross only. Jeny Mcduffie 02/15/2025 4:55 PM EDT [facility] Note: A resident was involved in the service. I attest I examined the relevant preparations for the specimens and confirmed the diagnosis or interpretation. 02/15/2025 4:55 PM EDT [facility] Foreign Body Lower back structure / Unknown 02/15/2025 9:38 AM EDT 02/15/2025 11:02 AM EDT Comment:Pre-op diagnosis: Battery end of life of spinal cord stimulator [Z45.42] us Min Shah MD LAB PATHOLOGY [place] [address] * APTT (02/15/2025 7:20 AM EDT) aPTT 31 25 - 35 sec LAB COAGULATION METHOD 02/15/2025 8:29 AM EDT [facility] Blood Venous blood specimen / Unknown Venipuncture / Unknown 02/15/2025 7:20 AM EDT 02/15/2025 7:25 AM EDT us Min Shah MD LAB BLOOD ORDERABLES Final Result Performing Organization Address [facility] [place] [address] * Protime-INR (02/15/2025 7:20 AM EDT) Prothrombin Time 13.1 12.0 - 14.3 sec LAB COAGULATION METHOD 02/15/2025 8:29 AM EDT [facility] INR 1.0 0.9 - 1.1 LAB COAGULATION METHOD 02/15/2025 8:29 AM EDT [facility] Blood Venous blood specimen / Unknown Venipuncture / Unknown 02/15/2025 7:20 AM EDT 02/15/2025 7:25 AM EDT Narrative [facility] - 02/15/2025 8:29 AM EDT OPTIMAL INR RANGES FOR PATIENT ON ORAL ANTICOAGULANT THERAPY Prevention of venous thromboembolism INR 2.0 to 3.0 In patients with heart disease: Atrial fibrillation INR 2.0 to 3.0 Valvular heart disease INR 2.0 to 3.0 Tissue heart valves INR 2.0 to 3.0 Mechanical prosthetic valves INR 2.5 to 3.5 Prevention of recurrent VT INR 2.5 to 3.5 us Min Shah MD LAB BLOOD ORDERABLES Final Result Performing Organization Address City/[facility]/ZIP Co de Phone Number [facility] [address] [place] [address] documented in this encounter Visit Diagnoses Diagnosis Battery end of life of spinal cord stimulator- Primary documented in this encounter Admitting Diagnoses Diagnosis Battery end of life of spinal cord stimulator documented in this encounter Administered Medications Inactive Administered Medications - up to 3 most recent administrations Medication Order MAR Action Action Date Dose Rate Site droperidol (Inapsine) injection 0.625 mg 0.625 mg, Intravenous, Once as needed, 1 dose, Starting on Thu02/15/25 at 1027, Until Thu02/15/25 at 1452, Routine, Recovery (Phase I only), nausea, vomiting fentaNYL (Sublimaze) injection 25 mcg 25 mcg, Intravenous, Every 5 min PRN, 2 doses, Starting on Thu02/15/25 at 1027, Until Thu02/15/25 at 1452, Routine, Recovery (Phase I only), pain score of 3-4 out of 10 Given 02/15/2025 11:22 AM EDT 25 mcg fentaNYL (Sublimaze) injection 50 mcg 50 mcg, Intravenous, Every 5 min PRN, 2 doses, Starting on Thu02/15/25 at 1027, Until Thu02/15/25 at 1452, Routine, Recovery (Phase I only), pain score of 5-8 out of 10 HYDROmorphone (Dilaudid) injection 0.5 mg 0.5 mg, Intravenous, Every 10 min PRN, 2 doses, Starting on Thu02/15/25 at 1027, Until Thu02/15/25 at 1452, Routine, Recovery (Phase I only), pain score of 9-10 out of 10 Given 02/15/2025 11:45 AM EDT 0.5 mg ipratropium-albuterol (Duo-Neb) 0.5-2.5 mg/3 mL nebulizer solution 3 mL 3 mL, Nebulization, Once as needed, 1 dose, Starting on Thu02/15/25 at 1122, Until Thu02/15/25 at 1452, Routine, Recovery (Phase I only), wheezing ketorolac (Toradol) injection 30 mg 30 mg, Intravenous, Once, 1 dose, On Thu02/15/25 at 1115, Routine, Recovery (Phase I only) Given 02/15/2025 11:14 AM EDT 30 mg naloxone (Narcan) injection 0.4 mg 0.4 mg, Intravenous, As needed, Starting on Thu02/15/25 at 1027, Until Thu02/15/25 at 1452, Routine, Recovery (Phase I only), respiratory depression naloxone (Narcan) injection 0.4 mg 0.4 mg, Intravenous, As needed, Starting on Thu02/15/25 at 1122, Until Thu02/15/25 at 1452, Routine, Recovery (Phase I only), respiratory depression ondansetron (Zofran) injection 4 mg 4 mg, Intravenous, Once as needed, 1 dose, Starting on Thu02/15/25 at 1027, Until Thu02/15/25 at 1452, Routine, Recovery (Phase I only), nausea, vomiting oxyCODONE (Roxicodone) immediate release tablet 10 mg 10 mg, Oral, Once as needed, 2 doses, Starting on Thu02/15/25 at 1123, Until Thu02/15/25 at 1452, Routine, Recovery (Phase I only), pain score of 6-8 out of 10 Given 02/15/2025 11:27 AM EDT 10 mg oxyCODONE (Roxicodone) immediate release tablet 5 mg 5 mg, Oral, Once as needed, 2 doses, Starting on Thu02/15/25 at 1123, Until Thu02/15/25 at 1452, Routine, Recovery (Phase I only), pain score of 3-5 out of 10 Povidone-Iodine 5 % swab solution 1 Application Nasal, Once, 1 dose, On Thu02/15/25 at 0745, Routine Given 02/15/2025 7:03 AM EDT 1 Application sodium chloride 0.9 % flush 10 mL 10 mL, Intravenous, Every 12 hours, First dose on Thu02/15/25 at 0745, Until Discontinued, Routine, Holding - Preprocedure sodium chloride 0.9 % flush 10 mL 10 mL, Intravenous, As needed, Starting on Thu02/15/25 at 0645, Until Thu02/15/25 at 1452, Routine, Holding - Preprocedure, line care documented in this encounter Active and Recently Administered Medications Times are shown in EDT. Scheduled Medication Order 02/13/2025 02/14/2025 02/15/2025 ceFAZolin (Ancef) injection 2 g 2 g, Intravenous, Once, 1 dose, On Thu02/15/25 at 0845, Routine, Anesthesia Intraprocedure 0845 (Canceled Entry - Provider: Automatic Discharge Provider - Comment: Automatically canceled at discontinue of medication order) ketorolac (Toradol) injection 30 mg (COMPLETED) 30 mg, Intravenous, Once, 1 dose, On Thu02/15/25 at 1115, Routine, Recovery (Phase I only) 1114 (Given - Provid er: Mayra Watters RN) Povidone-Iodine 5 % swab solution 1 Application (COMPLETED) Nasal, Once, 1 dose, On Thu02/15/25 at 0745, Routine 0703 (Given - Provid er: Yarelis Hill RN) sodium chloride 0.9 % flush 10 mL(Linked Group 1) 10 mL, Intravenous, Every 12 hours, First dose on Thu02/15/25 at 0745, Until Discontinued, Routine, Holding - Preprocedure 0745 (Canceled Entry - Provider: Automatic Discharge Provider - Comment: Automatically canceled at discontinue of medication order) PRN Medication Order 02/13/2025 02/14/2025 02/15/2025 droperidol (Inapsine) injection 0.625 mg 0.625 mg, Intravenous, Once as needed, 1 dose, Starting on Thu02/15/25 at 1027, Until Thu02/15/25 at 1452, Routine, Recovery (Phase I only), nausea, vomiting fentaNYL (Sublimaze) injection 25 mcg 25 mcg, Intravenous, Every 5 min PRN, 2 doses, Starting on Thu02/15/25 at 1027, Until Thu02/15/25 at 1452, Routine, Recovery (Phase I only), pain score of 3-4 out of 10 1122 (Given - Provid er: Mayra Watters RN) fentaNYL (Sublimaze) injection 50 mcg 50 mcg, Intravenous, Every 5 min PRN, 2 doses, Starting on Thu02/15/25 at 1027, Until Thu02/15/25 at 1452, Routine, Recovery (Phase I only), pain score of 5-8 out of 10 HYDROmorphone (Dilaudid) injection 0.5 mg 0.5 mg, Intravenous, Every 10 min PRN, 2 doses, Starting on Thu02/15/25 at 1027, Until Thu02/15/25 at 1452, Routine, Recovery (Phase I only), pain score of 9-10 out of 10 1145 (Given - Provid er: Yarelis Hill RN) ipratropium-albuterol (Duo-Neb) 0.5-2.5 mg/3 mL nebulizer solution 3 mL 3 mL, Nebulization, Once as needed, 1 dose, Starting on Thu02/15/25 at 1122, Until Thu02/15/25 at 1452, Routine, Recovery (Phase I only), wheezing lidocaine-EPINEPHrine (Xylocaine W/EPI) 1 %-1:[id number] injection (CANCELED) As needed, Starting on Thu02/15/25 at 0937, Until Thu02/15/25 at 1054, Routine, Intraprocedure 0937 (Given - Provid er: Blu Alvarez MD - Comment: on field) naloxone (Narcan) injection 0.4 mg 0.4 mg, Intravenous, As needed, Starting on Thu02/15/25 at 1027, Until Thu02/15/25 at 1452, Routine, Recovery (Phase I only), respiratory depression naloxone (Narcan) injection 0.4 mg 0.4 mg, Intravenous, As needed, Starting on Thu02/15/25 at 1122, Until Thu02/15/25 at 1452, Routine, Recovery (Phase I only), respiratory depression ondansetron (Zofran) injection 4 mg 4 mg, Intravenous, Once as needed, 1 dose, Starting on Thu02/15/25 at 1027, Until Thu02/15/25 at 1452, Routine, Recovery (Phase I only), nausea, vomiting oxyCODONE (Roxicodone) immediate release tablet 10 mg(Linked Group 2) 10 mg, Oral, Once as needed, 2 doses, Starting on Thu02/15/25 at 1123, Until Thu02/15/25 at 1452, Routine, Recovery (Phase I only), pain score of 6-8 out of 10 1127 (Given - Provid er: Mayra Watters RN) oxyCODONE (Roxicodone) immediate release tablet 5 mg(Linked Group 2) 5 mg, Oral, Once as needed, 2 doses, Starting on Thu02/15/25 at 1123, Until Thu02/15/25 at 1452, Routine, Recovery (Phase I only), pain score of 3-5 out of 10 1127 (See Alternativ e - Provider: Mayra Watters RN) sodium chloride 0.9 % flush 10 mL(Linked Group 1) 10 mL, Intravenous, As needed, Starting on Thu02/15/25 at 0645, Until Thu02/15/25 at 1452, Routine, Holding - Preprocedure, line care vancomycin (Vancocin) vial for injection (CANCELED) As needed, Starting on Thu02/15/25 at 0937, Until Thu02/15/25 at 1054, Routine, Intraprocedure 0937 (Given - Provid er: Blu Alvarez MD) Linked Groups Order Group 1: Insert peripheral IV (CANCELED) Once, On Thu02/15/25 at 0646, For 1 occurrence, Holding - Preprocedure And Saline lock IV (CANCELED) Once, On Thu02/15/25 at 0646, For 1 occurrence, Holding - Preprocedure And sodium chloride 0.9 % flush 10 mLJump to med 10 mL, Intravenous, Every 12 hours, First dose on Thu02/15/25 at 0745, Until Discontinued, Routine, Holding - Preprocedure And sodium chloride 0.9 % flush 10 mLJump to med 10 mL, Intravenous, As needed, Starting on Thu02/15/25 at 0645, Until Thu02/15/25 at 1452, Routine, Holding - Preprocedure, line care Group 2: oxyCODONE (Roxicodone) immediate release tablet 5 mgJump to med 5 mg, Oral, Once as needed, 2 doses, Starting on Thu02/15/25 at 1123, Until Thu02/15/25 at 1452, Routine, Recovery (Phase I only), pain score of 3-5 out of 10 Or oxyCODONE (Roxicodone) immediate release tablet 10 mgJump to med 10 mg, Oral, Once as needed, 2 doses, Starting on Thu02/15/25 at 1123, Until Thu02/15/25 at 1452, Routine, Recovery (Phase I only), pain score of 6-8 out of 10 documented in this encounter Additional Health Concerns Assessment Noted Time A fall risk assessment has been complete d for the patient 01/17/2025 11:24 AM EDT A Body Mass Index follow-up plan has been documented for the patient 01/19/2025 2:15 PM EDT documented as of this encounter Care Teams Auditing Clerk Relationship Specialty Start Date End Date Wolfgang Cantu MD PCP - General 10/01/24 documented as of this encounter
--- OUTSIDE RECORDS SUMMARY | 2025-02-15 08:00 | XMS_ITS | Encounter Summary ---
Author Organization [facility] Address [address] [place] [address] Care Team Providers Care Towel Hemmer Name Role Phone Wolfgang Cantu MD Primary Care Provider [phone] Reason for Visit * Auth/Cert (Routine) Specialty Diagnoses / Procedures Referred By Contac t Referred To Contact Diagnoses Battery end of life of spinal cord stimulator Battery end of life of spinal cord stimulator [Z45.42] Procedures MT REVISION SPINAL NEUROSTIM ELECTRODE PLATE/PADDLE, INCL FLUORO SCS Lead Replacement - [place] Min Troy MD [address] [address] Phone: tel: fax: [facility] [address] [place] [address] Phone: tel: Referral ID Status Reason Start Date Expiration Date Visits Re quested Visits Authorized [id number] 1 1 Encounter Details Date Type Department Care Team (Late st Contact Info) Description 02/15/2025 8:00 AM EDT - 02/15/2025 10:10 AM EDT Surgery [facility] [address] [place] [address] Min Troy MD [address] [address] SCS Lead Replacement - [facility] Surgery Details Date/Time Status Location OR Service Patient Class Case Class Case Type Trauma Case? 02/15/2025 8:00 AM Posted [facility] E-Electi ve Panel 1 Procedure LRB Anes Op Region Wound Class Comments SCS Lead Replacement - [place] N/A General Class I/ Clean Surgeon Surgeon Role Service Panel Min Troy MD Primary Neurosurger y 1 Blu Alvarez MD Resident - Assisting 1 documented in this encounter Social History Tobacco Use Types Packs/Day Years [...] time in the past 12 m [facility], were you homeless or living in a [facility] (including now)? No 10/03/2024 Utilities Answer Date Recorded In the past 12 months has th e Handup, gas, oil, or water company threatened to shut off services in your home? Yes 10/03/2024 Sex and Gender Information Value Date Recorded Sex Assigned at Not on file Legal Sex Male 7:59 PM EDT Gender Identity Not on file Sexual Orientation Not on file documented as of this encounter Last Filed Vital Signs Vital Sign Reading Time Taken Comments Blood Pressure 153/88 02/15/2025 6:50 AM EDT Pulse 64 02/15/2025 6:50 AM EDT Temperature 36.8 C (98.3 F) 02/15/2025 6:50 AM EDT Respiratory Rate 16 02/15/2025 6:50 AM EDT Oxygen Saturation 99% 02/15/2025 6:50 AM EDT Inhaled Oxygen Concentration - - [...] for constipation. 30 tablet 5 HYDROcodone-acetami nophen ([place]) 7.5-325 MG tablet Take 1 tablet by [...] 3:28 PM EDT Associated attestation - Cuco Ramsey MD - 02/15/2025 3:28 PM EDT Agree with above assessment and evaluation from resident/[employer] C[employer]TER. * Op Note - Min Troy MD - 02/15/2025 9:15 AM EDT Operative Note Date: 02/15/25 Location: [facility] Name: Negro Miller, : 1960, Diagnoses: Pre-op Diagnosis Failure of spinal cord stimulator, initial encounter ([facility]) Post-op Diagnosis Failure of spinal cord stimulator, initial encounter ([facility]) Procedure(s): Revision of spinal cord stimulator paddle lead Use of neuro monitoring Attending Surgeon(s): * Min Troy - Primary Apparel Pattern Maker(s): Blu Alvarez MD Anesthesia: General ASA: ASA [...] patient has a spinal cord stimulator ( [employer] ) that was inserted in January of [...] back pain. He has since been prescribed [place] to help manage this pain, and reports that he routinely runs out of pills before the end of the month because his pain is so severe that he has to take more than he has scribe. The patient also states that mat, the spinal cord stimulator claims customer service representative with [employer] evaluated his stimulator and told him that theleads had frayed or fractured. This occurred while the patient was at [facility], but no imaging was obtained. Diagnosis was made by be equipment [employer] uses to evaluate stimulators. He reports multiple [...] SHOULDER SURGERY N/A Shoulder Surgery from [facility] [Family History] [Family History] Problem Relation Name [...] 600 mg, Oral, 3 times daily HYDROcodone-acetaminophen ([place]) 7.5-325 MG tablet TAKE 1 TABLET BY [...] Extremity Motor Strength Right Left C5: Deltoid 10/31 5 C6: Biceps 10/31 10/31 C7: Triceps 10/31 5 C8: Malt Loader 10/31 10/31 T1: Intrinsics 10/31 5 Lower Extremity Motor Strength Right Left L2: Hip flexion (Iliopsoas) 10/31 5 L3: Knee extension (Quad) 10/31 5 L4: Ankle DF (TA) 10/31 5 L5: Great Toe DF (EHL) 10/31 10/31 S1: Ankle Pf, Foot Eversion (Peroneal longus/brevis) [...] Left C5: Biceps 2/4 2/4 C6: Brachialis /4 2/4 C7: Triceps [...] As stated in the HPI, the [employer] claims customer service representative informed the patient that the [...] Parts of this note were dictated using [employer] Direct voice recognition software. As a result, errors may occur. When identified, these coke drawer errors are corrected, but while every attempt is made to prevent/correct these, errors may still exist. I reviewed this patient's history, exam, and any imaging with Dr Girard. He guided plan of care forthis patient. Delilah Nieves, LANA, VICE PRESIDENT OF COMMUNICATIONS [facility] Department of Neurosurgery Diagnoses and all orders [...] Failure of spinal cord stimulator, initial encounter ([facility]) APTT STAT 02/15/2025 7:20 AM EDT [...] AM EDT) Case Report Surgical Pathology Case: [id number] Authorizing Provider: Min Troy, Collected: 02/15/2025 0938 [facility] Received: 02/15/2025 1102 Pathologist: Kayleigh Vanegas MD Specimen: Back, Lower, Explanted SCS lead 02/15/2025 4:55 PM EDT [facility] Final Diagnosis A. EXPLANTED SCS LEAD, REMOVAL: - FOR GROSS DIAGNOSIS ONLY. 02/15/2025 4:55 PM EDT [facility] at 1655 EDT Clinical Information Battery end of life of spinal cord stimulator [Z45.42] 02/15/2025 4:55 PM EDT [facility] Gross Description A. EXPLANTED SCS LEAD Received fresh labeled explanted SCS lead is a clear plastic strip with multiple, embedded, silver/metal electrodes measuring 4.0 x 1.0 x 0.2 cm. Also received are 2 plastic-coated metal leads measuring 32-57 cm in length and 0.2 cm in diameter. Specimen submitted for gross only. Jeny Mcduffie 02/15/2025 4:55 PM EDT [facility] Note: A resident was involved in the service. I attest I examined the relevant preparations for the specimens and confirmed the diagnosis or interpretation. 02/15/2025 4:55 PM EDT [facility] Foreign Body Lower back structure / Unknown 02/15/2025 9:38 AM EDT 02/15/2025 11:02 AM EDT Comment:Pre-op diagnosis: Battery end of life of spinal cord stimulator [Z45.42] us Min Shah MD LAB PATHOLOGY ORDERA BLES Final Result Performing Organization Address [facility]/ZIP Co de Phone Number [facility] [address] [place] [address] * APTT (02/15/2025 7:20 AM EDT) aPTT 31 25 - 35 sec LAB COAGULATION METHOD 02/15/2025 8:29 AM EDT [facility] Blood Venous blood specimen / Unknown Venipuncture / Unknown 02/15/2025 7:20 AM EDT 02/15/2025 7:25 AM EDT us Min Shah MD LAB BLOOD ORDERABLES Final Result Performing Organization Address [facility] Co de Phone Number [facility] [address] [place] [address] * Protime-INR (02/15/2025 7:20 AM EDT) Prothrombin Time 13.1 12.0 - 14.3 sec LAB COAGULATION METHOD 02/15/2025 8:29 AM EDT [facility] INR 1.0 0.9 - 1.1 LAB COAGULATION METHOD 02/15/2025 8:29 AM EDT [facility] Blood Venous blood specimen / Unknown Venipuncture / Unknown 02/15/2025 7:20 AM EDT 02/15/2025 7:25 AM EDT Narrative [facility] - 02/15/2025 8:29 AM EDT OPTIMAL INR RANGES FOR PATIENT ON ORAL ANTICOAGULANT THERAPY Prevention of venous thromboembolism INR 2.0 to 3.0 In patients with heart disease: Atrial fibrillation INR 2.0 to 3.0 Valvular heart disease INR 2.0 to 3.0 Tissue heart valves INR 2.0 to 3.0 Mechanical prosthetic valves INR 2.5 to 3.5 Prevention of recurrent [place] INR 2.5 to 3.5 Rhearaymond Shaji Shah MD LAB BLOOD ORDERABLES Final Result [facility] [address] [phone] documented in this encounter Visit Diagnoses Diagnosis Battery end of life of spinal cord stimulator- Primary Failure of spinal cord stimulator, initial encounter documented in this encounter Admitting Diagnoses Diagnosis Battery end of life of spinal cord stimulator documented in this encounter Administered Medications Inactive Administered Medications - up to 3 most recent administrations Medication Order MAR Action Action Date Dose Rate Site droperidol (Inapsine) injection 0.625 mg 0.625 mg, Intravenous, Once as needed, 1 dose, Starting on Thu02/15/25 at 1027, Until Thu02/15/25 at 145, Routine, Recovery (Phase I only), nausea, vomiting fentaNYL (Sublimaze) injection 25 mcg 25 mcg, Intravenous, Every 5 min PRN, 2 doses, Starting on Thu02/15/25 at 1027, Until Thu02/15/25 at 145, Routine, Recovery (Phase I only), pain score [...] Given 02/15/2025 11:14 AM EDT 30 mg lidocaine-EPINEPHrine (Xylocaine W/EPI) 1 %-1:[id number] injection As needed, Starting on Thu02/15/25 at 0937, Until Thu02/15/25 at 1054, Routine, Intraprocedure Given 02/15/2025 9:37 AM EDT 50 mL naloxone (Narcan) injection 0.4 mg 0.4 mg, [...] line care vancomycin (Vancocin) vial for injection As needed, Starting on Thu02/15/25 at 0937, Until Thu02/15/25 at 1054, Routine, Intraprocedure Given 02/15/2025 9:37 AM EDT 2 g Back documented in this encounter Active and Recently [...] Routine 0703 (Given - Provid er: Yarelis Hlil RN) sodium chloride 0.9 % flush 10 [...] 10 1122 (Given - Provid er: Mayra Watters, B[place]) fentaNYL (Sublimaze) injection 50 mcg 50 mcg, [...] I only), wheezing lidocaine-EPINEPHrine (Xylocaine W/EPI) 1 %-1:[id number] injection (CANCELED) As needed, Starting on Thu02/15/25 [...] documented as of this encounter Care Teams Towel Hemmer Relationship Specialty Start Date End Date Wolfgang Cantu MD PCP - General 10/01/24 documented as of this encounter
--- OUTSIDE RECORDS SUMMARY | 2025-02-15 08:30 | XMS_ITS | Encounter Summary ---
Author Organization [facility] Address [address] [place] [address] Care Team Providers Care Guest Relations Coordinator Name Role Phone Wolfgang Cantu MD Primary Care Provider [phone] Reason for Visit * Auth/Cert (Routine) Specialty Diagnoses / Procedures Referred By Contac t Referred To Contact Diagnoses Battery end of life of spinal cord stimulator Battery end of life of spinal cord stimulator [Z45.42] Procedures OR REVISION SPINAL NEUROSTIM ELECTRODE PLATE/PADDLE, INCL FLUORO SCS Lead Replacement - Min Kumar MD [address] [place] [address] Phone: tel: fax: [facility] [address] [place] [address] Phone: tel: Referral ID Status Reason Start Date Expiration Date Visits Re quested Visits Authorized [id number] 1 1 Encounter Details Date Type Department Care Team (Late st Contact Info) Description 02/15/2025 8:30 AM EDT Anesthesia Event [facility] [address] [place] [address] Tim Melendez MD [address] [place] [address] Mike Shabazz, KARIN, DNP [address] [place] [address] Anesthesia Record Procedure Summary Procedure Name Responsible Anesthesiologist Anesthesia Start Time Anesthesia Stop Time SCS Lead Replacement - Tim Mix MD 02/15/25 0830 02/15/25 1059 Events Date Time Event Comment 02/15/2025 0830 An Start The patient was reevaluated immediately before sedation and remains eligible for anesthesia plan. 0832 ANPATVER 0832 In Room 0833 An Start Data 0839 An Induction The patient was reevaluated immediately before moderate or deep sedation use and before anesthesia induction. 0841 An Intubation 0843 Anesthesia Ready 0915 Proc Start 1044 Proc Fin 1046 An Extubation 1054 Out of Room 1054 an stop data 1057 Handoff to Receiving I compl eted my handoff to the receiving clinician during which we: 1. Identified the patient 2. Identified the responsible provider 3. Reviewed the pertinent medical history 4. Discussed the surgical course 5. Reviewed intra-op anesthesia management and issues during anesthesia 6. Set expectations for post-procedure period 7. Allowed opportunity for questions and acknowledgement of understanding. 1059 An Stop Meds Name Total dexamethasone (Decadron) injection 4 mg/ mL 8 mg remifentanil 2 MG 0.71 mg fentaNYL (Sublimaze) injection 50 mcg/mL 100 mcg propofol (Diprivan) injection 10 mg/mL 1 00 mg ceFAZolin 1 g 2 g lidocaine PF (Xylocaine-MPF) 2% 100 mg HYDROmorphone PF (Dilaudid) injection 1 mg/mL 1 mg ePHEDrine injection prefilled syringe 5 mg/mL 25 mg phenylephrine (Isrrael-Synephrine) prefilled syringe 1 mg/10 mL 200 mcg propofol (Diprivan) infusion 10 mg/mL 1, 315.44 mg acetaminophen (Ofirmev) injection 10 mg/ mL 1,000 mg lactated Ringer's infusion 800 mL * Agents No agents on file. * Blood No blood administrations on file. Lines, Drains, and Airways Type Details Placement Removal Wound 02/15/25; 932; N; Y es; Surgical; Closed Surgi; Back; Mid 02/15/25 0933 by Isabel Barros, mysql database administrator 02/15/25; 0934; N; Y es; Surgical; Closed Surgi; Back; Left, Lower 02/15/25 0934 by Isabel Barros, RN Peripheral IV Placement Date: 01/28 ; Placement Time: 718; Catheter Size: 18 G; Orientation: Right; Location: Antecubital; Inserted by: jose; Patient Tolerance: Tolerated well; Removal Date: 02/15/25; Removal Time: 1244 02/15/25 0719 by Jose Hill RN 02/15/25 1244 by Jose Hill RN ETT Placement Date: 01/28 ; Placement Time: 0841 (created via procedure documentation); Mask Ventilation: 1; Technique: Video laryngoscopy; Type: ETT - single; Single Lumen Tube Size: 7.5 mm; Cuffed: Yes; Laryngoscope: Kesha; Blade Size: 3; Location: Oral; Grade View: Grade I; Insertion Attempts: 1; Placement Verification: Auscultation, Capnometry; Placed by: KARIN; Removal Date: 02/15/25; Removal Time: 1046 02/15/25 0841 by Mike Shabazz CRNA, DNP 02/15/25 1046 by Mike Shabazz CRNA, DNP Peripheral IV Placement Date: 01/28 ; Placement Time: 0845 (created via procedure documentation); Catheter Size: 18 G; Orientation: Left; Location: Hand; Technique: Anatomical landmarks; Inserted by: Mike Shabazz CRNA, DNP; Insertion Attempts: 1; Removal Date: 02/15/25; Removal Time: 1244 02/15/25 0845 by Mike Shabazz CRNA, DNP 02/15/25 1244 by Jose Hill RN documented in this encounter Social History Tobacco [...] any time in the past 12 m [facility], were you homeless or living in a snf (including now)? No 10/03/2024 Utilities Answer Date [...] on file documented as of this encounter Functional Status * Calculated C-SSRS Risk Score (Lifetime/Recent) Answer Date of Assessment Author No Risk Indicated 02/15/2025 6:56 AM EDT Jose Lujan RN * Question Answer Date of Assessment Author 1. Wish to be (Past 1 Month) No 02/15/2025 6:56 AM EDT Winston Hill RN 2. Non-Specific Active Suicidal Thoughts (Past 1 Month) No 02/15/2025 6:56 AM EDT Winston Hill RN 6. Suicidal Behavior (Lifetime) No 02/15/2025 6:56 AM EDT Liz Winstonstewart Allen RN documented as of this encounter Miscellaneous Notes * Anesthesia Postprocedure Evaluation - Mike Shabazz CRNA, DNP - 02/15/2025 11:01 AM EDT Patient: Negro Miller Anesthesia Type: No value filed. Vitals Value Taken Time BP 102/69 02/15/25 10:56 Temp 36.1 02/15/25 11:01 Pulse 53 02/15/25 11:00 Resp 25 02/15/25 11:00 SpO2 99 % 02/15/25 11:00 Vitals shown include unfiled device data. Anesthesia Post Evaluation Patient location during evaluation: PACU Patient participation: complete - patient cannot participate Level of consciousness: responsive to physical stimuli Pain management: adequate (pain score 0-3) Airway patency: supraglottic device Cardiovascular status: acceptable and hemodynamically stable Respiratory status: oral airway, face mask, spontaneous ventilation, unassisted and acceptable Hydration status: acceptable Nausea/Vomiting: No No notable events documented. * Anesthesia Procedure Notes - Mike Shabazz CRNA, DNP - 02/15/2025 10:28 AM EDTAssociated Order(s): Peripheral IV Peripheral IV Date/Time: 02/15/2025 8:45 AM Inserted by: Mike Shabazz CRNA, DNP Placement Needle size: 18 G Location: hand Site prep: alcohol Technique: anatomical landmarks Attempts: 1 * Anesthesia Procedure Notes - Mike Shabazz CRNA, DNP - 02/15/2025 9:36 AM EDTAssociated Order(s): Airway Airway Date/Time: 02/15/2025 8:41 AM Reason: elective Airway not difficult General Information and Staff Patient location during procedure: OR Anesthesiologist: Tim Melendez MD CROP QUANTITATIVE GENETICIST: Mike Shabazz CRNA, DNP Performed: KARIN Patient Condition Indications for airway management: anesthesia and airway protection Final Airway Details Final airway type: endotracheal airway Successful airway: ETT Cuffed: yes Successful intubation technique: video laryngoscopy Endotracheal tube insertion site: oral Blade: Kesha Blade size: #3 ETT size (mm): 7.5 Cormack-Lehane Classification: grade I - full view of glottis Placement verified by: chest auscultation and capnometry Measured from: lips ETT to lips (cm): 22 * Anesthesia Preprocedure Evaluation - Tim Melendez MD - 02/15/2025 9:33 AM EDT Images from the original note were not included. Anesthesiologist: Tim Melendez MD CROP QUANTITATIVE GENETICIST: Mike Shabazz CRNA, DNP Patient: Negro Miller HPI Negor Miller is a 65 y.o. male with body mass index is unknown because there is no height or weight on file. who presents with Battery end of life of spinal cord stimulator, now for SCS Lead Replacement - [employer] (N/A) Procedure Information Anesthesia Start Date/Time: 02/15/25829 Procedure: SCS Lead Replacement - [employer] Location: [facility] OR [address] [place] [address] OR Surgeons: Min Troy MD Relevant Problems No relevant active problems ALLERGIES Allergies[1] NPO STATUS Date of Last Liquid: 02/14/25 Time of Last Liquid: 2029 Date of Last Solid: 02/14/25 Time of Last Solid: 2029 Last Intake Type: Clear fluids Time of Last Void: 0600 Past Medical History[2] AIRWAY HISTORY Airway Detailed Review Displaying the 20 most recent records Date Difficult Airway Blade Size ETT Size C-L Class Final Type Intubation Method 11/03/23 - - - - - - MEDICATIONS Outpatient Current Outpatient Medications Medication Instructions acetaminophen (TYLENOL) 650 mg, Every 6 hours PRN DULoxetine (CYMBALTA) 30 mg, Oral, Daily, Do not crush or chew. gabapentin (NEURONTIN) 600 mg, Oral, 3 times daily HYDROcodone-acetaminophen (Brashear) 7.5-325 MG tablet TAKE 1 TABLET BY MOUTH EVERY 8 HOURS NEEDED FOR SEVERE pain loperamide (IMODIUM) 2 mg, 4 times daily PRN methocarbamol (ROBAXIN) 500 mg, Oral, 4 times daily naloxone (NARCAN) 4 mg, Nasal, As needed ondansetron ODT (ZOFRAN-ODT) 8 mg, Every 12 hours PRN QUEtiapine (SEROQUEL) 25 mg, Nightly Scheduled Current Scheduled Medications[3] PRNs Current PRN Medications[4] SURGICAL HX: Surgical History[5] SOCIAL HX: Social History[6] OBJECTIVE DATA LABS Lab Results Component Value Date WBC 7.27 10/02/2024 HGB 12.9 (L) 10/02/2024 HCT 37.5 (L) 10/02/2024 MCV 92 10/02/2024 PLT 269 10/02/2024 Lab Results Component Value Date CALCIUM 8.8 (L) 10/02/2024 BUN 11 10/02/2024 CREATININE 1.00 10/02/2024 BCR 11 10/02/2024 NA 136 10/02/2024 K 3.8 10/02/2024 CL 104 10/02/2024 CO2 22 10/02/2024 CA 10.3 (H) 03/17/2016 Type and Screen No results found for: ABO Results from last 7 days Lab Units 02/15/25 0720 APTT sec 31 INR 1.0 No results found for: HGBA1C No results found for: PGLU , GLUCOSE ABG No results found for: PHART , MTW8JEG , PO2ART , SO2ART , BEART , HNU6ZLT , HCTART , SODIUMART , POTASSIUMART , POCTCL , POCGLU , IONCALART , LACTATE No results found for: PH , PCO2 , PO2 , Q6KDJVFW , BASEEXC , HCTSYR , KSYR , CLSYR , GLUSYR , CAION , LACTATE ECHO No echocardiogram results found for the past 12 months PFTs No results found for: CQG7AUC , QPF0DMXY , IML0KSS , FVCPRED BP Readings from Last 5 Encounters: 02/15/25 (!) 153/88 02/09/25 137/87 01/17/25 138/84 10/04/24 (!) 149/97 Physical Exam Airway Mallampati: II Cardiovascular Rhythm: regular Rate: normal Dental Pulmonary Breath sounds clear to auscultation Neurological Skin Musculoskeletal Extremities Anesthesia Plan ASA 2 Plan was reviewed with: CROP QUANTITATIVE GENETICIST Anesthesia technique(s) discussed with the patient/family: general Anesthesia plan agreed upon was: general Anesthetic plan and risks discussed with patient. Use of blood products discussed with patient who. Anesthesia Evaluation [1] Allergies Allergen Reactions Codeine Other - please document in the comment field and Hallucinations Drowsy Oxycodone Other - please document in the comment field and Itching Ibuprofen Nausea And Vomiting, Other - please document in the comment field and Unknown - Patient states they do not know rxn details Tears stomach to pieces [2] Past Medical History: Diagnosis Date Personal history of other specified conditions History of abdominal pain Personal history of other specified conditions History of diarrhea S/P insertion of spinal cord stimulator [3] ceFAZolin, 2 g, Intravenous, Once Insert peripheral IV, , , Once AND Saline lock IV, , , Once AND sodium chloride, 10 mL, Intravenous, q12h AND sodium chloride, 10 mL, Intravenous, PRN [4] PRN medications: Insert peripheral IV AND Saline lock IV AND sodium chloride AND sodium chloride [5] Past Surgical History: Procedure Laterality Date BACK SURGERY N/A 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 REMOVAL SHOULDER SURGERY N/A Shoulder Surgery from [employer] [6] Social History Tobacco Use Smoking status: Every Day Current packs/day: 3.00 Types: Cigarettes Smokeless tobacco: Never Tobacco comments: Heavy cigarette smoker (20-39 per day) Vaping Use Vaping status: Never Used Substance Use Topics Alcohol use: Never Drug use: Never documented in this encounter Plan of Treatment Not on file documented as of this encounter Procedures Procedure Name Priority Date/Time Associated Diagnosis Comments ANESTHESIA PERIPHERAL IV PLACEMENT Routine 02/15/2025 8:45 AM EDT PB ANESTHESIA PLACEHOLDER Routine 02/15/2025 8:41 AM EDT OR AN ELECTIVE ENDOTRACHEAL AIRWAY Routine 02/15/2025 8:41 AM EDT documented in this encounter Results * Peripheral IV (02/15/2025 8:45 AM EDT) Narrative Mike Shabazz CRNA, DNP - 02/15/2025 8:45 AM EDT Mike Shabazz CRNA, DNP 02/15/2025 10:29 AM Peripheral IV Date/Time: 02/15/2025 8:45 AM Inserted by: Mike Shabazz CRNA, DNP Placement Needle size: 18 G Location: hand Site prep: alcohol Technique: anatomical landmarks Attempts: 1 Result [facility] Tim Melendez MD ANESTHESIA ORDERABLES Final Re sult * OR AN ELECTIVE ENDOTRACHEAL AIRWAY, PB ANESTHESIA PLACEHOLDER (02/15/2025 8:41 AM EDT) Narrative Mike Shabazz CRNA, DNP - 02/15/2025 8:41 AM EDT Mike Shabazz CRNA, DNP 02/15/2025 9:37 AM Airway Date/Time: 02/15/2025 8:41 AM Reason: elective Airway not difficult General Information and Staff Patient location during procedure: OR Anesthesiologist: Tim Melendez MD CROP QUANTITATIVE GENETICIST: Mike Shabazz CRNA, DNP Performed: KARIN Patient Condition Indications for airway management: anesthesia and airway protection Final Airway Details Final airway type: endotracheal airway Successful airway: ETT Cuffed: yes Successful intubation technique: video laryngoscopy Endotracheal tube insertion site: oral Blade: Kesha Blade size: #3 ETT size (mm): 7.5 Cormack-Lehane Classification: grade I - full view of glottis Placement verified by: chest auscultation and capnometry Measured from: lips ETT to lips (cm): 22 Result [facility] Tim Melendez MD ANESTHESIA ORDERABLES Final Re sult documented in this encounter Visit Diagnoses Not on filedocumented in this encounter Administered Medications Inactive Administered Medications - up to 3 most recent administrations Medication Order MAR Action Action Date Dose Rate Site acetaminophen (Ofirmev) injection Intravenous, As needed, Starting on Thu02/15/25 at 0904, Until Thu02/15/25 at 1101, Routine Given 02/15/2025 9:04 AM EDT 1,000 mg ceFAZolin (Ancef) injection Intravenous, As needed, Starting on Thu02/15/25 at 0918, Until Thu02/15/25 at 1101, Routine, Anesthesia Intraprocedure Given 02/15/2025 9:18 AM EDT 2 g dexamethasone (Decadron) injection Intravenous, As needed, Starting on Thu02/15/25 at 0945, Until Thu02/15/25 at 1101, Routine, Anesthesia Intraprocedure Given 02/15/2025 9:45 AM EDT 8 mg ePHEDrine Sulfate (Akovaz) injection Intravenous, As needed, Starting on Thu02/15/25 at 0847, Until Thu02/15/25 at 1101, Routine, Anesthesia Intraprocedure Given 02/15/2025 10:29 AM EDT 10 mg Given 02/15/2025 8:47 AM EDT 15 mg fentaNYL (Sublimaze) injection Intravenous, As needed, Starting on Thu02/15/25 at 0839, Until Thu02/15/25 at 1101, Routine, Anesthesia Intraprocedure Given 02/15/2025 8:39 AM EDT 100 mcg HYDROmorphone PF (Dilaudid) injection Intravenous, As needed, Starting on Thu02/15/25 at 0949, Until Thu02/15/25 at 1101, Routine, Anesthesia Intraprocedure Given 02/15/2025 9:49 AM EDT 1 m g lactated Ringer's infusion Intravenous, Continuous PRN, Starting on Thu02/15/25 at 0831, Until Thu02/15/25 at 1101, Routine New Bag 02/15/2025 8:31 AM EDT lidocaine PF (Xylocaine) 2 % injection Intravenous, As needed, Starting on Thu02/15/25 at 0840, Until Thu02/15/25 at 1101, Routine, Anesthesia Intraprocedure Given 02/15/2025 8:40 AM EDT 100 mg phenylephrine in NS (Isrrael-Synephrine) 100 mcg/mL prefilled syringe Intravenous, As needed, Starting on Thu02/15/25 at 0847, Until Thu02/15/25 at 1101, Routine, Anesthesia Intraprocedure Given 02/15/2025 10:19 AM EDT 10 0 mcg Given 02/15/2025 8:47 AM EDT 100 mcg propofol (Diprivan) infusion 10 mg/mL Intravenous, Continuous PRN, Starting on Thu02/15/25 at 0911, Until Thu02/15/25 at 1101, Routine New Bag 02/15/2025 9:11 AM EDT 200 mcg/kg/min 68.04 mL/hr New Bag 02/15/2025 8:39 AM EDT 150 mcg/kg/min 51.03 mL/ hr New Bag 02/15/2025 8:35 AM EDT 150 mcg/kg/min 51.03 mL/ hr propofol (Diprivan) injection Intravenous, As needed, Starting on Thu02/15/25 at 0840, Until Thu02/15/25 at 1101, Routine, Anesthesia Intraprocedure Given 02/15/2025 8:40 AM EDT 100 mg remifentanil (Ultiva) injection Intravenous, Continuous PRN, Starting on Thu02/15/25 at 0835, Until Thu02/15/25 at 1101, Routine, Anesthesia Intraprocedure New Bag 02/15/2025 8:35 AM EDT 0.1 mcg/kg/min 0.34 mL/hr documented in this encounter Additional Health Concerns Assessment Noted Time A fall risk assessment has been complete d for the patient 01/17/2025 11:24 AM EDT A Body Mass Index follow-up plan has been documented for the patient 01/19/2025 2:15 PM EDT documented as of this encounter Care Teams Guest Relations Coordinator Relationship Specialty Start Date End Date Wolfgang Cantu MD PCP - General 10/01/24 documented as of this encounter
--- OUTSIDE RECORDS SUMMARY | 2025-03-02 15:20 | XMS_ITS | Encounter Summary ---
Author Organization Healthcare Address [address] [place] [address] Care Team Providers Care Awning Craftsman Name Role Phone Wolfgang Cantu MD Primary Care Provider [phone] Encounter Details Date Type Department Care Team (Late st Contact Info) Description 03/02/2025 3:20 PM EDT Office Visit [facility] [address] [place] [address] Dleilah Nieves, KITCHEN OPERATOR, DNP [address] [place] [address] S/P insertion of spinal cord stimulator (Primary Dx); Superficial incisional surgical site infection Social History Tobacco Use Types Packs/Day Years [...] any time in the past 12 m [facility], were you homeless or living in a group home (including now)? No 10/03/2024 Utilities Answer [...] Sign Reading Time Taken Comments Blood Pressure 131/89 03/02/2025 2:31 PM EDT Pulse 74 03/02/2025 2:31 PM EDT Temperature - - Respiratory Rate - - Oxygen Saturation 96% 03/02/2025 2:31 PM EDT Inhaled Oxygen Concentration - - Weight 57.1 kg (125 lb 14.1 oz) 03/02/2025 2:31 PM EDT Height 175.3 cm (5' 9 ) 03/02/2025 2:31 PM EDT Body Mass Index 18.59 03/02/2025 2:31 PM EDT documented in this encounter Miscellaneous Notes * Progress Notes - Delilah Nieves, KITCHEN OPERATOR, DNP - 03/02/2025 3:20 PM EDT Images from the original note were not included. We had the pleasure of seeing your patient in our clinic today for Neurosurgical post-op visit. Chief Complaint: Status post spinal cord stimulator IPG and lead replacement History Of Present Illness Negro Miller is a 65 y.o. male who presents to neurosurgical clinic today for follow-up 2 weeks status post spinal cord stimulator IPG and lead replacement on 02/15/[address] Girard. Preoperatively, the patient was experiencing malfunction of the spinal cord stimulator. He reports fallingover a log when his legs gave out on him. And since that point in time, he has been experiencing severe shooting pain down his bilateral lower extremities as well as severe, and unrelenting back pain. He was told by his spinal cord stimulator patient access representative at that the leads refrain or fractured utilizing the equipment [employer] to evaluate stimulators. At today's visit, he reports that he is in quite a bit of pain, and has run out of his previously prescribed oxycodone prior to when he is allowed to get a refill. He states he is also having chills and subjective fevers with severe tenderness around the thoracic incision site. Denies falls, but states that he feels that his legs are wantto give out on him frequently secondary to bilateral lower extremity weakness. Other than the tenderness at his thoracic incision, he denies other incisional issues. Denies bowel/bladder incontinence, saddle anesthesia, or urinary retention. He does report postoperative pain that he believes is inflammatory in nature, as well as severe muscle spasms. Overall though, he is hopeful that his stimulator we will be working appropriately and provide him with relief to his pain.. Past Medical History[1] Surgical History[2] Family History[3] Social History[4] Current Outpatient Medications Medication Instructions acetaminophen (TYLENOL) 650 mg, Every 6 hours PRN DULoxetine (CYMBALTA) 30 mg, Oral, Daily, Do not crush or chew. gabapentin (NEURONTIN) 600 mg, Oral, 3 times daily HYDROcodone-acetaminophen ([place]) 7.5-325 MG tablet 7.5 mg of hydrocodone, Oral, Every 4 hours PRN loperamide (IMODIUM) 2 mg, 4 times daily PRN methocarbamol (ROBAXIN) 500 mg, Oral, 4 times daily naloxone (NARCAN) 4 mg, Nasal, As needed ondansetron ODT (ZOFRAN-ODT) 8 mg, Every 12 hours PRN QUEtiapine (SEROQUEL) 25 mg, Nightly senna-docusate (Luz Maria-Colace) 8.6-50 MG tablet 1 tablet, Oral, Daily PRN Review of Systems 14 point review of systems was performed and was negative except as noted per HPI. Physical Exam GEN: well developed, no acute distress HEENT: normocephalic, atraumatic PULM: no increased work of breathing, normal effort CV: no edema noted MSK: no joint swelling, normal range of motion SKIN: warm and dry, capillary refill <2 seconds PSYCHE: normal mood and affect Neuro Exam GCS (EMV): 465 PERRL, EOMI Strength: Delt Bi Tri Hammerer Tab Intrinsics RUE: 5/5 5/5 5/5 5/5 5/5 LUE: 5/5 5/5 5/5 5/5 5/5 HF KE KF DF EHL PF RLE: 5/5 5/5 5/5 5/5 5/5 5/5 LLE: 5/5 5/5 5/5 5/5 5/5 5/5 Sensation intact throughout incision is clean, dry, and intact. Incision is without redness, ecchymosis, edema, and drainage and edges are approximated. Visit Vitals BP 131/89 Pulse 74 Ht 1.753 m (5' 9 ) Wt 57.1 kg (125 lb 14.1 oz) SpO2 96% BMI 18.59 kg/m?? Smoking Status Every Day BSA 1.67 m?? Imaging No new imaging to review Assessment and Plan Negro Miller is a 65 y.o. male with history of severe low back and bilateral lower extremity pain status post spinal cord stimulator placement with subsequent fracture of leads who underwent SCS Lead Replacement - [place] on 02/15/2025. Postoperatively, patient continues to have significant postoperative pain. This does appear to be inflammatory in nature, so I have provided the patient with a Medrol Dosepak as he can not take NSAIDs. He does complain of some muscle pain as well, so I have provided him with a prescription for cyclobenzaprine. He was instructed not to take this medication and his methocarbamol together. He also has some edema at the left lateral inferior portion of his thoracic incision, which is where the tenderness is the worst. Given this edema with the patient's subjective fevers and chills, out of an abundance of caution I have provided him with a prescription for doxycycline. I instructed the patient to contact the neurosurgical clinic if his incision or his symptoms continue to worsen and we will re-evaluate. As patient is doing fairly well overall, he mayfollow up with the neurosurgical clinic on an as- needed basis. I educated the patient on red flag symptoms that would require emergent intervention. Patient was agreeable with this plan. They were given the opportunity to ask questions, which were answered to their satisfaction. They were informed to to contact the Neurosurgery clinic with any questions, concerns, or worsening symptoms. I personally spent a total of 30 minutes on this encounter. This time includes face to face with patient, and review of imaging, counseling and discussion and/or coordination of care. Parts of this note were dictated using [employer] Direct voice recognition software. As a result, errors may occur. When identified, these skills auditor errors are corrected, but while every attempt is made to prevent/correct these, errors may still exist. Delilah Nieves DNP, KITCHEN OPERATOR [facility] Department of Neurosurgery Diagnoses and all orders for this visit: S/P insertion of spinal cord stimulator (Primary) - doxycycline (Adoxa) 100 MG tablet; Take 1 tablet by mouth 2 times a day for 7 days. Take with a full glass of water and do not lie down for at least 30 minutes after Superficial incisional surgical site infection - doxycycline (Adoxa) 100 MG tablet; Take 1 tablet by mouth 2 times a day for 7 days. Take with a full glass of water and do not lie down for at least 30 minutes after Other orders - methylPREDNISolone (Medrol Dospak) 4 MG tablets; Follow schedule on package instructions - cyclobenzaprine (Flexeril) 10 MG tablet; Take 1 tablet by mouth 3 times a day for 21 days. [1] Past Medical History: Diagnosis Date Personal history of other specified conditions History of abdominal pain Personal history of other specified conditions History of diarrhea S/P insertion of spinal cord stimulator [2] Past Surgical History: Procedure Laterality Date CARDIAC DEFIBRILLATOR PLACEMENT SHOULDER SURGERY N/A Shoulder Surgery from [employer] SPINAL CORD STIMULATOR IMPLANT 2016 SPINAL CORD STIMULATOR IMPLANT Left 02/15/2025 lead replacement [3] Family History Problem Relation Name Age of Onset Hypertension Mother Diabetes Father Conversions - Other Sister Thyroid dysfunction Anesthesia problems Neg Hx Malig Hyperthermia Neg Hx [4] Social History Tobacco Use Smoking status: Every Day Current packs/day: 3.00 Types: Cigarettes Smokeless tobacco: Never Tobacco comments: Heavy cigarette smoker (20-39 per day) Vaping Use Vaping status: Never Used Substance Use Topics Alcohol use: Never Drug use: Never documented in this encounter Plan of Treatment Not on file documented as of this encounter Visit Diagnoses Diagnosis S/P insertion of spinal cord stimulator- Primary Superficial incisional surgical site infection documented in this encounter Additional Health Concerns Assessment Noted Time A fall risk assessment has been complete d for the patient 01/17/2025 11:24 AM EDT A Body Mass Index follow-up plan has been documented for the patient 03/02/2025 5:37 PM EDT documented as of this encounter Care Teams Awning Craftsman Relationship Specialty Start Date End Date Wolfgang Cantu MD PCP - General 10/01/24 documented as of this encounter
--- OUTSIDE RECORDS SUMMARY | 2025-03-06 14:15 | XMS_ITS | Encounter Summary ---
Author Organization [facility] Address [address] [place] [address] Care Team Providers Care Gas Line Installer Name Role Phone Wolfgang Cantu MD Primary Care Provider + Reason for Visit * Reason Comments Medicare Wellness-subsequent Encounter Details Date Type Department Care Team (Late st Contact Info) Description 03/06/2025 2:15 PM EDT Office Visit [facility] [address] [place] [address] Wolfgang Cantu MD [address] [place] [address] Medicare annual wellness visit, subsequent (Primary Dx); Annual physical exam; Nonischemic cardiomyopathy; Mood disorder; Degenerative disc disease, cervical; Cervical arthritis; Osteoarthritis of spine with radiculopathy, lumbar region; Other chronic pain Social History Tobacco Use Types Packs/Day Years [...] or training? Not on file Preferred Language Egyptian 10/28/2023 PHQ-2 Answer Date Recorded Patient Health Questionnaire-9 Score 16 03/06/2025 Sex and Gender Information Value Date Recorded Sex Assigned at Not on file Legal Sex Male 1:35 PM EDT Gender Identity Not on file Sexual Orientation Not on file documented as of this encounter Last Filed Vital Signs Vital Sign Reading Time Taken Comments Blood Pressure 140/80 03/06/2025 2:12 PM EDT Pulse 85 03/06/2025 2:12 PM EDT Temperature 36.7 C (98 F) 03/06/2025 2:12 PM EDT Respiratory Rate 24 03/06/2025 2:12 PM EDT Oxygen Saturation 98% 03/06/2025 2:12 PM EDT Inhaled Oxygen Concentration - - Weight 58.7 kg (129 lb 6.4 oz) 03/06/2025 2:12 P M EDT Height 175.3 cm (5' 9.02 ) 03/06/2025 2:12 PM ED T Body Mass Index 19.1 03/06/2025 2:12 PM EDT documented in this encounter Functional Status documented as of this encounter Progress Notes * Wolfgang Cantu MD - 03/06/2025 2:15 PM EDTAssociated Problem(s): Nonischemic cardiomyopathy Congestive 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 Heart failure is stable. NYHA Class II. Continue current treatment regimen. Heart failure will be reassessed in 6 months. * Wolfgang Cantu MD - 03/06/2025 2:15 PM EDTAssociated Problem(s): Degenerative disc disease, cervical * Wolfgang Cantu MD - 03/06/2025 2:15 PM EDTAssociated Problem(s): Cervical arthritis * Wolfgang Cantu MD - 03/06/2025 2:15 PM EDTAssociated Problem(s): Osteoarthritis of spine with radiculopathy, lumbar region * Wolfgang Cantu MD - 03/06/2025 2:15 PM EDTAssociated Problem(s): Other chronic pain * Wolfgang Cantu MD - 03/06/2025 2:15 PM EDT Images from the original note were not included. Subjective The ABCs of the Annual Wellness Visit Medicare Wellness Visit Negro Miller is a 65 y.o. patient who presents for a Medicare Wellness Visit. The following portions of the patient's history were reviewed and updated as appropriate: allergies, current medications, past family history, past medical history, past social history, past surgical history, and problem list. Compared to one year ago, the patient's physical health is worse. Compared to one year ago, the patient's mental health is the same. Recent Hospitalizations: He was not admitted to the hospital during the last year. Current Medical Providers: Patient Care Team: Wolfgang Cantu MD as PCP - General (Family Medicine) Marshall Schuster MD as Consulting Physician (Interventional Cardiology) Mahesh Clarke MD (Anesthesiology) Basil Talbert MD as Consulting Physician (Urology) Outpatient Medications Prior to Visit Medication Sig Dispense Refill alfuzosin (UROXATRAL) 10 MG 24 hr tablet Take 1 tablet by mouth Daily. 30 tablet 3 doxycycline (ADOXA) 100 MG tablet Take 1 tablet by mouth. gabapentin (NEURONTIN) 300 MG capsule Take 1 capsule by mouth 3 (Three) Times a Day. 90 capsule 3 HYDROcodone-acetaminophen ([place]) 7.5-325 MG per tablet Take 1 tablet by mouth Every 8 (Eight) Hours As Needed for Severe Pain. 90 tablet 0 methocarbamol (ROBAXIN) 500 MG tablet Take 1 tablet by mouth 4 (Four) Times a Day. 30 tablet 3 methylPREDNISolone (MEDROL) 4 MG dose pack Follow schedule on package instructions naloxone (NARCAN) 4 MG/0.1ML nasal spray Administer 1 spray into the nostril(s) as directed by provider. omeprazole (priLOSEC) 20 MG capsule Take 1 capsule by mouth Daily. 30 capsule 3 ondansetron ODT (ZOFRAN-ODT) [address] 1 tablet on the tongue Every 8 (Eight) Hours As Needed for Nausea or Vomiting. 30 tablet 3 QUEtiapine (SEROquel) 25 MG tablet Take 1 tablet by mouth Every Night. 30 tablet 3 No facility-administered medications prior to visit. Opioid medication/s are on active medication list. and I have evaluated his active treatment plan and pain score trends (see table). Vitals: 03/06/25 1412 PainSc: 8 PainLoc: Back I have reviewed the chart for potential of high risk medication and harmful drug interactions in the elderly. Aspirin is not on active medication list. Aspirin use is not indicated based on review of current medical condition/s. Risk of harm outweighs potential benefits. . Patient Active Problem List Diagnosis Nonischemic cardiomyopathy Osteoarthritis of spine with radiculopathy, lumbar region Cervical arthritis Malignant neoplasm of overlapping sites of bladder Other chronic pain Pacemaker Degenerative disc disease, cervical Blood in the stool Lower abdominal pain Tick bite of abdominal wall Advance Care Planning Advance Directive is not on file. ACP discussion was held with the patient during this visit. Patient does not have an advance directive, information provided. Objective Vitals: 03/06/25 1412 BP: 140/80 Pulse: 85 Resp: 24 Temp: 98 ??F (36.7 ??C) SpO2: 98% Weight: 58.7 kg (129 lb 6.4 oz) Height: 175.3 cm (69.02 ) PainSc: 8 PainLoc: Back Estimated body mass index is 19.1 kg/m?? as calculated from the following: Height as of this encounter: 175.3 cm (69.02 ). Weight as of this encounter: 58.7 kg (129 lb 6.4 oz). BMI is within normal parameters. No other follow-up for BMI required. Does the patient have evidence of cognitive impairment? No Health Risk Assessment Smoking Status: Social History Tobacco Use Smoking Status Every Day Current packs/day: 2.00 Average packs/day: 2.0 packs/day for 50.0 years (100.0 ttl pk-yrs) Types: Cigarettes Smokeless Tobacco Never Tobacco Comments Smoked since 12 years okd Alcohol Consumption: Social History Substance and Sexual Activity Alcohol Use Yes Comment: quit 09/16/2022 Fall Risk Screen STEADI Fall Risk Assessment was completed, and patient is at HIGH risk for falls. Assessment completed on:03/06/2025 Depression Screening Little interest or pleasure in doing things? Nearly every day Feeling down, depressed, or hopeless? Nearly every day PHQ-2 Total Score 6 Trouble falling or staying asleep, or sleeping too much? Nearly every day Feeling tired or having little energy? Nearly every day Poor appetite or overeating? Several days Feeling bad about yourself - or that you are a failure or have let yourself or your family down? Not at all Trouble concentrating on things, such as reading the newspaper or watching television? More than half the days Moving or speaking so slowly that other people could have noticed? Or the opposite - being so fidgety or restless that you have been moving around a lot more than usual? Several days Thoughts that you would be better off , or of hurting yourself in some way? Not at all PHQ-9 Total Score 16 If you checked off any problems, how difficult have these problems made it for you to do your work,take care of things at home, or get along with other people? Somewhat difficult Health Habits and Functional and Cognitive Screenin03/06/2025 2:15 PM Functional & Cognitive Status Do you have difficulty preparing food and eating? No Do you have difficulty bathing yourself, getting dressed or grooming yourself? No Do you have difficulty using the toilet? No Do you have difficulty moving around from place to place? Yes Do you have trouble with steps or getting out of a bed or a chair? Yes Current Diet Well Balanced Diet Dental Exam Other Dental Exam Comment no teeth Eye Exam Not up to date Exercise (times per week) 0 times per week Current Exercises Include No Regular Exercise Do you need help using the phone? No Are you deaf or do you have serious difficulty hearing? No Do you need help to go to places out of walking distance? Yes Do you need help shopping? No Do you need help preparing meals? No Do you need help with housework? Yes Do you need help with laundry? Yes Do you need help taking your medications? No Do you need help managing money? Yes Do you ever drive or ride in a car without wearing a seat belt? No Have you felt unusual fatigue (could be tiredness), stress, anger or loneliness in the last month? Yes Who do you live with? Alone If you need help, do you have trouble finding someone available to you? No Have you been bothered in the last four weeks by sexual problems? Yes Do you have difficulty concentrating, remembering or making decisions? Yes Age-appropriate Screening Schedule: Refer to the list below for future screening recommendations based on patient's age, sex and/or medical conditions. Orders for these recommended tests are listed in the plan section. The patient has been provided with a written plan. Health Maintenance List Health Maintenance Topic Date Due AAA SCREEN ONCE Never done COVID-19 Vaccine (2024- season) 2025 (Originally 02/27/2025) LUNG CANCER SCREENING 09/04/2025 (Originally 01/21/2008) INFLUENZA VACCINE 03/29/2025 ANNUAL WELLNESS VISIT 03/06/2026 TDAP/TD VACCINES (2 - Td or Tdap) 03/11/2032 COLORECTAL CANCER SCREENING 11/02/2033 HEPATITIS C SCREENING Completed Pneumococcal Vaccine 50+ Completed ZOSTER VACCINE Completed [facility] Preventative Services Quick Reference Risk Factors Identified During Encounter Chronic Pain: Natural history and expected course discussed. Questions answered. F/u IPM Depression/Dysphoria: Elevated PHQ score reflective of other stress or illness, not depression Fall Risk-High or Moderate: Discussed Fall Prevention in the home Immunizations Discussed/Encouraged: Influenza and COVID19 Urinary Incontinence: f/u Urology Chronic Care visits with PCP every 3 months The above risks/problems have been discussed with the patient. Pertinent information has been shared with the patient in the After Visit Summary. An After Visit Summary and PPPS were made available to the patient. Follow Up: Next Medicare Wellness visit to be scheduled in 1 year. Additional E&M Note during same encounter follows: Patient has additional, significant, and separately identifiable condition(s)/problem(s) that require work above and beyond the Medicare Wellness Visit Chief Complaint Medicare Wellness-subsequent Subjective HPI Negro is also being seen today for an annual adult preventative physical exam. Review of Systems Respiratory: Negative for shortness of breath. Cardiovascular: Negative for chest pain, palpitations and leg swelling. Genitourinary: Positive for decreased urine volume, difficulty urinating and frequency. Musculoskeletal: Positive for back pain, gait problem and neck stiffness. All other systems reviewed and are negative. Objective Vital Signs: BP 140/80 Pulse 85 Temp 98 ??F (36.7 ??C) Resp 24 Ht 175.3 cm (69.02 ) Wt 58.7 kg (129 lb6.4 oz) SpO2 98% BMI 19.10 kg/m?? Physical Exam Constitutional: General: He is not in acute distress. Appearance: Normal appearance. He is ill-appearing. HENT: Head: Normocephalic and atraumatic. Right Ear: Tympanic membrane and ear canal normal. Left Ear: Tympanic membrane and ear canal normal. Nose: Nose normal. Mouth/Throat: Mouth: Mucous membranes are moist. Pharynx: Oropharynx is clear. No posterior oropharyngeal erythema. Eyes: Extraocular Movements: Extraocular movements intact. Conjunctiva/sclera: Conjunctivae normal. Pupils: Pupils are equal, round, and reactive to light. Cardiovascular: Rate and Rhythm: Normal rate and regular rhythm. Pulses: Normal pulses. Heart sounds: Normal heart sounds. Pulmonary: Effort: Pulmonary effort is normal. No respiratory distress. Breath sounds: Normal breath sounds. Abdominal: General: Abdomen is flat. Bowel sounds are normal. Palpations: Abdomen is soft. Tenderness: There is no abdominal tenderness. Musculoskeletal: General: Normal range of motion. Cervical back: Normal range of motion and neck supple. Lymphadenopathy: Cervical: No cervical adenopathy. Skin: General: Skin is warm and dry. Capillary Refill: Capillary refill takes less than 2 seconds. Neurological: General: No focal deficit present. Mental Status: He is alert and oriented to person, place, and time. Mental status is at baseline. Cranial Nerves: No cranial nerve deficit. Sensory: No sensory deficit. Motor: No weakness. Psychiatric: Mood and Affect: Mood normal. Behavior: Behavior normal. Thought Content: Thought content normal. Judgment: Judgment normal. The following data was reviewed by: Wolfgang Cantu MD on 03/06/2025: Data reviewed : Front Office Manager notes IPM [facility] 02/2025, [facility] Cardiology Jan 2025 Assessment and Plan Additional age appropriate preventative wellness advice topics were discussed during today's preventative wellness exam(some topics already addressed during AWV portion of the note above): Physical Activity: Advised cardiovascular activity 150 minutes per week as tolerated. (example brisk walk for 30 minutes, 5 days a week). Nutrition: Discussed nutrition plan with patient. Information shared in after visit summary. Goal is for a well balanced diet to enhance overall health. Healthy Weight: Discussed current and goal BMI with patient. Steps to attain this goal discussed. Information shared in after visit summary. Tobacco Misuse Discussion: Information shared in after visit summary. Motor Vehicle Safety Discussion: Wearing Seatbelt While in Motor Vehicle recommendation. Adhering to posted speed limit recommendation. Injury Prevention Discussion: Information shared in after visit summary. 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 Heart failure is stable. NYHA Class II. Continue current treatment regimen. Heart failure will be reassessed in 6 months. Mood disorder Psychological condition is stable. Continue current treatment regimen. Psychological condition will be reassessed in 3 months. Degenerative disc disease, cervical Cervical arthritis Osteoarthritis of spine with radiculopathy, lumbar region Other chronic pain Follow Up Return in about 3 months (around 06/05/2025) for Next scheduled follow up. Patient was given instructions and counseling regarding his condition or for health maintenance advice. Please see specific information pulled into the AVS if appropriate. documented in this encounter Plan of Treatment Upcoming Encounters Date Type Department Care Team (Late st Contact Info) Description 06/05/2025 11:45 AM EST Office Visit [facility] [address] [place] [address] Wolfgang Cantu MD [address] [place] [address] 03/08/2026 2:15 PM EDT Office Visit [facility] [address] [place] [address] Wolfgang Cantu MD [address] [place] [address] documented as of this encounter Visit Diagnoses Diagnosis Medicare annual wellness visit, subsequent- Primary Annual physical exam Routine general medical examination at a health care facility Nonischemic cardiomyopathy Other primary cardiomyopathies Mood disorder Unspecified episodic mood disorder Degenerative disc disease, cervical Cervical arthritis Cervical spondylosis without myelopathy Osteoarthritis of spine with radiculopathy, lumbar region Other chronic pain documented in this encounter Additional Health Concerns Assessment Noted Time PHQ-2 Depression Total Score: 6 08/18/19 24 9:43 AM EST documented as of this encounter Care Teams Gas Line Installer Relationship Specialty Start Date End Date Wolfgang Cantu MD [address] [place] [address] PCP - General Family Medicine 11/13/21 documented as of this encounter
--- OUTSIDE RECORDS SUMMARY | 2025-03-27 09:42 | XMS_ITS | Encounter Summary ---
Author Organization [facility] Address [address] [place] [address] Care Team Providers Care Singing Teacher Name Role Phone Wolfgang Cantu MD Primary Care Provider [phone] Reason for Visit * Reason Onset Date Comments HCN - Patient Message 01/17/2025 Order Encounter Details Date Type Department Care Team (Late st Contact Info) Description 01/17/2025 Telephone [facility] [address] [place] [address] Min Troy MD [address] [place] [address] HCN - Patient Message (Order [...] any time in the past 12 m [facility] [place] were you homeless or living in a [...] (Lifetime) No 02/15/2025 6:56 AM EDT Winston Hill, RN documented as of this encounter Miscellaneous Notes * Telephone Encounter - Barron Uribe RN - 01/17/2025 12:45 PM EDT Order placed by Delilah Nieves. * Telephone Encounter - Ifeoma Rincon - 01/17/2025 12:29 PM EDT Patient Phone Message Reason for Call: Patient is at radiology now to get x-ray done and they have no order. Please upload to [employer]. Best contact number and optimal time of day to reach caller: [phone] anytime Note: Please do not reply to this message. Follow-up communication and further actions as a result of this message need to be communicated with the patient directly, if the patient is not active onMyChart. If the patient is active on MyChart, they will receive notification of the communication/outcome via Get[employer]. documented in this encounter Plan of Treatment [...] documented as of this encounter Care Teams Singing Teacher Relationship Specialty Start Date End Date Wolfgang Cantu MD PCP - General 10/01/24 documented as of this encounter
--- OUTSIDE RECORDS SUMMARY | 2025-03-27 09:42 | XMS_ITS | Encounter Summary ---
Author Organization [facility] Address [address] [place] [address] Care Team Providers Care Steamboat Inspector Name Role Phone Wolfgang Cantu MD Primary Care Provider [phone] Encounter Details Date Type Department Care Team (Latest Contact Info) Description 02/13/2025 Travel Social History Tobacco Use Types Packs/Day [...] in the past 12 m [facility], were you homeless or living in a fdc (including now)? No 10/03/2024 Utilities Answer Date [...] documented as of this encounter Care Teams Steamboat Inspector Relationship Specialty Start Date End Date Wolfgang Cantu MD PCP - General 10/01/24 documented as of this encounter
--- OUTSIDE RECORDS SUMMARY | 2025-03-27 09:42 | XMS_ITS | Encounter Summary ---
Author Organization [facility] Address [address] [place] [address] Care Team Providers Care Track Laying Equipment Operator Name Role Phone Wolfgang Cantu MD Primary Care Provider + Reason for Visit * Reason Onset Date Comments Med Refill 02/01/2025 Encounter Details Date Type Department Care Team (Late st Contact Info) Description 02/01/2025 Refill [facility] [address] [place] [address] Wolfgang Cantu MD [address] [place] [address] Other chronic pain; Osteoarthritis of [...] or training? Not on file Preferred Language British 10/28/2023 PHQ-2 Answer Date Recorded Patient Health [...] Negro Miller Relationship: Self Best call back number:[phone] Requested Prescriptions: Requested Prescriptions Pending Prescriptions Disp Refills gabapentin (NEURONTIN) 300 MG capsule 90 capsule 2 Sig: Take 1 capsule by mouth 3 (Three) Times a Day. HYDROcodone-acetaminophen ([place]) 7.5-325 MG per tablet 90 tablet 0 [...] tablet Pharmacy where request should be sent: [facility] [place] [address] [address] - [phone] - [phone] FX Last office visit with prescribing clinician: [...] Description 06/05/2025 11:45 AM EST Office Visit [facility] [address] [place] [address] Wolfgang Cantu MD [address] [facility] [place] [address] 03/08/2026 2:[address] PM [address]T Office [facility] [address] [place] [address] Wolfgang Cantu MD [address] [place] [address] documented as of this encounter Visit [...] documented as of this encounter Care Teams Track Laying Equipment Operator Relationship Specialty Start Date End Date Wolfgang Cantu MD [address] [place] [address] PCP - General Family Medicine 11/13/21 documented as of this encounter
--- OUTSIDE RECORDS SUMMARY | 2025-03-27 09:42 | XMS_ITS | Encounter Summary ---
Author Organization [facility] Address [address] [place] [address] Care Team Providers Care Lift Operator Name Role Phone Wolfgang Cantu MD Primary Care Provider + Encounter Details Date Type Department Care Team (Late st Contact Info) Description 01/24/2025 Results Follow-Up [facility] [address] [place] [address] Lily Bobby PA-C [address] [place] [address] Social History Tobacco Use Types [...] or training? Not on file Preferred Language Cambodian 10/28/2023 PHQ-2 Answer Date Recorded Patient Health [...] Description 06/05/2025 11:45 AM EST Office Visit [facility] [address] [place] [address] Wolfgang Cantu MD [address] [place] [address] 03/08/2026 2:15 PM EDT Office Visit [facility] [address] [place] [address] Wolfgang Cantu MD [address] [place] [address] documented as of this encounter Visit Diagnoses Not on filedocumented in this encounter Additional Health Concerns Assessment Noted Time PHQ-2 Depression Total Score: 6 08/18/19 24 9:43 AM EST documented as of this encounter Care Teams Lift Operator Relationship Specialty Start Date End Date Wolfgang Cantu MD [address] [place] [address] PCP - General Family Medicine 11/13/21 documented as of this encounter
--- OUTSIDE RECORDS SUMMARY | 2025-03-27 09:42 | XMS_ITS | Encounter Summary ---
Author Organization [facility] Address [address] [place] [address] Care Team Providers Care Inside Phone Sales Name Role Phone Wolfgang Cantu MD Primary Care Provider [phone] Encounter Details Date Type Department Care Team (Latest Contact Info) Description 02/15/2025 Travel Social History Tobacco Use Types Packs/Day [...] were you homeless or living in a skilled nursing (including now)? No 10/03/2024 Utilities Answer Date [...] Hill RN documented as of this encounter Plan of [...] documented as of this encounter Care Teams Inside Phone Sales Relationship Specialty Start Date End Date Wolfgang Cantu MD PCP - General 10/01/24 documented as of this encounter
--- OUTSIDE RECORDS SUMMARY | 2025-03-27 09:42 | XMS_ITS | Clinical Summary ---
Author Organization [facility] Address [address] [place] [address] Care Team Providers Care Mill Oiler Name Role Phone Wolfgang Cantu MD Primary Care Provider [phone] Allergies Active Allergy Reactions Criticality Noted Date Comments Acetaminophen Unknown - Patient st ates they do not know rxn details Low 11/05/2022 Codeine Other - please docum ent in the comment field,Hallucinations Medium 11/13/2021 Drowsy Hydrocodone Unknown - Patient st ates they do not know rxn details Low 11/05/2022 Ibuprofen Nausea And Vomiting,Other - please document [...] 6 hours as needed for pain. Under [place] law, monthly prescriptions (30 days) can be [...] and 2 capsules before bedtime. 60 capsule 10/05/19 25 Active Additional Information Patient taking differently: 300 mgOral 3 times daily, Reported on 03/02/2025 naloxone (Narcan) 4 mg/0.1 mL nasal spray 1. Give 1 spray in nostril for no/slow breathing or cannot wake after opioid use 2. Call 911 3. Repeat in other nostril if symptoms continue 1 each 10/05/19 25 Active DULoxetine (Cymbalta) [address] capsule Take 1 capsule by mouth daily. Do not crush or chew. 30 capsule 10/06/19 25 Active methocarbamol (Robaxin) 500 MG tablet Take 1 tablet by mouth in the morning and 1 tablet at noon and 1 tablet in the evening and 1 tablet before bedtime. Do all this for 7 days. 28 tablet 10/05/19 25 Active senna-docusate (Luz Maria-Colace) 8.6-50 MG tablet Take 1 tablet by mouth daily as needed for constipation. 30 tablet 02/16/20 25 Active HYDROcodone-acetam inophen ([place]) 7.5-325 MG tabletIndications: S/P placement of nerve stimulator Take 1 tablet by mouth every 4 hours as needed for severe pain (pain). 25 tablet 02/17/20 25 Active methylPREDNISolone (Medrol Dospak) 4 MG tablets Follow schedule on package instructions 21 tablet 03/02/20 25 Active cyclobenzaprine (Flexeril) 10 MG tablet Take 1 tablet by mouth 3 times a day for 21 days. 63 tablet 03/02/20 25 Active doxycycline (Adoxa) 100 MG tabletIndications: S/P insertion of spinal cord stimulator,Superfi cial incisional surgical site infection Take 1 tablet by mouth 2 times a day for 7 days. Take with a full glass of water and do not lie down for at least 30 minutes after 14 tablet 03/02/20 25 025 Active Problems Problem Noted Date Diagnosed Date Battery end of life of spinal cord stimulator Resolved Problems Problem Noted Date Diagnosed Date Resolved Date Suicidal ideation 10/01/2024 10/04/2024 Encounters Date Type Department Care Team Description 03/02/2025 3:20 PM EDT Office Visit [place] [facility] [address], [address] [place] [address] Delilah Nieves APRN, LANA S/P insertion of spinal cord stimulator (Primary Dx); Superficial incisional surgical site infection 03/02/2025 Travel 02/16/2025 Refill [facility] [address] [place] [address] Yolanda Hobbs APRN S/P placement of nerve stimulator (Primary Dx) 02/15/2025 8:30 AM EDT Anesthesia Event [facility] [address] [place] [address] Tim Melendez MD Mitchell, Shad A, CRNA, LANA 02/15/2025 8:00 AM EDT - 02/15/2025 10:10 AM EDT Surgery [facility] [address] [place] [address] Min Troy MD SCS Lead Replacement - [place] 02/15/2025 5:15 AM EDT - 02/15/2025 12:52 PM EDT Hospital Encounter [facility] [address] [place] [address] Min Troy MD Battery end of life of spinal cord stimulator Discharge Disposition: Home or Self Care 02/15/2025 Telephone [facility] [address] [place] [address] Blu Alvarez MD 02/15/2025 Travel 02/14/2025 2:50 PM EDT - 02/14/2025 11:59 PM EDT Hospital Encounter Cardiac Imaging [address] [place] [address] Discharge Disposition: Home or Self Care 02/14/2025 Travel 02/13/2025 3:50 PM EDT - 02/13/2025 11:59 PM EDT Hospital Encounter Cardiac Imaging [address] [place] [address] Discharge Disposition: Home or Self Care 02/13/2025 Travel 02/09/2025 10:45 AM EDT Pre-Admission Testing [facility] Pre[facility]op [facility] [address], [address] [place] [phone] Preop examination (Primary Dx) 02/09/2025 Telephone [place] [id number], [facility] [place] [address] Marbella Lockhart 02/09/2025 Travel 02/07/2025 Telephone [facility]op [facility] [address] [place] [address], [facility] [place] [phone] Garth Salmon MD 2025 Telephone [place] [address], [facility] [place] [address] Delilah Nieves APRN, LANA 01/17/2025 12:33 PM EDT - 01/17/2025 11:59 PM EDT Hospital Encounter [facility] Radiology [address] [place] [address], [address] [place] [phone] Malfunction of spinal cord stimulator, initial encounter; Tobacco dependence due to cigarettes Discharge Disposition: Home or Self Care 01/17/2025 10:30 AM EDT Consult [place] [id number] [facility], [address] [place] [phone] Min Troy MD Malfunction of spinal cord stimulator, initial encounter (Primary Dx); Tobacco dependence due to cigarettes 01/17/2025 Telephone [place] [address], [address] [place] [phone] Delilah Nieves APRN, LANA HCN - Patient Message 01/17/[address], [address] [place] [phone] Min Troy MD HCN - Patient Message (Order ) 01/17/2025 Travel from Last 3 Months Immunizations Immunization Administration Dates Next Due Influenza, injectable, quadrivalent, preservativ e free 05/02/2016 Family History Medical History Relation Name Comments Diabetes Father Hypertension Mother Conversions - Other Sister Thyroid dysfunction Anesthesia problems Neg Hx Malig Hyperthermia Neg Hx Relation Name Status Comments Father Mother Sister [...] any time in the past 12 m [facility], were you homeless or living in a intermediate (including now)? No 10/03/2024 Utilities Answer Date Recorded In the past 12 months has th [employer] electric, gas, oil, or water company threatened [...] Pulse 74 03/02/2025 2:31 PM EDT Temperature 36 C (96.8 F) 02/15/2025 12:00 PM EDT Respiratory Rate 18 02/15/2025 12:1 5 PM EDT Oxygen Saturation 96% 03/02/2025 2:31 PM EDT Inhaled Oxygen Concentration - - Weight 57.1 kg (125 lb 14.1 oz) 03/02/2025 2:31 PM EDT Height 175.3 cm (5' 9 ) 03/02/2025 2:31 PM EDT Body Mass Index 18.59 03/02/2025 2:31 PM EDT Plan of Treatment Health Maintenance Due Date Last Done Comments [facility]-Depression Screening 1960 [facility] Annual Wellness (AWV) 1960 [facility]-/Child/Adol SDOH Screenings 1960 [address] Colonography 2003 Colonoscopy 2003 FIT-DNA 2003 FIT 2003 FOBT 2003 Sigmoidoscopy 2003 [facility]-Colorectal Cancer Screening 2003 [facility]-Abdominal Aortic Aneurysm (AAA) Screening 2023 [id number] Vaccine ( season) 2025 06/15/2023, 10/11/2021, 05/13/2021, Additional history exists [facility]-Influenza Vaccine (#1) 02/27/202506/30, 04/07/2022, 06/03/2017, Additional history exists [facility]- SDOH Screenings 04/04/2025 [facility]-Adult SDOH Screenings 04/04/2025 10/03/2024 [facility]-DTaP,Tdap,and Td Vaccines [...] on patient's age to complete this topic Medical Devices Implanted Type Area Seismic Survey Assistant Device Identifier Shelf Expiration Date Model / Serial / Lot Pacemaker Pacemaker Left: Chest Procedures Procedure Name Priority Date/Time Associated Diagnosis Comments FL LESS THAN 1 HOUR (NON-REPORTABLE) Routine 02/15/2025 10:43 AM EDT SURGICAL PATHOLOGY EXAM Routine 02/15/2025 9:38 AM EDT Battery end of life of spinal cord stimulator ANESTHESIA PERIPHERAL IV PLACEMENT Routine 02/15/2025 8:45 AM EDT PB ANESTHESIA PLACEHOLDER Routine 02/15/2025 8:41 AM EDT MN AN ELECTIVE ENDOTRACHEAL AIRWAY Routine 02/15/2025 8:41 AM EDT REVISION, REMOVAL, OR REPLACEMENT, ELECTRODE LEAD, NEUROSTIMULATOR, SPINAL, WITH LAMINECTOMY OR LAMINOTOMY 02/15/2025 8:17 AM EDT Failure of spinal cord stimulator, initial encounter ([facility]) APTT STAT 02/15/2025 7:20 AM EDT PROTHROMBIN TIME(PT) / INR STAT 02/15/2025 7:20 AM EDT CARDIAC DEVICE CHECK - IN CLINIC - SUBQ ICD - INTERROGATION ONLY STAT 02/14/2025 3:54 PM EDT Preop examination CARDIAC DEVICE CHECK - IN CLINIC - SUBQ ICD - INTERROGATION ONLY STAT 02/13/2025 4:14 PM EDT Preop examination ECG ADULT Routine 02/09/2025 11:16 AM EDT Preop examination XR SCOLIOSIS ENTIRE SPINE 2 OR 3 VIEWS Routine 01/17/2025 12:47 PM EDT Malfunction of spinal cord stimulator, initial encounter Tobacco dependence due to cigarettes HEPATITIS C ANTIBODY - ED W/REFLEX TO HCV QUANT PCR Routine 10/01/2024 3:39 AM EDT from Last 3 Months or Most Recently Relevant to Health Maintenance Results * FL Less than 1 Hour Intraoperative (02/15/2025 10:43 AM EDT) Narrative IMAGING - 02/15/2025 10:44 AM EDT Images were obtained for surgical purposes. See Min Troy's surgical note in the patient's chart for the findings. Min Shah MD IMG FLUOROSCOPY PROC EDURES Final Result IMAGING * Surgical Pathology Exam (02/15/2025 9:38 AM EDT) Case Report Surgical Pathology Case: [id number] Authorizing Provider: Min Troy, Collected: 02/15/2025 0938 Ordering Location: [facility] Received: 02/15/2025 1102 Pathologist: Kayleigh Vanegas MD Specimen: Back, Lower, Explanted SCS lead 02/15/2025 4:55 PM EDT [facility] Final Diagnosis A. EXPLANTED SCS LEAD, REMOVAL: - FOR GROSS DIAGNOSIS ONLY. 02/15/2025 4:55 PM EDT [facility] at 1655 EDT Clinical Information Battery end of life of spinal cord stimulator [Z45.42] 02/15/2025 4:55 PM EDT [facility] Gross Description A. EXPLANTED SCS LEAD Received fresh labeled explanted SCS lead is a clear plastic strip with multiple, embedded, silver/metal electrodes measuring 4.0 x 1.0 x 0.2 cm. Also received are 2 plastic-coated metal leads measuring 32-57 cm in length and 0.2 cm in diameter. Specimen submitted for gross only. Jeny Rhea Reta 02/15/2025 4:55 PM EDT [facility] Note: A resident was involved in the service. I attest I examined the relevant preparations for the specimens and confirmed the diagnosis or interpretation. 02/15/2025 4:55 PM EDT [facility] Foreign Body Lower back structure / Unknown 02/15/2025 9:38 AM EDT 02/15/2025 11:02 AM EDT Comment:Pre-op diagnosis: Battery end of life of spinal cord stimulator [Z45.42] us Min Shah MD LAB PATHOLOGY ORDERA BLES Final Result [facility] [address] [place] [address] * Peripheral IV (02/15/2025 8:45 AM EDT) Narrative Mike Shabazz CRNA, DNP - 02/15/2025 8:45 AM EDT Mike Shabazz CRNA, DNP 02/15/2025 10:29 AM Peripheral IV Date/Time: 02/15/2025 8:45 AM Inserted by: Mike Shabazz CRNA, DNP Placement Needle size: 18 G Location: hand Site prep: alcohol Technique: anatomical landmarks Attempts: 1 us Tim Melendez MD ANESTHESIA ORDERABLES Final Re sult * MN AN ELECTIVE ENDOTRACHEAL AIRWAY, PB ANESTHESIA PLACEHOLDER (02/15/2025 8:41 AM EDT) Narrative Mike Shabazz CRNA, DNP - 02/15/2025 8:41 AM EDT Mike Shabazz CRNA, DNP 02/15/2025 9:37 AM Airway Date/Time: 02/15/2025 8:41 AM Reason: elective Airway not difficult General Information and Staff Patient location during procedure: OR Anesthesiologist: Tim Melendez MD INSURANCE ADJUSTER: Mike Shabazz CRNA, DNP Performed: INSURANCE ADJUSTER Patient Condition Indications for airway management: anesthesia [...] from: lips ETT to lips (cm): 22 us Tim Melendez MD ANESTHESIA ORDERABLES Final Re sult * APTT (02/15/2025 7:20 AM EDT) aPTT 31 25 - 35 sec LAB COAGULATION METHOD 02/15/2025 8:29 AM EDT [facility] Blood Venous blood specimen / Unknown Venipuncture / Unknown 02/15/2025 7:20 AM EDT 02/15/2025 7:25 AM EDT us Min Shah MD LAB BLOOD ORDERABLES Final Result [facility] [address] [place] [address] * Protime-INR (02/15/2025 7:20 AM EDT) Prothrombin Time 13.1 12.0 - 14.3 sec LAB COAGULATION METHOD 02/15/2025 8:29 AM EDT [facility] INR 1.0 0.9 - 1.1 LAB COAGULATION METHOD 02/15/2025 8:29 AM EDT [facility] Blood Venous blood specimen / Unknown Venipuncture / Unknown 02/15/2025 7:20 AM EDT 02/15/2025 7:25 AM EDT Narrative [facility] - 02/15/2025 8:29 AM EDT OPTIMAL INR RANGES FOR PATIENT ON ORAL ANTICOAGULANT THERAPY Prevention of venous thromboembolism INR 2.0 to 3.0 In patients with heart disease: Atrial fibrillation INR 2.0 to 3.0 Valvular heart disease INR 2.0 to 3.0 Tissue heart valves INR 2.0 to 3.0 Mechanical prosthetic valves INR 2.5 to 3.5 Prevention of recurrent UT INR 2.5 to 3.5 Min Shah MD LAB BLOOD ORDERABLES Final Result [facility] [address] [place] [address] * CARDIAC DEVICE CHECK - IN CLINIC - SUBQ ICD - INTERROGATION ONLY (02/14/2025 3:54 PM EDT) Only the most recent of2 resultswithin the time period is included. Anatomical Region Laterality Modality Other Narrative 02/15/2025 9:51 AM EDT [facility]: Pre-operative CIED Report Assessment and Luz Maria-Procedural Reommendations: Name: Negro Miller Date: 02/15/2025 : 1960 Age: 65 y.o. 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 Recommendation: Heart rate dependency on ICD cannot be excluded. Contact the device indirect sales representative [email or web address] ( ) to temporarily reprogram CIED to [...] back on. ? Post procedure, contact device indirect sales representative to return and reprogram back to pre-procedure settings unless medical team orders different settings.?? Pre-procedural CIED evaluation based on available documentation dated 02/14/2025 for perioperative device management recommendations. Can be found in [employer] file. us Paige SUAREZ CV IMPLANTABLE CARDIAC DEVICE P ROCEDURES Final Result * ECG Adult (Now - Performed in your clinic) (02/09/2025 11:16 AM EDT) EKG DIAGNOSIS CLASS Abnormal MUSE ECG Ventricular Rate 68 BPM MUSE ECG Atrial Rate 68 BPM MUSE ECG MN Interval 166 ms MUSE ECG QRSD Interval 124 ms MUSE ECG QT Interval 424 ms MUSE ECG QTC Interval 450 ms MUSE ECG P [place] 68 degrees MUSE ECG R [place] -64 degrees MUSE ECG T Wave [place] 59 degrees MUSE ECG Diagnosis Atrial-sensed ventricular-p aced rhythm MUSE ECG Diagnosis Abnormal ECG MUSE ECG Diagnosis MUSE ECG Diagnosis Confirmed by Lennox Partida ([id number]) on 02/09/2025 3:23:42 PM MUSE ECG 02/09/2025 11:1 6 AM EDT 02/09/2025 3:23 PM EDT us Paige SUAREZ ECG ORDERABLES Final Result MUSE ECG * XR Scoliosis Entire Spine 2 or [...] on C4, which may be slightly increased [id number], however may be due to differences in [...] on C4, which may be slightly increased [id number], however may be due to differences in standing versus supinepositioning. CRITICAL RESULT: No. COMMUNICATION: Per this written report. Drafted by Evelyne Barrett MD on 01/17/2025 1:06 PM Final report signed by Evelyne Barrett MD on 01/17/2025 1:10 PM us Delilah Nieves FOLDER TIER, DNP IMG XR PROCEDURES [place] l Result * Hepatitis C Antibody - ED (10/01/2024 3:39 AM EDT) Hepatitis C Antibody Negative Negative 10/01/2024 4:23 AM EDT [facility] Blood Venous blood specimen / Unknown Venipuncture / Unknown 10/01/2024 3:39 AM EDT 10/01/2024 3:40 AM EDT us Dariel Bruner MD LAB BLOOD ORDERABLES Final Resul t [facility] [address] [place] [address] from Last 3 Months or Most Recently Relevant to Health Maintenance Insurance N [id number] MEDICARE Advance Directives * Full Code (Latest Code Status on File) Date Activated Date Inactivated Comments 10/01/2024 3:07 AM 10/04/2024 6:56 PM Care Teams Mill Oiler Relationship Specialty Start Date End Date Wolfgang Cantu MD PCP - General 10/01/24
--- OUTSIDE RECORDS SUMMARY | 2025-03-27 09:42 | XMS_ITS | Encounter Summary ---
Author Organization [facility] Address [address] [place] [address] Care Team Providers Care Solids Control Technician Name Role Phone Wolfgang Cantu MD Primary Care Provider + Reason for Visit * Reason Comments Med Refill Encounter Details Date Type Department Care Team (Late st Contact Info) Description 03/21/2024 Refill [facility] [address] [place] [address] Wolfgang Cantu MD [address] [facility] [place] [address] Cervical arthritis; Degenerative disc disease, [...] or training? Not on file Preferred Language Tuvaluan 10/28/2023 PHQ-2 Answer Date Recorded Retired PHQ-9: [...] [facility] [address] [place] [address] Wolfgang Cantu MD [address] [place] [address] 03/08/2026 2:15 PM EDT Office Visit [facility] [address] [place] [address] Wolfgang Cantu MD [address] [place] [address] documented as of this encounter Visit Diagnoses Diagnosis Cervical arthritis Cervical spondylosis without myelopathy Degenerative disc disease, cervical documented in this encounter Additional Health Concerns Assessment Noted Time PHQ-2 Depression Total Score: 6 08/18/19 24 9:43 AM EST documented as of this encounter Care Teams Solids Control Technician Relationship Specialty Start Date End Date Wolfgang Cantu MD [address] [place] [address] PCP - General Family Medicine 11/13/21 documented as of this encounter
--- OUTSIDE RECORDS SUMMARY | 2025-03-27 09:42 | XMS_ITS | Encounter Summary ---
Author Organization [facility] Address [address] [place] [address] Care Team Providers Care Convertible Sofa Bedspring Tester Name Role Phone Wolfgang Cantu MD Primary Care Provider [phone] Reason for Visit * Reason Onset Date Comments HCN - Patient Message 01/17/2025 Encounter Details Date Type Department Care Team (Late st Contact Info) Description 01/17/2025 Telephone [place] [facility] [address] [place] [address] Delilah Nieves, CANDY ROLLING MACHINE OPERATOR, DNP [address] [place] [address] HCN - Patient Message Social [...] any time in the past 12 m [facility], were you homeless or living in [...] Behavior (Lifetime) No 02/15/2025 6:56 AM EDT [place], [place] son M, RN documented as of this encounter Miscellaneous Notes * Telephone Encounter - Jenna Merritt - 01/17/2025 12:52 PM EDT Patient Phone Message Reason for Call: Requesting pre op appts to be changed to 02/10 Request a call Best contact number and optimal time of day to reach caller: [phone] Note: Please do not reply to this message. Follow-up communication and further actions as a result of this message need to be communicated with the patient directly, if the patient is not active onMyChart. If the patient is active on MyChart, they will receive notification of the communication/outcome via [email or web address]. documented in this encounter Plan of Treatment [...] documented as of this encounter Care Teams Convertible Sofa Bedspring Tester Relationship Specialty Start Date End Date Wolfgang Cantu MD PCP - General 10/01/24 documented as of this encounter
--- OUTSIDE RECORDS SUMMARY | 2025-03-27 09:42 | XMS_ITS | Encounter Summary ---
Author Organization [facility] Address [address] [place] [address] Care Team Providers Care Shoe Stitcher Odd Name Role Phone Wolfgang Cantu MD Primary Care Provider [phone] Encounter Details Date Type Department Care Team (Latest Contact Info) Description 02/14/2025 Travel Social History Tobacco Use Types Packs/Day [...] any time in the past 12 m [facility], were you homeless or living in a long-term (including now)? No 10/03/2024 Utilities Answer Date [...] documented as of this encounter Care Teams Shoe Stitcher Odd Relationship Specialty Start Date End Date Wolfgang Cantu MD PCP - General 10/01/24 documented as of this encounter
--- OUTSIDE RECORDS SUMMARY | 2025-03-27 09:42 | XMS_ITS | Encounter Summary ---
Author Organization [facility] Address [address] [place] [address] Care Team Providers Care Kitchen Cleaner Name Role Phone Wolfgang Cantu MD Primary Care Provider Encounter Details Date Type Department Care Team (Latest Contact Info) Description 03/02/2025 Travel Social History Tobacco Use Types Packs/Day [...] any time in the past 12 m [facility], were you homeless or living [...] documented as of this encounter Care Teams Kitchen Cleaner Relationship Specialty Start Date End Date Wolfgang Cantu MD PCP - General 10/01/24 documented as of this encounter
--- OUTSIDE RECORDS SUMMARY | 2025-03-27 09:42 | XMS_ITS | Encounter Summary ---
Author Organization [facility] Address [address] [place] [id number] Care Team Providers Care Roving Winder Name Role Phone Wolfgang Cantu MD Primary Care Provider [phone] Encounter Details Date Type Department Care Team (Late st Contact Info) Description 02/15/2025 Telephone [place] [facility] [address] [place] [address] Blu Alvarez MD [address] [place] [address] Social History Tobacco Use Types Packs/Day Years [...] any time in the past 12 m [facility], were you homeless or living in a half-way (including now)? No 10/03/2024 Utilities Answer Date [...] [place] RN documented as of this encounter Miscellaneous Notes * Telephone Encounter - Barron Uribe RN - 02/15/2025 4:07 PM EDT Called and left pt detailed message regarding IV dilaudid. Explained that a pt would never be sent home with that type of medication as it would be utilized typically for post-op break-through pain while still hospitalized. Explained the [place] 7.5's that he was prescribed would be the appropriate medication to discharge home with following placement of his SCS. documented in this encounter Plan of Treatment [...] documented as of this encounter Care Teams Roving Winder Relationship Specialty Start Date End Date Wolfgang Cantu MD PCP - General 10/01/24 documented as of this encounter
--- OUTSIDE RECORDS SUMMARY | 2025-03-27 09:42 | XMS_ITS | Clinical Summary ---
[facility] Address [address] [place] [address] Care Team Providers Care Property Clerk Name Role Phone Wolfgang Cantu MD [...] Active ondansetron ODT (ZOFRAN-ODT) 8 MG disintegrating tabletIndications :Nausea Place 1 tablet on the tongue Every 8 (Eight) Hours As Needed for Nausea or Vomiting. 30 tablet 3 12/23/19 25 Active gabapentin (NEURONTIN) 300 MG capsuleIndication s:Other chronic pain,Osteoarthrit is of spine with radiculopathy, lumbar region Take 1 capsule by mouth 3 (Three) Times a Day. 90 capsule 3 02/03/20 25 Active methocarbamol (ROBAXIN) 500 MG tablet Take 1 tablet by mouth 4 (Four) Times a Day. 30 tablet 3 02/03/20 25 Active omeprazole (priLOSEC) 20 MG capsuleIndication s:Gastroesophagea l reflux disease without esophagitis Take 1 capsule by mouth Daily. 30 capsule 3 02/03/20 25 Active QUEtiapine (SEROquel) 25 MG tabletIndications :Mood disorder Take 1 tablet by mouth Every Night. 30 tablet 3 02/03/20 25 Active alfuzosin (UROXATRAL) 10 MG 24 hr tablet Take 1 tablet by mouth Daily. 30 tablet 3 02/03/20 25 Active HYDROcodone-aceta minophen ([facility]) 7.5-325 MG per tabletIndications :Cervical arthritis,Degener ative disc disease, cervical Take 1 tablet by mouth Every 8 (Eight) Hours As Needed for Severe Pain. 90 tablet 02/29/20 25 Active methylPREDNISolon e (MEDROL) 4 MG dose pack Follow schedule on package instructions 03/02/20 25 Active HYDROcodone-aceta minophen ([facility]) 7.5-325 MG per tabletIndications :Cervical arthritis,Degener ative disc disease, cervical Take 1 tablet by mouth Every 8 (Eight) Hours As Needed for Severe Pain. 90 tablet 02/03/20 25 025 Discontinu ed(Reorder ) doxycycline (ADOXA) 100 MG tablet Take 1 tablet by mouth. 03/02/20 25 025 Active Problems Problem Noted [...] disc disease, cervical 10/27/2022 Assessment & Plan (03/06/2025 2:43 PM EDT): Assessment & Plan (10/27/2022 12:06 PM EDT): Increase [facility] to 7.5 mg every 8 hours. Monitor for side effects of sedation and pruritus. Follow-up in 1 month reassess pain. Patient's ICD is MRI compatible Pacemaker 06/26/2022 Nonischemic cardiomyopathy 11/13/2021 Overview (11/13/2021): Sees [facility] Cardiology Dr. 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 Heart failure is stable. NYHA Class II. Continue current treatment regimen. Heart failure will be reassessed in 6 months. Assessment & Plan (11/13/2021 2:28 PM EDT): Congestive heart failure due to unknown. Heart failure is unchanged. NYHA Class II. Dietary sodium restriction. follow w/ Cardiology Heart failure will be reassessed in one week with Dr. Schuster. Osteoarthritis of spine with radiculopathy, lumb ar region 11/13/2021 Overview (11/13/2021): Sees Dr. Bojorquez for nonmedicine pain management Assessment & Plan (03/06/2025 2:43 PM EDT): Assessment & Plan (11/13/2021 2:33 PM EDT): Refill Herber. YASMIN reviewed. Cervical arthritis 11/13/2021 Assessment & Plan (03/06/2025 2:43 PM EDT): Malignant neoplasm of overlapping sites of bladd er 11/13/2021 Other chronic pain 11/13/2021 Assessment & Plan (03/06/2025 2:43 PM EDT): Encounters Date Type Department Care Team Description 03/06/2025 2:15 PM EDT Office Visit [facility] [address] [place] [address] Wolfgang Cantu MD Medicare annual wellness visit, subsequent (Primary Dx); Annual physical exam; Nonischemic cardiomyopathy; Mood disorder; Degenerative disc disease, cervical; Cervical arthritis; Osteoarthritis of spine with radiculopathy, lumbar region; Other chronic pain 03/06/2025 Travel 02/28/2025 Refill [facility] [address] [phone] Wolfgang Cantu MD Other chronic pain; Osteoarthritis of spine with radiculopathy, lumbar region; Cervical arthritis; Degenerative disc disease, cervical 02/01/2025 Refill [facility] [address] [place] [address] Wolfgang Cantu MD Other chronic pain; Osteoarthritis of spine with radiculopathy, lumbar region; Cervical arthritis; Degenerative disc disease, cervical; Gastroesophageal reflux disease without esophagitis; Mood disorder 01/24/2025 Results Follow-Up [facility] [address] [place] [address] Lily Bobby PA-C 01/17/2025 2:30 PM EDT Office Visit [facility] [address] [place] [address] Lily Bobby PA-C Tick bite of abdominal wall, initial encounter (Primary Dx) 01/17/2025 Travel 01/17/2025 Telephone [facility] [address] [place] [address] Wolfgang Cantu MD Med Management 01/06/2025 Refill [facility] [address] [place] [address] Wolfgang Cantu MD 01/03/2025 Telephone [facility] [address] [place] [address] Wolfgang Cantu MD Advice Only 01/03/2025 Refill [facility] [address] [place] [address] Wolfgang Cantu MD Cervical arthritis; Degenerative disc disease, cervical from [...] or training? Not on file Preferred Language [place] Citizen 10/28/2023 PHQ-2 Answer Date Recorded Patient Health [...] Mass Index 19.1 03/06/2025 2:12 PM EDT Plan of Treatment Upcoming Encounters Date Type Department Care Team (Late st Contact Info) Description 06/05/2025 11:45 AM EST Office Visit [facility] [address] [place] [address] Wolfgang Cantu MD [address] [place] [address] 03/08/2026 2:15 PM EDT Office Visit [facility] [address] [place] [phone] Wolfgang Cantu MD [address] [place] [address] Health Maintenance Due Date Last Done Comments COLOGUARD 2003 COLON CANCER SCREENING [address] COLONOGRAPHY 2003 FECAL OCCULT BLOOD TEST 2003 FIT Testing (1 year) 2003 AAA SCREEN ONCE 2023 INFLUENZA VACCINE 01/27/2025 06/30/2024, , 04/07/2022, Additional history exists COVID-19 Vaccine ( season) 2025 06/15/2023, 10/11/2021, 05/13/2021, Additional history exists LUNG CANCER SCREENING 09/04/2025 Postpo anni from 01/21/2008 (Patient Does Not Have Time) ANNUAL WELLNESS VISIT 03/06/2026 03/06/2025, 025 TDAP/TD VACCINES (2 - Td or Tdap) 03/11/2032 03/11/2022 COLONOSCOPY 11/02/2033 11/03/2023, 12/2023, 02/25/2023, Additional history exists COLORECTAL CANCER SCREENING 11/02/2033 ZOSTER VACCINE Completed 09/25/2020, 07/26/2020 Pneumococcal Vaccine 50+ Completed 06/30/2024 HEPATITIS C SCREENING Completed 10/01/2024 Medical Devices Implanted Type Area Timers Inspector Device Identifier Shelf Expiration Date Model / Serial / Lot Stimulator-10/27 Implanted:10/27 (Quantity not on file) Implant [employer] [facility] [id number] / [id number] / Pacemaker-12/09 Implanted:11/27 (Quantity not on file) Pacemaker [employer] [id number] / [id number] / Procedures Procedure Name Priority Date/Time Associated Diagnosis Comments SCANNED - LABS 02/06/2025 SCANNED - IMAGING 02/06/2025 SCANNED - IMAGING 02/06/2025 SCANNED - IMAGING 02/06/2025 SCANNED - IMAGING 02/06/2025 SCANNED - IMAGING 02/06/2025 SCANNED - IMAGING 02/06/2025 SCANNED - IMAGING 02/06/2025 SCANNED - IMAGING 02/06/2025 SCANNED - IMAGING 02/06/2025 RICKETTSIA SPECIES DNA, REAL TIME PCR Routine 01/17/2025 2:50 PM EDT Tick bite of abdominal wall, initial encounter LYME DISEASE TOTAL ANTIBODY WITH REFLEX TO IMMUNOASSAY Routine 01/17/2025 2:50 PM EDT Tick bite of abdominal wall, initial encounter COLONOSCOPY 11/03/2023 9:40 AM EDT from Last 3 Months or Most Recently Relevant to Health Maintenance Results * IMAGING SCANNED (02/06/2025) Only the most recent of9 resultswithin the time period is included. Anatomical Region Laterality Modality Radiographic Celina ging Wolfgang Cantu MD IMG DIAGNOSTIC IMAGING O RDERABLES Final Result * LABS SCANNED (02/06/2025) Wolfgang Cantu MD LAB BLOOD ORDERABLES Fin al Result * Rickettsia Species DNA, Real-Time PCR (01/17/2025 2:50 PM EDT) [facility] Rickettsia rickettsii DNA, RT Not Detected [facility] Comment: REFERENCE RANGE: NOT DETECTED This test was developed and its analytical performance characteristics have been determined by [facility]. It has not been cleared or approved by FDA. This assay has been validated pursuant to the CLIA regulations and is used for clinical purposes. Blood 01/17/2025 2:50 PM EDT 01/17/2025 Narrative [facility] (AMBULATORY) - 01/21/2025 12:09 PM EDT Performed at: - [facility] [address] [place], [place] [id number] Application Systems Architect: Michelle Key MD, Phone: [phone] Patient Fasting: N Lily Bobby PA-C LAB BLOOD ORDERABLES Final R esult [facility] (AMBULATORY) [address] [place] [address], [facility] [address] [place] [address], [place] [phone] * Lyme Disease Total Antibody With Reflex to Immunoassay (01/17/2025 2:50 PM EDT) [facility] Lyme Total Antibody EIA Negative Negative [facility] [...] 01/17/2025 2:50 PM EDT 01/17/2025 Narrative [facility] (AMBULATORY) - 01/21/2025 12:09 PM EDT Performed at: 02 - [facility] [id number] Application Systems Architect: Carlo Palacios PhD, Phone: [phone] Patient Fasting: N Lily Bobby PA-C LAB BLOOD ORDERABLES Final R esult [facility] (AMBULATORY) [address] [place] [address], [facility] [address] [place] [address], * Colonoscopy (11/03/2023 9:40 AM EDT) Eriberto Lombardi MD INTERFACE NEEDS Final Resu lt from Last 3 Months or Most Recently Relevant to Health Maintenance Insurance [employer] H[employer] Care Teams Property Clerk Relationship Specialty Start Date End Date Wolfgang Cantu MD [address] [facility] [place] [address] PCP - General Family Medicine 11/13/21
--- OUTSIDE RECORDS SUMMARY | 2025-03-27 09:43 | XMS_ITS | Encounter Summary ---
Author Organization [facility] Address [address] [place] [address] Care Team Providers Care Director Facilities Maintenance Name Role Phone Wolfgang Cantu MD Primary Care Provider [phone] Encounter Details Date Type Department Care Team (Late st Contact Info) Description 02/09/2025 Telephone [place] [facility] [address], [address] [place] [phone] Marbella Lockhart Social History Tobacco Use Types Packs/Day Years [...] encounter Miscellaneous Notes * Telephone Encounter - Marbella Lockhart - 02/13/2025 5:03 PM EDT Received Cardiac clearance. * Telephone Encounter - Marbella Lockhart - 02/13/2025 2:34 PM EDT I called and spoke with Cards office to follow up on patient's appt today. Was informed that he wascleared and they faxed over his clearance documentation this morning. * Telephone Encounter - Marbella Lockhart - 02/09/2025 2:39 PM EDT Patient has surgery on 02/15/[address] Girard, and we are waiting to receive Cardiac clearance from Dr. Jalen Garcia [facility]. I spoke with Candice in their office today. She has him scheduled to be seen Thursday at 1:00pm, and they will send his clearance documentation after. I will follow up. documented in this encounter Plan of Treatment [...] documented as of this encounter Care Teams Director Facilities Maintenance Relationship Specialty Start Date End Date Wolfgang Cantu MD PCP - General 10/01/24 documented as of this encounter
--- OUTSIDE RECORDS SUMMARY | 2025-03-27 09:43 | XMS_ITS | Encounter Summary ---
Author Organization [facility] Address [address] [place] [address] Care Team Providers Care Supervisor Malt House Name Role Phone Wolfgang Cantu MD Primary Care Provider [phone] Encounter Details Date Type Department Care Team (Late st Contact Info) Description 02/07/2025 Telephone [place] [facility] [address], [address] [place] [address] Garth Salmon MD [address] [place] [address] Social History Tobacco Use Types [...] any time in the past [address] [facility], were you homeless or living [...] documented as of this encounter Care Teams Supervisor Malt House Relationship Specialty Start Date End Date Wolfgang Cantu MD PCP - General 10/01/24 documented as of this encounter
--- OUTSIDE RECORDS SUMMARY | 2025-03-27 09:43 | XMS_ITS | Encounter Summary ---
Author Organization [facility] Address [address] [place] [address] Care Team Providers Care Service Bar Cashier Name Role Phone Wolfgang Cantu MD Primary Care Provider [phone] Encounter Details Date Type Department Care Team (Latest Contact Info) Description 02/09/2025 Travel Social History Tobacco Use Types Packs/Day [...] any time in the past 12 m [facility], were you homeless or living [...] documented as of this encounter Care Teams Service Bar Cashier Relationship Specialty Start Date End Date Wolfgang Cantu MD PCP - General 10/01/24 documented as of this encounter
--- OUTSIDE RECORDS SUMMARY | 2025-03-27 09:43 | XMS_ITS | Encounter Summary ---
[facility] Address [address] [place] [address] Care Team Providers Care Mini Bar Attendant Name Role Phone Wolfgang Cantu MD Primary Care Provider + Encounter Details Date Type Department Care Team (Late st Contact Info) Description 02/28/2025 Refill [facility] [address] [facility] [place] [address] Wolfgang Cantu MD [address] [facility] [place] [address] Other chronic pain; Osteoarthritis of spine with radiculopathy, lumbar region; Cervical arthritis; Degenerative disc disease, cervical Social [...] or training? Not on file Preferred Language Bulgarian 10/28/2023 PHQ-2 Answer Date Recorded Patient Health Questionnaire-9 Score 24 06/30/2024 Sex and Gender Information Value Date Recorded Sex Assigned at Not on file Legal Sex Male 1:35 PM EDT Gender Identity Not on file Sexual Orientation Not on file documented as of this encounter Miscellaneous Notes * Telephone Encounter - Rosa Maria Bonilla RegSched Rep - 02/28/2025 9:57 AM EDT Caller: Negro Miller Relationship: Self Best call back number: [phone] Requested Prescriptions: Requested Prescriptions Pending Prescriptions Disp Refills HYDROcodone-acetaminophen ([facility]) 7.5-325 MG per tablet 90 tablet 0 Sig: Take 1 tablet by mouth Every 8 (Eight) Hours As Needed for Severe Pain. Pharmacy where request should be sent: [facility] [place] [address] [address] - [phone] - [phone] FX Last office visit with prescribing clinician: [...] a voicemail: [] Yes [x] No Neto Villavicencio 02/28/25 09:59 EDT documented in this encounter Plan of Treatment Upcoming Encounters Date Type Department Care Team (Late st Contact Info) Description 06/05/2025 11:45 AM EST Office Visit [facility] [address] [place] [address] Wolfgang Cantu MD [address] [place] [address] 03/08/2026 2:15 PM EDT Office Visit [facility] [address] [place] [address] Wolfgang Cantu MD [address] [place] [address] documented as of this encounter Visit Diagnoses Diagnosis Other chronic pain Osteoarthritis of spine with radiculopathy, lumbar region Cervical arthritis Cervical spondylosis without myelopathy Degenerative disc disease, cervical documented in this encounter Additional Health Concerns Assessment Noted Time PHQ-2 Depression Total Score: 6 08/18/19 24 9:43 AM EST documented as of this encounter Care Teams Mini Bar Attendant Relationship Specialty Start Date End Date Wolfgang Cantu MD [address] [place] [address] PCP - General Family Medicine 11/13/21 documented as of this encounter
--- OUTSIDE RECORDS SUMMARY | 2025-03-27 09:43 | XMS_ITS | Encounter Summary ---
Author Organization [facility] Address [address] [place] [address] Care Team Providers Care Lead Systems Analyst Name Role Phone Wolfgang Cantu MD Primary Care Provider [phone] Encounter Details Date Type Department Care Team (Late st Contact Info) Description 02/16/2025 Refill [place] [facility] [address], [address] [place] [address] Yolanda Hobbs M, CANOPY INSPECTOR [address] [place] [address] S/P placement of nerve stimulator (Primary Dx) Social History Tobacco Use Types [...] any time in the past 12 m [facility], were you homeless or living in a alf (including now)? No 10/03/2024 Utilities Answer Date [...] encounter Miscellaneous Notes * Telephone Encounter - Yolanda Hobbs APRN - 02/16/2025 11:55 AM EDT Post op pain mediation. documented in this encounter Plan of Treatment Not on file documented as of this encounter Visit Diagnoses Diagnosis S/P placement of nerve stimulator- Primary documented in this encounter Additional Health Concerns Assessment Noted Time A fall risk assessment has been complete d for the patient 01/17/2025 11:24 AM EDT A Body Mass Index follow-up plan has been documented for the patient 01/19/2025 2:15 PM EDT documented as of this encounter Care Teams Lead Systems Analyst Relationship Specialty Start Date End Date Wolfgang Cantu MD PCP - General 10/01/24 documented as of this encounter
--- OUTSIDE RECORDS SUMMARY | 2025-03-27 09:43 | XMS_ITS | Encounter Summary ---
[facility] Address [address] [place] [address] Care Team Providers Care Printed Circuit Board Drafter Name Role Phone Wolfgang Cantu MD Primary Care Provider + Encounter Details Date Type Department Care Team (Latest Contact Info) Description 03/06/2025 Travel Social History Tobacco Use Types Packs/Day [...] no 11/03/2023 Feels Threatened by Someone no 0 12/2023 Does Anyone Try to Keep You From Having Contact with Others or Doing Things Outside Your Home? no 11/03/2023 Physical Signs of Abuse Present no 11/03/2023 Disabilities Answer Date Recorded Difficulty Concentrating, Remembering or Making Decisions yes 11/03/2023 Difficulty Managing Errands Independently no 11/03/2023 Education Answer Date Recorded Help with school or training? Not on file Preferred Language Argentine 10/28/2023 PHQ-2 Answer Date Recorded Patient Health Questionnaire-9 Score 16 03/06/2025 Sex and Gender Information Value Date Recorded Sex Assigned at Not on file Legal Sex Male 1:35 PM EDT Gender Identity Not on file Sexual Orientation Not on file documented as of this encounter Functional Status documented as of this encounter Plan of Treatment Upcoming Encounters Date Type Department Care Team (Late st Contact Info) Description 06/05/2025 11:45 AM EST Office Visit [facility] [address] [place] [phone] Wolfgang Cantu MD [address] [place] [address] 03/08/2026 2:15 PM EDT Office Visit [facility] [address] [place] [phone] Wolfgang Cantu MD [address] [place] [address] documented as of this encounter Visit Diagnoses Not on filedocumented in this encounter Additional Health Concerns Assessment Noted Time PHQ-2 Depression Total Score: 6 08/18/19 24 9:43 AM EST documented as of this encounter Care Teams Printed Circuit Board Drafter Relationship Specialty Start Date End Date Wolfgang Cantu MD [address] [place] [address] PCP - General Family Medicine 11/13/21 documented as of this encounter
--- NOTE | 2025-03-27 10:00 | CA_ITS ---
APPROVED REPORT EXAM: Comprehensive 2D, Doppler, and color-flow Echocardiogram Well Servicing Rig Operator: Isabel Maya RVT Ht: 5 ft 9 in Wt: 127lbs BSA: 1.70 BP: 149/91 mmHg Indications: HFrEF,PRE-OP 2D Dimensions LA Volume 19.50 mL LA Volume Index 11.47 mL/m2 (M/F) 16-34 M-Mode Dimensions RVDd 2.71 cm (0.9-2.6) LA Diam 2.47 cm (1.9-4.0) LVDd 4.31 cm (3.5-5.7) LVDs 3.64 cm (3.5-5.7) IVSd 0.87 cm (0.6-1.1) PWd 0.97 cm (0.6-1.1) EF (Teich) 33.10% FS 15.50% EDV (Teich) 83.50 mL ESV (Teich) 55.90 mL LV Diastology E Decel Time 150 (160-240 msec) E/A Ratio 0.7 Aortic Valve YANDEL Index 1.11 cm2/m2 AoV Peak Adolfo. 119.0 (50-130 cm/s) AO Peak GR. 5.60 mmHg AO Mean GR. 3.30 (<5 mmHg) AO VTI 21.8 (18-25 cm) YANDEL (VTI) 1.94 (2.5-4.5 cm2) Mitral Valve MV E Max Adolfo. 60.0 (40-130 cm/s) MV A Velocity 82.0 (40-130 cm/s) E/A Ratio 0.74 MV PHT 44.0 ms Pulmonary Valve PV Peak Velocity 116.0 (50-150 cm/s) Tricuspid Valve TR P. Velocity 217.00 cm/s RAP Estimate 8.00 mmHg RVSP 26.80 mmHg Left Ventricle The left ventricle is normal size. Left ventricular systolic function is mildly reduced. There is increased left ventricular wall thickness. There is moderate hypokinesis of the septal and inferior septal LV velazquez. Grade 1 diastolic dysfunction is present. LVEF is 40-45% Right Ventricle The right ventricle is mildly dilated. The right ventricular systolic function is normal. There is a device lead in the right ventricle. Atria The left atrium size is normal. The right atrium size is normal. There is no color Doppler evidence of interatrial shunt. Aortic Valve The aortic valve is mildly thickened. There is no hemodynamically significant aortic valvular stenosis. Trace aortic regurgitation is present. Mitral Valve The mitral valve is normal in structure. No evidence of mitral valve stenosis. Trace mitral regurgitation is present. Tricuspid Valve The tricuspid valve leaflets are thin and pliable. Trace tricuspid regurgitation. There is insufficient TR jet to estimate RVSP. Pulmonic Valve The pulmonary valve is grossly normal in structure. Trace pulmonic valve regurgitation is present. Great Vessels The aortic root is normal in size. IVC is normal in size and collapses >50% with inspiration. Pericardium There is no pericardial effusion. Other Information Study Quality: Fair Conclusion Mildly reduced LV systolic function (LVEF 40-45%). Moderate hypokinesis of the septal and inferior septal LV velazquez. Mild RV dilation. No significant valvular stenosis or regurgitation. Electronically signed by : Frances Marmolejo MD 03/29/2025 12:41:05
--- OUTSIDE RECORDS SUMMARY | 2025-03-27 10:41 | XMS_ITS | CCD ---
Author Organization Unknown Care Team Providers Care Teletype Adjuster Name Role Phone Unavailable Primary Care Provider Unavailabl e Unavailable Chronic Care Management Unavaila ble Summary Purpose DataExchange Insurance Providers Payer name Policy type / Coverage type Covered green party ID Effective Begin Date Effective End Date [facility] [id number] Unknown Unknown Family History Family History data not found Medication Administered No Medication Administered data Reason For Visit No Reason For Visit data Medical Equipment No Medical Equipment data Advance Directives No Advance Directive data
== END 2025-03-27 23:59 | disposition home or self-care (01) ==
LOC: RT 09:40
PROVIDERS: PCP Family Medicine; Visit Provider Nurse Practitioner
DX: Z01.810 Encounter for preprocedural cardiovascular examination (principal); I50.20 Unspecified systolic (congestive) heart failure; Z95.0 Presence of cardiac pacemaker; I48.0 Paroxysmal atrial fibrillation; R42 Dizziness and giddiness; I65.29 Occlusion and stenosis of unspecified carotid artery; R93.1 Abnormal findings on diagnostic imaging of heart and coronary circulation
CPT/HCPCS: 93306